=== PATIENT | female | born 1950 | race Caucasian/White ===

== ENCOUNTER 2024-05-16 18:57 | Emergency (ER) | payer BC, OTHER ==
[~2024-05-16] VITALS: Ht 162.6 cm; Wt 75.9 kg
[~2024-05-16 18:57] MED LIST: ADAL40KI2 SC; ALPR0.25 PO; BUSP15TA60 PO; CARI-277 PO; CLON0.5T3 PO; CYCL5TAB89 PO; DICL1.3P TOP; DULO60CA41 PO; ESOM40CA39 PO; FOLI-119 PO; FUR40T PO; HYDR-3547 PO; HYDR-4833 PO; HYDR50TA69 PO; IBUP-1454 PO; LEVO88TA4 PO; LIOT5TAB9 OR; LUBI8CAP4 PO; METH2.5T PO; OLAN5TAB2 OR; OMEP20CA74 PO; PRE5T PO; ROSU20TA14 PO; TRAZ50T PO; TRIA75TA55 PO; ZIPR80CA43 PO; ZOLP10TA6 PO
[2024-05-16 19:30] VITALS: PULSE 82; RESP 16; O2SAT 95
[2024-05-16] MEDS: SODIUM CHLORIDE 0.9% 1,000 ML IV ONE (19:30)
[2024-05-16 19:33] LABS: Basophils # (auto) 0 10 ^3/uL (0-0.2); Basophils % (auto) 0.4 % (0.0-2.0); Eosinophils # (auto) 0 10 ^3/uL (0-0.8); Lymphocytes # (auto) 0.8 10 ^3/uL (0.4-5.4); Monocytes # (auto) 0.4 10 ^3/uL (0-1.3); White Blood Cell 9.3 10^3/uL (4.4-10.8)
[2024-05-16 19:35] LABS: Eosinophils % (auto) 0.2 % (0.0-7.0); Hematocrit 32.5 % (36.0-46.0); Hemoglobin 10.5 g/dL (12.2-16.2); Lymphocytes % (auto) 8.8 % (10.0-50.0); Mean Corpuscular Hemoglobin 27.9 pg (28.0-32.0); Mean Corpuscular Hgb Conc. 32.3 g/dL (32.0-36.0); Mean Corpuscular Volume 86.5 fL (80.0-100.0); Monocytes % (auto) 4.6 % (0.0-12.0); Nucleated Red Blood Cells % 0.1 %; Red Blood Cells 3.76 10^6/uL (4.0-5.20); Red Cell Distribution Width 18.7 % (11.8-14.3)
[2024-05-16 19:49] LABS: Chloride 102 mmol/L (98-107); Potassium 3.1 mmol/L (3.5-5.1); Sodium 136 mmol/L (136-145)
[2024-05-16 19:50] LABS: Anion Gap 7 (5-15); Calcium 9.1 mg/dL (8.7-10.4); Carbon Dioxide 27 mmol/L (20-30)
[2024-05-16 19:55] LABS: BUN/Creatinine Ratio 18.1 (10.0-20.0); Blood Urea Nitrogen 15 mg/dL (9-23); Glucose 111 mg/dL (74-106)
[2024-05-16] MEDS: ONDANSETRON HCL 4 MG/2 ML VIAL IV ONE (20:09)
[2024-05-16] MEDS: MORPHINE SULFATE 4 MG/ML SYR/VIAL IV ONE (20:10)
[2024-05-16 22:52] LABS: Urine Bacteria None Seen /hpf (None Seen)
[2024-05-16 23:00] LABS: Urine Blood Negative /uL (Negative); Urine Clarity Clear (Clear); Urine Color Yellow (Yellow); Urine Hyaline Cast FEW /lpf (0 - 2); Urine Protein, UAD 1+ (Negative); Urine Specific Gravity 1.024 (1.001-1.035); Urine Urobilinogen Normal (Negative); Urine WBC 9 /hpf (0 - 5); Urine pH 6.5 (5.0-9.0)
[2024-05-16 23:19] LABS: Amphetamine Screen, Urine Neg (NEGATIVE); Barbiturate Scree,Urine Neg (NEGATIVE); Benzodiazephine Screen, Urine Neg (NEGATIVE); Cannabinoid Screen, Urine Neg (NEGATIVE); Cocaine Screen, Urine Neg (NEGATIVE); Opiate Scree,Urine Pos (NEGATIVE); Phencyclidine Screen, Urine Neg (NEGATIVE)
[2024-05-17] MEDS: MORPHINE SULFATE 4 MG/ML SYR/VIAL IV ONE (00:54)
[2024-05-17 01:28] VITALS: BP 139/58; PULSE 87; RESP 24; TEMP 98.5; O2SAT 96
== END 2024-05-17 02:01 | disposition short-term general hospital (02) ==
LOC: EDUNIT# 18:57 → ER 18:57 → EDBD 18:57 → ER 05-17 02:01
DX: M54.50 Low back pain, unspecified (principal); R53.1 Weakness; R26.2 Difficulty in walking, not elsewhere classified; I10 Essential (primary) hypertension; F41.9 Anxiety disorder, unspecified; F32.9 Major depressive disorder, single episode, unspecified; Z98.890 Other specified postprocedural states; Z88.0 Allergy status to penicillin; Z88.8 Allergy status to other drugs, medicaments and biological substances; Z79.899 Other long term (current) drug therapy
CPT/HCPCS: 36415; 72128; 72131; 80048; 80307; 81001; 85025; 96361; 96374; 96375; 96376; 99285; J2270; J2405; J7030

== ENCOUNTER 2024-09-22 22:32 | Inpatient (IN) | payer MEDICARE, MEDICAID ==
[~2024-09-22] VITALS: Ht 162.6 cm; Wt 83.3 kg
[2024-09-22 23:08] VITALS: PULSE 75; RESP 15; O2SAT 98
--- NOTE | 2024-09-22 23:26 | ED.PDOC ---
Altered Mental Status HPI Comments 73-year-old female presents to ED via [facility] from [facility] with a chief complaint of altered mental status. The patient is on multiple opioids, suspected that family is giving her narcotics. Patient has chronic back pain. Unable to obtain further information at this time due to altered ment al status. Brief report was given from [employer]. 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, Medications, Allergies Allergies: Coded Allergies: Aspirin (Verified Allergy, Unknown, 07/26/15) Codeine (Unverified Allergy, Unknown, 07/26/15) Penicillins (Verified Allergy, Unknown, 07/26/15) Home Meds Reported Medications Zolpidem Tartrate (Zolpidem Tartrate) 10 Mg Tab, 1 TAB PO HS, #30 TAB 2 Refills 07/26/15 Alprazolam (Xanax) 0.25 Mg Tb, 1 TAB PO DAILY, #30 TAB 07/26/15 Carisoprodol (Soma) 350 Mg Tab, 350 MG PO BID, TAB 07/26/15 Hydrocodone-Acetaminophen ([place] 5/325MG) 1 Tab Tb, 1 TAB PO TIDP PRN for MODE RATE PAIN, #90 TAB 07/26/15 Esomeprazole Magnesium Trihydr (Nexium) 40 Mg Cap, 1 CAP PO DAILY, #30 CAP 5 R efills 07/26/15 Levothyroxine Sodium (Levothyroxine Sodium) 88 Mcg Tab, 1 TAB PO QAM, #30 TAB 5 Refills 07/26/15 Adalimumab (Humira Pen) 40MG/0.8 Kit, 1 0.8 SC EOW, KIT 07/26/15 Ziprasidone Hydrochloride (Geodon) 80 Mg Cap, 1 CAP PO BID, #60 CAP 1 Refill 07/26/15 Cyclobenzaprine Hcl (Flexeril) 5 Mg Tab, 1 TAB PO TID, #90 TAB 07/26/15 Diclofenac Epolamine (Flector) 1.3 % Dis, 1 PATCH TOP BID, #60 PATCH 2 Refills 07/26/15 Clonazepam (KlonoPIN TABLET) 0.5 Mg Tb, 1 TAB PO BID, #60 TAB 1 Refill 07/26/15 Buspirone Hcl (Buspirone Hcl) 15 Mg Tab, 30 MG PO BID, TAB 07/26/15 Lubiprostone (Amitiza) 8 Mcg Cap, 1 CAP PO DAILY, #60 CAP 5 Refills 07/26/15 Trazodone Hcl (Desyrel) 50 Mg Tb, 100 MG PO TID 03/27/14 Prednisone (PREDNISONE) 5 Mg Tb, 5 MG PO DAILY 03/27/14 Furosemide (LASIX TABLET) 40 Mg Tb, 20 MG PO DAILY 03/27/14 Duloxetine Hcl (Cymbalta) 60 Mg Cap, 60 MG PO DAILY, CAP 03/27/14 Omeprazole (PRILOSEC) 20 Mg Cap, 40 MG PO DAILY, CAP 03/27/14 Methotrexate (Methotrexate) 2.5 Mg Tab, 2.5 MG PO, TAB TAKE 6 TABLETS EVERY WEEK 03/27/14 Rosuvastatin Calcium (Crestor) 20 Mg Tab, 20 MG PO HS, TAB 03/27/14 Folic Acid (Folic Acid) 1 Mg Tab, 1 MG PO DAILY, TAB 03/27/14 Hydroxyzine Hcl (Hydroxyzine Hcl) 50 Mg Tab, 25 MG PO TID, TAB 03/27/14 Triamterene & Hydrochlorothiaz (Maxzide) 1 Tab Tab, 1 TAB PO DAILY, TAB 37.5 - 25 03/27/14 Hydrocodone-Acetaminophen (VICODIN) 1 Tab Tab, 25 MG PO TID PRN for SEVERE PAIN, TAB 5/300MG TABLET 03/27/14 Ibuprofen (Ibuprofen) 600 Mg Tab, 600 MG PO TID, TAB 03/27/14 Olanzapine (Zyprexa) 5 Mg Tab, 15 MG OR HS 09/20/11 Liothyronine Sodium (Cytomel) 5 Mcg Tab, 5 MCG OR BID 09/20/11 Information Source: Emergency Med Personnel Mode of Arrival: EMS Severity: Unresponsive Timing: Days Duration: Since onset Prehospital treatment: None Quality: Decreased Alertness, Change in Behavior, Confusion Recent: Medication/Drug Abuse Past Medical History PAST MEDICAL HISTORY: Anxiety, Depression, HTN Surgical History: Denies all surgeries CHAIRMAN EMERITUS History: No Pertinent CHAIRMAN EMERITUS History Family History Family History: Reviewed,noncontributory to illness Social History Smoker: Non-Smoker Alcohol: Denies ETOH Use Drugs: Denies Drug Use Lives In: Home Constitutional: denies: chills, diaphoresis, fatigue, fever, malaise, sweats, weakness, others EENTM: denies: blurred vision, double vision, ear bleeding, ear discharge, ear drainage, ear pain, ear ringing, eye pain, eye redness, hearing loss, mouth pain, mouth swelling, nasal discharge, nose bleeding, nose congestion, nose pain, photophobia, tearing, throat pain, throat swelling, voice changes, others Respiratory: denies: cough, hemoptysis, orthopnea, SOB at rest, shortness of breath, SOB with excertion, stridor, wheezing, others Cardiovascular: denies: chest pain, dizzy spells, diaphoresis, Dyspnea on exertion, edema, irregular heart beat, left arm pain, lightheadedness, palpitations, PND, syncope, others Gastrointestinal: denies: abdomen distended, abdominal pain, blood streaked bowels, constipated, diarrhea, dysphagia, difficulty swallowing, hematemesis, melena, nausea, poor appetite, poor fluid intake, rectal bleeding, rectal pain, vomiting, others Genitourinary: denies: abnormal vagina bleeding, burning, dyspareunia, dysuria, flank pain, frequency, hematuria, incontinence, pain, , vagina discharge, urgency, others Neurological: denies: dizziness, fainting, headache, left sided numbness, left sided weakness, numbness, paresthesia, pre-existing deficit, right sided numbness, right sided weakness, seizure, speech problems, tingling, tremors, weakness, others Musculoskeletal: denies: back pain, gout, joint pain, joint swelling, muscle pain, muscle stiffness, neck pain, others Integumetry: denies: bruises, change in color, change in hair/nails, dryness, laceration, lesions, lumps, rash, wounds, others Allergic/Immunocompromised: denies: Difficulty Healing, Frequent Infections, Hives, Itching, others Hematologic/Lymphatic: denies: anemia, blood clots, easy bleeding, easy bruising, swollen glands, others Endocrine: denies: excessive hunger, excessive sweating, excessive thirst, excessive urination, flushing, intolerance to cold, intolerance to heat, unexplained weight gain, unexplained weight loss, others Psychiatric: denies: anxiety, bipolar disorder, depression, hopeless, panic disorder, schizophrenia, sleepless, suicidal, others Unable to Obtain due to: Altered Mental Status All Other Systems: Reviewed and Negative Physical Exam General Appearance: Mild Distress, Normal HEENT: Normal ENT Inspection, Pharynx Normal, TMs Normal Neck: Full Range of Motion, Non-Tender, Normal, Normal Inspection Respiratory: Chest Non-Tender, Lungs Clear, No Accessory Muscle Use, No Respiratory Distress, Normal Breath Sounds Cardiovascular: No Edema, No JVD, No Murmur, No Gallop, Normal Peripheral Pulses, Regular Rate/Rhythm Breast Exam: Deferred Gastrointestinal: No Organomegaly, Non Tender, No Pulsatile Mass, Normal Bowel Sounds, Soft Genitalia: Deferred Pelvic: Deferred Rectal: Deferred Extremities: No calf tenderness, Normal capillary refill, Normal inspection, Normal range of motion, Non-tender, No pedal edema Musculoskeletal : Apperance: Normal Neurologic: Alert, squad boss II-XII nml as Tested, No Motor Deficits, Normal Affect, Normal Mood, No Sensory Deficits Cerebellar Function: Normal Reflexes: Normal Skin: Dry, Normal Color, Warm Lymphatic: No Adenopathy Was a procedure done? Was a procedure done?: No Differential Diagnosis (ALOC) Differential Diagnosis: Dehydration, Hypoglycemia, Encephalopathy, Seizure, Closed Head Injury, CVA, Mass Lesion, Drug Overdose X-Ray, Labs, Meds, VS Vital Signs Date Time Temp Pulse Resp B/P (MAP) Pulse Ox O2 Delivery O2 Flow Rate FiO2 09/23/24 00:30 61 16 97/49 (65) 100 09/23/24 00:00 75 23 87/41 (56) 100 09/22/24 23:51 69 09/22/24 23:45 74 24 98/33 (54) 100 09/22/24 23:30 74 20 90/42 (58) 100 09/22/24 23:08 98.7 75 15 95/43 (60) 98 98.7 09/22/24 23:08 75 15 98 Room Air* 0 21 09/22/24 22:56 97.1 90 18 99/58 (72) 97 09/22/24 22:52 84 Lab Test 09/23/24 00:48 09/23/24 00:32 Range/Units White Blood Count 6.8 4.4-10.8 10^3/uL Red Blood Count 3.91 L 4.0-5.20 10^6/uL Hemoglobin 11.0 L 12.2-16.2 g/dL Hematocrit 35.1 L 36.0-46.0 % Mean Corpuscular Volume 89.9 80.0-100.0 fL Mean Corpuscular Hemoglobin 28.1 28.0-32.0 pg Mean Corpuscular Hemoglobin Concent 31.2 L 32.0-36.0 g/dL Red Cell Distribution Width 17.7 H 11.8-14.3 % Platelet Count 336 140-450 10^3/uL Mean Platelet Volume 8.4 6.9-10.8 fL Neutrophils (%) (Auto) 69.4 37.0-80.0 % Lymphocytes (%) (Auto) 22.9 10.0-50.0 % Monocytes (%) (Auto) 6.2 0.0-12.0 % Eosinophils (%) (Auto) 1.1 0.0-7.0 % Basophils (%) (Auto) 0.4 0.0-2.0 % Neutrophils # (Auto) 4.7 1.6-8.6 10 ^3/uL Lymphocytes # (Auto) 1.6 0.4-5.4 10 ^3/uL Monocytes # (Auto) 0.4 0-1.3 10 ^3/uL Eosinophils # (Auto) 0.1 0-0.8 10 ^3/uL Basophils # (Auto) 0 0-0.2 10 ^3/uL Nucleated Red Blood Cells 0.1 % Prothrombin Time Pending Prothrombin Time INR Pending Activated Partial Thromboplast Time Pending Sodium Level 135 L 136-145 mmol/L Potassium Level 3.4 L 3.5-5.1 mmol/L Chloride Level 97 L 98-107 mmol/L Carbon Dioxide Level 30 20-31 mmol/L Anion Gap 8 5-15 Blood Urea Nitrogen Pending Creatinine 0.51 L 0.550-1.02 mg/dL Glomerular Filtration Rate Calc 98 >90 mL/min BUN/Creatinine Ratio Pending Serum Glucose 102 74-106 mg/dL Lactic Acid Level 1.3 0.4-2.0 mmol/L Calcium Level 9.5 8.7-10.4 mg/dL Total Bilirubin 0.2 0.2-1.0 mg/dL Aspartate Amino Transferase (AST) 19 13-40 U/L Alanine Aminotransferase (ALT) < 9 7-40 U/L Alkaline Phosphatase 75 46-116 U/L Troponin I High Sensitivity 2673 *H </=34 ng/L Total Protein 6.3 5.7-8.2 g/dL Albumin 3.3 3.2-4.8 g/dL Plasma/Serum Blood Alcohol Pending POC Glucose 93 70-106 mg/dl Current Medications Medications (Trade) Dose Ordered Sig/Lydia Route Start Time Stop Time Status Last Admin Naloxone HCl (Narcan) 0.4 mg ONCE ONCE IV 09/22/24 23:30 09/22/24 23:31 DC 09/22/24 23:55 Sodium Chloride 1,000 ml @ 150 mls/hr Q6H40M ONCE IV 09/22/24 23:30 09/23/24 06:09 09/22/24 23:55 Ceftriaxone Sodium 50 ml @ 100 mls/hr ONCE ONCE IV 09/22/24 23:30 09/22/24 23:59 DC 09/22/24 23:55 Sodium Chloride 1,000 ml @ 1,000 mls/hr Q1H ONCE IV 09/23/24 01:15 09/23/24 02:14 09/23/24 01:18 PATIENT: MARJORIE VERGARAACCT: [id number]: [id number] : 1950 LOC: ER ROOM / BED: / AGE / SEX: 73 / F ADM STATUS: REG ER SERVICE 24 ORDERING PHYSICIAN: ZECHARIAH MAI MD PROCEDURE(s): HWOCT - HEAD WITHOUT CONTRAST REASON: aloc ORDER NUMBER(s): [id number], ACCESSION NUMBER(s): [id number] CT HEAD WITHOUT CONTRAST INDICATION: aloc EXAM DATE: 09/23/2024 12:07 AM COMPARISON: CT LS SPINE WO CONTRAST on DOS: 05/16/24 RADIATION DOSE: CTDIvol: 54.17 mGy, DLP: 976.85 mGy*cm PROCEDURE: CT scans of the head were obtained from the vertex to the skull base. Sagittal and coronal reconstructions were provided. All CT scans at this medical facility are performed using dose modulation techniques as appropriate to a performed exam including the following: Automated exposure control was utilized; adjustment of the MA and/or KV according to patient size; and use of iterative reconstruction technique. FINDINGS: There is sulcal and ventricular prominence. The brainshows normal morphology and cramer-white matter differentiation, without intracranial hemorrhage, extra-axial fluid collection, mass effect or acute large vessel infarct. The ventricles are normal in size. The basal cisterns are patent. The skull and visible facial bones are intact. The paranasal sinuses, mastoid air cells and middle ear cavities are well-aerated. Left parietal bone outer table well demarcated sclerotic lesion measuring 4 cm. IMPRESSION: No acute intracranial abnormality. Left parietal bone outer table well demarcated sclerotic lesion measuring 4 cm. This is most likely benign but can be further evaluated nonemergent MRI. ATED BY: ROSELYN ZAYAS DO DICTATED DATE/TIME: 09/23/2428 SIGNED BY: ROSELYN ZAYAS DO SIGNED DATE/TIME: 09/23/2428 PATIENT: MARJORIE VERGARAACCT: [id number] UNIT: [id number] : 1950 LOC: ER ROOM / BED: / AGE / SEX: 73 / F ADM STATUS: REG ER SERVICE 24 ORDERING PHYSICIAN: ZECHARIAH MAI MD PROCEDURE(s): CXRP - CHEST PORTABLE REASON: aloc ORDER NUMBER(s): [id number], ACCESSION NUMBER(s): [id number] CHEST RADIOGRAPH Indication: aloc Technique: Single frontal view of the chest was obtained Comparison: None Findings/ IMPRESSION: No active cardiopulmonary disease. Partially visualized thoracolumbar fixation hardware. Patient was given Narcan and was oriented x4. DICTATED BY: ROSELYN ZAYAS DO DICTATED DATE/TIME: 09/23/2423 SIGNED BY: ROSELYN ZAYAS DO SIGNED DATE/TIME: 09/23/2423 Hemoglobin is 11. Chemistries within normal limits. First troponin 2673. The patient was placed on a heparin drip. She was recommended by Dr. walker. she was to reports to [facility] for cardiac catheterization. She was also not altered upon arrival. She was given Narcan in was totally a week afterwards. The patient will be admitted to the hospitalist for further evaluation and care. Time of 1ST Reevaluation: 23:53 Reevaluation 1ST: Unchanged Patient Education/Counseling: Diagnosis, Treatment, Prognosis Family Education/Counseling: No Family Present Departure 1 Departure Time of Disposition: 01:48 Impression: Primary Impression: Altered mental status Qualified Codes: R41.82 - Altered mental status, unspecified Additional Impressions: Metabolic encephalopathy Substance abuse Non-STEMI (non-ST elevated myocardial infarction) Disposition: 09 ADMITTED INPATIENT Admit to: Tele Condition: Guarded Critical Care Note Critical Care Time?: Yes (45 min-critical care time only) Stability Stability form required: No I personally scribed for ZECHARIAH MAI MD ([email or web address]) on 09/22/24 at 23:26. Electronically submitted by Isreal Forte ([email or web address]). I personally scribed for ZECHARIAH MAI MD ([email or web address]) on 09/23/24 at 01:21. Electronically submitted by Isreal Forte ([email or web address]). ZECHARIAH MAI MD Sep 22, 2024 23:26
[2024-09-22] MEDS: SODIUM CHLORIDE 0.9% 1,000 ML IV ONE (23:55)
[2024-09-22] MEDS: cefTRIAXone 1GM/50ML D5W 50 ML IV ONE (23:55)
[2024-09-22] MEDS: NALOXONE HCL 0.4 MG/ML VIAL IV ONE (23:55)
[2024-09-23] VITALS (8 sets, daily range): BP systolic 86–102; BP diastolic 43–57; PULSE 63–85; RESP 16–19; TEMP 97.7–98.7; O2SAT 96–100
--- NOTE | 2024-09-23 00:26 | DVH ---
CHEST RADIOGRAPH Indication: aloc Technique: Single frontal view of the chest was obtained Comparison: None Findings/ IMPRESSION: No active cardiopulmonary disease. Partially visualized thoracolumbar fixation hardware.
[2024-09-23] MEDS: HEPARIN SODIUM (PORCINE) 5000 UNITS/ML 1ML VIAL IV ONE ×3 (00:30→15:13)
--- NOTE | 2024-09-23 00:32 | DVH ---
CT HEAD WITHOUT CONTRAST INDICATION: aloc EXAM DATE: 09/23/2024 12:07 AM COMPARISON: CT LS SPINE WO CONTRAST on DOS: 05/16/24 RADIATION DOSE: CTDIvol: 54.17 mGy, DLP: 976.85 mGy*cm PROCEDURE: CT scans of the head were obtained from the vertex to the skull base. Sagittal and coronal reconstructions were provided. All CT scans at this medical facility are performed using dose modulation techniques as appropriate t o a performed exam including the following: Automated exposure control was utilized; adjustment of th e MA and/or KV according to patient size; and use of iterative reconstruction technique. FINDINGS: There is sulcal and ventricular prominence. The brainshows normal morphology and cramer-whi te matter differentiation, without intracranial hemorrhage, extra-axial fluid collection, mass effect or acute large vessel infarct. The ventricles are normal in size. The basal cisterns are patent. The skull and visible facial bones are intact. The paranasal sinuses, mastoid air cells and middle ear c avities are well-aerated. Left parietal bone outer table well demarcated sclerotic lesion measuring 4 cm. IMPRESSION: No acute intracranial abnormality. Left parietal bone outer table well demarcated sclerotic lesion me asuring 4 cm. This is most likely benign but can be further evaluated nonemergent MRI.
[2024-09-23 01:04] LABS: Basophils # (auto) 0 10 ^3/uL (0-0.2); Eosinophils # (auto) 0.1 10 ^3/uL (0-0.8); Monocytes # (auto) 0.4 10 ^3/uL (0-1.3); Neutrophils # (auto) 4.7 10 ^3/uL (1.6-8.6); Nucleated Red Blood Cells % 0.1 %
[2024-09-23 01:06] LABS: Basophils % (auto) 0.4 % (0.0-2.0); Eosinophils % (auto) 1.1 % (0.0-7.0); Hematocrit 35.1 % (36.0-46.0); Lymphocytes # (auto) 1.6 10 ^3/uL (0.4-5.4); Lymphocytes % (auto) 22.9 % (10.0-50.0); Mean Corpuscular Hemoglobin 28.1 pg (28.0-32.0); Mean Corpuscular Hgb Conc. 31.2 g/dL (32.0-36.0); Mean Corpuscular Volume 89.9 fL (80.0-100.0); Monocytes % (auto) 6.2 % (0.0-12.0); Neutrophils % (auto) 69.4 % (37.0-80.0); Platelet Count (auto) 336 10^3/uL (140-450); Red Blood Cells 3.91 10^6/uL (4.0-5.20); Red Cell Distribution Width 17.7 % (11.8-14.3); White Blood Cell 6.8 10^3/uL (4.4-10.8)
[2024-09-23] MEDS: SODIUM CHLORIDE 0.9% 1,000 ML IV ONE ×3 (01:18→04:21)
[2024-09-23 01:26] LABS: Albumin 3.3 g/dL (3.2-4.8); Alkaline Phosphatase 75 U/L (46-116); Anion Gap 8 (5-15); Aspartate Aminotransferase 19 U/L (13-40); Calcium 9.5 mg/dL (8.7-10.4); Carbon Dioxide 30 mmol/L (20-31); Glucose 102 mg/dL (74-106); Total Protein 6.3 g/dL (5.7-8.2)
[2024-09-23 01:35] LABS: Alanine Aminotransferase < 9 U/L (7-40); Bilirubin, Total 0.2 mg/dL (0.2-1.0); Chloride 97 mmol/L (98-107); Potassium 3.4 mmol/L (3.5-5.1); Sodium 135 mmol/L (136-145)
[2024-09-23 01:45] LABS: BUN/Creatinine Ratio 21.6 (10.0-20.0); Blood Urea Nitrogen 11 mg/dL (9-23)
[2024-09-23] MEDS: ACETAMINOPHEN 325 MG TAB PO ONE (01:49)
[2024-09-23 02:00] LABS: INR 1.04 (0.9-1.15); Partial Thromboplastin Time 30.4 SEC (24.5-34.5)
[2024-09-23 02:18] LABS: Blood Alcohol < 3.0 mg/dL (<10)
[2024-09-23] MEDS: HEPARIN DRIP/D5W 100UNITS/ML 250 ML IV SCH ×3 (03:18→23:11)
[2024-09-23] MEDS: CEFEPIME 1GM/ 50ML 50 ML IV ONE (03:45)
[2024-09-23] MEDS ORDERED: VANCOMYCIN PER PHARMACY 0 MG IV SCH (03:45)
[2024-09-23] MEDS: MORPHINE SULFATE INJ 2 MG/ml SYRG IV ONE (04:31)
--- NOTE | 2024-09-23 04:31 | DVHHPRES ---
History of Present Illness Resident Creating Document: SHARLENECaseyCaseyAUSTIN RESIDENT History of Present Illness Patient is 73 y/o female was brought to the ED from [facility] for NSTEMI. Patient lived in a nursing care facility at [place] from where she was transferred to [facility] today for altered level of consciousness, where she was diagnosed with NSTEMI and was transferred to [facility]. Patient is alert and oriented to time, place and person but reports fogginess when she reports the history. she reports that in january 2024 she underwent a back surgery for back pain and fused vertebrae following which she used a walker for mobility. About 2 months after the surgery, she had weakness in her lower limbs and was eventually not able to walk. She reports to be bedridden for the last few months with multiple hospital visits and reports having a sacral ulcer which is not healing. Past medical history: HTN, ?CO in the past, Hypothyroidism, GERD, H/o cervical cancer. patient reported feeling foggy and could not provide her complete past medical history Past surgical history: hysterectomy with B/L salpingoophrectomy, Back surgery Social history: reports to be living alone at home in [place], for last 3 weeks she reports to be living at [facility], denies smoking, alcohol, drug use Home medications: from the med. records - triamterene-HCTZ 37.5/25mg Qd, omeprazole 40mg qd, lamotrigine 100mg qd, levothyroxine 100mcg Review of Systems Review of Systems patient is seen and examined at bedside Alert and oriented to time, place and person patient is confused and tells that her mind is foggy [id number] Has back pain and inability to move her legs Denies chest pain, shortness of breath, palpitations, Nausea/Vomiting/Diarrhoea On arrival to the ED patient had low blood pressure and tachypnoea Allergies: Coded Allergies: Aspirin (Verified Allergy, Unknown, 07/26/15) Codeine (Unverified Allergy, Unknown, 07/26/15) Penicillins (Verified Allergy, Unknown, 07/26/15) Exam Vital Signs Vital Signs Date Time Temp Pulse Resp B/P (MAP) Pulse Ox O2 Delivery O2 Flow Rate FiO2 09/23/24 02:30 78 16 112/51 (71) 100 09/22/24 23:08 98.7 98.7 09/22/24 23:08 Room Air* 0 21 Exam Gen - patient is weak and is not able to move in bed without support, confused no pallor, no icterus, no cyanosis, no clubbing, no LAD, no edema . Skin - Patients skin is warm and dry. HEENT - normocephalic, atraumatic, dry mucous membranes. Neck - full ROM, no LAD, no JVD Pulmonary - B/L vesicular breath sounds. no crackles , no wheezing, no stridor. cardiovascular - normal S1,S2 heard. no murmurs heard. peripheral pulses normal radial 2+, pedal 2+. capillary refill normal <2 secs. GI - soft abdomen without tenderness to palpation. no hepatospleenomegaly. Bowel sounds normoactive Neurological - Patient is A/O X 3 . Bilateral upper extremity strength 3/5, bilateral lower extremity strength 2/5, no facial droop, speech comprehensible, no tremor, no sensory deficiets. Extremities- left foot drop, right foot stiffness at ankle. Sacrum- 2X1 cm wound stage2/3 Upper back - stage 1 wound 3X3 cm with skin intact Labs/Xrays Labs Test 09/23/24 03:44 09/23/24 00:48 09/23/24 00:32 Range/Units White Blood Count 6.8 4.4-10.8 10^3/uL Red Blood Count 3.91 L 4.0-5.20 10^6/uL Hemoglobin 11.0 L 12.2-16.2 g/dL Hematocrit 35.1 L 36.0-46.0 % Mean Corpuscular Volume 89.9 80.0-100.0 fL Mean Corpuscular Hemoglobin 28.1 28.0-32.0 pg Mean Corpuscular Hemoglobin Concent 31.2 L 32.0-36.0 g/dL Red Cell Distribution Width 17.7 H 11.8-14.3 % Platelet Count 336 140-450 10^3/uL Mean Platelet Volume 8.4 6.9-10.8 fL Neutrophils (%) (Auto) 69.4 37.0-80.0 % Lymphocytes (%) (Auto) 22.9 10.0-50.0 % Monocytes (%) (Auto) 6.2 0.0-12.0 % Eosinophils (%) (Auto) 1.1 0.0-7.0 % Basophils (%) (Auto) 0.4 0.0-2.0 % Neutrophils # (Auto) 4.7 1.6-8.6 10 ^3/uL Lymphocytes # (Auto) 1.6 0.4-5.4 10 ^3/uL Monocytes # (Auto) 0.4 0-1.3 10 ^3/uL Eosinophils # (Auto) 0.1 0-0.8 10 ^3/uL Basophils # (Auto) 0 0-0.2 10 ^3/uL Nucleated Red Blood Cells 0.1 % Prothrombin Time 11.0 9.3-11.8 sec Prothrombin Time INR 1.04 0.9-1.15 Activated Partial Thromboplast Time 30.4 24.5-34.5 SEC Sodium Level 135 L 136-145 mmol/L Potassium Level 3.4 L 3.5-5.1 mmol/L Chloride Level 97 L 98-107 mmol/L Carbon Dioxide Level 30 20-31 mmol/L Anion Gap 8 5-15 Blood Urea Nitrogen 11 9-23 mg/dL Creatinine 0.51 L 0.550-1.02 mg/dL Glomerular Filtration Rate Calc 98 >90 mL/min BUN/Creatinine Ratio 21.6 H 10.0-20.0 Serum Glucose 102 74-106 mg/dL Lactic Acid Level 1.3 0.4-2.0 mmol/L Calcium Level 9.5 8.7-10.4 mg/dL Total Bilirubin 0.2 0.2-1.0 mg/dL Aspartate Amino Transferase (AST) 19 13-40 U/L Alanine Aminotransferase (ALT) < 9 7-40 U/L Alkaline Phosphatase 75 46-116 U/L Total Protein 6.3 5.7-8.2 g/dL Albumin 3.3 3.2-4.8 g/dL Plasma/Serum Blood Alcohol < 3.0 <10 mg/dL POC Glucose 93 70-106 mg/dl Assessment/Plan Assessment/Plan Assessment and plan # NSTEMI, likely type 2 # ?PE - troponin elevated, trending down 2600-->2400 - 12 lead EKG shows no evidence of acute ischaemia - on plavix and atorvastatin - ddimer pending - B/L lower ext. DVT pending - cardiology consult pending # Acute hypoxic respiratory failure # Acute metabolic encephalopathy # Sepsis, source of infection unknown # Sacral wound ?osteomyelitis - wound culture pending - blood culture pending - urinalysis and urine culture pending - Covid and flu pending - urine drug screen pending - on IV fluids - empiric Vancomycin + cefepime IV # H/o Hypothyroidism - TSH lower limit of normal - Levothyroxine held # Hypokalemia - replenished DVT prophylaxis: 40mg enoxaparin sc daily PUD prophylaxis: 20mg famotidine po Goals of care discussed with the patient for over 31 mins. Plan discussed with Plan discussed with: Patient, Other (RN ( Pipo )) My Orders Orders - AUSTIN CORRIGAN RESIDENT Procedure Category Date Status Time Admit ADMIT 09/23/24 Transmitted 03:39 Nitroglycerin PHA 09/23/24 Transmitted Sublingual (Ntrostat 03:45 Morphine Sulfate PHA 09/23/24 Transmitted Injection 03:45 Oxygen By Nasal RT 09/23/24 Transmitted Cannula 03:39 Lead Javascript Engineer For CELE 09/23/24 Transmitted 24 Hours 03:39 NS PHA 09/23/24 Transmitted 03:45 Vancomycin Per PHA 09/23/24 Transmitted Pharmacy 03:45 Cefepime 1 Gm PHA 09/23/24 Transmitted 03:45 Blood Culture JUAN C 09/23/24 Transmitted 03:39 Mrsa Screen JUAN C 09/23/24 Transmitted 03:39 Covid19 Antigen Jacqueline LAB 09/23/24 Transmitted Rapid Influenza A&B LAB 09/23/24 Transmitted 03:39 Wound Culture W/ Gs JUAN C 09/23/24 Transmitted 03:39 Clopidogrel Bisulfate PHA 09/23/24 Transmitted (Plavix) 03:45 Atorvastatin (Lipitor) PHA 09/23/24 Transmitted 03:45 Thyroid Stimulating LAB 09/23/24 Transmitted Hormone 03:39 Vitamin B12 LAB 09/23/24 Transmitted 03:39 Vitamin D, 25-Hydroxy LAB 09/23/24 Transmitted 03:39 Drug Screen LAB 09/23/24 Transmitted 03:39 Blood Alcohol LAB 09/23/24 Transmitted 03:39 * Cardiology Consult CONS 09/23/24 Transmitted 03:39 Magnesium LAB 09/23/24 Transmitted 03:39 Lipid Panel LAB 09/23/24 Transmitted 03:39 Famotidine Injection PHA 09/23/24 Transmitted (Pepcid Injection) 03:45 Famotidine Tablet PHA 09/23/24 Transmitted (Pepcid Tablet) 10:00 * Swallow Request ST 09/23/24 Transmitted 03:39 Date of Service: Sep 23, 2024 Billing Provider: JIMMIE JARQUIN MD Common Visit Codes: [id number] INP/OBS CARE (HIGH) Secondary Visit Codes: [id number] CARE PLAN 30 MINUTES AUSTIN CORRIGAN RESIDENT Sep 23, 2024 04:31 JIMMIE JARQUIN MD Sep 23, 2024 19:23
[2024-09-23 04:41] LABS: Urine Amorphous Crystal FEW /hpf (None Seen); Urine Bacteria MANY /hpf (None Seen); Urine Blood TRACE /uL (Negative); Urine Clarity Ex.Turbid (Clear); Urine Color Light-Orange (Yellow); Urine Mucus FEW (None Seen); Urine Protein, UAD 1+ (Negative); Urine Specific Gravity 1.046 (1.001-1.035); Urine Squamous Epithelial Cell FEW /hpf (<5); Urine Urobilinogen Normal (Negative); Urine WBC 128 /hpf (0 - 5); Urine WBC Clumps PRESENT /hpf (None Seen)
[2024-09-23 04:45] LABS: Amphetamine Screen, Urine Neg (NEGATIVE); Barbiturate Scree,Urine Neg (NEGATIVE); Benzodiazephine Screen, Urine Neg (NEGATIVE); Cocaine Screen, Urine Neg (NEGATIVE); Phencyclidine Screen, Urine Neg (NEGATIVE)
[2024-09-23 04:46] LABS: Cannabinoid Screen, Urine Neg (NEGATIVE); Opiate Scree,Urine Pos (NEGATIVE)
[2024-09-23] MEDS: ATORVASTATIN 20 MG TAB PO ONE (04:52)
[2024-09-23] MEDS: CLOPIDOGREL BISULFATE 75 MG TAB PO ONE (04:53)
[2024-09-23] MEDS: VANCOMYCIN 1GM/250ML KIT 250 ML IV ONE (04:54)
[2024-09-23] MEDS: FAMOTIDINE (10MG/ML) 2ML VL IV ONE (05:02)
[2024-09-23 05:03] LABS: Magnesium 1.6 mg/dL (1.6-2.6); Triglycerides 69 mg/dL (< 150)
[2024-09-23 05:04] LABS: LDL Cholesterol 81 mg/dL (< 100)
[2024-09-23 05:05] LABS: Blood Alcohol < 3.0 mg/dL (<10); Cholesterol 134 mg/dL (< 200)
[2024-09-23 05:10] LABS: HDL Cholesterol 34 mg/dL (40-59)
[2024-09-23] MEDS: IOHEXOL 350 MG/ML 100ML IJ ONE ×2 (05:32→09:29)
[2024-09-23 06:11] LABS: Rapid Influenza A Negative (Negative); Rapid Influenza B Negative (Negative)
[2024-09-23 06:12] LABS: COVID19 ANTIGEN SOFIA FIA NEGATIVE (NEGATIVE)
[2024-09-23] MEDS: VANCOMYCIN 1GM/250ML KIT 125 ML IV ONE (06:30)
[2024-09-23 08:12] LABS: Alkaline Phosphatase 63 U/L (46-116); Anion Gap 6 (5-15); Aspartate Aminotransferase 18 U/L (13-40); BUN/Creatinine Ratio 26.1 (10.0-20.0); Blood Urea Nitrogen 12 mg/dL (9-23); Carbon Dioxide 29 mmol/L (20-31); Chloride 102 mmol/L (98-107); Glucose 94 mg/dL (74-106); Magnesium 1.7 mg/dL (1.6-2.6); Phosphorus 2.7 mg/dL (2.4-5.1); Sodium 137 mmol/L (136-145)
[2024-09-23 08:13] LABS: Alanine Aminotransferase < 9 U/L (7-40); Albumin 2.7 g/dL (3.2-4.8); Bilirubin, Total < 0.2 mg/dL (0.2-1.0); Calcium 8.5 mg/dL (8.7-10.4); Potassium 3.3 mmol/L (3.5-5.1); Total Protein 5.3 g/dL (5.7-8.2)
[2024-09-23] MEDS ORDERED: FAMOTIDINE 20 MG TAB PO SCH (10:00)
[2024-09-23] MEDS: lamoTRIgine 100 MG TAB PO SCH (10:06)
[2024-09-23] MEDS: FAMOTIDINE 20 MG TAB PO SCH (10:07)
[2024-09-23] MEDS: MAGNESIUM SULFATE 1GM/100ML 100 ML IV ONE (10:08)
[2024-09-23] MEDS: ENOXAPARIN SOD 40 MG/0.4 ML SYRINGE SC SCH (10:08)
--- NOTE | 2024-09-23 10:29 | DVH ---
CTA Chest with intravenous contrast INDICATION: rule out PE COMPARISON: None TECHNIQUE: Multidetector spiral CTA of the chest was performed of the chest with intravenous contrast . PULMONARY ANGIOGRAPHY PROTOCOL was utilized using a bolus-tracking technique centered on the main p ulmonary artery. Axial, coronal and sagittal multiplanar and MIP reformats were performed. CONTRAST: Type of contrast: Omni 350 Contrast injected: 100 ml Radiation dose : Chest: CTDI volume is 29 mGy. Dose-length product is 405.14 mGy*cm The dose indicators for CT are the volume computed Tomography (CT) dose Index (CTDIvol) and the dose Length product (DLP), and are measured in units of mGy and mGy-cm, respectively. These indicators are not patient dose, but values generated from the CT scanner acquisition factors. The report includes radiation exposure data for exposures received during this examination. Findings: Pulmonary artery: No pulmonary embolism Lower neck: Calcified nodule in the left thyroid Lungs: Small bilateral pleural effusions with associated patchy atelectasis and consolidation in the lung bases. Mild nodular airspace disease in the right upper lung. Left lower lobe nodule measuring up to 6 mm. Heart/Vascular Structures: Normal heart size. No pericardial effusion. Lymph Nodes: Mildly prominent bilateral axillary lymph nodes measuring up to 10 mm in short axis. Pleura: Small bilateral pleural effusions as above Musculoskeletal: Degenerative and postsurgical changes. Severe compression deformity of a mid thoraci c vertebral body just above the last fused segment. Soft tissues: Normal. Upper abdomen: Limited portions of the upper abdomen are unremarkable. IMPRESSION: 1. No pulmonary embolism. 2. Small bilateral pleural effusions with associated patchy atelectasis and consolidation in the lung bases. Nodular airspace disease right upper lung. Left lower lobe nodule. Recommend clinical juan elation and continued follow-up to resolution. 3. Nonspecific bilateral axillary lymphadenopathy. Severe compression deformity of a midthoracic vert ebral body just above the last fused segment. Consider further evaluation with MRI of the thoracic s pine. HS:Y
--- NOTE | 2024-09-23 10:45 | ECG ---
[facility] Test Date: 2024-09-22 Test Time: 22:52:13 Pat Name: MARJORIE VERGARA Department: ED Room: 0209T A Gender: F Director Music: JOANA : 1950 Requested By: ZECHARIAH MAI Order Number: [id number] Reading MD: Jalen Jacinto Measurements Intervals [place] Rate: 84 P: 0 [place]: 0 QRS: 71 QRSD: 118 T: 80 QT: 401 QTc: 475 Interpretive Statements Accelerated junctional rhythm Nonspecific intraventricular conduction delay Electronically Signed On 09-26-2024 10:22:08 PST by Jalen Jacinto Please click the below link to view image of tracing.
--- NOTE | 2024-09-23 10:45 | ECG ---
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
--- NOTE | 2024-09-23 10:45 | ECG ---
[facility] Test Date: 2024-09-22 Test Time: 23:51:27 Pat Name: MARJORIE VERGARA Department: ER Room: 0209T A Gender: F Director Of Strategic Sourcing: JOANA : 1950 Requested By: ZECHARIAH MAI Order Number: [id number] Reading MD: Jalen Jacinto Measurements Intervals [place] Rate: 69 P: 0 [place]: 0 QRS: 60 QRSD: 102 T: 86 QT: 442 QTc: 474 Interpretive Statements Atrial flutter with predominant 4:1 AV block Borderline low voltage, extremity leads Electronically Signed On 09-26-2024 10:22:16 PST by Jalen Jacinto Please click the below link to view image of tracing.
--- NOTE | 2024-09-23 10:57 | DVHCONRES ---
Date Seen: Sep 23, 2024 Resident Creating Document: VLADISLAV KEEN RESIDENT Reason for Consultation Elevated troponins History of Present Illness MARJORIE VERGARA is a 73-year-old female with a PMH of HTN, ? CAD, hypothyroidism, GERD, cervical cancer presented to the ED from [facility] for evaluation of NSTEMI. Currently patient is residing at nursing facility at [place], due altered mental status patient was sent to [facility], where the diagnosed as NSTEMI and transferred to this facility. Patient reported constant chest pain which is diffuse, constant, aggravated by deep breathing . Patient is poor historian, spoke with next of kin, she does not have complete history of the patient. Patient reported in January 2024 he underwent lower back surgery for back pain, fused vertebra, for last 2 months patient has been weakness in her lower limbs and unable to ambulate and bedridden. Patient denies recent fever, nausea, vomiting, chills, diaphoresis, palpitations, and other acute associated symptoms. Past Medical History HTN, ? CAD, hypothyroidism, GERD, cervical cancer Past Surgical History hysterectomy with B/L salpingoophrectomy, Back surgery Family History: Family history: Suicide (situation) (MOTHER ) Family History Reviewed, noncontributory Social History Lives in [facility]. Denies smoking, alcohol and other drug abuse Allergies: Coded Allergies: Aspirin (Verified Allergy, Unknown, 07/26/15) Codeine (Unverified Allergy, Unknown, 07/26/15) Penicillins (Verified Allergy, Unknown, 07/26/15) Home Meds Reported Medications Zolpidem Tartrate (Zolpidem Tartrate) 10 Mg Tab, 1 TAB PO HS, #30 TAB 2 Refills 07/26/15 Alprazolam (Xanax) 0.25 Mg Tb, 1 TAB PO DAILY, #30 TAB 07/26/15 Carisoprodol (Soma) 350 Mg Tab, 350 MG PO BID, TAB 07/26/15 Hydrocodone-Acetaminophen (Villanova 5/325MG) 1 Tab Tb, 1 TAB PO TIDP PRN for MODERATE PAIN, #90 TAB 07/26/15 Esomeprazole Magnesium Trihydr (Nexium) 40 Mg Cap, 1 CAP PO DAILY, #30 CAP 5 Refills 07/26/15 Levothyroxine Sodium (Levothyroxine Sodium) 88 Mcg Tab, 1 TAB PO QAM, #30 TAB 5 Refills 07/26/15 Adalimumab (Humira Pen) 40MG/0.8 Kit, 1 0.8 SC EOW, KIT 07/26/15 Ziprasidone Hydrochloride (Geodon) 80 Mg Cap, 1 CAP PO BID, #60 CAP 1 Refill 07/26/15 Cyclobenzaprine Hcl (Flexeril) 5 Mg Tab, 1 TAB PO TID, #90 TAB 07/26/15 Diclofenac Epolamine (Flector) 1.3 % Dis, 1 PATCH TOP BID, #60 PATCH 2 Refills 07/26/15 Clonazepam (KlonoPIN TABLET) 0.5 Mg Tb, 1 TAB PO BID, #60 TAB 1 Refill 07/26/15 Buspirone Hcl (Buspirone Hcl) 15 Mg Tab, 30 MG PO BID, TAB 07/26/15 Lubiprostone (Amitiza) 8 Mcg Cap, 1 CAP PO DAILY, #60 CAP 5 Refills 07/26/15 Trazodone Hcl (Desyrel) 50 Mg Tb, 100 MG PO TID 03/27/14 Prednisone (PREDNISONE) 5 Mg Tb, 5 MG PO DAILY 03/27/14 Furosemide (LASIX TABLET) 40 Mg Tb, 20 MG PO DAILY 03/27/14 Duloxetine Hcl (Cymbalta) 60 Mg Cap, 60 MG PO DAILY, CAP 03/27/14 Omeprazole (PRILOSEC) 20 Mg Cap, 40 MG PO DAILY, CAP 03/27/14 Methotrexate (Methotrexate) 2.5 Mg Tab, 2.5 MG PO, TAB TAKE 6 TABLETS EVERY WEEK 03/27/14 Rosuvastatin Calcium (Crestor) 20 Mg Tab, 20 MG PO HS, TAB 03/27/14 Folic Acid (Folic Acid) 1 Mg Tab, 1 MG PO DAILY, TAB 03/27/14 Hydroxyzine Hcl (Hydroxyzine Hcl) 50 Mg Tab, 25 MG PO TID, TAB 03/27/14 Triamterene & Hydrochlorothiaz (Maxzide) 1 Tab Tab, 1 TAB PO DAILY, TAB 37.5 - 25 03/27/14 Hydrocodone-Acetaminophen (VICODIN) 1 Tab Tab, 25 MG PO TID PRN for SEVERE PAIN, TAB 5/300MG TABLET 03/27/14 Ibuprofen (Ibuprofen) 600 Mg Tab, 600 MG PO TID, TAB 03/27/14 Olanzapine (Zyprexa) 5 Mg Tab, 15 MG OR HS 09/20/11 Liothyronine Sodium (Cytomel) 5 Mcg Tab, 5 MCG OR BID 09/20/11 Current Medications Current Medications Medications (Trade) Dose Ordered Sig/Lydia Route PRN Reason Start Time Stop Time Status Last Admin Heparin Sodium/ Dextrose 250 ml @ 8 mls/hr Q24H IV 09/23/24 03:30 09/23/24 03:55 DC 09/23/24 03:18 Nitroglycerin (Ntrostat Sublingual) 0.4 mg Q5MINP PRN SL FOR CHEST PAIN 09/23/24 03:45 Morphine Sulfate 2 mg Q30M PRN IV FOR CHEST PAIN 09/23/24 03:45 Vancomycin HCl 0 ml @ 0 mls/hr UD IV 09/23/24 03:45 Famotidine (Pepcid Tablet) 20 mg DAILY PO 09/23/24 10:00 Cefepime HCl 50 ml @ 12.5 mls/hr Q12H IV 09/23/24 16:00 Clopidogrel Bisulfate (Plavix) 75 mg DAILY PO 09/24/24 10:00 Enoxaparin Sodium (Lovenox) 40 mg DAILY SC 09/23/24 10:00 Famotidine (Pepcid Tablet) 20 mg DAILY PO 09/23/24 10:00 09/23/24 09:32 DC Lamotrigine (LaMICtal TABLET) 100 mg DAILY PO 09/23/24 10:00 Vancomycin HCl 250 ml @ 200 mls/hr Q12H IV 09/23/24 17:00 Review of Systems Seen and examined at the bedside. Patient reported mild chest pain. Vital Signs Vital Signs Date Time Temp Pulse Resp B/P (MAP) Pulse Ox O2 Delivery O2 Flow Rate FiO2 09/23/24 08:53 98.4 71 16 95/52 (66) 100 98.4 09/23/24 05:46 Nasal Cannula* 2 28 Physical Exam Pt is lying on bed General Appearance: Alert, Oriented X3, mildly distress HEENT: Atraumatic, Mucous membranes moist/pink Respiratory: Clear to auscultation, Normal air movement, Cardiovascular: Regular rate, Normal S1, Normal S2, No murmurs Abdominal: Active bowel sounds, Soft, no distention, no tenderness Extremities: Mild tenderness right leg, No edema, Normal pulses, Skin: Sacral wound, wound on upper back Neuro: Normal speech, sensorimotor deficits none Psych/Mental Status: Mental status NL, Mood NL Nurse was there as sharperone during examination Labs/Diagnostic Data Labs Test 09/23/24 07:49 09/23/24 04:49 09/23/24 04:33 09/23/24 04:13 Range/Units Stool Occult Blood Negative Negative Stool Occult Blood Sample #3 Negative Stool for White Cells Few Influenza Type A Antigen Negative Negative Influenza Type B Antigen Negative Negative SARS-CoV-2 Antigen (Rapid) Negative NEGATIVE Sodium Level 137 136-145 mmol/L Potassium Level 3.3 L 3.5-5.1 mmol/L Chloride Level 102 98-107 mmol/L Carbon Dioxide Level 29 20-31 mmol/L Anion Gap 6 5-15 Blood Urea Nitrogen 12 9-23 mg/dL Creatinine 0.46 L 0.550-1.02 mg/dL Glomerular Filtration Rate Calc 100 >90 mL/min BUN/Creatinine Ratio 26.1 H 10.0-20.0 Serum Glucose 94 74-106 mg/dL Calcium Level 8.5 L 8.7-10.4 mg/dL Phosphorus Level 2.7 2.4-5.1 mg/dL Magnesium Level 1.7 1.6-2.6 mg/dL Total Bilirubin < 0.2 L 0.2-1.0 mg/dL Aspartate Amino Transferase (AST) 18 13-40 U/L Alanine Aminotransferase (ALT) < 9 7-40 U/L Alkaline Phosphatase 63 46-116 U/L Total Protein 5.3 L 5.7-8.2 g/dL Albumin 2.7 L 3.2-4.8 g/dL Vitamin B12 Level 384 211-911 pg/mL Vitamin D 25-Hydroxy 42.8 30.0-100 ng/mL Test 09/23/24 03:53 09/23/24 03:44 09/23/24 00:48 09/23/24 00:32 Range/Units Urine Color Light-orange Yellow Urine Clarity Ex.turbid Clear Urine pH 8.0 5.0-9.0 Urine Specific [place] 1.046 H 1.001-1.035 Urine Protein 1+ H Negative Urine Ketones Negative Negative Urine Blood Trace H Negative /uL Urine Nitrite 2+ H Negative Urine Bilirubin Negative Negative Urine Urobilinogen Normal Negative mg/dL Urine Leukocyte Esterase 3+ Negative /uL Urine RBC 14 0 - 4 /hpf Urine WBC 128 0 - 5 /hpf Urine WBC Clumps Present None Seen /hpf Urine Squamous Epithelial Cells Few <5 /hpf Urine Amorphous Crystals Few None Seen /hpf Urine Bacteria Many H None Seen /hpf Urine Mucus Few None Seen Urine Glucose Normal Normal mg/dL Urine Opiates Screen Pos NEGATIVE Urine Fentanyl Screen Neg NEGATIVE Urine Barbiturates Screen Neg NEGATIVE Urine Phencyclidine Screen Neg NEGATIVE Urine Amphetamines Screen Neg NEGATIVE Urine Benzodiazepines Screen Neg NEGATIVE Urine Cocaine Screen Neg NEGATIVE Urine Cannabinoids Screen Neg NEGATIVE Troponin I High Sensitivity 2401 *H </=34 ng/L Triglycerides Level 69 < 150 mg/dL Cholesterol Level 134 < 200 mg/dL LDL Cholesterol 81 < 100 mg/dL HDL Cholesterol 34 L 40-59 mg/dL Thyroid Stimulating Hormone (TSH) 0.56 0.55-4.78 uIU/mL Plasma/Serum Blood Alcohol < 3.0 <10 mg/dL White Blood Count 6.8 4.4-10.8 10^3/uL Red Blood Count 3.91 L 4.0-5.20 10^6/uL Hemoglobin 11.0 L 12.2-16.2 g/dL Hematocrit 35.1 L 36.0-46.0 % Mean Corpuscular Volume 89.9 80.0-100.0 fL Mean Corpuscular Hemoglobin 28.1 28.0-32.0 pg Mean Corpuscular Hemoglobin Concent 31.2 L 32.0-36.0 g/dL Red Cell Distribution Width 17.7 H 11.8-14.3 % Platelet Count 336 140-450 10^3/uL Mean Platelet Volume 8.4 6.9-10.8 fL Neutrophils (%) (Auto) 69.4 37.0-80.0 % Lymphocytes (%) (Auto) 22.9 10.0-50.0 % Monocytes (%) (Auto) 6.2 0.0-12.0 % Eosinophils (%) (Auto) 1.1 0.0-7.0 % Basophils (%) (Auto) 0.4 0.0-2.0 % Neutrophils # (Auto) 4.7 1.6-8.6 10 ^3/uL Lymphocytes # (Auto) 1.6 0.4-5.4 10 ^3/uL Monocytes # (Auto) 0.4 0-1.3 10 ^3/uL Eosinophils # (Auto) 0.1 0-0.8 10 ^3/uL Basophils # (Auto) 0 0-0.2 10 ^3/uL Nucleated Red Blood Cells 0.1 % Prothrombin Time 11.0 9.3-11.8 sec Prothrombin Time INR 1.04 0.9-1.15 Activated Partial Thromboplast Time 30.4 24.5-34.5 SEC D-Dimer, Quantitative 1.73 H 0.0-0.49 mg/L FEU Lactic Acid Level 1.3 0.4-2.0 mmol/L POC Glucose 93 70-106 mg/dl Assessment Chest pain rule out ACS Occlusive DVT right lower extremity Uncontrolled high blood pressure Hypothyroidism GERD Severe compression deformity of a midthoracic vertebral body Small bilateral pleural effusions Sacral ulcer stage 2 or 3 Plan/Recommendation We will continue with the following plan/recommendations (Dr. Cameron): Echocardiogram, pending Continue heparin drip Chest pain protocol HEART score: 7-8 points (High score) Continue Plavix therapy (aspirin as patient is allergic) Lipid lowering agent BP control DVT prophylaxis, Lovenox for now Discussed with Dr. Paredes Given that the patient High risk for CAD patient may benefit from a coronary angiogram with left heart catheterization. Plan discussed with next of kin or POA Ms Ilene champion but at this point she wants to discuss with the patient about informed decision before conclusion, so at this point we are continuing conservative management. Plan discussed with: Patient, Other (Sister and RN) Visit Coding Cardiology RES Date of Service: Sep 23, 2024 Billing Provider: BRENNAN PAREDES MD Cardiology Common Codes: [id number] INP/OBS CARE (Mod), [id number] CARE 30-74 MIN VLADISLAV KEEN RESIDENT Sep 23, 2024 10:57
--- NOTE | 2024-09-23 11:08 | DVH ---
Bilateral lower extremity venous duplex Clinical History: rule out lower ext. DVT Comparison: None Technique: Duplex Doppler evaluation of the deep venous systems of both lower extremities from the common femora l veins to the popliteal veins including color Doppler and spectral/pulsed waveform analysis was perf ormed. Findings: RIGHT SIDE: The common femoral vein demonstrates appropriate compressibility and waveform variability. There is compressibility/patency of the great saphenous vein at the proximal thigh. The femoral vein demonstrates incomplete compressibility and absence of flow at its mid to distal por tion.. The deep femoral vein demonstrates appropriate compressibility and waveform variability. The popliteal vein demonstrates appropriate compressibility and waveform variability. There is normal compressibility at the tibioperoneal trunk. LEFT SIDE: The common femoral vein demonstrates appropriate compressibility and waveform variability. There is compressibility/patency of the great saphenous vein at the proximal thigh. The femoral vein demonstrates appropriate compressibility and waveform variability. The deep femoral vein demonstrates appropriate compressibility and waveform variability. The popliteal vein demonstrates appropriate compressibility and waveform variability. There is normal compressibility at the tibioperoneal trunk. Impression: 1. Occlusive DVT at the right mid to distal femoral vein. 2. No left femoropopliteal venous thrombosis. Critical Result: Occlusive DVT Findings discussed with patient's nurse, Moncho, by telephone at 09/23/2024 11:05 AM, and acknowledged receipt and understanding of the findings. .. HS:Y
[2024-09-23 12:36] LABS: Basophils # (auto) 0 10 ^3/uL (0-0.2); Basophils % (auto) 0.4 % (0.0-2.0); Eosinophils # (auto) 0.1 10 ^3/uL (0-0.8); Eosinophils % (auto) 1.6 % (0.0-7.0); Hematocrit 32.2 % (36.0-46.0); Hemoglobin 10.2 g/dL (12.2-16.2); Lymphocytes # (auto) 1.2 10 ^3/uL (0.4-5.4); Mean Corpuscular Hgb Conc. 31.6 g/dL (32.0-36.0); Mean Corpuscular Volume 88.6 fL (80.0-100.0); Monocytes # (auto) 0.4 10 ^3/uL (0-1.3); Monocytes % (auto) 6.5 % (0.0-12.0); Neutrophils # (auto) 4.4 10 ^3/uL (1.6-8.6); Neutrophils % (auto) 71.5 % (37.0-80.0); Nucleated Red Blood Cells % 0.1 %; Platelet Count (auto) 342 10^3/uL (140-450); Red Blood Cells 3.63 10^6/uL (4.0-5.20); Red Cell Distribution Width 17.3 % (11.8-14.3); White Blood Cell 6.2 10^3/uL (4.4-10.8)
[2024-09-23 12:43] LABS: INR 1.04 (0.9-1.15); Partial Thromboplastin Time 34.5 SEC (24.5-34.5)
[2024-09-23] MEDS ORDERED: HEPARIN SODIUM (PORCINE) 5000 UNITS/ML 1ML VIAL IV ONE (14:00)
[2024-09-23] MEDS: CEFEPIME 1GM/ 50ML 50 ML IV SCH (15:27)
--- NOTE | 2024-09-23 16:02 | DVHSR ---
APPROVED REPORT EXAM: LIMITED Two-dimensional and M-mode echocardiogram with Doppler and color Doppler. Blood Pressure: 97/43 mmHg INDICATION Chest Pain NSTEMI RISK FACTORS Height: 5'4, Weight: 159 DIMENSIONS LVDd4.1 (3.8-5.7cm)LA (2D)3.7 (1.9-4.0cm)Aortic Root3.2 (2.0-3.7cm) LVDs2.8 (2.5-4.0cm)LA (MM) (1.9-4.0cm)Aortic Cusp Exc1.2 (1.5-2.0cm) EF (%) 55.0 (55-70%)Rt. Atrium3.7 (1.9-4.0cm)Asc. Aorta cm IVSd0.6 (0.7-1.1cm)RV (D) (1.8-2.4cm) PWd0.8 (0.7-1.1cm) Mitral Valve MitralMitral Stenosis E wave0.65m/sMV Mean GR.mmHg A wave0.74m/sMV Peak GR.88mmHg E/A ratio0.92D MVAcm2 DECEL [id number] 1/2 [place] Aortic Valve Aortic ValveAortic Stenosis V11.11m/[place] Mean GR.6mmHg V21.62m/[place] Peak GR.10mmHg LVOT Diameter1.5 (1.8-2.4cm)Doppler AVA1.21cm2 Pulmonic Valve V21.01m/s Other Information Quality : Technically LimitedRhythm : Technically limited study due to PT requested no pressure when scanning, Conclusion Normal left ventricular size and dimension. Normal right ventricular systolic function estimated eje ction fraction 55%. There is a grade 1 diastolic dysfunction. Normal right ventricular size and dimension. Normal right ventricular systolic function. Normal biatrial size and dimension. Normal aortic valve structure and function. Normal mitral valve structure function. Normal tricuspid valve structure and function. The pulmonary valve is grossly normal No pericardial effusion.
--- NOTE | 2024-09-23 18:38 | DVHPNRES ---
Progress Note Date Seen: Sep 23, 2024 Resident Creating Document: BRYN RETANA RESIDENT Medical Necessity Reason Pt with a Central, PICC or Fol: No The following are medically ne: Castaneda Catheter Subjective Review of Systems Patient is 73 years old female with past medical history of hypertension, coronary artery disease, hypothyroidism, GERD, history of cervical cancer was brought in from [facility] due to altered mental status. Patient was transferred from [facility]. As per ER physician documentation and from patient and her family patient was transferred to [facility] for altered mental status. As per patient's sister she was not responding at the nursing facility and that is why she was transferred to [facility]. At the [facility] patient was found to have elevated troponin I with non STEMI and she was transferred to [facility] for higher level of care. Provider spoke to the patient today and patient reported she had chest pain, central, stabbing in nature, 10/10, associated with shortness of breaths. Patient also endorsed nausea and vomiting 3 times mainly bile, , no blood. Patient had back surgery on January, which was complicated with wound infection as per patient and family. And postoperative patient is unable to ambulate for last two-month. Patient denied any fever, , dysarthria or change in vision, acute joint pain or swelling. Initial lab workup revealed troponin I elevated 2637> 2450> 2401. TSH 0.56, UDS positive for opiates, fecal occult blood test negative, D-dimer 1.73, hypokalemia with potassium 3.3, negative for COVID-19, urinalysis revealed UTI with leukocyte esterase 3+, RBC 14, WBC 128, bacteria few. Doppler study of the lower extremity revealed- Occlusive DVT at the right mid to distal femoral vein. No left femoropopliteal venous thrombosis. CT angio chest-1. No pulmonary embolism. Small bilateral pleural effusions with associated patchy atelectasis and consolidation in the lung bases. Nodular airspace disease right upper lung. Left lower lobe nodule. Recommend clinical correlation and continued follow-up to resolution. Nonspecific bilateral axillary lymphadenopathy. Severe compression deformity of a midthoracic vertebral body just above the last fused segment. Consider further evaluation with MRI of the thoracic spine. CXR revealed-No active cardiopulmonary disease. Partially visualized thoracolumbar fixation hardware. CT brain revealed-No acute intracranial abnormality. Left parietal bone outer table well demarcated sclerotic lesion measuring 4 cm. This is most likely benign but can be further evaluated nonemergent MRI. Past medical history: HTN, ?MN in the past, Hypothyroidism, GERD, H/o cervical cancer. Past surgical history: hysterectomy with B/L salpingoophrectomy, Back surgery Social history: reports to be living alone at home in [place], for last 3 weeks she reports to be living at [facility], denies smoking, alcohol, drug use Home medications: from the med. records - triamterene-HCTZ 37.5/25mg Qd, omeprazole 40mg qd, lamotrigine 100mg qd, levothyroxine 100mcg Allergy- aspirin, codeine, penicillin Patient was seen today at the bedside. Cardiovascular- denies cough or palpitation Respiratory- denies cough or or wheezing Gastrointestinal- denies any rectal bleeding, nausea or vomiting Musculoskeletal-denies acute joint swelling or tenderness or redness Neurological- denies acute dysarthria, dysphagia, change in vision Psychiatry- denies depression or SI or HI Skin- denies acute rash or purpura Patient was seen today for clinical evaluation. Labs and chart reviewed. Patient was seen by Cardiology, recommendation reviewed and appreciated. Objective vital signs Vital Sign Date Time Temp Pulse Resp B/P (MAP) Pulse Ox O2 Delivery O2 Flow Rate FiO2 09/23/24 17:00 97.7 81 16 92/45 (61) 100 97.7 09/23/24 05:46 Nasal Cannula* 2 28 Total Intake and Output 09/22/24 09/22/24 09/23/24 15:00 23:00 07:00 Intake Total 2762.8 ml Balance 2762.8 ml medications Current Medications Medications Dose Ordered Sig/Lydia Route Start Time Stop Time Status Last Admin Dose Admin Nitroglycerin 0.4 mg Q5MINP PRN SL 09/23/24 03:45 Morphine Sulfate 2 mg Q30M PRN IV 09/23/24 03:45 Vancomycin HCl 0 ml @ 0 mls/hr UD IV 09/23/24 03:45 Famotidine 20 mg DAILY PO 09/23/24 10:00 09/23/24 10:07 20 MG Cefepime HCl 50 ml @ 12.5 mls/hr Q12H IV 09/23/24 16:00 09/23/24 15:27 12.5 MLS/HR Clopidogrel Bisulfate 75 mg DAILY PO 09/24/24 10:00 Enoxaparin Sodium 40 mg DAILY SC 09/23/24 10:00 09/23/24 10:08 40 MG Lamotrigine 100 mg DAILY PO 09/23/24 10:00 09/23/24 10:06 100 MG Vancomycin HCl 250 ml @ 200 mls/hr Q12H IV 09/23/24 17:00 Heparin Sodium/ Dextrose 250 ml @ 13 mls/hr [id number] IV 09/23/24 13:00 09/23/24 15:25 13 MLS/HR Morphine Sulfate 2 mg Q6HPRN PRN IV 09/23/24 13:30 Atorvastatin Calcium 40 mg HS PO 09/23/24 22:00 Examination General examination- patient is awake, alert, oriented, conversant today HEENT- PEERLA, no acute nasal discharge Cardiovascular- S1-S2 audible, rate and rhythm regular, no murmur Respiratory- CTAB, no wheeze or rhonchi Gastrointestinal-nontender, bowel sound+. Nondistended Musculoskeletal-no acute joint swelling or tenderness or redness# Lower extremity- no leg edema, patient with decreased muscle bowel on the bilateral lower extremity Neurological-decreased muscle power on the bilateral lower extremity Psychiatry- denies depression or SI or HI Skin- no acute rash or purpura laboratory and microbiology Laboratory Tests 09/23/24 12:02 09/23/24 04:13 Test 09/23/24 04:13 Range/Units Serum Glucose 94 74-106 mg/dL Microbiology Date/Time Source Procedure Growth Status 09/23/24 04:49 Stool Stool Culture - Preliminary Resulted 09/23/24 04:49 Stool Shiga Toxin I & II - Final Resulted Problem List/Assessment/Plan Problem List/Assessment/Plan #Acute Chest pain , rule out acute coronary syndrome, cardiology on board # acute hypoxic respiratory failure likely due to UTI/suspected pneumonia # suspected pneumonia Gram-positive versus Gram-negative # DVT-Occlusive DVT at the right mid to distal femoral vein. # metabolic encephalopathy #NSTEMI likely type 2 # suspected diastolic heart failure, elevated BNP 245 #Uncontrolled high blood pressure #Hypothyroidism #GERD # hypokalemia-replenished #Severe compression deformity of a midthoracic vertebral body-status post spinal surgery-pending CT scan of the thoracic/lumbar/sacral spine with or without contrast #Small bilateral pleural effusions # wound on the back and Sacral ulcer -pending wound consult # echo 2D-Normal left ventricular size and dimension. Normal right ventricular systolic function estimated ejection fraction 55%. There is a grade 1 diastolic dysfunction. Normal right ventricular size and dimension. Normal right ventricular systolic function Status post cardiology consult- As per Cardiology-patient High risk for CAD patient may benefit from a coronary angiogram with left heart catheterization. Plan discussed with next of kin or POA Ms Ilene champion but at this point she wants to discuss with the patient about informed decision before conclusion, so at this point we are continuing conservative management. Continue heparin as per protocol Continue clopidogrel 75 mg p.o. daily Continue cefepime 1 g IV q.12 hours Continue atorvastatin 40 mg q.h.s. Continue Lamictal 100 mg p.o. daily Continue famotidine 20 mg p.o. daily Continue other p.r.n. medication as prescribed Pending consult for a spinal surgeon for further evaluation and care -pending wound consult Goals of care/advance care planning; FULL CODE; discussed with the patient >15 minutes PUD prophylaxis: Continue famotidine DVT prophylaxis: Patient on heparin Plan discussed with Dr. Balderas, nursing staff, patient Total time spent on patient evaluation, chart review, assessment and plan, discussion discussion >30 minutes Plan discussed with: Patient Plan discussed with: Patient, Other (Sister, RN) My Orders My Orders Orders - BRYN RETANA RESIDENT Procedure Category Date Status Time Platelet Monitoring [facility] 09/23/24 In Process 12:56 Vte Protocol Initiated [facility] 09/23/24 In Process 12:56 Heparin Per [facility] 09/23/24 In Process Standardized Proce 12:56 Discontinue All Im [facility] 09/23/24 In Process Injections 12:56 Heparin Drip/D5w PHA 09/23/24 In Process 100units/Ml 13:00 * Surgical Consult CONS 09/23/24 Transmitted Morphine Sulfate PHA 09/23/24 In Process Injection 13:30 Heparin Per Pharmacy [facility] 09/23/24 In Process Protocol 14:00 Thoracic Spine Wo W CT 09/25/24 Logged 09:30 Lumbar Spine Wo W CT 09/25/24 Logged 09:30 PTPTT LAB 09/23/24 Logged 21:30 Date of Service: Sep 23, 2024 Billing Provider: ALEJANDRA BALDERAS MD Common Visit Codes: [id number] INP/OBS CARE(HIGH) Secondary Visit Codes: [id number] CARE PLAN 30 MINUTES BRYN RETANA Sep 23, 2024 18:38 ALEJANDRA BALDERAS MD Sep 23, 2024 19:06
[2024-09-23] MEDS: VANCOMYCIN 1.25GM/250ML 250 ML IV SCH (19:04)
[2024-09-23] MEDS: POTASSIUM EFFERVESENT TAB 25 MEQ PO ONE (21:35)
[2024-09-23] MEDS: HYDROcodone-ACET 7.5/325MG TAB PO PRN (21:35)
[2024-09-23] MEDS: ATORVASTATIN 20 MG TAB PO SCH (22:15)
[2024-09-23 22:22] LABS: INR 1.08 (0.9-1.15); Prothrombin Time 11.4 sec (9.3-11.8)
[2024-09-23 22:46] LABS: Partial Thromboplastin Time 75.7 SEC (24.5-34.5)
[2024-09-23] MEDS: MORPHINE SULFATE INJ 2 MG/ml SYRG IV PRN (23:54)
[2024-09-24] VITALS (14 sets, daily range): BP systolic 92–124; BP diastolic 44–65; PULSE 61–93; RESP 11–18; TEMP 97.4–98.5; O2SAT 96–100
[2024-09-24 05:35] LABS: Basophils # (auto) 0 10 ^3/uL (0-0.2); Basophils % (auto) 0.5 % (0.0-2.0); Eosinophils # (auto) 0.2 10 ^3/uL (0-0.8); Eosinophils % (auto) 3.2 % (0.0-7.0); Hematocrit 31.1 % (36.0-46.0); Hemoglobin 9.5 g/dL (12.2-16.2); Lymphocytes # (auto) 1.4 10 ^3/uL (0.4-5.4); Lymphocytes % (auto) 24.4 % (10.0-50.0); Mean Corpuscular Hemoglobin 27.5 pg (28.0-32.0); Mean Corpuscular Hgb Conc. 30.6 g/dL (32.0-36.0); Mean Corpuscular Volume 89.7 fL (80.0-100.0); Monocytes # (auto) 0.4 10 ^3/uL (0-1.3); Monocytes % (auto) 7.6 % (0.0-12.0); Neutrophils # (auto) 3.7 10 ^3/uL (1.6-8.6); Neutrophils % (auto) 64.3 % (37.0-80.0); Nucleated Red Blood Cells % 0.2 %; Platelet Count (auto) 349 10^3/uL (140-450); Red Blood Cells 3.47 10^6/uL (4.0-5.20); Red Cell Distribution Width 17.9 % (11.8-14.3); White Blood Cell 5.8 10^3/uL (4.4-10.8)
[2024-09-24] MEDS: HYDROmorphone HCL 2 MG/ML VL/or syr IV ONE (05:45)
[2024-09-24 06:04] LABS: INR 1.07 (0.9-1.15); Partial Thromboplastin Time 67.7 SEC (24.5-34.5); Prothrombin Time 11.3 sec (9.3-11.8)
[2024-09-24] MEDS: SODIUM CHLORIDE 0.9% 1,000 ML IV SCH (06:30)
[2024-09-24 07:38] LABS: Alkaline Phosphatase 68 U/L (46-116); Anion Gap 6 (5-15); Aspartate Aminotransferase 15 U/L (13-40); Carbon Dioxide 29 mmol/L (20-31); Chloride 105 mmol/L (98-107); Glucose 103 mg/dL (74-106); Potassium 3.6 mmol/L (3.5-5.1); Sodium 140 mmol/L (136-145)
[2024-09-24 07:47] LABS: Alanine Aminotransferase 9 U/L (7-40); Albumin 2.7 g/dL (3.2-4.8); Bilirubin, Total < 0.2 mg/dL (0.2-1.0); Blood Urea Nitrogen 7 mg/dL (9-23); Calcium 8.7 mg/dL (8.7-10.4)
[2024-09-24] MEDS: CLOPIDOGREL BISULFATE 75 MG TAB PO SCH (09:33)
--- NOTE | 2024-09-24 10:23 | ECG ---
[facility] Test Date: 2024-09-22 Test Time: 22:48:01 Pat Name: MARJORIE VERGARA Department: ED Room: 0209T A Gender: F Nitroglycerin Distributor: JOANA : 1950 Requested By: ZECHARIAH MAI Order Number: [id number] Reading MD: Jalen Jacinto Measurements Intervals [place] Rate: 88 P: 0 WV: 145 QRS: 95 QRSD: 115 T: 110 QT: 393 QTc: 476 Interpretive Statements Sinus rhythm Right atrial enlargement Nonspecific intraventricular conduction delay Nonspecific T abnormalities, lateral leads Artifact in lead(s) I,II,aVR,aVL,aVF,V1,V4,V5,V6 Electronically Signed On 09-26-2024 10:22:06 PST by Jalen Jacinto Please click the below link to view image of tracing.
[2024-09-24 11:39] LABS: INR 1.06 (0.9-1.15); Partial Thromboplastin Time 56.8 SEC (24.5-34.5); Prothrombin Time 11.2 sec (9.3-11.8)
[2024-09-24] MEDS: IODIXANOL 320MG/ML 100ML BTL IV ONE (15:10)
[2024-09-24] MEDS: HEPARIN IN NS 1000Units/500mL 1,500 ML ONE (15:11)
--- NOTE | 2024-09-24 15:13 | DVHPNRES ---
Progress Note Date Seen: Sep 24, 2024 Resident Creating Document: BRYN RETANA RESIDENT Medical Necessity Reason Pt with a Central, PICC or Fol: No The following are medically ne: Castaneda Catheter Subjective Review of Systems Patient is 73 years old female with past medical history of hypertension, coronary artery disease, hypothyroidism, GERD, history of cervical cancer was brought in from [facility] due to altered mental status. Patient was transferred from [facility]. As per ER physician documentation and from patient and her family patient was transferred to [facility] for altered mental status. As per patient's sister she was not responding at the nursing facility and that is why she was transferred to [facility]. At the [facility] patient was found to have elevated troponin I with non STEMI and she was transferred to [facility] for higher level of care. Provider spoke to the patient today and patient reported she had chest pain, central, stabbing in nature, 10/10, associated with shortness of breaths. Patient also endorsed nausea and vomiting 3 times mainly bile, , no blood. Patient had back surgery on January, which was complicated with wound infection as per patient and family. And postoperative patient is unable to ambulate for last two-month. Patient denied any fever, , dysarthria or change in vision, acute joint pain or swelling. Initial lab workup revealed troponin I elevated 2637> 2450> 2401. TSH 0.56, UDS positive for opiates, fecal occult blood test negative, D-dimer 1.73, hypokalemia with potassium 3.3, negative for COVID-19, urinalysis revealed UTI with leukocyte esterase 3+, RBC 14, WBC 128, bacteria few. Doppler study of the lower extremity revealed- Occlusive DVT at the right mid to distal femoral vein. No left femoropopliteal venous thrombosis. CT angio chest-1. No pulmonary embolism. Small bilateral pleural effusions with associated patchy atelectasis and consolidation in the lung bases. Nodular airspace disease right upper lung. Left lower lobe nodule. Recommend clinical correlation and continued follow-up to resolution. Nonspecific bilateral axillary lymphadenopathy. Severe compression deformity of a midthoracic vertebral body just above the last fused segment. Consider further evaluation with MRI of the thoracic spine. CXR revealed-No active cardiopulmonary disease. Partially visualized thoracolumbar fixation hardware. CT brain revealed-No acute intracranial abnormality. Left parietal bone outer table well demarcated sclerotic lesion measuring 4 cm. This is most likely benign but can be further evaluated nonemergent MRI. Past medical history: HTN, ?[place] in the past, Hypothyroidism, GERD, H/o cervical cancer. Past surgical history: hysterectomy with B/L salpingoophrectomy, Back surgery Social history: reports to be living alone at home in [place], for last 3 weeks she reports to be living at [facility], denies smoking, alcohol, drug use Home medications: from the med. records - triamterene-HCTZ 37.5/25mg Qd, omeprazole 40mg qd, lamotrigine 100mg qd, levothyroxine 100mcg Allergy- aspirin, codeine, penicillin Patient was seen today at the bedside. Cardiovascular- denies cough or palpitation Respiratory- denies cough or or wheezing Gastrointestinal- denies any rectal bleeding, nausea or vomiting Musculoskeletal-denies acute joint swelling or tenderness or redness Neurological- denies acute dysarthria, dysphagia, change in vision Psychiatry- denies depression or SI or HI Skin- denies acute rash or purpura Patient was seen today for clinical evaluation. Labs and chart reviewed. Patient reports feeling better today. Patient agreed for left heart catheterization due to NSTEMI. Cardiology team was made aware of patient's decision. Patient is due for left heart catheterization in the afternoon today on 09/24/2024 at 1st availability in the evening. Pending spinal surgery consult. Patient tested positive for MRSA screening. 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 Objective vital signs Vital Sign Date Time Temp Pulse Resp B/P (MAP) Pulse Ox O2 Delivery O2 Flow Rate FiO2 09/24/24 12:37 98.3 77 17 112/51 (71) 97 98.3 09/24/24 08:00 Nasal Cannula* 3 32 Total Intake and Output 09/23/24 09/23/24 09/24/24 15:00 23:00 07:00 Intake Total 580 ml 1108.58 ml 650 ml Output Total 2000 ml 1000 ml Balance 580 ml -891.42 ml -350 ml medications Current Medications Medications Dose Ordered Sig/Lydia Route Start Time Stop Time Status Last Admin Dose Admin Nitroglycerin 0.4 mg Q5MINP PRN SL 09/23/24 03:45 Morphine Sulfate 2 mg Q30M PRN IV 09/23/24 03:45 Vancomycin HCl 0 ml @ 0 mls/hr UD IV 09/23/24 03:45 Famotidine 20 mg DAILY PO 09/23/24 10:00 09/24/24 09:32 20 MG Cefepime HCl 50 ml @ 12.5 mls/hr Q12H IV 09/23/24 16:00 09/24/24 03:34 12.5 MLS/HR Clopidogrel Bisulfate 75 mg DAILY PO 09/24/24 10:00 09/24/24 09:33 75 MG Enoxaparin Sodium 40 mg DAILY SC 09/23/24 10:00 09/23/24 10:08 40 MG Lamotrigine 100 mg DAILY PO 09/23/24 10:00 09/24/24 09:34 100 MG Vancomycin HCl 250 ml @ 200 mls/hr Q12H IV 09/23/24 17:00 09/24/24 05:57 200 MLS/HR Morphine Sulfate 2 mg Q6HPRN PRN IV 09/23/24 13:30 09/23/24 23:54 2 MG Atorvastatin Calcium 40 mg HS PO 09/23/24 22:00 09/23/24 22:15 40 MG Acetaminophen/ Hydrocodone Bitart 1 tab Q4HP PRN PO 09/23/24 20:15 09/24/24 09:33 1 TAB Heparin Sodium/ Dextrose 250 ml @ 11 mls/hr [id number] IV 09/23/24 23:00 09/24/24 09:37 11 MLS/HR Sodium Chloride 1,000 ml @ 75 mls/hr [id number] IV 09/24/24 06:30 09/24/24 06:30 75 MLS/HR Examination General examination- patient is awake, alert, oriented, conversant today HEENT- PEERLA, no acute nasal discharge Cardiovascular- S1-S2 audible, rate and rhythm regular, no murmur Respiratory- CTAB, no wheeze or rhonchi Gastrointestinal-nontender, bowel sound+. Nondistended Musculoskeletal-no acute joint swelling or tenderness or redness# Lower extremity- no leg edema, patient with decreased muscle bowel on the bilateral lower extremity Neurological-decreased muscle power on the bilateral lower extremity Psychiatry- denies depression or SI or HI Skin- no acute rash or purpura laboratory and microbiology Laboratory Tests 09/24/24 05:05 Test 09/24/24 05:05 Range/Units Serum Glucose 103 74-106 mg/dL Microbiology Date/Time Source Procedure Growth Status 09/23/24 20:14 Sacrum Gram Stain - Final Resulted 09/23/24 20:14 Sacrum Wound Culture - Preliminary Resulted 09/23/24 04:49 Stool Stool Culture - Preliminary Resulted 09/23/24 04:49 Stool Shiga Toxin I & II - Final Resulted 09/23/24 04:13 Blood Blood Culture - Preliminary NO GROWTH AFTER 24 HOURS OF INCUBATION. Resulted 09/23/24 03:53 Urine - Catheterized Urine Culture - Preliminary Resulted Problem List/Assessment/Plan Problem List/Assessment/Plan #Acute Chest pain , rule out acute coronary syndrome, cardiology on board # acute hypoxic respiratory failure likely due to UTI/suspected pneumonia # suspected pneumonia Gram-positive versus Gram-negative # DVT-Occlusive DVT at the right mid to distal femoral vein. # UTI # metabolic encephalopathy #NSTEMI likely type 1 # suspected diastolic heart failure, elevated BNP 245 # MRSA screening for nares positive #Uncontrolled high blood pressure #Hypothyroidism #GERD # hypokalemia-replenished #Severe compression deformity of a midthoracic vertebral body-status post spinal surgery-pending CT scan of the thoracic/lumbar/sacral spine with or without contrast #Small bilateral pleural effusions # wound on the back and Sacral ulcer -pending wound consult # echo 2D-Normal left ventricular size and dimension. Normal right ventricular systolic function estimated ejection fraction 55%. There is a grade 1 diastolic dysfunction. Normal right ventricular size and dimension. Normal right ventricular systolic function Status post cardiology consult- PATIENT AGREED TODAY FOR LEFT HEART CATHETERIZATION. Pending left heart catheterization today in the afternoon/evening at 1st availability Continue heparin as per protocol Continue clopidogrel 75 mg p.o. daily Continue cefepime 1 g IV q.12 hours Continue atorvastatin 40 mg q.h.s. Continue Lamictal 100 mg p.o. daily Continue famotidine 20 mg p.o. daily Continue other p.r.n. medication as prescribed Continue mupirocin 2% ointment for nares MRSA as prescribed Pending consult for a spinal surgeon for further evaluation and care -pending wound consult Goals of care/advance care planning; DNR; discussed with the patient >15 minutes PUD prophylaxis: Continue famotidine DVT prophylaxis: Patient on heparin Plan discussed with Dr. Balderas, nursing staff, patient Total time spent on patient evaluation, chart review, assessment and plan, discussion discussion >30 minutes Plan discussed with: Patient Plan discussed with: Patient, Other (RN) My Orders My Orders Orders - BRYN RETANA Procedure Category Date Status Time Thoracic Spine Wo W CT 09/25/24 Logged 09:30 Lumbar Spine Wo W CT 09/25/24 Logged 09:30 Heparin Drip/D5w PHA 09/23/24 In Process 100units/Ml 23:00 Sodium Chloride 0.9% PHA 09/24/24 In Process 06:30 PTPTT LAB 09/24/24 Logged 17:00 Heparin Per Pharmacy [facility] 09/24/24 In Process Protocol 11:56 Precautions: Contact [facility] 09/24/24 In Process 13:41 Date of Service: Sep 24, 2024 Billing Provider: ALEJANDRA BALDERAS MD Common Visit Codes: [id number] INP/OBS CARE(HIGH) BRYN RETANA Sep 24, 2024 15:13 ALEJANDRA BALDERAS MD Sep 24, 2024 20:12
--- NOTE | 2024-09-24 16:32 | DVHPNRES ---
Progress Note Date Seen: Sep 24, 2024 Resident Creating Document: VLADISLAV KEEN RESIDENT Medical Necessity Reason Pt with a Central, PICC or Fol: No The following are medically ne: Castaneda Catheter Subjective Review of Systems Seen and examined at the bedside. Reported improvement in her symptoms since admission. No new complaints Patient reports: No new complaints Changes from previous H/P or p: No Changes Objective vital signs Vital Sign Date Time Temp Pulse Resp B/P (MAP) Pulse Ox O2 Delivery O2 Flow Rate FiO2 09/24/24 12:37 98.3 77 17 112/51 (71) 97 98.3 09/24/24 08:00 Nasal Cannula* 3 32 Total Intake and Output 09/23/24 09/23/24 09/24/24 15:00 23:00 07:00 Intake Total 580 ml 1108.58 ml 650 ml Output Total 2000 ml 1000 ml Balance 580 ml -891.42 ml -350 ml medications Current Medications Medications Dose Ordered Sig/Lydia Route Start Time Stop Time Status Last Admin Dose Admin Nitroglycerin 0.4 mg Q5MINP PRN SL 09/23/24 03:45 Morphine Sulfate 2 mg Q30M PRN IV 09/23/24 03:45 Vancomycin HCl 0 ml @ 0 mls/hr UD IV 09/23/24 03:45 Famotidine 20 mg DAILY PO 09/23/24 10:00 09/24/24 09:32 20 MG Cefepime HCl 50 ml @ 12.5 mls/hr Q12H IV 09/23/24 16:00 09/24/24 03:34 12.5 MLS/HR Clopidogrel Bisulfate 75 mg DAILY PO 09/24/24 10:00 09/24/24 09:33 75 MG Lamotrigine 100 mg DAILY PO 09/23/24 10:00 09/24/24 09:34 100 MG Vancomycin HCl 250 ml @ 200 mls/hr Q12H IV 09/23/24 17:00 09/24/24 05:57 200 MLS/HR Morphine Sulfate 2 mg Q6HPRN PRN IV 09/23/24 13:30 09/23/24 23:54 2 MG Atorvastatin Calcium 40 mg HS PO 09/23/24 22:00 09/23/24 22:15 40 MG Acetaminophen/ Hydrocodone Bitart 1 tab Q4HP PRN PO 09/23/24 20:15 09/24/24 09:33 1 TAB Heparin Sodium/ Dextrose 250 ml @ 11 mls/hr [id number] IV 09/23/24 23:00 09/24/24 09:37 11 MLS/HR Sodium Chloride 1,000 ml @ 75 mls/hr [id number] IV 09/24/24 06:30 09/24/24 06:30 75 MLS/HR Mupirocin 1 applic BID EACHNOSTRI 09/24/24 22:00 09/29/24 21:59 Examination General Appearance: Alert, Oriented X3, mildly distress HEENT: Atraumatic, Mucous membranes moist/pink Respiratory: Clear to auscultation, Normal air movement, Cardiovascular: Regular rate, Normal S1, Normal S2, No murmurs Abdominal: Active bowel sounds, Soft, no distention, no tenderness Extremities: Mild tenderness right leg, No edema, Normal pulses, Skin: Sacral wound, wound on upper back Neuro: Normal speech, sensorimotor deficits none Psych/Mental Status: Mental status NL, Mood NL Nurse was there as nancy during examination laboratory and microbiology Laboratory Tests 09/24/24 05:05 Test 09/24/24 05:05 Range/Units Serum Glucose 103 74-106 mg/dL Microbiology Date/Time Source Procedure Growth Status 09/23/24 20:14 Sacrum Gram Stain - Final Resulted 09/23/24 20:14 Sacrum Wound Culture - Preliminary Resulted 09/23/24 04:49 Stool Stool Culture - Preliminary Resulted 09/23/24 04:49 Stool Shiga Toxin I & II - Final Resulted 09/23/24 04:13 Blood Blood Culture - Preliminary NO GROWTH AFTER 24 HOURS OF INCUBATION. Resulted 09/23/24 03:53 Urine - Catheterized Urine Culture - Preliminary Resulted Labs and/or images reviewed: Labs reviewed by me, Image(s) reviewed by me Problem List/Assessment/Plan Problem List/Assessment/Plan Chest pain rule out ACS Occlusive DVT right lower extremity Uncontrolled high blood pressure Hypothyroidism GERD Severe compression deformity of a midthoracic vertebral body Small bilateral pleural effusions Sacral ulcer stage 2 or 3 Plan/Recommendation We will continue with the following plan/recommendations (Dr. Cameron): Echocardiogram, normal LV function with EF 55% Continue heparin drip Chest pain protocol HEART score: 7-8 points (High score) Continue Plavix therapy (aspirin as patient is allergic) Lipid lowering agent BP control DVT prophylaxis, Lovenox for now Discussed with Dr. Paredes Given that the patient High risk(HEART score 6-7 points) for CAD patient may benefit from a coronary angiogram with left heart catheterization. Plan discussed with next of kin or POA Ms Ilene champion but at this point she wants to discuss with the patient about informed decision before conclusion, Procedure was discussed with the patient and sister in full detail including risks and benefits. Risks include but are not limited to bleeding, contrast-induced nephropathy, stroke, and even . The patient and her sister understands and is agreeable to undergo the procedure. We will schedule the patient at first availability. Plan discussed with: Patient, Other (sister and RN) Visit Coding Cardiology RES Date of Service: Sep 24, 2024 Billing Provider: BRENNAN PAREDES MD Cardiology Common Codes: [id number] INP/OBS CARE(Mod) VLADISLAV KEEN RESIDENT Sep 24, 2024 16:32
[2024-09-24] MEDS: fentaNYL CITRATE 100 MCG/2 ML VL ONE (17:10)
[2024-09-24] MEDS: ANGIOMAX 250 MG VIAL IV ONE (17:10)
[2024-09-24] MEDS: VERAPAMIL 2.5MG/ML INJ 2ML VIAL IV ONE (17:10)
[2024-09-24] MEDS: MIDAZOLAM HCL 2MG/2ML 2ml VIAL (1mg/ml) ONE (17:11)
[2024-09-24] MEDS: LIDOCAINE 2%HCL (LOCAL ANESTH.) INJ 20ML MDV ONE (17:11)
[2024-09-24] MEDS: SODIUM CHL 0.9% 0 ML ONE (17:11)
--- NOTE | 2024-09-24 17:46 | DVHOP2 ---
Operative Report -Cardiology Report Details Date: 09/24/24 Preop Diagnosis: Non ST-elevation myocardial infarction. Postop Diagnosis: Coronary angiography revealed mild nonobstructive coronary artery disease. Surgeon: Soumya Case MD Anesthesiologist: Conscious sedation using25 mcg of fentanyl as well as a mg of midazolam. Patient was observed for a total of35 minutes under direct supervision of the myself the primary comfort station supervisor diastolic the attending nurses. There was no obvious complication Anesthesia: Local Consent: The patient was informed of the risks and benefits of the procedure. These include but are not limited to complications of anesthesia, postoperative infection, incomplete relief of symptoms, recurrence of symptoms, damage to blood vessels, nerves and tendons, deep venous thrombosis, pulmonary embolism and possible need for repeat surgery in the future. Indications for Surgery: MARJORIE VERGARA is a 73-year-old female with a PMH of HTN, ? CAD, hypothyroidism, GERD, cervical cancer presented to the ED from [facility] for evaluation of NSTEMI. Currently patient is residing at nursing facility at [facility], due altered mental status patient was sent to [facility], where the diagnosed as NSTEMI and transferred to this facility. Patient reported constant chest pain which is diffuse, constant, aggravated by deep breathing . Patient is poor historian, spoke with next of kin, she does no t have complete history of the patient. Patient reported in January 2024 he underwent lower back surgery for back pain, fused vertebra, for last 2 months patient has been weakness in her lower limbs and unable to ambulate and bedridden. Patient denies recent fever, nausea, vomiting, chills, diaphoresis, palpitations, and other acute associated symptoms. Name of Procedure Performed 1. Left heart catheterization with left ventricular end-diastolic pressure measurement. 2. Selective right and left coronary angiography utilizing right transradial approach. 3. Conscious sedation using25 mcg of fentanyl as well as a mg of midazolam Procedure Details Procedure Details: Procedural note and vascular access: After informed consent was obtained risks, benefits, complications, alternatives were discussed in details with the patient who agrees to have the procedure done. At the beginning of the procedure, the right wrist and the right coronary artery were prepped and draped in the regular sterile fashion patient received a total of25 mcg of fentanyl as well as a mg of midazolam for conscious sedation. Thereafter, he received total of 2 cc of 1% xylocaine to the right wrist area before six Rwandan sheath was placed using modified Seldinger technique. Patient received a cocktail of 2.5 mg of verapamil as well as 100 mcg of nitroglycerin to prevent vasospasm. Total of 3000 heparin were given upon crossing the aortic arch. A tiger five Rwandan catheter as well as a J-tip Bentson wire were used to engage the right and left coronary artery system respectively. Findings were as follows: 1. Left heart catheterization with left ventricular end-diastolic pressure measurement: With the help of a tiger five Rwandan catheter as well as a J-tip wire we were able to cross the aortic valve and measured left ventricular end-diastolic pressure which was low at 2 mm of mercury. There was no gradient across the aortic valve on the pullback. 2. Selective right and left coronary angiography utilizing right transradial approach: 1. Right coronary artery comes off the right coronary cusp it is a large dominant system it bifurcated distally into large posterior descending artery as well as a large posterolateral branch, the right coronary artery is free of any significant disease but mild irregularity at 20-30% in the proximal and mid segment. 2. Left main comes off left coronary cusp it is a short it bifurcates distally into a left anterior descending artery as well as large left circumflex system. The left main is free of any significant atherosclerotic plaquing. 3. Left anterior descending artery is large with transapical course, it gives rise to large diagonal branch, it has mild irregularity at 20% of the proximal segment without significant discrete stenosis in the other portions of the vessel. 4. The left circumflex vessel is a medium to large vessel it gives rise to large 1st obtuse marginal branch that has mild myocardial bridge of the mid segment, but no significant stenosis. There is another two smaller obtuse marginal branches without significant diseases. Impression and plan: 1. Mild atherosclerotic disease involving the proximal left anterior descending artery as well as the proximal and mid segment of the right coronary artery. 2. No significant coronary artery disease was noted to explain the non ST- elevation myocardial infarction the patient has. 3. Her presentation could be due to microvascular disease, coronary vasospasm, or supply demand mismatch ischemia due to underlying systemic condition. 4. I would recommend an echocardiogram to assess left ventricular ejection fraction and to proceed with goal-directed therapy as indicated. 5. Aggressive primary prevention protocol for all risk factors is warranted. Condition Good [facility] Clinical Frailty Scale [facility] Clinical Frailty Scale: Moderately Frail Stress Test Stress Test Performed: No Dominance Dominance: Right Disposition SOUMYA CASE MD Sep 24, 2024 17:46
[2024-09-24] MEDS: MUPIROCIN 2% OINT 15gm or 22gm FOR MRSA NARES EACHNOSTRI SCH (21:40)
[2024-09-24] MEDS: VANCOMYCIN 1.25GM/250ML 250 ML IV SCH (21:42)
[2024-09-25] VITALS (8 sets, daily range): BP systolic 112–129; BP diastolic 52–65; PULSE 70–95; RESP 16–24; TEMP 97.4–98.7; O2SAT 93–100
[2024-09-25] MEDS: MELATONIN 5 MG TAB PO ONE (01:36)
[2024-09-25] MEDS: MORPHINE SULFATE INJ 2 MG/ml SYRG IV PRN (04:07)
[2024-09-25 06:37] LABS: Anion Gap 6 (5-15); Carbon Dioxide 26 mmol/L (20-31); Chloride 105 mmol/L (98-107); Sodium 137 mmol/L (136-145)
[2024-09-25 06:39] LABS: Calcium 8.8 mg/dL (8.7-10.4)
[2024-09-25 06:40] LABS: Potassium 3.1 mmol/L (3.5-5.1)
[2024-09-25 06:43] LABS: Glucose 90 mg/dL (74-106)
[2024-09-25 06:44] LABS: BUN/Creatinine Ratio 20.5 (10.0-20.0); Blood Urea Nitrogen 9 mg/dL (9-23); Magnesium 1.8 mg/dL (1.6-2.6)
[2024-09-25 07:09] LABS: Basophils # (auto) 0.1 10 ^3/uL (0-0.2); Basophils % (auto) 0.8 % (0.0-2.0); Eosinophils # (auto) 0.2 10 ^3/uL (0-0.8); Eosinophils % (auto) 3.5 % (0.0-7.0); Hematocrit 32.4 % (36.0-46.0); Hemoglobin 9.9 g/dL (12.2-16.2); Lymphocytes # (auto) 1.7 10 ^3/uL (0.4-5.4); Lymphocytes % (auto) 26.4 % (10.0-50.0); Mean Corpuscular Hemoglobin 28.2 pg (28.0-32.0); Mean Corpuscular Hgb Conc. 30.5 g/dL (32.0-36.0); Mean Corpuscular Volume 92.2 fL (80.0-100.0); Monocytes # (auto) 0.5 10 ^3/uL (0-1.3); Monocytes % (auto) 7.7 % (0.0-12.0); Neutrophils # (auto) 3.9 10 ^3/uL (1.6-8.6); Neutrophils % (auto) 61.6 % (37.0-80.0); Nucleated Red Blood Cells % 0.2 %; Platelet Count (auto) 300 10^3/uL (140-450); Red Blood Cells 3.52 10^6/uL (4.0-5.20); Red Cell Distribution Width 17.8 % (11.8-14.3); White Blood Cell 6.4 10^3/uL (4.4-10.8)
--- NOTE | 2024-09-25 12:36 | DVHPNRES ---
Progress Note Date Seen: Sep 25, 2024 Resident Creating Document: BRYN RETANA RESIDENT Medical Necessity Reason Pt with a Central, PICC or Fol: No The following are medically ne: Castaneda Catheter Subjective Review of Systems Patient is 73 years old female with past medical history of hypertension, coronary artery disease, hypothyroidism, GERD, history of cervical cancer was brought in from [facility] due to altered mental status. Patient was transferred from [facility]. As per ER physician documentation and from patient and her family patient was transferred to [facility] for altered mental status. As per patient's sister she was not responding at the nursing facility and that is why she was transferred to [facility]. At the [facility] patient was found to have elevated troponin I with non STEMI and she was transferred to [facility] for higher level of care. Provider spoke to the patient today and patient reported she had chest pain, central, stabbing in nature, 10/10, associated with shortness of breaths. Patient also endorsed nausea and vomiting 3 times mainly bile, , no blood. Patient had back surgery on January, which was complicated with wound infection as per patient and family. And postoperative patient is unable to ambulate for last two-month. Patient denied any fever, , dysarthria or change in vision, acute joint pain or swelling. Initial lab workup revealed troponin I elevated 2637> 2450> 2401. TSH 0.56, UDS positive for opiates, fecal occult blood test negative, D-dimer 1.73, hypokalemia with potassium 3.3, negative for COVID-19, urinalysis revealed UTI with leukocyte esterase 3+, RBC 14, WBC 128, bacteria few. Doppler study of the lower extremity revealed- Occlusive DVT at the right mid to distal femoral vein. No left femoropopliteal venous thrombosis. CT angio chest-1. No pulmonary embolism. Small bilateral pleural effusions with associated patchy atelectasis and consolidation in the lung bases. Nodular airspace disease right upper lung. Left lower lobe nodule. Recommend clinical correlation and continued follow-up to resolution. Nonspecific bilateral axillary lymphadenopathy. Severe compression deformity of a midthoracic vertebral body just above the last fused segment. Consider further evaluation with MRI of the thoracic spine. CXR revealed-No active cardiopulmonary disease. Partially visualized thoracolumbar fixation hardware. CT brain revealed-No acute intracranial abnormality. Left parietal bone outer table well demarcated sclerotic lesion measuring 4 cm. This is most likely benign but can be further evaluated nonemergent MRI. Past medical history: HTN, ?[place] in the past, Hypothyroidism, GERD, H/o cervical cancer. Past surgical history: hysterectomy with B/L salpingoophrectomy, Back surgery Social history: reports to be living alone at home in [place], for last 3 weeks she reports to be living at [facility], denies smoking, alcohol, drug use Home medications: from the med. records - triamterene-HCTZ 37.5/25mg Qd, omeprazole 40mg qd, lamotrigine 100mg qd, levothyroxine 100mcg Allergy- aspirin, codeine, penicillin Patient was seen today at the bedside. Cardiovascular- denies cough or palpitation Respiratory- denies cough or or wheezing Gastrointestinal- denies any rectal bleeding, nausea or vomiting Musculoskeletal-denies acute joint swelling or tenderness or redness Neurological- denies acute dysarthria, dysphagia, change in vision Psychiatry- denies depression or SI or HI Skin- denies acute rash or purpura Patient was seen today for clinical evaluation. Labs and chart reviewed. Patient's chest pain is improving gradually. Patient had left heart catheterization yesterday.Impression and plan: 1. Mild atherosclerotic disease involving the proximal left anterior descending artery as well as the proximal and mid segment of the right coronary artery. 2. No significant coronary artery disease was noted to explain the non ST- elevation myocardial infarction the patient has. 3. Her presentation could be due to microvascular disease, coronary vasospasm, or supply demand mismatch ischemia due to underlying systemic condition. 4. I would recommend an echocardiogram to assess left ventricular ejection fraction and to proceed with goal-directed therapy as indicated. 5. Aggressive primary prevention protocol for all risk factors is warranted. Patient still complained of back pain. Ordered MRI of the lumbar and thoracic spine for further evaluation and care after recommendation from Dr. Rodrigez. Pending MRI of the lumbar and thoracic spine. Today potassium was found to be 3.1, replenished. Objective vital signs Vital Sign Date Time Temp Pulse Resp B/P (MAP) Pulse Ox O2 Delivery O2 Flow Rate FiO2 09/25/24 11:06 80 18 123/60 09/25/24 09:00 98.5 95 98.5 09/25/24 07:50 Nasal Cannula* 3 32 Total Intake and Output 09/24/24 09/24/24 09/25/24 15:00 23:00 07:00 Intake Total 250 ml 900 ml Output Total 200 ml 600 ml Balance 50 ml 300 ml medications Current Medications Medications Dose Ordered Sig/Lydia Route Start Time Stop Time Status Last Admin Dose Admin Nitroglycerin 0.4 mg Q5MINP PRN SL 09/23/24 03:45 Morphine Sulfate 2 mg Q30M PRN IV 09/23/24 03:45 09/25/24 04:07 2 MG Vancomycin HCl 0 ml @ 0 mls/hr UD IV 09/23/24 03:45 Famotidine 20 mg DAILY PO 09/23/24 10:00 09/25/24 09:00 20 MG Cefepime HCl 50 ml @ 12.5 mls/hr Q12H IV 09/23/24 16:00 09/25/24 04:02 12.5 MLS/HR Clopidogrel Bisulfate 75 mg DAILY PO 09/24/24 10:00 09/25/24 09:00 75 MG Lamotrigine 100 mg DAILY PO 09/23/24 10:00 09/25/24 09:00 100 MG Morphine Sulfate 2 mg Q6HPRN PRN IV 09/23/24 13:30 09/25/24 11:06 2 MG Atorvastatin Calcium 40 mg HS PO 09/23/24 22:00 09/24/24 21:33 40 MG Acetaminophen/ Hydrocodone Bitart 1 tab Q4HP PRN PO 09/23/24 20:15 Hold 09/25/24 08:58 1 TAB Sodium Chloride 1,000 ml @ 75 mls/hr [id number] IV 09/24/24 06:30 09/24/24 21:43 75 MLS/HR Mupirocin 1 applic BID EACHNOSTRI 09/24/24 22:00 09/29/24 21:59 09/25/24 09:00 1 APPLIC Hydromorphone HCl 0.5 mg Q4HPRN PRN IV 09/25/24 09:45 Examination General examination- patient is awake, alert, oriented, conversant today HEENT- PEERLA, no acute nasal discharge Cardiovascular- S1-S2 audible, rate and rhythm regular, no murmur Respiratory- CTAB, no wheeze or rhonchi Gastrointestinal-nontender, bowel sound+. Nondistended Musculoskeletal-no acute joint swelling or tenderness or redness# Lower extremity- no leg edema, patient with decreased muscle bowel on the bilateral lower extremity Neurological-decreased muscle power on the bilateral lower extremity Psychiatry- denies depression or SI or HI Skin- no acute rash or purpura laboratory and microbiology Laboratory Tests 09/25/24 05:10 Test 09/25/24 05:10 Range/Units Serum Glucose 90 74-106 mg/dL Microbiology Date/Time Source Procedure Growth Status 09/23/24 20:14 Sacrum Gram Stain - Final Resulted 09/23/24 20:14 Wound Culture - Preliminary Acinetobacter baumannii MDRO Resulted 09/23/24 04:49 Stool Stool Culture - Preliminary Resulted 09/23/24 04:49 Stool Shiga Toxin I & II - Final Resulted 09/23/24 04:13 Blood Blood Culture - Preliminary NO GROWTH AFTER 48 HOURS OF INCUBATION. Resulted 09/23/24 03:53 Urine - Catheterized Urine Culture - Final Complete Problem List/Assessment/Plan Problem List/Assessment/Plan #Acute Chest pain likely due to NSTEMI type 1 # acute hypoxic respiratory failure likely due to UTI/suspected pneumonia # suspected pneumonia Gram-positive versus Gram-negative # DVT-Occlusive DVT at the right mid to distal femoral vein. # UTI #Metabolic encephalopathy #NSTEMI likely type 1 #Severe compression deformity of a midthoracic vertebral body-status post spinal surgery-pending MRI of the lumbar and thoracic spine # suspected diastolic heart failure, elevated BNP 245 # MRSA screening for nares positive #Uncontrolled high blood pressure #Hypothyroidism #GERD # recurrent hypokalemia-replenished #Small bilateral pleural effusions # wound on the back and Sacral ulcer -pending wound consult Echo 2D-Normal left ventricular size and dimension. Normal right ventricular systolic function estimated ejection fraction 55%. There is a grade 1 diastolic dysfunction. Normal right ventricular size and dimension. Normal right ventricular systolic function Status post surgical consult by Dr. Rodrigez Continue heparin as per protocol Continue clopidogrel 75 mg p.o. daily Continue cefepime 1 g IV q.12 hours Continue atorvastatin 40 mg q.h.s. Continue Lamictal 100 mg p.o. daily Continue famotidine 20 mg p.o. daily Continue other p.r.n. medication as prescribed Continue mupirocin 2% ointment for nares MRSA as prescribed Pending consult for a spinal surgeon for further evaluation and care -pending wound consult Goals of care/advance care planning; DNR; discussed with the patient >15 minutes PUD prophylaxis: Continue famotidine DVT prophylaxis: Patient on heparin Plan discussed with Dr. Balderas, nursing staff, patient Total time spent on patient evaluation, chart review, assessment and plan, discussion discussion >30 minutes Plan discussed with: Patient Plan discussed with: Patient, Other (RN) My Orders My Orders Orders - BRYN RETANA Procedure Category Date Status Time Precautions: Contact CELE 09/24/24 In Process 13:41 Mupirocin 2% Oint PHA 09/24/24 In Process Mrsa Nares (Bactroban 22:00 * Surgical Consult CONS 09/25/24 Transmitted Hydromorphone Hcl Inj PHA 09/25/24 In Process (Dilaudid Innjecti 09:45 Dietary NOTICE 09/25/24 Transmitted Recommendations 10:10 Lumbar Spine Wo MRI 09/25/24 Logged Contrast 10:28 Thoracic Spine Without MRI 09/25/24 Logged 10:28 Dietary Evaluation Review Comments: Consider a cardiac 2gNa lo fat LoChol diet. encourage PO intake to meet 75% of her needs. Consider Nathanael BID for wound healing. Expected Outcomes/Goals: improved nutrition parameters. healed saccral ulcer, maintain weight. Date of Service: Sep 25, 2024 Billing Provider: ALEJANDRA BALDERAS MD Common Visit Codes: 24400-[id number] INP/OBS CARE(HIGH) BRYN RETANA Sep 25, 2024 12:36 ALEJANDRA BALDERAS MD Sep 25, 2024 20:25
--- NOTE | 2024-09-25 14:08 | DVHPNRES ---
Progress Note Date Seen: Sep 25, 2024 Resident Creating Document: VLADISLAV KEEN RESIDENT Medical Necessity Reason Pt with a Central, PICC or Fol: No The following are medically ne: Castaneda Catheter Subjective Review of Systems Patient seen and examined at the bedside. Patient reported improvement in her chest pain since admission. No new complaints Patient reports: No new complaints, Feels better Objective vital signs Vital Sign Date Time Temp Pulse Resp B/P (MAP) Pulse Ox O2 Delivery O2 Flow Rate FiO2 09/25/24 11:36 82 16 129/65 09/25/24 09:00 98.5 95 98.5 09/25/24 07:50 Nasal Cannula* 3 32 Total Intake and Output 09/24/24 09/24/24 09/25/24 15:00 23:00 07:00 Intake Total 250 ml 900 ml Output Total 200 ml 600 ml Balance 50 ml 300 ml medications Current Medications Medications Dose Ordered Sig/Lydia Route Start Time Stop Time Status Last Admin Dose Admin Nitroglycerin 0.4 mg Q5MINP PRN SL 09/23/24 03:45 Morphine Sulfate 2 mg Q30M PRN IV 09/23/24 03:45 09/25/24 04:07 2 MG Vancomycin HCl 0 ml @ 0 mls/hr UD IV 09/23/24 03:45 Famotidine 20 mg DAILY PO 09/23/24 10:00 09/25/24 09:00 20 MG Cefepime HCl 50 ml @ 12.5 mls/hr Q12H IV 09/23/24 16:00 09/25/24 04:02 12.5 MLS/HR Clopidogrel Bisulfate 75 mg DAILY PO 09/24/24 10:00 09/25/24 09:00 75 MG Lamotrigine 100 mg DAILY PO 09/23/24 10:00 09/25/24 09:00 100 MG Morphine Sulfate 2 mg Q6HPRN PRN IV 09/23/24 13:30 09/25/24 11:06 2 MG Atorvastatin Calcium 40 mg HS PO 09/23/24 22:00 09/24/24 21:33 40 MG Acetaminophen/ Hydrocodone Bitart 1 tab Q4HP PRN PO 09/23/24 20:15 Hold 09/25/24 08:58 1 TAB Sodium Chloride 1,000 ml @ 75 mls/hr [id number] IV 09/24/24 06:30 12/18/24 21:43 75 MLS/HR Mupirocin 1 applic BID EACHNOSTRI 09/24/24 22:00 09/29/24 21:59 09/25/24 09:00 1 APPLIC Hydromorphone HCl 0.5 mg Q4HPRN PRN IV 09/25/24 09:45 Examination General Appearance: Alert, Oriented X3, mildly distress HEENT: Atraumatic, Mucous membranes moist/pink Respiratory: Clear to auscultation, Normal air movement, Cardiovascular: Regular rate, Normal S1, Normal S2, No murmurs Abdominal: Active bowel sounds, Soft, no distention, no tenderness Extremities: Mild tenderness right leg, No edema, Normal pulses, Skin: Sacral wound, wound on upper back Neuro: Normal speech, sensorimotor deficits none Psych/Mental Status: Mental status NL, Mood NL Nurse was there as sharperone during examination laboratory and microbiology Laboratory Tests 09/25/24 05:10 Test 09/25/24 05:10 Range/Units Serum Glucose 90 74-106 mg/dL Microbiology Date/Time Source Procedure Growth Status 09/23/24 20:14 Sacrum Gram Stain - Final Resulted 09/23/24 20:14 Wound Culture - Preliminary Acinetobacter baumannii MDRO Resulted 09/23/24 04:49 Stool Stool Culture - Preliminary Resulted 09/23/24 04:49 Stool Shiga Toxin I & II - Final Resulted 09/23/24 04:13 Blood Blood Culture - Preliminary NO GROWTH AFTER 48 HOURS OF INCUBATION. Resulted 09/23/24 03:53 Urine - Catheterized Urine Culture - Final Complete Labs and/or images reviewed: Labs reviewed by me, Image(s) reviewed by me Problem List/Assessment/Plan Problem List/Assessment/Plan NSTEMI likely type 2 Occlusive DVT right lower extremity Uncontrolled high blood pressure Hypothyroidism GERD Severe compression deformity of a midthoracic vertebral body Small bilateral pleural effusions Sacral ulcer stage 2 or 3 Plan/Recommendation We will continue with the following plan/recommendations (Dr. Cmaeron): Echocardiogram, EF 50% with a grade 1 diastolic dysfunction Continue heparin drip Chest pain protocol HEART score: 7-8 points (High score) Continue Plavix therapy (aspirin as patient is allergic) Lipid lowering agent BP control DVT prophylaxis, Lovenox for now Discussed with Dr. Paredes, angiogram showed mild atherosclerotic disease in proximal LAD and proximal and mid segment of RCA. No significant CAD was noted, likely due to microvascular disease or coronary vasospasm ,supply demand mismatch ischemia and advised aggressive primary prevention protocol for all risk factors. Signing off, thank you for consulting us. Please reach out to us for endocarditis. Plan discussed with: Patient Dietary Evaluation Review Comments: Consider a cardiac 2gNa lo fat LoChol diet. encourage PO intake to meet 75% of her needs. Consider Nathanael BID for wound healing. Expected Outcomes/Goals: improved nutrition parameters. healed saccral ulcer, maintain weight. Visit Coding Cardiology RES Date of Service: Sep 25, 2024 Billing Provider: BRENNAN PAREDES MD Cardiology Common Codes: [id number] INP/OBS CARE(Mod) VLADISLAV KEEN RESIDENT Sep 25, 2024 14:08
[2024-09-25] MEDS: HYDROMORPHONE HCL 1 MG/ML INJ IV PRN (14:10)
[2024-09-25] MEDS: MAGNESIUM SULFATE 1GM/100ML 100 ML IV ONE (17:48)
[2024-09-25] MEDS: POTASSIUM CHL 20 Meq TABLET PO ONE (17:49)
[2024-09-25] MEDS: MELATONIN 5 MG TAB PO SCH (21:05)
[2024-09-26] VITALS (9 sets, daily range): BP systolic 107–139; BP diastolic 55–70; PULSE 82–104; RESP 18–25; TEMP 97.7–98.7; O2SAT 96–100
[2024-09-26] MEDS ORDERED: GENTAMICIN PER PHARMACY 0 ML IV SCH (06:30)
[2024-09-26 07:32] LABS: Hematocrit 33.1 % (36.0-46.0); Hemoglobin 10.3 g/dL (12.2-16.2); Mean Corpuscular Hemoglobin 27.6 pg (28.0-32.0); Mean Corpuscular Hgb Conc. 31.1 g/dL (32.0-36.0); Mean Corpuscular Volume 88.7 fL (80.0-100.0); Platelet Count (auto) 432 10^3/uL (140-450); Red Blood Cells 3.73 10^6/uL (4.0-5.20); Red Cell Distribution Width 17.5 % (11.8-14.3); White Blood Cell 5.7 10^3/uL (4.4-10.8)
[2024-09-26 07:33] LABS: Basophils % (manual) 0 (0.0-2.0); Blast Cells 0; Eosinophils % (manual) 0 (0-7); Metamyelocytes % 0; Myelocytes % 0; Potassium 4.3 mmol/L (3.5-5.1); Promyelocytes % 0; Reactive Lymphocytes 0; Sodium 139 mmol/L (136-145)
[2024-09-26 07:34] LABS: Anion Gap 6 (5-15); Carbon Dioxide 25 mmol/L (20-31); Chloride 108 mmol/L (98-107)
[2024-09-26 07:35] LABS: Calcium 8.7 mg/dL (8.7-10.4)
[2024-09-26 07:40] LABS: BUN/Creatinine Ratio 12.7 (10.0-20.0); Blood Urea Nitrogen 7 mg/dL (9-23); Glucose 110 mg/dL (74-106); Magnesium 1.8 mg/dL (1.6-2.6)
[2024-09-26 07:49] LABS: Band Neutrophils % (manual) 2; Lymphocytes % (manual) 34 (10.0-50.0); Monocytes % (manual) 5 (0-12); Platelet Estimate Adequate
[2024-09-26] MEDS: GENTAMICIN SULFATE IV ONE (09:11)
[2024-09-26] MEDS: SODIUM CHL 0.9% IV ONE (09:11)
--- NOTE | 2024-09-26 12:47 | DVHPNRES ---
Progress Note Date Seen: Sep 26, 2024 Resident Creating Document: BRYN RETANA RESIDENT Medical Necessity Reason Pt with a Central, PICC or Fol: No The following are medically ne: Castaneda Catheter Subjective Review of Systems Patient is 73 years old female with past medical history of hypertension, coronary artery disease, hypothyroidism, GERD, history of cervical cancer was brought in from [facility] due to altered mental status. Patient was transferred from [facility]. As per ER physician documentation and from patient and her family patient was transferred to [facility] for altered mental status. As per patient's sister she was not responding at the nursing facility and that is why she was transferred to [facility]. At the [facility] patient was found to have elevated troponin I with non STEMI and she was transferred to [facility] for higher level of care. Provider spoke to the patient today and patient reported she had chest pain, central, stabbing in nature, 10/10, associated with shortness of breaths. Patient also endorsed nausea and vomiting 3 times mainly bile, , no blood. Patient had back surgery on January, which was complicated with wound infection as per patient and family. And postoperative patient is unable to ambulate for last two-month. Patient denied any fever, , dysarthria or change in vision, acute joint pain or swelling. Initial lab workup revealed troponin I elevated 2637> 2450> 2401. TSH 0.56, UDS positive for opiates, fecal occult blood test negative, D-dimer 1.73, hypokalemia with potassium 3.3, negative for COVID-19, urinalysis revealed UTI with leukocyte esterase 3+, RBC 14, WBC 128, bacteria few. Doppler study of the lower extremity revealed- Occlusive DVT at the right mid to distal femoral vein. No left femoropopliteal venous thrombosis. CT angio chest-1. No pulmonary embolism. Small bilateral pleural effusions with associated patchy atelectasis and consolidation in the lung bases. Nodular airspace disease right upper lung. Left lower lobe nodule. Recommend clinical correlation and continued follow-up to resolution. Nonspecific bilateral axillary lymphadenopathy. Severe compression deformity of a midthoracic vertebral body just above the last fused segment. Consider further evaluation with MRI of the thoracic spine. CXR revealed-No active cardiopulmonary disease. Partially visualized thoracolumbar fixation hardware. CT brain revealed-No acute intracranial abnormality. Left parietal bone outer table well demarcated sclerotic lesion measuring 4 cm. This is most likely benign but can be further evaluated nonemergent MRI. Past medical history: HTN, ?HI in the past, Hypothyroidism, GERD, H/o cervical cancer. Past surgical history: hysterectomy with B/L salpingoophrectomy, Back surgery Social history: reports to be living alone at home in [place], for last 3 weeks she reports to be living at [facility], denies smoking, alcohol, drug use Home medications: from the med. records - triamterene-HCTZ 37.5/25mg Qd, omeprazole 40mg qd, lamotrigine 100mg qd, levothyroxine 100mcg Allergy- aspirin, codeine, penicillin Patient was seen today at the bedside. Cardiovascular- denies cough or palpitation Respiratory- denies cough or or wheezing Gastrointestinal- denies any rectal bleeding, nausea or vomiting Musculoskeletal-denies acute joint swelling or tenderness or redness Neurological- denies acute dysarthria, dysphagia, change in vision Psychiatry- denies depression or SI or HI Skin- denies acute rash or purpura Patient was seen today for clinical evaluation. Labs and chart reviewed. Patient still complained of back pain. Patient's wound culture revealed Acinetobacter baumannii MDRO, methicillin-resistant Staphylococcus aureus, Enterococcus faecalis VRE. Pending Infectious Disease consult. Ordered Zyvox and gentamicin based on culture sensitivity report. Patient was seen by Cardiology, recommendation reviewed and appreciated. Spoke to patient's sister Ilene Bower, , discussed patient's current condition, discussed patient's current management and care and answered her questions. Objective vital signs Vital Sign Date Time Temp Pulse Resp B/P (MAP) Pulse Ox O2 Delivery O2 Flow Rate FiO2 09/26/24 09:28 90 16 133/64 09/26/24 09:00 98.1 96 98.1 09/26/24 08:08 Nasal Cannula* 3 32 Total Intake and Output 09/25/24 09/25/24 09/26/24 15:00 23:00 07:00 Intake Total 430 ml 50 ml 1000 ml Balance 430 ml 50 ml 1000 ml medications Current Medications Medications Dose Ordered Sig/Lydia Route Start Time Stop Time Status Last Admin Dose Admin Nitroglycerin 0.4 mg Q5MINP PRN SL 09/23/24 03:45 Morphine Sulfate 2 mg Q30M PRN IV 09/23/24 03:45 09/25/24 04:07 2 MG Vancomycin HCl 0 ml @ 0 mls/hr UD IV 09/23/24 03:45 Famotidine 20 mg DAILY PO 09/23/24 10:00 09/26/24 09:10 20 MG Clopidogrel Bisulfate 75 mg DAILY PO 09/24/24 10:00 09/26/24 09:10 75 MG Lamotrigine 100 mg DAILY PO 09/23/24 10:00 09/26/24 09:10 100 MG Morphine Sulfate 2 mg Q6HPRN PRN IV 09/23/24 13:30 09/26/24 06:19 2 MG Atorvastatin Calcium 40 mg HS PO 09/23/24 22:00 09/25/24 21:04 40 MG Acetaminophen/ Hydrocodone Bitart 1 tab Q4HP PRN PO 09/23/24 20:15 Hold 09/25/24 08:58 1 TAB Sodium Chloride 1,000 ml @ 75 mls/hr [id number] IV 09/24/24 06:30 09/26/24 03:27 75 MLS/HR Mupirocin 1 applic BID EACHNOSTRI 09/24/24 22:00 09/29/24 21:59 09/26/24 09:10 1 APPLIC Hydromorphone HCl 0.5 mg Q4HPRN PRN IV 09/25/24 09:45 09/26/24 09:28 0.5 MG Melatonin 5 mg HSPRN PO 09/25/24 22:00 09/25/24 21:05 5 MG Gentamicin Sulfate 0 ml @ 0 mls/hr PER PHARMACY IV 09/26/24 06:30 Vancomycin HCl 250 ml @ 166.667 mls/hr DAILY@1100 IV 09/26/24 11:00 Examination General examination- patient is awake, alert, oriented, conversant today HEENT- PEERLA, no acute nasal discharge Cardiovascular- chest wall tenderness+, S1-S2 audible, rate and rhythm regular, no murmur Respiratory- CTAB, no wheeze or rhonchi Gastrointestinal-nontender, bowel sound+. Nondistended Musculoskeletal-no acute joint swelling or tenderness or redness# Lower extremity- no leg edema, patient with decreased muscle bowel on the bilateral lower extremity Neurological-decreased muscle power on the bilateral lower extremity Psychiatry- denies depression or SI or HI Skin- no acute rash or purpura laboratory and microbiology Laboratory Tests 09/26/24 07:08 Test 09/26/24 07:08 Range/Units Serum Glucose 110 H 74-106 mg/dL Microbiology Date/Time Source Procedure Growth Status 09/23/24 20:14 Sacrum Gram Stain - Final Resulted 09/23/24 20:14 Wound Culture - Preliminary Acinetobacter baumannii MDRO Resulted 09/23/24 04:49 Stool Stool Culture - Final Complete 09/23/24 04:49 Stool Shiga Toxin I & II - Final Complete 09/23/24 04:13 Blood Blood Culture - Preliminary NO GROWTH AFTER 72 HOURS OF INCUBATION. Resulted 09/23/24 03:53 Urine - Catheterized Urine Culture - Final Complete Problem List/Assessment/Plan Problem List/Assessment/Plan #Acute Chest pain likely due to NSTEMI type 1 # acute hypoxic respiratory failure likely due to UTI/suspected pneumonia # suspected pneumonia Gram-positive versus Gram-negative # DVT-Occlusive DVT at the right mid to distal femoral vein. # wound infection-Patient's wound culture revealed Acinetobacter baumannii MDRO, methicillin-resistant Staphylococcus aureus, Enterococcus faecalis VRE. Pending Infectious Disease consult. # UTI #Metabolic encephalopathy #NSTEMI likely type 1 #Severe compression deformity of a midthoracic vertebral body-status post spinal surgery-pending MRI of the lumbar and thoracic spine # suspected diastolic heart failure, elevated BNP 245 # MRSA screening for nares positive #Uncontrolled high blood pressure #Hypothyroidism #GERD # recurrent hypokalemia-replenished #Small bilateral pleural effusions # wound on the back and Sacral ulcer -Patient's wound culture revealed Acinetobacter baumannii MDRO, methicillin-resistant Staphylococcus aureus, Enterococcus faecalis VRE. Pending Infectious Disease consult. Echo 2D-Normal left ventricular size and dimension. Normal right ventricular systolic function estimated ejection fraction 55%. There is a grade 1 diastolic dysfunction. Normal right ventricular size and dimension. Normal right ventricular systolic function Cardiology recommendation reviewed and appreciated-angiogram showed mild atherosclerotic disease in proximal LAD and proximal and mid segment of RCA. No significant CAD was noted, likely due to microvascular disease or coronary vasospasm ,supply demand mismatch ischemia and advised aggressive primary prevention protocol for all risk factors Patient's wound culture revealed Acinetobacter baumannii MDRO, methicillin- resistant Staphylococcus aureus, Enterococcus faecalis VRE. Pending Infectious Disease consult. Continue heparin as per protocol Continue clopidogrel 75 mg p.o. daily Continue continue gentamicin as per pharmacy protocol Continue Zyvox 600 mg IV q.12 hours Continue gentamicin as per pharmacy protocol Continue vancomycin as prescribed Continue atorvastatin 40 mg q.h.s. Continue Lamictal 100 mg p.o. daily Continue famotidine 20 mg p.o. daily Continue other p.r.n. medication as prescribed Continue mupirocin 2% ointment for nares MRSA as prescribed Pending consult for a spinal surgeon for further evaluation and care -pending wound consult Goals of care/advance care planning; DNR; discussed with the patient >15 minutes PUD prophylaxis: Continue famotidine DVT prophylaxis: Patient on heparin Plan discussed with Dr. Balderas, nursing staff, patient Total time spent on patient evaluation, chart review, assessment and plan, discussion discussion >30 minutes Plan discussed with: Patient Plan discussed with: Patient, Other (RN, sister) My Orders My Orders Orders - BRYN RETANA Procedure Category Date Status Time Melatonin (Melatonin) PHA 09/25/24 In Process 22:00 Cleanse Wound With CELE 09/25/24 In Process Wound Clean 15:00 * Dietary Consult CONS 09/25/24 Transmitted 19:13 Apply Barrier Cream CELE 09/25/24 In Process 15:00 Dermatology REFER 09/25/24 Transmitted 19:13 Gentamicin Per PHA 09/26/24 In Process Pharmacy 06:30 * Infectious Gray- CONS 09/26/24 Transmitted [facility] 10:07 Gentamycin, Random LAB 09/26/24 Logged 18:00 Dietary Evaluation Review Comments: Consider a cardiac 2gNa lo fat LoChol diet. encourage PO intake to meet 75% of her needs. Consider Nathanael BID for wound healing. Expected Outcomes/Goals: improved nutrition parameters. healed saccral ulcer, maintain weight. Date of Service: Sep 26, 2024 Billing Provider: ALEJANDRA BALDERAS MD Common Visit Codes: [id number] INP/OBS CARE(HIGH) BRYN RETANA Sep 26, 2024 12:47 ALEJANDRA BALDERAS MD Sep 26, 2024 22:34
[2024-09-26] MEDS: VANCOMYCIN 1GM/250ML KIT 250 ML IV SCH (12:52)
[2024-09-26] MEDS: HYDROMORPHONE HCL 1 MG/ML INJ IV PRN (18:39)
[2024-09-26] MEDS: LINEZOLID 600MG/300ML 300 ML IV SCH (21:13)
--- NOTE | 2024-09-26 21:21 | DVHINCON2 ---
Date of service: Sep 26, 2024 Family History: Cardiovascular disease G8 MOTHER G8 SISTER G8 BROTHER Cerebrovascular accident (CVA) G8 SISTER Chronic obstructive pulmonary disease G8 MOTHER G8 SISTER FH: cancer G8 MOTHER G8 SISTER G8 BROTHER Family history: Suicide (situation) (MOTHER ) Allergies: Coded Allergies: Aspirin (Verified Allergy, Unknown, 07/26/15) Codeine (Unverified Allergy, Unknown, 07/26/15) Penicillins (Verified Allergy, Unknown, 07/26/15) Home Meds Reported Medications Zolpidem Tartrate (Zolpidem Tartrate) 10 Mg Tab, 1 TAB PO HS, #30 TAB 2 Refills 07/26/15 Alprazolam (Xanax) 0.25 Mg Tb, 1 TAB PO DAILY, #30 TAB 07/26/15 Carisoprodol (Soma) 350 Mg Tab, 350 MG PO BID, TAB 07/26/15 Hydrocodone-Acetaminophen ([place] 5/325MG) 1 Tab Tb, 1 TAB PO TIDP PRN for MODERATE PAIN, #90 TAB 07/26/15 Esomeprazole Magnesium Trihydr (Nexium) 40 Mg Cap, 1 CAP PO DAILY, #30 CAP 5 Refills 07/26/15 Levothyroxine Sodium (Levothyroxine Sodium) 88 Mcg Tab, 1 TAB PO QAM, #30 TAB 5 Refills 07/26/15 Adalimumab (Humira Pen) 40MG/0.8 Kit, 1 0.8 SC EOW, KIT 07/26/15 Ziprasidone Hydrochloride (Geodon) 80 Mg Cap, 1 CAP PO BID, #60 CAP 1 Refill 07/26/15 Cyclobenzaprine Hcl (Flexeril) 5 Mg Tab, 1 TAB PO TID, #90 TAB 07/26/15 Diclofenac Epolamine (Flector) 1.3 % Dis, 1 PATCH TOP BID, #60 PATCH 2 Refills 07/26/15 Clonazepam (KlonoPIN TABLET) 0.5 Mg Tb, 1 TAB PO BID, #60 TAB 1 Refill 07/26/15 Buspirone Hcl (Buspirone Hcl) 15 Mg Tab, 30 MG PO BID, TAB 07/26/15 Lubiprostone (Amitiza) 8 Mcg Cap, 1 CAP PO DAILY, #60 CAP 5 Refills 07/26/15 Trazodone Hcl (Desyrel) 50 Mg Tb, 100 MG PO TID 03/27/14 Prednisone (PREDNISONE) 5 Mg Tb, 5 MG PO DAILY 03/27/14 Furosemide (LASIX TABLET) 40 Mg Tb, 20 MG PO DAILY 03/27/14 Duloxetine Hcl (Cymbalta) 60 Mg Cap, 60 MG PO DAILY, CAP 03/27/14 Omeprazole (PRILOSEC) 20 Mg Cap, 40 MG PO DAILY, CAP 03/27/14 Methotrexate (Methotrexate) 2.5 Mg Tab, 2.5 MG PO, TAB TAKE 6 TABLETS EVERY WEEK 03/27/14 Rosuvastatin Calcium (Crestor) 20 Mg Tab, 20 MG PO HS, TAB 03/27/14 Folic Acid (Folic Acid) 1 Mg Tab, 1 MG PO DAILY, TAB 03/27/14 Hydroxyzine Hcl (Hydroxyzine Hcl) 50 Mg Tab, 25 MG PO TID, TAB 03/27/14 Triamterene & Hydrochlorothiaz (Maxzide) 1 Tab Tab, 1 TAB PO DAILY, TAB 37.5 - 25 03/27/14 Hydrocodone-Acetaminophen (VICODIN) 1 Tab Tab, 25 MG PO TID PRN for SEVERE PAIN, TAB 5/300MG TABLET 03/27/14 Ibuprofen (Ibuprofen) 600 Mg Tab, 600 MG PO TID, TAB 03/27/14 Olanzapine (Zyprexa) 5 Mg Tab, 15 MG OR HS 09/20/11 Liothyronine Sodium (Cytomel) 5 Mcg Tab, 5 MCG OR BID 09/20/11 Current Medications Current Medications Medications (Trade) Dose Ordered Sig/Lydia Route PRN Reason Start Time Stop Time Status Last Admin Melatonin (Melatonin) 5 mg HSPRN PO 09/25/24 22:00 09/25/24 21:05 Gentamicin Sulfate 0 ml @ 0 mls/hr PER PHARMACY IV 09/26/24 06:30 Vancomycin HCl 250 ml @ 166.667 mls/hr DAILY@1100 IV 09/26/24 11:00 09/26/24 12:52 Linezolid 300 ml @ 150 mls/hr Q12HR IV 09/26/24 22:00 Hydromorphone HCl (Dilaudid Innjection) 1 mg Q4HPRN PRN IV SEVERE PAIN (7-10 PAIN SCALE) 09/26/24 17:15 09/26/24 18:39 Vital Signs Vital Signs Date Time Temp Pulse Resp B/P (MAP) Pulse Ox O2 Delivery O2 Flow Rate FiO2 09/26/24 20:38 98.7 83 22 123/65 (84) 96 98.7 09/26/24 20:05 Room Air* 0 21 Labs/Diagnostic Data Labs Test 09/26/24 17:51 09/26/24 07:08 09/25/24 08:12 09/25/24 05:10 Range/Units Random Gentamicin Level 5.3 H 0-5 ug/mL White Blood Count 5.7 4.4-10.8 10^3/uL Red Blood Count 3.73 L 4.0-5.20 10^6/uL Hemoglobin 10.3 L 12.2-16.2 g/dL Hematocrit 33.1 L 36.0-46.0 % Mean Corpuscular Volume 88.7 80.0-100.0 fL Mean Corpuscular Hemoglobin 27.6 L 28.0-32.0 pg Mean Corpuscular Hemoglobin Concent 31.1 L 32.0-36.0 g/dL Red Cell Distribution Width 17.5 H 11.8-14.3 % Platelet Count 432 140-450 10^3/uL Mean Platelet Volume 7.6 6.9-10.8 fL Neutrophils (%) (Auto) 37.0-80.0 % Lymphocytes (%) (Auto) 10.0-50.0 % Monocytes (%) (Auto) 0.0-12.0 % Basophils (%) (Auto) 0.0-2.0 % Neutrophils # (Auto) 1.6-8.6 10 ^3/uL Lymphocytes # (Auto) 0.4-5.4 10 ^3/uL Monocytes # (Auto) 0-1.3 10 ^3/uL Differential Total Cells Counted 100.0 100 Neutrophils % (Manual) 59 37.0-80.0 Band Neutrophils % (Manual) 2 Lymphocytes % (Manual) 34 10.0-50.0 Monocytes % (Manual) 5 0-12 Eosinophils % (Manual) 0 0-7 Basophils % (Manual) 0 0.0-2.0 Metamyelocytes % (manual) 0 Myelocytes % (Manual) 0 Promyelocytes % (Manual) 0 Blast Cells % (Manual) 0 Reactive Lymphocytes 0 Platelet Estimate Adequate Sodium Level 139 136-145 mmol/L Potassium Level 4.3 3.5-5.1 mmol/L Chloride Level 108 H 98-107 mmol/L Carbon Dioxide Level 25 20-31 mmol/L Anion Gap 6 5-15 Blood Urea Nitrogen 7 L 9-23 mg/dL Creatinine 0.55 0.550-1.02 mg/dL Glomerular Filtration Rate Calc 96 >90 mL/min BUN/Creatinine Ratio 12.7 10.0-20.0 Serum Glucose 110 H 74-106 mg/dL Calcium Level 8.7 8.7-10.4 mg/dL Magnesium Level 1.8 1.6-2.6 mg/dL Random Vancomycin Level 12.3 H 5-10 ug/mL Vancomycin Level Trough 25.7 H 5-10 ug/mL Eosinophils (%) (Auto) 3.5 0.0-7.0 % Eosinophils # (Auto) 0.2 0-0.8 10 ^3/uL Basophils # (Auto) 0.1 0-0.2 10 ^3/uL Nucleated Red Blood Cells 0.2 % Test 09/24/24 11:15 09/24/24 05:05 09/23/24 12:02 09/23/24 04:49 Range/Units Prothrombin Time 11.2 9.3-11.8 sec Prothrombin Time INR 1.06 0.9-1.15 Activated Partial Thromboplast Time 56.8 H 24.5-34.5 SEC Total Bilirubin < 0.2 L 0.2-1.0 mg/dL Aspartate Amino Transferase (AST) 15 13-40 U/L Alanine Aminotransferase (ALT) 9 7-40 U/L Alkaline Phosphatase 68 46-116 U/L Total Protein 5.0 L 5.7-8.2 g/dL Albumin 2.7 L 3.2-4.8 g/dL Hemoglobin A1c 5.4 <5.7 % A1C Lactic Acid Level 0.9 0.4-2.0 mmol/L B-Type Natriuretic Peptide 245.23 0-100 pg/mL Stool Occult Blood Negative Negative Stool Occult Blood Sample #3 Negative Stool for White Cells Few Test 09/23/24 04:33 09/23/24 04:13 09/23/24 03:53 09/23/24 03:44 Range/Units Influenza Type A Antigen Negative Negative Influenza Type B Antigen Negative Negative SARS-CoV-2 Antigen (Rapid) Negative NEGATIVE Phosphorus Level 2.7 2.4-5.1 mg/dL Vitamin B12 Level 384 211-911 pg/mL Vitamin D 25-Hydroxy 42.8 30.0-100 ng/mL Urine Color Light-orange Yellow Urine Clarity Ex.turbid Clear Urine pH 8.0 5.0-9.0 Urine Specific [place] 1.046 H 1.001-1.035 Urine Protein 1+ H Negative Urine Ketones Negative Negative Urine Blood Trace H Negative /uL Urine Nitrite 2+ H Negative Urine Bilirubin Negative Negative Urine Urobilinogen Normal Negative mg/dL Urine Leukocyte Esterase 3+ Negative /uL Urine RBC 14 0 - 4 /hpf Urine WBC 128 0 - 5 /hpf Urine WBC Clumps Present None Seen /hpf Urine Squamous Epithelial Cells Few <5 /hpf Urine Amorphous Crystals Few None Seen /hpf Urine Bacteria Many H None Seen /hpf Urine Mucus Few None Seen Urine Glucose Normal Normal mg/dL Urine Opiates Screen Pos NEGATIVE Urine Fentanyl Screen Neg NEGATIVE Urine Barbiturates Screen Neg NEGATIVE Urine Phencyclidine Screen Neg NEGATIVE Urine Amphetamines Screen Neg NEGATIVE Urine Benzodiazepines Screen Neg NEGATIVE Urine Cocaine Screen Neg NEGATIVE Urine Cannabinoids Screen Neg NEGATIVE Troponin I High Sensitivity 2401 *H </=34 ng/L Triglycerides Level 69 < 150 mg/dL Cholesterol Level 134 < 200 mg/dL LDL Cholesterol 81 < 100 mg/dL HDL Cholesterol 34 L 40-59 mg/dL Thyroid Stimulating Hormone (TSH) 0.56 0.55-4.78 uIU/mL Plasma/Serum Blood Alcohol < 3.0 <10 mg/dL Test 09/23/24 00:48 09/23/24 00:32 Range/Units D-Dimer, Quantitative 1.73 H 0.0-0.49 mg/L FEU POC Glucose 93 70-106 mg/dl Microbiology Date/Time Source Procedure Growth Status 09/23/24 20:14 Sacrum Gram Stain - Final Complete 09/23/24 20:14 Wound Culture - Final Acinetobacter baumannii MDRO Methicillin Resistant S.aureus Enterococcus faecalis - VRE Complete 09/23/24 04:49 Stool Stool Culture - Final Complete 09/23/24 04:49 Stool Shiga Toxin I & II - Final Complete 09/23/24 04:13 Blood Blood Culture - Preliminary NO GROWTH AFTER 72 HOURS OF INCUBATION. Resulted 09/23/24 03:53 Urine - Catheterized Urine Culture - Final Complete Problems(with codes): (1) Sacral ulcer (2) DVT (deep venous thrombosis) (3) Cellulitis of mid back region (4) Cellulitis of lower back (5) Hypokalemia (6) Hypokalemia (7) Back pain (8) Weakness (9) Inability to walk (10) Substance abuse (11) Altered mental status (12) Metabolic encephalopathy (13) Non-STEMI (non-ST elevated myocardial infarction) Plan/Recommendation ASSESSMENT AND PLAN: ID Problem List: - Acute deep vein thrombosis (DVT) in right mid and distal femoral vein - Back and buttock cellulitis - Sacral and back ulcers (Stage I) - Altered mental status - Anemia (hemoglobin 6.2 g/dL) - Chronic back pain status post spinal fusion - Hypertension - Hypothyroidism - Prior cervical cancer - MRSA colonization Assessment This is Anuja Escalera, a female with a past medical history of hypertension, hypothyroidism, chronic back pain status post spinal fusion, and prior cervical cancer, who presents with worsening sacral ulcers and back cellulitis. The patient was transferred from [facility] to [facility] after episodes of altered level of consciousness. She recently underwent back surgery in January 2024 for spinal fusion due to chronic back pain with fused vertebrae. Over the last several months, she has been bedridden due to progressive weakness in her lower extremities and is now bedbound. She has developed stage I sacral and back ulcers measuring approximately 1 x 1 cm with intact skin, likely related to immobility. On examination, she has 3/5 strength in her lower extremities bilaterally, mild edema in her ankles, and joint stiffness. She is alert and oriented. Vital signs are stable. Laboratory data reveal anemia with a hemoglobin of 6.2 g/dL, white blood cell count of 3.42 x10/L, and platelets of 102 x10/L. Electrolytes are within normal limits. Renal function is normal with BUN 7 mg/dL and creatinine 0.54 mg/dL. Liver function tests are within normal limits. She has been on vancomycin since admission. Urine drug screen is positive for opioids. Imaging studies include: - Chest X-ray: No active cardiopulmonary disease. - Head CT: No acute intracranial abnormality; left parietal outer bone table with a demarcated lesion of 4 cm. - Venous Doppler Ultrasound: Occlusive DVT in the right mid and distal femoral vein; no left popliteal venous thrombosis. - CT Pulmonary Angiogram: No pulmonary embolism; nonspecific bilateral lymphadenopathy; severe compression deformity of mid-thoracic vertebrae just above the fused lumbar segment; lungs are clear except for right upper lobe and left lower lobe nodules; bilateral small pleural effusions with associated patchy atelectasis and consolidation in lung bases. MRSA nasal swab is positive. Wound cultures from her sacral ulcer show growth of MRSA, Enterococci, and multidrug-resistant organisms. Plan: - Back and Buttock Cellulitis: - Continue vancomycin. stop gentamicin - Initiate ceftriaxone. - Wound care: - Apply barrier cream. - Keep the area dry. - Use nystatin powder to assist with moisture control. - Monitor wound for signs of infection. - Sacral and Back Ulcers: - Consult wound care team. - Implement pressure off-loading measures. - Encourage frequent repositioning. - Deep Vein Thrombosis: - Initiate anticoagulation therapy. - Monitor for signs of bleeding. - Altered Mental Status: - Monitor mental status closely. - Assess for potential contributing factors (medications, infection, metabolic abnormalities). - Pain Management: - Assess pain levels regularly. - Adjust analgesics as needed. - Physical Therapy: - Initiate to improve mobility and prevent further deconditioning. - Isolation Precautions: - Implement contact precautions due to MRSA colonization. Assessment and plan was discussed with the patient as written above. Plan is subject to change pending incorporation of new incoming information/diagnostics. Updates may be added as addendum at the bottom (OR TOP) of this note. Thank you for interesting consult. We will continue to follow. Please contact me for any questions or concerns. Elaine Doan M.D. [facility] Ph: ? History: The patient's chart and medications were reviewed in detail, and the patient was seen and examined. History obtained from: Patient Anuja Escalera is a female with a past medical history of hypertension, hypothyroidism, chronic back pain, and prior cervical cancer. She presents with worsening sacral ulcers and back cellulitis. The patient was transferred from [facility] after episodes of altered level of consciousness. She has been living in [place] and became bedbound over the last several months due to progressive weakness in her lower extremities following spinal fusion surgery in January 2024. She developed a stage I sacral ulcer measuring approximately 1 x 1 cm with intact skin on her sacrum and curvature over the upper mid-back. She reports chronic back pain and stiffness in her joints. Review of Systems: A complete 10-system review of systems was completed and negative except as noted in the HPI or here. ROS: - CONSTITUTIONAL: Denies weight loss, fever, and chills. - HEENT: Denies changes in vision and hearing. - RESPIRATORY: Denies shortness of breath and cough. - CV: Denies palpitations and chest pain. - GI: Denies abdominal pain, nausea, vomiting, and diarrhea. - : Denies dysuria and urinary frequency. - MSK: Reports joint stiffness and weakness in lower extremities. - SKIN: Reports sacral and back ulcers; notes redness and irritation. - NEUROLOGICAL: Reports weakness in lower extremities; denies headaches and syncope. - PSYCHIATRIC: Denies recent changes in mood, anxiety, and depression. Past Medical History: - Hypertension - Hypothyroidism - Chronic back pain - Prior cervical cancer Past Surgical History: - Total hysterectomy (date not specified) - Spinal fusion surgery in January 2024 Home Medications: - Triamterene/hydrochlorothiazide 37.5 mg/25 mg tablet: Take 1 tablet by mouth daily. - Omeprazole 20 mg capsule: Take 1 capsule by mouth daily. - Lamotrigine 100 mg tablet: Take 1 tablet by mouth daily. - Levothyroxine 75 mcg tablet: Take 1 tablet by mouth daily. Allergies: - Penicillin: Rash - Codeine: Nausea - Aspirin: Hives - Family History: - No significant family history reported. - Social History: Socioeconomic History: - Marital status: Not specified - Number of children: Not specified - Years of education: Not specified - Highest education level: Not specified Occupational History: - Not on file Tobacco Use: - Smoking status: Never smoked Substance and Sexual Activity: - Alcohol use: Denies - Illicit drug use: Denies - Sexual activity: Not currently sexually active Objective: Vital Signs on Arrival: - Temp: 98.7 F - BP: 112/51 mmHg - Pulse: 78 bpm - Resp: 16 breaths per minute - SpO?: 100% on room air Most Recent Vital Signs: - Temp: [Not provided] - BP: [Not provided] - Pulse: [Not provided] - Resp: [Not provided] - SpO?: [Not provided] Admission Weight: - Weight: [Not provided] - BMI: [Not provided] Physical Exam: - General: NAD - Neck: Supple. No masses. - HEENT: PERRL. Normal lids and conjunctiva. Moist mucous membranes. Oropharynx without lesions, exudates, or excessive erythema. Normal appearance of the external aspects of the nose and ears. - Heart: Regular rhythm, normal rate. No murmur. No lower extremity edema. - Lungs: Normal respiratory effort. Clear to auscultation bilaterally. No wheezes. No crackles. - Abdomen: Soft. Non-tender. Non-distended. No masses or abdominal hernia. - Musculoskeletal: 3/5 strength in lower extremities bilaterally. Mild edema in ankles. Joint stiffness. No digital cyanosis. - Skin: Warm and dry. Stage I sacral ulcer approximately 1 x 1 cm with intact skin on sacrum and upper mid-back. No rashes. - Neuro: Alert. No facial droop or slurred speech. Extra-ocular movements intact. Sensation intact to soft touch in all four limbs. - Psych: Appropriate mood. Full affect. Oriented to person, place, time, and situation. - Diagnostic Studies: Available diagnostic studies were reviewed personally. Significant relevant results and findings are outlined below or addressed in the Assessment and Plan above. Pertinent Imaging: Chest X-ray: - Impression: - No active cardiopulmonary disease. Head CT: - Impression: - No acute intracranial abnormality. - Left parietal outer bone table with a demarcated lesion of 4 cm. Venous Doppler Ultrasound of Lower Extremities: - Impression: - Occlusive DVT in the right mid and distal femoral vein. - No left popliteal venous thrombosis. CT Pulmonary Angiogram: - Impression: - No pulmonary embolism. - Nonspecific bilateral lymphadenopathy. - Severe compression deformity of mid-thoracic vertebrae just above the fused lumbar segment. - Lungs are clear except for right upper lobe and left lower lobe nodules. - Bilateral small pleural effusions with associated patchy atelectasis and consolidation in lung bases. - Laboratory Studies: - Complete Blood Count: - Hemoglobin: 6.2 g/dL (low) - WBC count: 3.42 x10/L - Platelets: 102 x10/L - Basic Metabolic Panel: - Sodium: 140 mEq/L - BUN: 7 mg/dL - Creatinine: 0.54 mg/dL - Liver Function Tests: AST: 15 U/L ALT: 9 U/L Microbiology: - MRSA nasal swab: Positive - Wound cultures from sacral ulcer: Growth of MRSA, Enterococci, and multidrug- resistant organisms. - Provider: Elaine Doan M.D. - Plan discussed with: Patient ELAINE DOAN MD Sep 26, 2024 21:21
[2024-09-27] VITALS (8 sets, daily range): BP systolic 116–143; BP diastolic 55–77; PULSE 69–98; RESP 17–20; TEMP 98–99.2; O2SAT 94–98
[2024-09-27 07:16] LABS: Basophils # (auto) 0 10 ^3/uL (0-0.2); Basophils % (auto) 0.5 % (0.0-2.0); Eosinophils # (auto) 0.3 10 ^3/uL (0-0.8); Hematocrit 32.9 % (36.0-46.0); Hemoglobin 10.3 g/dL (12.2-16.2); Lymphocytes # (auto) 1.9 10 ^3/uL (0.4-5.4); Lymphocytes % (auto) 26.8 % (10.0-50.0); Mean Corpuscular Hemoglobin 27.7 pg (28.0-32.0); Mean Corpuscular Hgb Conc. 31.2 g/dL (32.0-36.0); Mean Corpuscular Volume 88.9 fL (80.0-100.0); Monocytes # (auto) 0.6 10 ^3/uL (0-1.3); Monocytes % (auto) 8.3 % (0.0-12.0); Neutrophils # (auto) 4.2 10 ^3/uL (1.6-8.6); Neutrophils % (auto) 60.4 % (37.0-80.0); Nucleated Red Blood Cells % 0.1 %; Platelet Count (auto) 428 10^3/uL (140-450); Red Cell Distribution Width 18.1 % (11.8-14.3)
[2024-09-27 07:27] LABS: Anion Gap 7 (5-15); Carbon Dioxide 22 mmol/L (20-31); Sodium 139 mmol/L (136-145)
[2024-09-27 07:28] LABS: Calcium 8.8 mg/dL (8.7-10.4)
[2024-09-27 07:33] LABS: Glucose 102 mg/dL (74-106); Magnesium 1.7 mg/dL (1.6-2.6)
[2024-09-27 07:34] LABS: Blood Urea Nitrogen 8 mg/dL (9-23); Chloride 110 mmol/L (98-107); Potassium 3.5 mmol/L (3.5-5.1)
[2024-09-27] MEDS: GENTAMICIN SULFATE 380 MG in D5W 5% 100 ML IV SCH (14:00)
--- NOTE | 2024-09-27 14:59 | DVHPNRES ---
Progress Note Date Seen: Sep 27, 2024 Resident Creating Document: STEPHY SCHAFER RESIDENT Medical Necessity Reason Pt with a Central, PICC or Fol: No The following are medically ne: Castaneda Catheter Subjective Review of Systems Patient is 73 years old female with past medical history of hypertension, coronary artery disease, hypothyroidism, GERD, history of cervical cancer was brought in from [facility] due to altered mental status. Patient was transferred from [facility]. As per ER physician documentation and from patient and her family patient was transferred to [facility] for altered mental status. As per patient's sister she was not responding at the nursing facility and that is why she was transferred to [facility]. At the [facility] patient was found to have elevated troponin I with non STEMI and she was transferred to [facility] for higher level of care. Provider spoke to the patient today and patient reported she had chest pain, central, stabbing in nature, 10/10, associated with shortness of breaths. Patient also endorsed nausea and vomiting 3 times mainly bile, , no blood. Patient had back surgery on January, which was complicated with wound infection as per patient and family. And postoperative patient is unable to ambulate for last two-month. Patient denied any fever, , dysarthria or change in vision, acute joint pain or swelling. Initial lab workup revealed troponin I elevated 2637> 2450> 2401. TSH 0.56, UDS positive for opiates, fecal occult blood test negative, D-dimer 1.73, hypokalemia with potassium 3.3, negative for COVID-19, urinalysis revealed UTI with leukocyte esterase 3+, RBC 14, WBC 128, bacteria few. Doppler study of the lower extremity revealed- Occlusive DVT at the right mid to distal femoral vein. No left femoropopliteal venous thrombosis. CT angio chest-1. No pulmonary embolism. Small bilateral pleural effusions with associated patchy atelectasis and consolidation in the lung bases. Nodular airspace disease right upper lung. Left lower lobe nodule. Recommend clinical correlation and continued follow-up to resolution. Nonspecific bilateral axillary lymphadenopathy. Severe compression deformity of a midthoracic vertebral body just above the last fused segment. Consider further evaluation with MRI of the thoracic spine. CXR revealed-No active cardiopulmonary disease. Partially visualized thoracolumbar fixation hardware. CT brain revealed-No acute intracranial abnormality. Left parietal bone outer table well demarcated sclerotic lesion measuring 4 cm. This is most likely benign but can be further evaluated nonemergent MRI. Past medical history: HTN, ?NE in the past, Hypothyroidism, GERD, H/o cervical cancer. Past surgical history: hysterectomy with B/L salpingoophrectomy, Back surgery Social history: reports to be living alone at home in [place], for last 3 weeks she reports to be living at [facility], denies smoking, alcohol, drug use Home medications: from the med. records - triamterene-HCTZ 37.5/25mg Qd, omeprazole 40mg qd, lamotrigine 100mg qd, levothyroxine [id number] Patient seen and examined at bedside, cardiology and ID consultation appreciated, reviewed all consultation, D/C vancomycin, continue gentamicin and Zyvox. Allergy- aspirin, codeine, penicillin Objective vital signs Vital Sign Date Time Temp Pulse Resp B/P (MAP) Pulse Ox O2 Delivery O2 Flow Rate FiO2 09/27/24 12:57 98 18 116/62 09/27/24 12:42 99.2 97 99.2 09/27/24 08:00 Room Air* 0 21 Total Intake and Output 09/26/24 09/26/24 09/27/24 15:00 23:00 07:00 Intake Total 686 ml 300 ml 300 ml Output Total 700 ml Balance 686 ml -400 ml 300 ml medications Current Medications Medications Dose Ordered Sig/Lydia Route Start Time Stop Time Status Last Admin Dose Admin Nitroglycerin 0.4 mg Q5MINP PRN SL 09/23/24 03:45 Morphine Sulfate 2 mg Q30M PRN IV 09/23/24 03:45 09/27/24 05:07 2 MG Famotidine 20 mg DAILY PO 09/23/24 10:00 09/27/24 09:08 20 MG Clopidogrel Bisulfate 75 mg DAILY PO 09/24/24 10:00 09/27/24 09:08 75 MG Lamotrigine 100 mg DAILY PO 09/23/24 10:00 09/27/24 09:10 100 MG Morphine Sulfate 2 mg Q6HPRN PRN IV 09/23/24 13:30 09/27/24 12:27 2 MG Atorvastatin Calcium 40 mg HS PO 09/23/24 22:00 09/26/24 21:13 40 MG Acetaminophen/ Hydrocodone Bitart 1 tab Q4HP PRN PO 09/23/24 20:15 Hold 09/25/24 08:58 1 TAB Sodium Chloride 1,000 ml @ 75 mls/hr [id number] IV 09/24/24 06:30 09/27/24 14:10 75 MLS/HR Mupirocin 1 applic BID EACHNOSTRI 09/24/24 22:00 09/29/24 21:59 09/27/24 09:09 1 APPLIC Melatonin 5 mg HSPRN PO 09/25/24 22:00 09/26/24 21:13 5 MG Gentamicin Sulfate 0 ml @ 0 mls/hr PER PHARMACY IV 09/26/24 06:30 Cancel Hydromorphone HCl 1 mg Q4HPRN PRN IV 09/26/24 17:15 09/27/24 09:08 1 MG Doxycycline Monohydrate 100 mg Q12HR PO 09/27/24 22:00 Ceftriaxone Sodium 50 ml @ 100 mls/hr DAILY@09 IV 09/28/24 09:00 Examination General examination- patient is awake, alert, oriented, conversant today HEENT- PEERLA, no acute nasal discharge Cardiovascular- chest wall tenderness+, S1-S2 audible, rate and rhythm regular, no murmur Respiratory- CTAB, no wheeze or rhonchi Gastrointestinal-nontender, bowel sound+. Nondistended Musculoskeletal-no acute joint swelling or tenderness or redness# Lower extremity- no leg edema, patient with decreased muscle bowel on the bilateral lower extremity Neurological-decreased muscle power on the bilateral lower extremity Psychiatry- denies depression or SI or HI Skin- no acute rash or purpura laboratory and microbiology Laboratory Tests 09/27/24 06:48 Test 09/27/24 06:48 Range/Units Serum Glucose 102 74-106 mg/dL Microbiology Date/Time Source Procedure Growth Status 09/23/24 20:14 Sacrum Gram Stain - Final Complete 09/23/24 20:14 Wound Culture - Final Acinetobacter baumannii MDRO Methicillin Resistant S.aureus Enterococcus faecalis - VRE Complete 09/23/24 04:49 Stool Stool Culture - Final Complete 09/23/24 04:49 Stool Shiga Toxin I & II - Final Complete 09/23/24 04:13 Blood Blood Culture - Preliminary NO GROWTH AFTER 72 HOURS OF INCUBATION. Resulted 09/23/24 03:53 Urine - Catheterized Urine Culture - Final Complete Problem List/Assessment/Plan Problem List/Assessment/Plan #Acute Chest pain likely due to NSTEMI type 1 # acute hypoxic respiratory failure likely due to UTI/suspected pneumonia # suspected pneumonia Gram-positive versus Gram-negative # DVT-Occlusive DVT at the right mid to distal femoral vein. # wound infection-Patient's wound culture revealed Acinetobacter baumannii MDRO, methicillin-resistant Staphylococcus aureus, Enterococcus faecalis VRE. Pending Infectious Disease consult. # UTI #Metabolic encephalopathy #NSTEMI likely type 1 #Severe compression deformity of a midthoracic vertebral body-status post spinal surgery-pending MRI of the lumbar and thoracic spine # suspected diastolic heart failure, elevated BNP 245 # MRSA screening for nares positive #Uncontrolled high blood pressure #Hypothyroidism #GERD # recurrent hypokalemia-replenished #Small bilateral pleural effusions # wound on the back and Sacral ulcer -Patient's wound culture revealed Acinetobacter baumannii MDRO, methicillin-resistant Staphylococcus aureus, Enterococcus faecalis VRE. Pending Infectious Disease consult. Echo 2D-Normal left ventricular size and dimension. Normal right ventricular systolic function estimated ejection fraction 55%. There is a grade 1 diastolic dysfunction. Normal right ventricular size and dimension. Normal right ventricular systolic function Cardiology recommendation reviewed and appreciated-angiogram showed mild atherosclerotic disease in proximal LAD and proximal and mid segment of RCA. No significant CAD was noted, likely due to microvascular disease or coronary vasospasm ,supply demand mismatch ischemia and advised aggressive primary prevention protocol for all risk factors Patient's wound culture revealed Acinetobacter baumannii MDRO, methicillin- resistant Staphylococcus aureus, Enterococcus faecalis VRE. Pending Infectious Disease consult. Continue heparin as per protocol Continue clopidogrel 75 mg p.o. daily Continue continue gentamicin as per pharmacy protocol Continue Zyvox 600 mg IV q.12 hours Continue gentamicin as per pharmacy protocol D/C vancomycin as prescribed Continue atorvastatin 40 mg q.h.s. Continue Lamictal 100 mg p.o. daily Continue famotidine 20 mg p.o. daily Continue other p.r.n. medication as prescribed Continue mupirocin 2% ointment for nares MRSA as prescribed Pending consult for a spinal surgeon for further evaluation and care -pending wound consult Goals of care/advance care planning; DNR; discussed with the patient >15 minutes Plan discussed with Dr. Balderas, Goal of care discussed with patient for 23 minutes: DNR Plan discussed with: Patient Dietary Evaluation Review Comments: Consider a cardiac 2gNa lo fat LoChol diet. encourage PO intake to meet 75% of her needs. Consider Nathanael BID for wound healing. Expected Outcomes/Goals: improved nutrition parameters. healed saccral ulcer, maintain weight. Date of Service: Sep 27, 2024 Billing Provider: ALEJANDRA BALDERAS MD Common Visit Codes: 15529-[id number] INP/OBS CARE(HIGH) STEPHY SCHAFER RESIDENT Sep 27, 2024 14:59 ALEJANDRA BALDERAS MD Sep 29, 2024 17:08
[2024-09-27] MEDS ORDERED: VANCOMYCIN PER PHARMACY 0 MG IV SCH (21:15)
[2024-09-27] MEDS: HALOPERIDOL LACTATE 5 MG/ML INJ VIAL IM SCH (21:58)
[2024-09-27] MEDS ORDERED: DOXYCYCLINE 100 MG TAB/CAP PO SCH (22:00)
[2024-09-27] MEDS: VANCOMYCIN 1.75GM/350ML 350 ML IV ONE (22:34)
--- NOTE | 2024-09-27 23:40 | DVHPN2 ---
Consult Progress Note Date Seen: Sep 27, 2024 Subjective Patient reports: Other (complaining of back pain and lower and upper extremity weakness. has drainage from back rash that is irritateed ) Objective vital signs Vital Sign Date Time Temp Pulse Resp B/P (MAP) Pulse Ox O2 Delivery O2 Flow Rate FiO2 09/27/24 22:29 93 18 120/69 09/27/24 21:00 98.6 97 98.6 09/27/24 20:00 Room Air* 0 21 Total Intake and Output 09/26/24 09/26/24 09/27/24 15:00 23:00 07:00 Intake Total 686 ml 300 ml 300 ml Output Total 700 ml Balance 686 ml -400 ml 300 ml medications Current Medications Medications Dose Ordered Sig/Lydia Route Start Time Stop Time Status Last Admin Dose Admin Nitroglycerin 0.4 mg Q5MINP PRN SL 09/23/24 03:45 Morphine Sulfate 2 mg Q30M PRN IV 09/23/24 03:45 09/27/24 05:07 2 MG Famotidine 20 mg DAILY PO 09/23/24 10:00 09/27/24 09:08 20 MG Clopidogrel Bisulfate 75 mg DAILY PO 09/24/24 10:00 09/27/24 09:08 75 MG Lamotrigine 100 mg DAILY PO 09/23/24 10:00 09/27/24 09:10 100 MG Morphine Sulfate 2 mg Q6HPRN PRN IV 09/23/24 13:30 09/27/24 18:41 2 MG Atorvastatin Calcium 40 mg HS PO 09/23/24 22:00 09/27/24 21:57 40 MG Acetaminophen/ Hydrocodone Bitart 1 tab Q4HP PRN PO 09/23/24 20:15 Hold 09/25/24 08:58 1 TAB Sodium Chloride 1,000 ml @ 75 mls/hr [id number] IV 09/24/24 06:30 09/27/24 14:10 75 MLS/HR Mupirocin 1 applic BID EACHNOSTRI 09/24/24 22:00 09/29/24 21:59 09/27/24 09:09 1 APPLIC Melatonin 5 mg HSPRN PO 09/25/24 22:00 09/26/24 21:13 5 MG Gentamicin Sulfate 0 ml @ 0 mls/hr PER PHARMACY IV 09/26/24 06:30 Cancel Hydromorphone HCl 1 mg Q4HPRN PRN IV 09/26/24 17:15 09/27/24 21:59 1 MG Doxycycline Monohydrate 100 mg Q12HR PO 09/27/24 22:00 Cancel Ceftriaxone Sodium 50 ml @ 100 mls/hr DAILY@09 IV 09/28/24 09:00 Cancel Haloperidol Lactate 2.5 mg HS IM 09/27/24 22:00 09/27/24 21:58 2.5 MG Vancomycin HCl 0 ml @ 0 mls/hr UD IV 09/27/24 21:15 UNV Ceftriaxone Sodium/Dextrose 50 ml @ 50 mls/hr Q12HR@ IV 09/27/24 21:44 laboratory and microbiology Laboratory Tests 09/27/24 06:48 Test 09/27/24 06:48 Range/Units Serum Glucose 102 74-106 mg/dL Problem List/Assessment/Plan Problems(with codes): (1) Sacral ulcer (2) Cellulitis of mid back region (3) Cellulitis of lower back (4) Inability to walk (5) DVT (deep venous thrombosis) (6) Weakness (7) Back pain (8) Hypokalemia (9) Non-STEMI (non-ST elevated myocardial infarction) (10) Metabolic encephalopathy (11) Altered mental status Problem List/Assessment/Plan ASSESSMENT AND PLAN: ID Problem List: - Acute deep vein thrombosis (DVT) in right mid and distal femoral vein - Back and buttock cellulitis - Sacral and back ulcers (Stage I) - Altered mental status - Anemia (hemoglobin 6.2 g/dL) - Chronic back pain status post spinal fusion - Hypertension - Hypothyroidism - Prior cervical cancer - MRSA colonization Assessment This is Anuja Escalera, a female with a past medical history of hypertension, hypothyroidism, chronic back pain status post spinal fusion, and prior cervical cancer, who presents with worsening sacral ulcers and back cellulitis. The patient was transferred from [facility] to [facility] after episodes of altered level of consciousness. She recently underwent back surgery in January 2024 for spinal fusion due to chronic back pain with fused vertebrae. Over the last several months, she has been bedridden due to progressive weakness in her lower extremities and is now bedbound. She has developed stage I sacral and back ulcers measuring approximately 1 x 1 cm with intact skin, likely related to immobility. On examination, she has 3/5 strength in her lower extremities bilaterally, mild edema in her ankles, and joint stiffness. She is alert and oriented. Vital signs are stable. Laboratory data reveal anemia with a hemoglobin of 6.2 g/dL, white blood cell count of 3.42 x10/L, and platelets of 102 x10/L. Electrolytes are within normal limits. Renal function is normal with BUN 7 mg/dL and creatinine 0.54 mg/dL. Liver function tests are within normal limits. She has been on vancomycin since admission. Urine drug screen is positive for opioids. Imaging studies include: - Chest X-ray: No active cardiopulmonary disease. - Head CT: No acute intracranial abnormality; left parietal outer bone table with a demarcated lesion of 4 cm. - Venous Doppler Ultrasound: Occlusive DVT in the right mid and distal femoral vein; no left popliteal venous thrombosis. - CT Pulmonary Angiogram: No pulmonary embolism; nonspecific bilateral lymphadenopathy; severe compression deformity of mid-thoracic vertebrae just above the fused lumbar segment; lungs are clear except for right upper lobe and left lower lobe nodules; bilateral small pleural effusions with associated patchy atelectasis and consolidation in lung bases. MRSA nasal swab is positive. Wound cultures from her sacral ulcer show growth of MRSA, Enterococci, and multidrug-resistant organisms. 09/27: patient claims to have spinal surgery tatyana infusion in january and has been having worsening pain since after hospitalization at [facility] and had multiple hospital admissions due to back rash . Had a fall. reviewing MRI from 08/05 shows disgused osteomyelitis with severe destructive changes of t7 and t8 and concern for flegmont abcess formation . ne epidural fluid collection is identified t this time Plan: osteomyelitis / dyscitis - due to past history recommend further work up of patients prior historyh of osteomyelitis as patient was likely inadequately treated with antibiotics and concern for periprostetic infection - may require mri with or without contrast of the cervical thoracic and lumbar spine if dysitis id found - follow up on blood cultures - recommend treating empirially for osteomyelitis with vancomycin and ceftriaxone 2 grams every 12 hours given progress of lower extremities - if osteomyelitis is confirmed patient wwill likely need surgery of this area - Recommend patient is seen by DR Watson and nabil warren of this abscess - recommend chemical and bio correlation and a 3 lobe scan as well as nuclear scan - Back and Buttock Cellulitis: - Continue vancomycin. stop gentamicin - Initiate ceftriaxone. - Wound care: - Apply barrier cream. - Keep the area dry. - Use nystatin powder to assist with moisture control. - Monitor wound for signs of infection. - Sacral and Back Ulcers: - Consult wound care team. - Implement pressure off-loading measures. - Encourage frequent repositioning. - Deep Vein Thrombosis: - Initiate anticoagulation therapy. - Monitor for signs of bleeding. - Altered Mental Status: - Monitor mental status closely. - Assess for potential contributing factors (medications, infection, metabolic abnormalities). - Pain Management: - Assess pain levels regularly. - Adjust analgesics as needed. - Physical Therapy: - Initiate to improve mobility and prevent further deconditioning. - Isolation Precautions: - Implement contact precautions due to MRSA colonization. Plan discussed with: Other Dietary Evaluation Review Comments: Consider a cardiac 2gNa lo fat LoChol diet. encourage PO intake to meet 75% of her needs. Consider Nathanael BID for wound healing. Expected Outcomes/Goals: improved nutrition parameters. healed saccral ulcer, maintain weight. ELAINE GODINEZ MD Sep 27, 2024 23:40
[2024-09-28] VITALS (8 sets, daily range): BP systolic 108–141; BP diastolic 53–68; PULSE 69–106; RESP 16–20; TEMP 97.5–99.2; O2SAT 95–100
[2024-09-28] MEDS: cefTRIAXone 2GM/50ML D5W 50 ML IV SCH (02:08)
[2024-09-28] MEDS: VANCOMYCIN 1.75GM/350ML IV ONE (04:07)
[2024-09-28 07:55] LABS: Potassium 3.9 mmol/L (3.5-5.1); Sodium 140 mmol/L (136-145)
[2024-09-28 07:56] LABS: Anion Gap 7 (5-15); Carbon Dioxide 22 mmol/L (20-31)
[2024-09-28 07:58] LABS: Chloride 111 mmol/L (98-107)
[2024-09-28 08:02] LABS: BUN/Creatinine Ratio 15.1 (10.0-20.0); Glucose 89 mg/dL (74-106)
[2024-09-28 08:04] LABS: Blood Urea Nitrogen 8 mg/dL (9-23)
[2024-09-28 08:14] LABS: Eosinophils # (auto) 0.3 10 ^3/uL (0-0.8)
[2024-09-28 08:15] LABS: Basophils # (auto) 0 10 ^3/uL (0-0.2); Basophils % (auto) 0.6 % (0.0-2.0); Eosinophils % (auto) 4.6 % (0.0-7.0); Hematocrit 32.7 % (36.0-46.0); Lymphocytes # (auto) 2.2 10 ^3/uL (0.4-5.4); Lymphocytes % (auto) 29.5 % (10.0-50.0); Mean Corpuscular Hemoglobin 27.8 pg (28.0-32.0); Mean Corpuscular Hgb Conc. 30.7 g/dL (32.0-36.0); Mean Corpuscular Volume 90.8 fL (80.0-100.0); Monocytes # (auto) 0.6 10 ^3/uL (0-1.3); Monocytes % (auto) 7.8 % (0.0-12.0); Neutrophils # (auto) 4.2 10 ^3/uL (1.6-8.6); Neutrophils % (auto) 57.5 % (37.0-80.0); Platelet Count (auto) 431 10^3/uL (140-450); White Blood Cell 7.4 10^3/uL (4.4-10.8)
[2024-09-28] MEDS ORDERED: cefTRIAXone 1GM/50ML D5W 50 ML IV SCH (09:00)
--- NOTE | 2024-09-28 16:29 | DVHPNRES ---
Progress Note Date Seen: Sep 28, 2024 Resident Creating Document: BRYN RETANA RESIDENT Medical Necessity Reason Pt with a Central, PICC or Fol: No The following are medically ne: Castaneda Catheter Subjective Review of Systems Patient is 73 years old female with past medical history of hypertension, coronary artery disease, hypothyroidism, GERD, history of cervical cancer was brought in from [facility] due to altered mental status. Patient was transferred from [facility]. As per ER physician documentation and from patient and her family patient was transferred to [facility] for altered mental status. As per patient's sister she was not responding at the nursing facility and that is why she was transferred to [facility]. At the [facility] patient was found to have elevated troponin I with non STEMI and she was transferred to [facility] for higher level of care. Provider spoke to the patient today and patient reported she had chest pain, central, stabbing in nature, 10/10, associated with shortness of breaths. Patient also endorsed nausea and vomiting 3 times mainly bile, , no blood. Patient had back surgery on January, which was complicated with wound infection as per patient and family. And postoperative patient is unable to ambulate for last two-month. Patient denied any fever, , dysarthria or change in vision, acute joint pain or swelling. Initial lab workup revealed troponin I elevated 2637> 2450> 2401. TSH 0.56, UDS positive for opiates, fecal occult blood test negative, D-dimer 1.73, hypokalemia with potassium 3.3, negative for COVID-19, urinalysis revealed UTI with leukocyte esterase 3+, RBC 14, WBC 128, bacteria few. Doppler study of the lower extremity revealed- Occlusive DVT at the right mid to distal femoral vein. No left femoropopliteal venous thrombosis. CT angio chest-1. No pulmonary embolism. Small bilateral pleural effusions with associated patchy atelectasis and consolidation in the lung bases. Nodular airspace disease right upper lung. Left lower lobe nodule. Recommend clinical correlation and continued follow-up to resolution. Nonspecific bilateral axillary lymphadenopathy. Severe compression deformity of a midthoracic vertebral body just above the last fused segment. Consider further evaluation with MRI of the thoracic spine. CXR revealed-No active cardiopulmonary disease. Partially visualized thoracolumbar fixation hardware. CT brain revealed-No acute intracranial abnormality. Left parietal bone outer table well demarcated sclerotic lesion measuring 4 cm. This is most likely benign but can be further evaluated nonemergent MRI. Past medical history: HTN, ?[place] in the past, Hypothyroidism, GERD, H/o cervical cancer. Past surgical history: hysterectomy with B/L salpingoophrectomy, Back surgery Social history: reports to be living alone at home in [place], for last 3 weeks she reports to be living at [facility], denies smoking, alcohol, drug use Home medications: from the med. records - triamterene-HCTZ 37.5/25mg Qd, omeprazole 40mg qd, lamotrigine 100mg qd, levothyroxine 100mcg Allergy- aspirin, codeine, penicillin Patient was seen today at the bedside. Cardiovascular- denies cough or palpitation Respiratory- denies cough or or wheezing Gastrointestinal- denies any rectal bleeding, nausea or vomiting Musculoskeletal-denies acute joint swelling or tenderness or redness Neurological- denies acute dysarthria, dysphagia, change in vision Psychiatry- denies depression or SI or HI Skin- denies acute rash or purpura Patient was seen today for clinical evaluation. Labs and chart reviewed. Patient still complaining of back pain. Patient is seen by infectious disease, recommendation reviewed and appreciated. ID recommended-- Continue vancomycin. stop gentamicin- Initiate ceftriaxone. Objective vital signs Vital Sign Date Time Temp Pulse Resp B/P (MAP) Pulse Ox O2 Delivery O2 Flow Rate FiO2 09/28/24 14:44 106 18 139/64 09/28/24 12:39 97.6 97 97.6 09/28/24 08:00 Room Air* 0 21 Total Intake and Output 09/27/24 09/27/24 09/28/24 15:00 23:00 07:00 Intake Total 850 ml 350 ml 700 ml Output Total 1500 ml Balance 850 ml 350 ml -800 ml medications Current Medications Medications Dose Ordered Sig/Lydia Route Start Time Stop Time Status Last Admin Dose Admin Nitroglycerin 0.4 mg Q5MINP PRN SL 09/23/24 03:45 Morphine Sulfate 2 mg Q30M PRN IV 09/23/24 03:45 09/27/24 05:07 2 MG Famotidine 20 mg DAILY PO 09/23/24 10:00 09/28/24 09:24 20 MG Clopidogrel Bisulfate 75 mg DAILY PO 09/24/24 10:00 09/28/24 09:25 75 MG Lamotrigine 100 mg DAILY PO 09/23/24 10:00 09/28/24 09:24 100 MG Morphine Sulfate 2 mg Q6HPRN PRN IV 09/23/24 13:30 09/28/24 14:44 2 MG Atorvastatin Calcium 40 mg HS PO 09/23/24 22:00 09/27/24 21:57 40 MG Acetaminophen/ Hydrocodone Bitart 1 tab Q4HP PRN PO 09/23/24 20:15 Hold 09/25/24 08:58 1 TAB Sodium Chloride 1,000 ml @ 75 mls/hr [id number] IV 09/24/24 06:30 09/28/24 11:53 75 MLS/HR Mupirocin 1 applic BID EACHNOSTRI 09/24/24 22:00 09/29/24 21:59 09/28/24 09:25 1 APPLIC Melatonin 5 mg HSPRN PO 09/25/24 22:00 09/28/24 01:27 5 MG Gentamicin Sulfate 0 ml @ 0 mls/hr PER PHARMACY IV 09/26/24 06:30 Cancel Hydromorphone HCl 1 mg Q4HPRN PRN IV 09/26/24 17:15 09/28/24 11:46 1 MG Doxycycline Monohydrate 100 mg Q12HR PO 09/27/24 22:00 Cancel Ceftriaxone Sodium 50 ml @ 100 mls/hr DAILY@09 IV 09/28/24 09:00 Cancel Haloperidol Lactate 2.5 mg HS IM 09/27/24 22:00 09/27/24 21:58 2.5 MG Vancomycin HCl 0 ml @ 0 mls/hr UD IV 09/27/24 21:15 Ceftriaxone Sodium/Dextrose 50 ml @ 50 mls/hr Q12HR@,21 IV 09/27/24 21:44 09/28/24 09:43 50 MLS/HR Vancomycin HCl 250 ml @ 250 mls/hr Q16H IV 09/28/24 20:00 Enoxaparin Sodium 75 mg Q12HR SC 09/28/24 22:00 laboratory and microbiology Laboratory Tests 09/28/24 07:18 Test 09/28/24 07:18 Range/Units Serum Glucose 89 74-106 mg/dL Microbiology Date/Time Source Procedure Growth Status 09/23/24 20:14 Sacrum Gram Stain - Final Complete 09/23/24 20:14 Wound Culture - Final Acinetobacter baumannii MDRO Methicillin Resistant S.aureus Enterococcus faecalis - VRE Complete 09/23/24 04:49 Stool Stool Culture - Final Complete 09/23/24 04:49 Stool Shiga Toxin I & II - Final Complete 09/23/24 04:13 Blood Blood Culture - Final NO GROWTH AFTER 5 DAYS OF INCUBATION. Complete 09/23/24 03:53 Urine - Catheterized Urine Culture - Final Complete Problem List/Assessment/Plan Problem List/Assessment/Plan #Acute Chest pain likely due to NSTEMI type 1 # acute hypoxic respiratory failure likely due to UTI/suspected pneumonia # suspected pneumonia Gram-positive versus Gram-negative # DVT-Occlusive DVT at the right mid to distal femoral vein. # wound infection-Patient's wound culture revealed Acinetobacter baumannii MDRO, methicillin-resistant Staphylococcus aureus, Enterococcus faecalis VRE. INFECTIOUS DISEASE ON BOARD. # UTI #Metabolic encephalopathy #NSTEMI likely type 1 #Severe compression deformity of a midthoracic vertebral body-status post spinal surgery-pending MRI of the lumbar and thoracic spine # suspected diastolic heart failure, elevated BNP 245 # MRSA screening for nares positive #Uncontrolled high blood pressure #Hypothyroidism #GERD #Recurrent hypokalemia-replenished #Small bilateral pleural effusions # wound on the back and Sacral ulcer -Patient's wound culture revealed Acinetobacter baumannii MDRO, methicillin-resistant Staphylococcus aureus, Enterococcus faecalis VRE. Pending Infectious Disease consult. # Back and buttock cellulitis #Sacral and back ulcers (Stage I) #Altered mental status #Chronic back pain status post spinal fusion # Prior cervical cancer -Echo 2D-Normal left ventricular size and dimension. Normal right ventricular systolic function estimated ejection fraction 55%. There is a grade 1 diastolic dysfunction. Normal right ventricular size and dimension. Normal right ventricular systolic function -Cardiology recommendation reviewed and appreciated-angiogram showed mild atherosclerotic disease in proximal LAD and proximal and mid segment of RCA. No significant CAD was noted, likely due to microvascular disease or coronary vasospasm ,supply demand mismatch ischemia and advised aggressive primary prevention protocol for all risk factors -Patient's wound culture revealed Acinetobacter baumannii MDRO, methicillin- resistant Staphylococcus aureus, Enterococcus faecalis VRE. Infectious disease on board Continue 75 mcg subcutaneously b.i.d. Continue clopidogrel 75 mg p.o. daily Continue continue gentamicin as per pharmacy protocol Continue CEFTRIAXONE 1 G IV Q.12 HOURS Continue vancomycin as prescribed Continue atorvastatin 40 mg q.h.s. Continue Lamictal 100 mg p.o. daily Continue famotidine 20 mg p.o. daily Continue other p.r.n. medication as prescribed Continue mupirocin 2% ointment for nares MRSA as prescribed Pending consult for a spinal surgeon for further evaluation and care Goals of care/advance care planning; DNR; discussed with the patient >15 minutes PUD prophylaxis: Continue famotidine DVT prophylaxis: Patient on Lovenox Plan discussed with Dr. Balderas, nursing staff, patient Total time spent on patient evaluation, chart review, assessment and plan, discussion discussion >30 minutes Plan discussed with: Patient Plan discussed with: Patient, Other (RN) My Orders My Orders Orders - BRYN RETANA Procedure Category Date Status Time Enoxaparin Sodium PHA 09/28/24 In Process (Lovenox) 22:00 Dietary Evaluation Review Comments: Consider a cardiac 2gNa lo fat LoChol diet. encourage PO intake to meet 75% of her needs. Consider Nathanael BID for wound healing. Expected Outcomes/Goals: improved nutrition parameters. healed saccral ulcer, maintain weight. Date of Service: Sep 28, 2024 Billing Provider: ALEJANDRA BALDERAS MD Common Visit Codes: [id number] INP/OBS CARE(HIGH) BRYN RETANA Sep 28, 2024 16:29 ALEJANDRA BALDERAS MD Sep 29, 2024 17:08
[2024-09-28] MEDS: VANCOMYCIN 1GM/250ML KIT 250 ML IV SCH (20:41)
[2024-09-28] MEDS: ENOXAPARIN SOD 80 MG/0.8ML SYRINGE SC SCH (22:05)
--- NOTE | 2024-09-28 23:14 | DVHPN2 ---
Consult Progress Note Date Seen: Sep 28, 2024 Subjective Patient reports: Other (expressing upper back pain and tenderness at area of wound on her lower back . is tachycardic ) Objective vital signs Vital Sign Date Time Temp Pulse Resp B/P (MAP) Pulse Ox O2 Delivery O2 Flow Rate FiO2 09/28/24 22:19 97 18 135/60 09/28/24 21:00 97.5 97 97.5 09/28/24 08:00 Room Air* 0 21 Total Intake and Output 09/27/24 09/27/24 09/28/24 15:00 23:00 07:00 Intake Total 850 ml 350 ml 700 ml Output Total 1500 ml Balance 850 ml 350 ml -800 ml medications Current Medications Medications Dose Ordered Sig/Lydia Route Start Time Stop Time Status Last Admin Dose Admin Nitroglycerin 0.4 mg Q5MINP PRN SL 09/23/24 03:45 Morphine Sulfate 2 mg Q30M PRN IV 09/23/24 03:45 09/27/24 05:07 2 MG Famotidine 20 mg DAILY PO 09/23/24 10:00 09/28/24 09:24 20 MG Clopidogrel Bisulfate 75 mg DAILY PO 09/24/24 10:00 09/28/24 09:25 75 MG Lamotrigine 100 mg DAILY PO 09/23/24 10:00 09/28/24 09:24 100 MG Morphine Sulfate 2 mg Q6HPRN PRN IV 09/23/24 13:30 09/28/24 22:19 2 MG Atorvastatin Calcium 40 mg HS PO 09/23/24 22:00 09/28/24 22:03 40 MG Acetaminophen/ Hydrocodone Bitart 1 tab Q4HP PRN PO 09/23/24 20:15 Hold 09/25/24 08:58 1 TAB Sodium Chloride 1,000 ml @ 75 mls/hr [id number] IV 09/24/24 06:30 09/28/24 11:53 75 MLS/HR Mupirocin 1 applic BID EACHNOSTRI 09/24/24 22:00 09/29/24 21:59 09/28/24 22:23 1 APPLIC Melatonin 5 mg HSPRN PO 09/25/24 22:00 09/28/24 01:27 5 MG Gentamicin Sulfate 0 ml @ 0 mls/hr PER PHARMACY IV 09/26/24 06:30 Cancel Hydromorphone HCl 1 mg Q4HPRN PRN IV 09/26/24 17:15 09/28/24 18:02 1 MG Doxycycline Monohydrate 100 mg Q12HR PO 09/27/24 22:00 Cancel Ceftriaxone Sodium 50 ml @ 100 mls/hr DAILY@09 IV 09/28/24 09:00 Cancel Haloperidol Lactate 2.5 mg HS IM 09/27/24 22:00 09/28/24 22:05 2.5 MG Vancomycin HCl 0 ml @ 0 mls/hr UD IV 09/27/24 21:15 Ceftriaxone Sodium/Dextrose 50 ml @ 50 mls/hr Q12HR@, IV 09/27/24 21:44 09/28/24 22:19 50 MLS/HR Vancomycin HCl 250 ml @ 250 mls/hr Q16H IV 09/28/24 20:00 09/28/24 20:41 250 MLS/HR Enoxaparin Sodium 75 mg Q12HR SC 09/28/24 22:00 09/28/24 22:05 75 MG Physical Exam: - General: NAD - Neck: Supple. No masses. - HEENT: PERRL. Normal lids and conjunctiva. Moist mucous membranes. Oropharynx without lesions, exudates, or excessive erythema. Normal appearance of the external aspects of the nose and ears. - Heart: Regular rhythm, normal rate. No murmur. No lower extremity edema. - Lungs: Normal respiratory effort. Clear to auscultation bilaterally. No wheezes. No crackles. - Abdomen: Soft. Non-tender. Non-distended. No masses or abdominal hernia. - Musculoskeletal: 3/5 strength in lower extremities bilaterally. Mild edema in ankles. Joint stiffness. No digital cyanosis. - Skin: Warm and dry. Stage I sacral ulcer approximately 1 x 1 cm with intact skin on sacrum and upper mid-back. No rashes. - Neuro: Alert. No facial droop or slurred speech. Extra-ocular movements intact. Sensation intact to soft touch in all four limbs. - Psych: Appropriate mood. Full affect. Oriented to person, place, time, and situation. laboratory and microbiology Laboratory Tests 09/28/24 07:18 Test 09/28/24 07:18 Range/Units Serum Glucose 89 74-106 mg/dL Problem List/Assessment/Plan Problems(with codes): (1) Sacral ulcer (2) Cellulitis of mid back region (3) Cellulitis of lower back (4) Inability to walk (5) DVT (deep venous thrombosis) (6) Weakness (7) Back pain (8) Hypokalemia Problem List/Assessment/Plan ASSESSMENT AND PLAN: ID Problem List: - Acute deep vein thrombosis (DVT) in right mid and distal femoral vein - Back and buttock cellulitis - Sacral and back ulcers (Stage I) - Altered mental status - Anemia (hemoglobin 6.2 g/dL) - Chronic back pain status post spinal fusion - Hypertension - Hypothyroidism - Prior cervical cancer - MRSA colonization Assessment This is Anuja Escalera, a female with a past medical history of hypertension, hypothyroidism, chronic back pain status post spinal fusion, and prior cervical cancer, who presents with worsening sacral ulcers and back cellulitis. The patient was transferred from [facility] to [facility] after episodes of altered level of consciousness. She recently underwent back surgery in January 2024 for spinal fusion due to chronic back pain with fused vertebrae. Over the last several months, she has been bedridden due to progressive weakness in her lower extremities and is now bedbound. She has developed stage I sacral and back ulcers measuring approximately 1 x 1 cm with intact skin, likely related to immobility. On examination, she has 3/5 strength in her lower extremities bilaterally, mild edema in her ankles, and joint stiffness. She is alert and oriented. Vital signs are stable. Laboratory data reveal anemia with a hemoglobin of 6.2 g/dL, white blood cell count of 3.42 x10/L, and platelets of 102 x10/L. Electrolytes are within normal limits. Renal function is normal with BUN 7 mg/dL and creatinine 0.54 mg/dL. Liver function tests are within normal limits. She has been on vancomycin since admission. Urine drug screen is positive for opioids. Imaging studies include: - Chest X-ray: No active cardiopulmonary disease. - Head CT: No acute intracranial abnormality; left parietal outer bone table with a demarcated lesion of 4 cm. - Venous Doppler Ultrasound: Occlusive DVT in the right mid and distal femoral vein; no left popliteal venous thrombosis. - CT Pulmonary Angiogram: No pulmonary embolism; nonspecific bilateral lymphadenopathy; severe compression deformity of mid-thoracic vertebrae just above the fused lumbar segment; lungs are clear except for right upper lobe and left lower lobe nodules; bilateral small pleural effusions with associated patchy atelectasis and consolidation in lung bases. MRSA nasal swab is positive. Wound cultures from her sacral ulcer show growth of MRSA, Enterococci, and multidrug-resistant organisms. 09/27: patient claims to have spinal surgery tatyana infusion in january and has been having worsening pain since after hospitalization at [facility] and had multiple hospital admissions due to back rash . Had a fall. reviewing MRI from 08/05 shows disgused osteomyelitis with severe destructive changes of t7 and t8 and concern for flegmont abcess formation . ne epidural fluid collection is identified t this time 09/28: awaiting imaging to be completed Plan: osteomyelitis / dyscitis - due to past history recommend further work up of patients prior historyh of osteomyelitis as patient was likely inadequately treated with antibiotics and concern for periprostetic infection - may require mri with or without contrast of the cervical thoracic and lumbar spine if dysitis id found - follow up on blood cultures - recommend treating empirially for osteomyelitis with vancomycin and ceftriaxone 2 grams every 12 hours given progress of lower extremities - if osteomyelitis is confirmed patient wwill likely need surgery of this area - Recommend patient is seen by DR Watson and nabil warren of this abscess - recommend chemical and bio correlation and a 3 lobe scan as well as nuclear scan - Back and Buttock Cellulitis: - Continue vancomycin. stop gentamicin - Initiate ceftriaxone. - Wound care: - Apply barrier cream. - Keep the area dry. - Use nystatin powder to assist with moisture control. - Monitor wound for signs of infection. - Sacral and Back Ulcers: - Consult wound care team. - Implement pressure off-loading measures. - Encourage frequent repositioning. - Deep Vein Thrombosis: - Initiate anticoagulation therapy. - Monitor for signs of bleeding. - Altered Mental Status: - Monitor mental status closely. - Assess for potential contributing factors (medications, infection, metabolic abnormalities). - Pain Management: - Assess pain levels regularly. - Adjust analgesics as needed. - Physical Therapy: - Initiate to improve mobility and prevent further deconditioning. - Isolation Precautions: - Implement contact precautions due to MRSA colonization. Plan discussed with: Other Dietary Evaluation Review Comments: Consider a cardiac 2gNa lo fat LoChol diet. encourage PO intake to meet 75% of her needs. Consider Nathanael BID for wound healing. Expected Outcomes/Goals: improved nutrition parameters. healed saccral ulcer, maintain weight. ELAINE GODINEZ MD Sep 28, 2024 23:14
[2024-09-29] VITALS (8 sets, daily range): BP systolic 109–141; BP diastolic 62–93; PULSE 82–114; RESP 16–20; TEMP 97.1–98.3; O2SAT 95–99
[2024-09-29 06:56] LABS: Mean Corpuscular Hemoglobin 28.4 pg (28.0-32.0); White Blood Cell 7.7 10^3/uL (4.4-10.8)
[2024-09-29 06:57] LABS: Sodium 139 mmol/L (136-145)
[2024-09-29 06:58] LABS: Anion Gap 7 (5-15); Carbon Dioxide 24 mmol/L (20-31)
[2024-09-29 06:59] LABS: Hematocrit 33.6 % (36.0-46.0); Hemoglobin 10.5 g/dL (12.2-16.2); Mean Corpuscular Hgb Conc. 31.2 g/dL (32.0-36.0); Platelet Count (auto) 436 10^3/uL (140-450); Red Blood Cells 3.69 10^6/uL (4.0-5.20)
[2024-09-29 07:03] LABS: BUN/Creatinine Ratio 12.9 (10.0-20.0); Glucose 95 mg/dL (74-106)
[2024-09-29 07:05] LABS: Blood Urea Nitrogen 8 mg/dL (9-23); Chloride 108 mmol/L (98-107); Potassium 3.4 mmol/L (3.5-5.1)
[2024-09-29 07:27] LABS: Band Neutrophils % (manual) 0; Basophils % (manual) 0 (0.0-2.0); Blast Cells 0; Metamyelocytes % 0; Myelocytes % 0; Promyelocytes % 0; Reactive Lymphocytes 0
[2024-09-29 12:29] LABS: Eosinophils % (manual) 9 (0-7); Lymphocytes % (manual) 18 (10.0-50.0); Monocytes % (manual) 8 (0-12); Platelet Estimate Adequate
--- NOTE | 2024-09-29 12:47 | DVHINCON2 ---
Consultation - Spinal Surgery Date Seen: Sep 23, 2024 Referring Physician Referring Physician nel History of Present Illness History of Present Illness this unfortunate lady had spinal surgery by Dr. stubbs at [facility] in january 2024 . She develped a wound infection a couple of months after and hsaslost the ability to stand up. The last time she rememebrs being able to stand on her own power was day weekend she is having incapacitating low back pain and numbness and weakness in her arms and legs no current f/c/night sweats Allergies and medications Allergies: Coded Allergies: Aspirin (Verified Allergy, Unknown, 07/26/15) Codeine (Unverified Allergy, Unknown, 07/26/15) Penicillins (Verified Allergy, Unknown, 07/26/15) Home Meds Reported Medications Zolpidem Tartrate (Zolpidem Tartrate) 10 Mg Tab, 1 TAB PO HS, #30 TAB 2 Refills 07/26/15 Alprazolam (Xanax) 0.25 Mg Tb, 1 TAB PO DAILY, #30 TAB 07/26/15 Carisoprodol (Soma) 350 Mg Tab, 350 MG PO BID, TAB 07/26/15 Hydrocodone-Acetaminophen ([place] 5/325MG) 1 Tab Tb, 1 TAB PO TIDP PRN for MODERATE PAIN, #90 TAB 07/26/15 Esomeprazole Magnesium Trihydr (Nexium) 40 Mg Cap, 1 CAP PO DAILY, #30 CAP 5 Refills 07/26/15 Levothyroxine Sodium (Levothyroxine Sodium) 88 Mcg Tab, 1 TAB PO QAM, #30 TAB 5 Refills 07/26/15 Adalimumab (Humira Pen) 40MG/0.8 Kit, 1 0.8 SC EOW, KIT 07/26/15 Ziprasidone Hydrochloride (Geodon) 80 Mg Cap, 1 CAP PO BID, #60 CAP 1 Refill 07/26/15 Cyclobenzaprine Hcl (Flexeril) 5 Mg Tab, 1 TAB PO TID, #90 TAB 07/26/15 Diclofenac Epolamine (Flector) 1.3 % Dis, 1 PATCH TOP BID, #60 PATCH 2 Refills 07/26/15 Clonazepam (KlonoPIN TABLET) 0.5 Mg Tb, 1 TAB PO BID, #60 TAB 1 Refill 07/26/15 Buspirone Hcl (Buspirone Hcl) 15 Mg Tab, 30 MG PO BID, TAB 07/26/15 Lubiprostone (Amitiza) 8 Mcg Cap, 1 CAP PO DAILY, #60 CAP 5 Refills 07/26/15 Trazodone Hcl (Desyrel) 50 Mg Tb, 100 MG PO TID 03/27/14 Prednisone (PREDNISONE) 5 Mg Tb, 5 MG PO DAILY 03/27/14 Furosemide (LASIX TABLET) 40 Mg Tb, 20 MG PO DAILY 03/27/14 Duloxetine Hcl (Cymbalta) 60 Mg Cap, 60 MG PO DAILY, CAP 03/27/14 Omeprazole (PRILOSEC) 20 Mg Cap, 40 MG PO DAILY, CAP 03/27/14 Methotrexate (Methotrexate) 2.5 Mg Tab, 2.5 MG PO, TAB TAKE 6 TABLETS EVERY WEEK 03/27/14 Rosuvastatin Calcium (Crestor) 20 Mg Tab, 20 MG PO HS, TAB 03/27/14 Folic Acid (Folic Acid) 1 Mg Tab, 1 MG PO DAILY, TAB 03/27/14 Hydroxyzine Hcl (Hydroxyzine Hcl) 50 Mg Tab, 25 MG PO TID, TAB 03/27/14 Triamterene & Hydrochlorothiaz (Maxzide) 1 Tab Tab, 1 TAB PO DAILY, TAB 37.5 - 25 03/27/14 Hydrocodone-Acetaminophen (VICODIN) 1 Tab Tab, 25 MG PO TID PRN for SEVERE PAIN, TAB 5/300MG TABLET 03/27/14 Ibuprofen (Ibuprofen) 600 Mg Tab, 600 MG PO TID, TAB 03/27/14 Olanzapine (Zyprexa) 5 Mg Tab, 15 MG OR HS 09/20/11 Liothyronine Sodium (Cytomel) 5 Mcg Tab, 5 MCG OR BID 09/20/11 Review of systems Review of Systems: HEENT:Normal, CVS:Normal, RESPIRATORY:Normal, GI:Normal, :Normal, MSK:Normal, NEURO:Normal Examination Vital signs Vital Signs Date Time Temp Pulse Resp B/P (MAP) Pulse Ox O2 Delivery O2 Flow Rate FiO2 09/29/24 12:38 97.5 107 16 135/63 (87) 98 97.5 09/28/24 20:00 Room Air* 0 21 Medications Current Medications Medications (Trade) Dose Ordered Sig/Lydia Route PRN Reason Start Time Stop Time Status Last Admin Vancomycin HCl 250 ml @ 250 mls/hr Q16H IV 09/28/24 20:00 09/28/24 20:41 Enoxaparin Sodium (Lovenox) 75 mg Q12HR SC 09/28/24 22:00 09/29/24 10:08 Laboratory Labs Test 09/29/24 05:22 09/28/24 07:18 09/27/24 06:48 09/26/24 17:51 Range/Units White Blood Count 7.7 4.4-10.8 10^3/uL Red Blood Count 3.69 L 4.0-5.20 10^6/uL Hemoglobin 10.5 L 12.2-16.2 g/dL Hematocrit 33.6 L 36.0-46.0 % Mean Corpuscular Volume 91.0 80.0-100.0 fL Mean Corpuscular Hemoglobin 28.4 28.0-32.0 pg Mean Corpuscular Hemoglobin Concent 31.2 L 32.0-36.0 g/dL Red Cell Distribution Width 18.0 H 11.8-14.3 % Platelet Count 436 140-450 10^3/uL Mean Platelet Volume 7.6 6.9-10.8 fL Neutrophils (%) (Auto) 37.0-80.0 % Lymphocytes (%) (Auto) 10.0-50.0 % Monocytes (%) (Auto) 0.0-12.0 % Basophils (%) (Auto) 0.0-2.0 % Neutrophils # (Auto) 1.6-8.6 10 ^3/uL Lymphocytes # (Auto) 0.4-5.4 10 ^3/uL Monocytes # (Auto) 0-1.3 10 ^3/uL Differential Total Cells Counted 100.0 100 Neutrophils % (Manual) 65 37.0-80.0 Band Neutrophils % (Manual) 0 Lymphocytes % (Manual) 18 10.0-50.0 Monocytes % (Manual) 8 0-12 Eosinophils % (Manual) 9 H 0-7 Basophils % (Manual) 0 0.0-2.0 Metamyelocytes % (manual) 0 Myelocytes % (Manual) 0 Promyelocytes % (Manual) 0 Blast Cells % (Manual) 0 Reactive Lymphocytes 0 Platelet Estimate Adequate Sodium Level 139 136-145 mmol/L Potassium Level 3.4 L 3.5-5.1 mmol/L Chloride Level 108 H 98-107 mmol/L Carbon Dioxide Level 24 20-31 mmol/L Anion Gap 7 5-15 Blood Urea Nitrogen 8 L 9-23 mg/dL Creatinine 0.62 0.550-1.02 mg/dL Glomerular Filtration Rate Calc 93 >90 mL/min BUN/Creatinine Ratio 12.9 10.0-20.0 Serum Glucose 95 74-106 mg/dL Calcium Level 9.0 8.7-10.4 mg/dL Eosinophils (%) (Auto) 4.6 0.0-7.0 % Eosinophils # (Auto) 0.3 0-0.8 10 ^3/uL Basophils # (Auto) 0 0-0.2 10 ^3/uL Nucleated Red Blood Cells 0.0 % Magnesium Level 1.7 1.6-2.6 mg/dL Random Gentamicin Level 5.3 H 0-5 ug/mL Test 09/26/24 07:08 09/25/24 08:12 09/24/24 11:15 09/24/24 05:05 Range/Units Random Vancomycin Level 12.3 H 5-10 ug/mL Vancomycin Level Trough 25.7 H 5-10 ug/mL Prothrombin Time 11.2 9.3-11.8 sec Prothrombin Time INR 1.06 0.9-1.15 Activated Partial Thromboplast Time 56.8 H 24.5-34.5 SEC Total Bilirubin < 0.2 L 0.2-1.0 mg/dL Aspartate Amino Transferase (AST) 15 13-40 U/L Alanine Aminotransferase (ALT) 9 7-40 U/L Alkaline Phosphatase 68 46-116 U/L Total Protein 5.0 L 5.7-8.2 g/dL Albumin 2.7 L 3.2-4.8 g/dL Test 09/23/24 12:02 09/23/24 04:49 09/23/24 04:33 09/23/24 04:13 Range/Units Hemoglobin A1c 5.4 <5.7 % A1C Lactic Acid Level 0.9 0.4-2.0 mmol/L B-Type Natriuretic Peptide 245.23 0-100 pg/mL Stool Occult Blood Negative Negative Stool Occult Blood Sample #3 Negative Stool for White Cells Few Influenza Type A Antigen Negative Negative Influenza Type B Antigen Negative Negative SARS-CoV-2 Antigen (Rapid) Negative NEGATIVE Phosphorus Level 2.7 2.4-5.1 mg/dL Vitamin B12 Level 384 211-911 pg/mL Vitamin D 25-Hydroxy 42.8 30.0-100 ng/mL Test 09/23/24 03:53 09/23/24 03:44 09/23/24 00:48 09/23/24 00:32 Range/Units Urine Color Light-orange Yellow Urine Clarity Ex.turbid Clear Urine pH 8.0 5.0-9.0 Urine Specific [place] 1.046 H 1.001-1.035 Urine Protein 1+ H Negative Urine Ketones Negative Negative Urine Blood Trace H Negative /uL Urine Nitrite 2+ H Negative Urine Bilirubin Negative Negative Urine Urobilinogen Normal Negative mg/dL Urine Leukocyte Esterase 3+ Negative /uL Urine RBC 14 0 - 4 /hpf Urine WBC 128 0 - 5 /hpf Urine WBC Clumps Present None Seen /hpf Urine Squamous Epithelial Cells Few <5 /hpf Urine Amorphous Crystals Few None Seen /hpf Urine Bacteria Many H None Seen /hpf Urine Mucus Few None Seen Urine Glucose Normal Normal mg/dL Urine Opiates Screen Pos NEGATIVE Urine Fentanyl Screen Neg NEGATIVE Urine Barbiturates Screen Neg NEGATIVE Urine Phencyclidine Screen Neg NEGATIVE Urine Amphetamines Screen Neg NEGATIVE Urine Benzodiazepines Screen Neg NEGATIVE Urine Cocaine Screen Neg NEGATIVE Urine Cannabinoids Screen Neg NEGATIVE Troponin I High Sensitivity 2401 *H </=34 ng/L Triglycerides Level 69 < 150 mg/dL Cholesterol Level 134 < 200 mg/dL LDL Cholesterol 81 < 100 mg/dL HDL Cholesterol 34 L 40-59 mg/dL Thyroid Stimulating Hormone (TSH) 0.56 0.55-4.78 uIU/mL Plasma/Serum Blood Alcohol < 3.0 <10 mg/dL D-Dimer, Quantitative 1.73 H 0.0-0.49 mg/L FEU POC Glucose 93 70-106 mg/dl Microbiology Date/Time Source Procedure Growth Status 09/23/24 20:14 Sacrum Gram Stain - Final Complete 09/23/24 20:14 Wound Culture - Final Acinetobacter baumannii MDRO Methicillin Resistant S.aureus Enterococcus faecalis - VRE Complete 09/23/24 04:49 Stool Stool Culture - Final Complete 09/23/24 04:49 Stool Shiga Toxin I & II - Final Complete 09/23/24 04:13 Blood Blood Culture - Final NO GROWTH AFTER 5 DAYS OF INCUBATION. Complete 09/23/24 03:53 Urine - Catheterized Urine Culture - Final Complete Examination: GENERAL:Abnormal, HEENT:Normal, NECK:Normal, LUNGS:Normal, CVS:Normal, ABDOMEN:Normal, MSK:Abnormal, SKIN:Abnormal, :Abnormal Problem List/Assessment/Plan Problems: (1) Lumbar post-laminectomy syndrome Assessment and Plan This lady has an approximately 11 inch incision in the thoracic/lumbar spine with 3 areas of wound break down and purulence IN addition, there is erythema globally in her back The spinal hardware is TITANIUM. THIS IS 100% MRI COMPATIBLE Once the MRI is obtained we can give the reports to dr stubbs for a transfer back to his service for management IF we are unable to get MRI for the same prior indicated reasons it was declined the first time, then we need to immeditaely request transfer to higher level of care to hospital that WILL be wiling to perform it. Preferrably [facility] so that Dr. cedeño can take over care on his patient. Plan discussed with Plan discussed with: Patient MELQUIADES MCLAIN MD Sep 29, 2024 12:47
--- NOTE | 2024-09-29 15:57 | DVH ---
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 Findings: Intense radiotracer activity noted in midthoracic spine corresponding to the destructive changes of T 7 and T8. Mild tracer activity in several posterior right ribs. Previous CT scan showed a subcentime ter cortical defect in posterior aspect of the right 10th rib. Old healed fracture of posterior 9th r ib was seen. Increased activity noted in the left patella left ankle joint most likely degenerative in nature. Ex pected mild activity is noted overlying both kidneys and the bladder without evidence of obstruction. Impression: 1. Intense radiotracer activity in midthoracic spine corresponding to the destructive changes noted i n the previous CT scan involving T7 and T8 vertebrae. Please note that whole-body bone scan is very sensitive for bone pathology but not specific. Consider further evaluation with 3-phase bone scan com bined with indium and gallium scan.. MRI without and with IV contrast wall probably be limited and s uboptimal due to orthopedic hardware but can be tried with metal artifact reduction techniques. 2. Mild increased activity in few posterior right ribs that May correspond to the abnormalities seen in the previous CT scan involving the 9th and 10th ribs. A 2 mm cortical defect was seen in posterior 10th rib that is of uncertain etiology and may reflect a lytic bone lesion. 3. Mild degenerative activity in the left patella and left ankle.
--- NOTE | 2024-09-29 15:59 | DVHDSRES ---
Discharge Summary Date of Admission Resident Creating Document: BRYN RETANA RESIDENT Sep 23, 2024 at 03:39 Date of Discharge: Sep 29, 2024 Admitting Diagnosis Altered mental status/metabolic encephalopathy Labs/Diagnostic Data: Laboratory Results Test 09/29/24 05:22 09/28/24 07:18 09/27/24 06:48 09/26/24 17:51 White Blood Count 7.7 10^3/uL (4.4-10.8) Red Blood Count 3.69 10^6/uL (4.0-5.20) Hemoglobin 10.5 g/dL (12.2-16.2) Hematocrit 33.6 % (36.0-46.0) Mean Corpuscular Volume 91.0 fL (80.0-100.0) Mean Corpuscular Hemoglobin 28.4 pg (28.0-32.0) Mean Corpuscular Hemoglobin Concent 31.2 g/dL (32.0-36.0) Red Cell Distribution Width 18.0 % (11.8-14.3) Platelet Count 436 10^3/uL (140-450) Mean Platelet Volume 7.6 fL (6.9-10.8) Neutrophils (%) (Auto) % (37.0-80.0) Lymphocytes (%) (Auto) % (10.0-50.0) Monocytes (%) (Auto) % (0.0-12.0) Basophils (%) (Auto) % (0.0-2.0) Neutrophils # (Auto) 10 ^3/uL (1.6-8.6) Lymphocytes # (Auto) 10 ^3/uL (0.4-5.4) Monocytes # (Auto) 10 ^3/uL (0-1.3) Differential Total Cells Counted 100.0 (100) Neutrophils % (Manual) 65 (37.0-80.0) Band Neutrophils % (Manual) 0 Lymphocytes % (Manual) 18 (10.0-50.0) Monocytes % (Manual) 8 (0-12) Eosinophils % (Manual) 9 (0-7) Basophils % (Manual) 0 (0.0-2.0) Metamyelocytes % (manual) 0 Myelocytes % (Manual) 0 Promyelocytes % (Manual) 0 Blast Cells % (Manual) 0 Reactive Lymphocytes 0 Platelet Estimate Adequate Sodium Level 139 mmol/L (136-145) Potassium Level 3.4 mmol/L (3.5-5.1) Chloride Level 108 mmol/L (98-107) Carbon Dioxide Level 24 mmol/L (20-31) Anion Gap 7 (5-15) Blood Urea Nitrogen 8 mg/dL (9-23) Creatinine 0.62 mg/dL (0.550-1.02) Glomerular Filtration Rate Calc 93 mL/min (>90) BUN/Creatinine Ratio 12.9 (10.0-20.0) Serum Glucose 95 mg/dL (74-106) Calcium Level 9.0 mg/dL (8.7-10.4) Eosinophils (%) (Auto) 4.6 % (0.0-7.0) Eosinophils # (Auto) 0.3 10 ^3/uL (0-0.8) Basophils # (Auto) 0 10 ^3/uL (0-0.2) Nucleated Red Blood Cells 0.0 % Magnesium Level 1.7 mg/dL (1.6-2.6) Random Gentamicin Level 5.3 ug/mL (0-5) Test 09/26/24 07:08 09/25/24 08:12 09/24/24 11:15 09/24/24 05:05 Random Vancomycin Level 12.3 ug/mL (5-10) Vancomycin Level Trough 25.7 ug/mL (5-10) Prothrombin Time 11.2 sec (9.3-11.8) Prothrombin Time INR 1.06 (0.9-1.15) Activated Partial Thromboplast Time 56.8 SEC (24.5-34.5) Total Bilirubin < 0.2 mg/dL (0.2-1.0) Aspartate Amino Transferase (AST) 15 U/L (13-40) Alanine Aminotransferase (ALT) 9 U/L (7-40) Alkaline Phosphatase 68 U/L (46-116) Total Protein 5.0 g/dL (5.7-8.2) Albumin 2.7 g/dL (3.2-4.8) Test 09/23/24 12:02 09/23/24 04:49 09/23/24 04:33 09/23/24 04:13 Hemoglobin A1c 5.4 % A1C (<5.7) Lactic Acid Level 0.9 mmol/L (0.4-2.0) B-Type Natriuretic Peptide 245.23 pg/mL (0-100) Stool Occult Blood Negative (Negative) Stool Occult Blood Sample #3 (Negative) Stool for White Cells Few Influenza Type A Antigen Negative (Negative) Influenza Type B Antigen Negative (Negative) SARS-CoV-2 Antigen (Rapid) Negative (NEGATIVE) Phosphorus Level 2.7 mg/dL (2.4-5.1) Vitamin B12 Level 384 pg/mL (211-911) Vitamin D 25-Hydroxy 42.8 ng/mL (30.0-100) Test 09/23/24 03:53 09/23/24 03:44 09/23/24 00:48 09/23/24 00:32 Urine Color Light-orange (Yellow) Urine Clarity Ex.turbid (Clear) Urine pH 8.0 (5.0-9.0) Urine Specific [place] 1.046 (1.001-1.035) Urine Protein 1+ (Negative) Urine Ketones Negative (Negative) Urine Blood Trace /uL (Negative) Urine Nitrite 2+ (Negative) Urine Bilirubin Negative (Negative) Urine Urobilinogen Normal mg/dL (Negative) Urine Leukocyte Esterase 3+ /uL (Negative) Urine RBC 14 /hpf (0 - 4) Urine WBC 128 /hpf (0 - 5) Urine WBC Clumps Present /hpf (None Seen) Urine Squamous Epithelial Cells Few /hpf (<5) Urine Amorphous Crystals Few /hpf (None Seen) Urine Bacteria Many /hpf (None Seen) Urine Mucus Few (None Seen) Urine Glucose Normal mg/dL (Normal) Urine Opiates Screen Pos (NEGATIVE) Urine Fentanyl Screen Neg (NEGATIVE) Urine Barbiturates Screen Neg (NEGATIVE) Urine Phencyclidine Screen Neg (NEGATIVE) Urine Amphetamines Screen Neg (NEGATIVE) Urine Benzodiazepines Screen Neg (NEGATIVE) Urine Cocaine Screen Neg (NEGATIVE) Urine Cannabinoids Screen Neg (NEGATIVE) Troponin I High Sensitivity 2401 ng/L (</=34) Triglycerides Level 69 mg/dL (< 150) Cholesterol Level 134 mg/dL (< 200) LDL Cholesterol 81 mg/dL (< 100) HDL Cholesterol 34 mg/dL (40-59) Thyroid Stimulating Hormone (TSH) 0.56 uIU/mL (0.55-4.78) Plasma/Serum Blood Alcohol < 3.0 mg/dL (<10) D-Dimer, Quantitative 1.73 mg/L FEU (0.0-0.49) POC Glucose 93 mg/dl (70-106) Other Laboratory Tests 09/29/24 05:22 Brief Hx & Hospital Course: Patient is 73 years old female with past medical history of hypertension, coronary artery disease, hypothyroidism, GERD, history of cervical cancer was brought in from [facility] due to altered mental status. Patient was transferred from [facility]. As per ER physician documentation and from patient and her family patient was transferred to [facility] for altered mental status. As per patient's sister she was not responding at the nursing facility and that is why she was transferred to [facility]. At the [facility] patient was found to have elevated troponin I with non STEMI and she was transferred to [facility] for higher level of care. Provider spoke to the patient today and patient reported she had chest pain, central, stabbing in nature, 10/10, associated with shortness of breaths. Patient also endorsed nausea and vomiting 3 times mainly bile, , no blood. Patient had back surgery on January, which was complicated with wound infection as per patient and family. And postoperative patient is unable to ambulate for last two-month. Patient denied any fever, , dysarthria or change in vision, acute joint pain or swelling. Initial lab workup revealed troponin I elevated 2637> 2450> 2401. TSH 0.56, UDS positive for opiates, fecal occult blood test negative, D-dimer 1.73, hypokalemia with potassium 3.3, negative for COVID-19, urinalysis revealed UTI with leukocyte esterase 3+, RBC 14, WBC 128, bacteria few. Doppler study of the lower extremity revealed- Occlusive DVT at the right mid to distal femoral vein. No left femoropopliteal venous thrombosis. CT angio chest-1. No pulmonary embolism. Small bilateral pleural effusions with associated patchy atelectasis and consolidation in the lung bases. Nodular airspace disease right upper lung. Left lower lobe nodule. Recommend clinical correlation and continued follow-up to resolution. Nonspecific bilateral axillary lymphadenopathy. Severe compression deformity of a midthoracic vertebral body just above the last fused segment. Consider further evaluation with MRI of the thoracic spine. CXR revealed-No active cardiopulmonary disease. Partially visualized thoracolumbar fixation hardware. CT brain revealed-No acute intracranial abnormality. Left parietal bone outer table well demarcated sclerotic lesion measuring 4 cm. This is most likely benign but can be further evaluated nonemergent MRI. During hospitalization patient was treated conservatively. Patient was seen by Cardiology for chest pain and underwent left heart catheterization which revealed showed mild atherosclerotic disease in proximal LAD and proximal and mid segment of RCA. No significant CAD was noted, likely due to microvascular disease or coronary vasospasm ,supply demand mismatch ischemia and advised aggressive primary prevention protocol for all risk factors. Wound culture revealed-wound culture revealed Acinetobacter baumannii MDRO, methicillin- resistant Staphylococcus aureus, Enterococcus faecalis VRE. MRSA screen was positive. Blood culture showed no growth. Urine culture showed 3 colony types, patient was seen by infectious disease Doctor Franki. Infectious Disease recommended ceftriaxone and vancomycin and to discontinue gentamicin for suspected osteomyelitis/Dyscites. Patient was also seen by spinal surgeon Dr. Lundberg and recommended MRI of the spine for further evaluation and care. But Radiology could not get q.d. scan of the MRI of the spine due to metals on the spine. Dr. Watson recommended to transfer the patient to [facility] where patient had back surgery in January 26, [address] cedeño can take over care on his patient. Patient will be transferred to [facility] on bed is available. Patient is hemodynamically stable to be transferred to higher level of care. Past medical history: HTN, ?WA in the past, Hypothyroidism, GERD, H/o cervical cancer. Past surgical history: hysterectomy with B/L salpingoophrectomy, Back surgery Social history: reports to be living alone at home in [place], for last 3 weeks she reports to be living at [facility], denies smoking, alcohol, drug use Home medications: from the med. records - triamterene-HCTZ 37.5/25mg Qd, omeprazole 40mg qd, lamotrigine 100mg qd, levothyroxine 100mcg Allergy- aspirin, codeine, penicillin Patient was seen today at the bedside. Cardiovascular- denies cough or palpitation Respiratory- denies cough or or wheezing Gastrointestinal- denies any rectal bleeding, nausea or vomiting Musculoskeletal-denies acute joint swelling or tenderness or redness Neurological- denies acute dysarthria, dysphagia, change in vision Psychiatry- denies depression or SI or HI General examination- patient is awake, alert, oriented, conversant today HEENT- PEERLA, no acute nasal discharge Cardiovascular- chest wall tenderness+, S1-S2 audible, rate and rhythm regular, no murmur Respiratory- CTAB, no wheeze or rhonchi Gastrointestinal-nontender, bowel sound+. Nondistended Musculoskeletal-no acute joint swelling or tenderness or redness Spine- stage I sacral and back ulcers measuring approximately 1 x 1 cm with intact skin, likely related to immobility. 11 inch incision in the thoracic/lumbar spine with 3 areas of wound break down and purulence Lower extremity- no leg edema, patient with decreased muscle bowel on the bilateral lower extremity Neurological-decreased muscle power on the bilateral lower extremity Psychiatry- denies depression or SI or HI Operations or Procedures Diagnostic Imaging Report : [id number] Signed PATIENT: MARJORIE VERGARAT: [id number] UNIT: [id number] : 1950 LOC: ER ROOM / BED: / AGE / SEX: 73 / F ADM STATUS: REG ER SERVICE 24 ORDERING PHYSICIAN: ZECHARIAH MAI MD PROCEDURE(s): CXRP - CHEST PORTABLE REASON: aloc ORDER NUMBER(s): [id number], ACCESSION NUMBER(s): [id number] CHEST RADIOGRAPH Indication: aloc Technique: Single frontal view of the chest was obtained Comparison: None Findings/ IMPRESSION: No active cardiopulmonary disease. Partially visualized thoracolumbar fixation hardware. ATED BY: ROSELYN ZAYAS DO DICTATED DATE/TIME: 09/23/2423 SIGNED BY: ROSELYN ZAYAS DO SIGNED DATE/TIME: 09/23/2423 CC: DIAGNOSTIC IMAGING Diagnostic Imaging Report : [id number] Signed PATIENT: MARJORIE VERGARAT: [id number] UNIT: [id number] : 1950 LOC: ER ROOM / BED: / AGE / SEX: 73 / F ADM STATUS: REG ER SERVICE 24 ORDERING PHYSICIAN: ZECHARIAH MAI MD PROCEDURE(s): HWOCT - HEAD WITHOUT CONTRAST REASON: aloc ORDER NUMBER(s): [id number], ACCESSION NUMBER(s): [id number] CT HEAD WITHOUT CONTRAST INDICATION: aloc EXAM DATE: 09/23/2024 12:07 AM COMPARISON: CT LS SPINE WO CONTRAST on DOS: 05/16/24 RADIATION DOSE: CTDIvol: 54.17 mGy, DLP: 976.85 mGy*cm PROCEDURE: CT scans of the head were obtained from the vertex to the skull base. Sagittal and coronal reconstructions were provided. All CT scans at this medical facility are performed using dose modulation techniques as appropriate to a performed exam including the following: Automated exposure control was utilized; adjustment of the MA and/or KV according to patient size; and use of iterative reconstruction technique. FINDINGS: There is sulcal and ventricular prominence. The brainshows normal morphology and cramer-white matter differentiation, without intracranial hemorrhage, extra-axial fluid collection, mass effect or acute large vessel infarct. The ventricles are normal in size. The basal cisterns are patent. The skull and visible facial bones are intact. The paranasal sinuses, mastoid air cells and middle ear cavities are well-aerated. Left parietal bone outer table well demarcated sclerotic lesion measuring 4 cm. IMPRESSION: No acute intracranial abnormality. Left parietal bone outer table well demarcated sclerotic lesion measuring 4 cm. This is most likely benign but can be further evaluated nonemergent MRI. ATED BY: ROSELYN ZAYAS DO DICTATED DATE/TIME: 09/23/2428 SIGNED BY: ROSELYN ZAYAS DO SIGNED DATE/TIME: 09/23/2428 CC: Ph: [phone] DIAGNOSTIC IMAGING Diagnostic Imaging Report : [id number] Signed PATIENT: MARJORIE VERGARA AVELLAACCT: [id number] UNIT: [id number] : 1950 [facility]GE / SEX: 73 / F ADM STATUS: ADM IN SERVICE 5 ORDERING PHYSICIAN: AUSTIN CORRIGAN RESIDENT PROCEDURE(s): BLDVT - BiLat Lower DVT REASON: rule out lower ext. DVT ORDER NUMBER(s): [id number], ACCESSION NUMBER(s): [id number] Bilateral lower extremity venous duplex Clinical History: rule out lower ext. DVT Comparison: None Technique: Duplex Doppler evaluation of the deep venous systems of both lower extremities from the common femoral veins to the popliteal veins including color Doppler and spectral/pulsed waveform analysis was performed. Findings: RIGHT SIDE: The common femoral vein demonstrates appropriate compressibility and waveform variability. There is compressibility/patency of the great saphenous vein at the proximal thigh. The femoral vein demonstrates incomplete compressibility and absence of flow at its mid to distal portion.. The deep femoral vein demonstrates appropriate compressibility and waveform variability. The popliteal vein demonstrates appropriate compressibility and waveform variability. There is normal compressibility at the tibioperoneal trunk. LEFT SIDE: The common femoral vein demonstrates appropriate compressibility and waveform variability. There is compressibility/patency of the great saphenous vein at the proximal thigh. The femoral vein demonstrates appropriate compressibility and waveform variability. The deep femoral vein demonstrates appropriate compressibility and waveform variability. The popliteal vein demonstrates appropriate compressibility and waveform variability. There is normal compressibility at the tibioperoneal trunk. Impression: 1. Occlusive DVT at the right mid to distal femoral vein. 2. No left femoropopliteal venous thrombosis. Critical Result: Occlusive DVT Findings discussed with patient's nurse, Moncho, by telephone at 09/23/2024 11:05 AM, and acknowledged receipt and understanding of the findings. .. HS:Y ATED BY: RADHA HENDRIX DO DICTATED DATE/TIME: 09/23/241104 SIGNED BY: RADHA HENDRIX DO SIGNED DATE/TIME: 09/23/241104 CC: Ph: [phone] DIAGNOSTIC IMAGING Diagnostic Imaging Report : [id number] Signed PATIENT: MARJORIE VERGARAACCT: [id number] UNIT: [id number] : 1950 LOC: [facility]GE / SEX: 73 / F ADM STATUS: ADM IN SERVICE 9 ORDERING PHYSICIAN: AUSTIN CORRIGAN RESIDENT PROCEDURE(s): CTACH - CT ANGIO CHEST CONTRAST REASON: rule out PE ORDER NUMBER(s): [id number], ACCESSION NUMBER(s): [id number] CTA Chest with intravenous contrast INDICATION: rule out PE COMPARISON: None TECHNIQUE: Multidetector spiral CTA of the chest was performed of the chest with intravenous contrast. PULMONARY ANGIOGRAPHY PROTOCOL was utilized using a bolus- tracking technique centered on the main pulmonary artery. Axial, coronal and sagittal multiplanar and MIP reformats were performed. CONTRAST: Type of contrast: Omni 350 Contrast injected: 100 ml Radiation dose : Chest: CTDI volume is 29 mGy. Dose-length product is 405.14 mGy*cm The dose indicators for CT are the volume computed Tomography (CT) dose Index (CTDIvol) and the dose Length product (DLP), and are measured in units of mGy and mGy-cm, respectively. These indicators are not patient dose, but values generated from the CT scanner acquisition factors. The report includes radiation exposure data for exposures received during this examination. Findings: Pulmonary artery: No pulmonary embolism Lower neck: Calcified nodule in the left thyroid Lungs: Small bilateral pleural effusions with associated patchy atelectasis and consolidation in the lung bases. Mild nodular airspace disease in the right upper lung. Left lower lobe nodule measuring up to 6 mm. Heart/Vascular Structures: Normal heart size. No pericardial effusion. Lymph Nodes: Mildly prominent bilateral axillary lymph nodes measuring up to 10 mm in short axis. Pleura: Small bilateral pleural effusions as above Musculoskeletal: Degenerative and postsurgical changes. Severe compression deformity of a mid thoracic vertebral body just above the last fused segment. Soft tissues: Normal. Upper abdomen: Limited portions of the upper abdomen are unremarkable. IMPRESSION: 1. No pulmonary embolism. 2. Small bilateral pleural effusions with associated patchy atelectasis and consolidation in the lung bases. Nodular airspace disease right upper lung. Left lower lobe nodule. Recommend clinical correlation and continued follow-up to resolution. 3. Nonspecific bilateral axillary lymphadenopathy. Severe compression deformity of a midthoracic vertebral body just above the last fused segment. Consider further evaluation with MRI of the thoracic spine. HS:Y ATED BY: JOSEPH HALL MD DICTATED DATE/TIME: 09/23/24 1026 SIGNED BY: JOSEPH HALL MD SIGNED DATE/TIME: 09/23/24 1026 CC: Condition at Discharge: Stable Final Diagnosis/Problems List #Osteomyelitis / dyscitis of spine #Acute Chest pain likely due to NSTEMI type 2 # acute hypoxic respiratory failure likely due to UTI/suspected pneumonia # suspected pneumonia Gram-positive versus Gram-negative # DVT-Occlusive DVT at the right mid to distal femoral vein. # wound infection-Patient's wound culture revealed Acinetobacter baumannii MDRO, methicillin-resistant Staphylococcus aureus, Enterococcus faecalis VRE. INFECTIOUS DISEASE ON BOARD. # UTI #Metabolic encephalopathy #NSTEMI likely type 1 #Severe compression deformity of a midthoracic vertebral body-status post spinal surgery-pending MRI of the lumbar and thoracic spine # suspected diastolic heart failure, elevated BNP 245 # MRSA screening for nares positive #Uncontrolled high blood pressure #Hypothyroidism #GERD #Recurrent hypokalemia-replenished #Small bilateral pleural effusions # wound on the back and Sacral ulcer -Patient's wound culture revealed Acinetobacter baumannii MDRO, methicillin-resistant Staphylococcus aureus, Enterococcus faecalis VRE. Pending Infectious Disease consult. # Back and buttock cellulitis #Sacral and back ulcers (Stage I) #Altered mental status #Chronic back pain status post spinal fusion # Prior cervical cance Discharge Disposition: Acute Care Facility Discharge Instruct/Medications Diet: Cardiac 2g Na,low cholest Activity: Light activity Follow Up/Referral: Please transfer the patient to hospital higher level of care when bed is available Medications: Continue current medication Discharge Statement: "Patient was advised to return to the ER or call 911 if any headaches, dizziness, shortness of breath, chest pain, abdominal pain, bleeding, fevers, or worsening of medical condition. Patient was counseled about treatment plan, medications, possible side effects, patientverbalized understanding. All questions were answered to the best of my ability. This discharge took greater then 30 minutes in planning, reviewing documentation, counseling the patient, and discussing with other team members." ASSESSMENT ASSESSMENT Assessment #Acute Chest pain likely due to NSTEMI type 2 # acute hypoxic respiratory failure likely due to UTI/suspected pneumonia # suspected pneumonia Gram-positive versus Gram-negative # DVT-Occlusive DVT at the right mid to distal femoral vein. # wound infection-Patient's wound culture revealed Acinetobacter baumannii MDRO, methicillin-resistant Staphylococcus aureus, Enterococcus faecalis VRE. INFECTIOUS DISEASE ON BOARD. # UTI #Metabolic encephalopathy #NSTEMI likely type 1 #Severe compression deformity of a midthoracic vertebral body-status post spinal surgery-pending MRI of the lumbar and thoracic spine # suspected diastolic heart failure, elevated BNP 245 # MRSA screening for nares positive #Uncontrolled high blood pressure #Hypothyroidism #GERD #Recurrent hypokalemia-replenished #Small bilateral pleural effusions # wound on the back and Sacral ulcer -Patient's wound culture revealed Acinetobacter baumannii MDRO, methicillin-resistant Staphylococcus aureus, Enterococcus faecalis VRE. Pending Infectious Disease consult. # Back and buttock cellulitis #Sacral and back ulcers (Stage I) #Altered mental status #Chronic back pain status post spinal fusion # Prior cervical cance Date of Service: Sep 29, 2024 Billing Provider: ALEJANDRA MOTLEY MD Common Visit Codes: 59100-LII/OBS DISCH DAY >30min BRYN RETANA RESIDENT Sep 29, 2024 15:59 ALEJANDRA MOTLEY MD Sep 29, 2024 17:09
[2024-09-30] VITALS (8 sets, daily range): BP systolic 109–140; BP diastolic 56–67; PULSE 74–106; RESP 16–20; TEMP 98.1–98.6; O2SAT 95–100
[2024-09-30 10:43] LABS: Basophils # (auto) 0 10 ^3/uL (0-0.2); Basophils % (auto) 0.7 % (0.0-2.0); Eosinophils # (auto) 0.3 10 ^3/uL (0-0.8); Eosinophils % (auto) 4.2 % (0.0-7.0); Hematocrit 33.5 % (36.0-46.0); Hemoglobin 10.4 g/dL (12.2-16.2); Lymphocytes # (auto) 1.3 10 ^3/uL (0.4-5.4); Lymphocytes % (auto) 19.6 % (10.0-50.0); Mean Corpuscular Hemoglobin 27.7 pg (28.0-32.0); Mean Corpuscular Volume 89.2 fL (80.0-100.0); Monocytes # (auto) 0.4 10 ^3/uL (0-1.3); Monocytes % (auto) 5.8 % (0.0-12.0); Neutrophils # (auto) 4.6 10 ^3/uL (1.6-8.6); Neutrophils % (auto) 69.7 % (37.0-80.0); Nucleated Red Blood Cells % 0.1 %; Platelet Count (auto) 471 10^3/uL (140-450); Red Blood Cells 3.75 10^6/uL (4.0-5.20); Red Cell Distribution Width 17.5 % (11.8-14.3); White Blood Cell 6.5 10^3/uL (4.4-10.8)
[2024-09-30 10:51] LABS: Chloride 106 mmol/L (98-107); Sodium 137 mmol/L (136-145)
[2024-09-30 10:52] LABS: Anion Gap 8 (5-15); Calcium 8.9 mg/dL (8.7-10.4); Carbon Dioxide 23 mmol/L (20-31)
[2024-09-30 10:57] LABS: BUN/Creatinine Ratio 11.7 (10.0-20.0)
[2024-09-30 11:02] LABS: Blood Urea Nitrogen 7 mg/dL (9-23); Glucose 147 mg/dL (74-106); Potassium 3.2 mmol/L (3.5-5.1)
--- NOTE | 2024-09-30 13:51 | DVHPNRES ---
Progress Note Date Seen: Sep 30, 2024 Resident Creating Document: BRYN RETANA RESIDENT Medical Necessity Reason Pt with a Central, PICC or Fol: No The following are medically ne: Castaneda Catheter Subjective Review of Systems Patient is 73 years old female with past medical history of hypertension, coronary artery disease, hypothyroidism, GERD, history of cervical cancer was [facility] due to altered mental status. Patient was transferred from [facility]. As per ER physician documentation and from patient and her family patient was transferred to [facility] for altered mental status. As per patient's sister she was not responding at the nursing facility and that is why she was transferred to [facility]. At the [facility] patient was found to have elevated troponin I with non STEMI and she was transferred to [facility] for higher level of care. Provider spoke to the patient today and patient reported she had chest pain, central, stabbing in nature, 10/10, associated with shortness of breaths. Patient also endorsed nausea and vomiting 3 times mainly bile, , no blood. Patient had back surgery on January, which was complicated with wound infection as per patient and family. And postoperative patient is unable to ambulate for last two-month. Patient denied any fever, , dysarthria or change in vision, acute joint pain or swelling. Initial lab workup revealed troponin I elevated 2637> 2450> 2401. TSH 0.56, UDS positive for opiates, fecal occult blood test negative, D-dimer 1.73, hypokalemia with potassium 3.3, negative for COVID-19, urinalysis revealed UTI with leukocyte esterase 3+, RBC 14, WBC 128, bacteria few. Doppler study of the lower extremity revealed- Occlusive DVT at the right mid to distal femoral vein. No left femoropopliteal venous thrombosis. CT angio chest-1. No pulmonary embolism. Small bilateral pleural effusions with associated patchy atelectasis and consolidation in the lung bases. Nodular airspace disease right upper lung. Left lower lobe nodule. Recommend clinical correlation and continued follow-up to resolution. Nonspecific bilateral axillary lymphadenopathy. Severe compression deformity of a midthoracic vertebral body just above the last fused segment. Consider further evaluation with MRI of the thoracic spine. CXR revealed-No active cardiopulmonary disease. Partially visualized thoracolumbar fixation hardware. CT brain revealed-No acute intracranial abnormality. Left parietal bone outer table well demarcated sclerotic lesion measuring 4 cm. This is most likely benign but can be further evaluated nonemergent MRI. Bone scan revealed-Intense radiotracer activity in midthoracic spine corresponding to the destructive changes noted in the previous CT scan involving T7 and T8 vertebrae. Mild increased activity in few posterior right ribs that May correspond to the abnormalities seen in the previous CT scan involving the 9th and 10th ribs. A 2 mm cortical defect was seen in posterior 10th rib that is of uncertain etiology and may reflect a lytic bone lesion. Mild degenerative activity in the left patella and left ankle. Patient was seen today for clinical evaluation. Patient clinically stable. Bone scan revealed-Intense radiotracer activity in midthoracic spine corresponding to the destructive changes noted in the previous CT scan involving T7 and T8 vertebrae. Mild increased activity in few posterior right ribs that May correspond to the abnormalities seen in the previous CT scan involving the 9th and 10th ribs. A 2 mm cortical defect was seen in posterior 10th rib that is of uncertain etiology and may reflect a lytic bone lesion. Mild degenerative activity in the left patella and left ankle.. Spinal surgeon Dr. Watson recommended to transfer the patient to [facility] where patient had back surgery in January 26, [address] cedeño can take over care on his patient. Patient will be transferred to [facility] on bed is available. Patient is hemodynamically stable to be transferred to higher level of care. Patient will be discharged to [facility] once bed is available. Patient had hypokalemia potassium 3.2, and hypomagnesemia 1.4 today. Ordered potassium and magnesium supplement. Past medical history: HTN, ?AR in the past, Hypothyroidism, GERD, H/o cervical cancer. Past surgical history: hysterectomy with B/L salpingoophrectomy, Back surgery Social history: reports to be living alone at home in [place], for last 3 weeks she reports to be living at [facility], denies smoking, alcohol, drug use Home medications: from the med. records - triamterene-HCTZ 37.5/25mg Qd, omeprazole 40mg qd, lamotrigine 100mg qd, levothyroxine 100mcg Allergy- aspirin, codeine, penicillin Patient was seen today at the bedside. Cardiovascular- denies cough or palpitation Respiratory- denies cough or or wheezing Gastrointestinal- denies any rectal bleeding, nausea or vomiting Musculoskeletal-denies acute joint swelling or tenderness or redness Neurological- denies acute dysarthria, dysphagia, change in vision Psychiatry- denies depression or SI or HI Objective vital signs Vital Sign Date Time Temp Pulse Resp B/P (MAP) Pulse Ox O2 Delivery O2 Flow Rate FiO2 09/30/24 13:41 113 18 125/69 09/30/24 12:35 98.1 99 98.1 09/30/24 07:30 Room Air* 0 21 Total Intake and Output 09/29/24 09/29/24 09/30/24 15:00 23:00 07:00 Intake Total 50 ml 50 ml 750 ml Output Total 1150 ml Balance 50 ml 50 ml -400 ml medications Current Medications Medications Dose Ordered Sig/Lydia Route Start Time Stop Time Status Last Admin Dose Admin Nitroglycerin 0.4 mg Q5MINP PRN SL 09/23/24 03:45 Morphine Sulfate 2 mg Q30M PRN IV 09/23/24 03:45 09/27/24 05:07 2 MG Famotidine 20 mg DAILY PO 09/23/24 10:00 09/30/24 09:19 20 MG Clopidogrel Bisulfate 75 mg DAILY PO 09/24/24 10:00 09/30/24 09:19 75 MG Lamotrigine 100 mg DAILY PO 09/23/24 10:00 09/30/24 09:19 100 MG Morphine Sulfate 2 mg Q6HPRN PRN IV 09/23/24 13:30 09/30/24 09:19 2 MG Atorvastatin Calcium 40 mg HS PO 09/23/24 22:00 09/29/24 21:43 40 MG Acetaminophen/ Hydrocodone Bitart 1 tab Q4HP PRN PO 09/23/24 20:15 Hold 09/25/24 08:58 1 TAB Melatonin 5 mg HSPRN PO 09/25/24 22:00 09/29/24 21:43 5 MG Gentamicin Sulfate 0 ml @ 0 mls/hr PER PHARMACY IV 09/26/24 06:30 Cancel Hydromorphone HCl 1 mg Q4HPRN PRN IV 09/26/24 17:15 09/30/24 13:41 1 MG Doxycycline Monohydrate 100 mg Q12HR PO 09/27/24 22:00 Cancel Ceftriaxone Sodium 50 ml @ 100 mls/hr DAILY@09 IV 09/28/24 09:00 Cancel Haloperidol Lactate 2.5 mg HS IM 09/27/24 22:00 09/29/24 22:02 2.5 MG Vancomycin HCl 0 ml @ 0 mls/hr UD IV 09/27/24 21:15 Ceftriaxone Sodium/Dextrose 50 ml @ 50 mls/hr Q12HR@09,21 IV 09/27/24 21:44 09/30/24 09:20 50 MLS/HR Vancomycin HCl 250 ml @ 250 mls/hr Q16H IV 09/28/24 20:00 09/30/24 04:35 250 MLS/HR Enoxaparin Sodium 75 mg Q12HR SC 09/28/24 22:00 09/30/24 09:19 75 MG Examination General examination- patient is awake, alert, oriented, conversant today HEENT- PEERLA, no acute nasal discharge Cardiovascular- chest wall tenderness+, S1-S2 audible, rate and rhythm regular, no murmur Respiratory- CTAB, no wheeze or rhonchi Gastrointestinal-nontender, bowel sound+. Nondistended Musculoskeletal-no acute joint swelling or tenderness or redness Spine- stage I sacral and back ulcers measuring approximately 1 x 1 cm with intact skin, likely related to immobility. 11 inch incision in the thoracic/lumbar spine with 3 areas of wound break down and purulence Lower extremity- no leg edema, patient with decreased muscle bowel on the bilateral lower extremity Neurological-decreased muscle power on the bilateral lower extremity Psychiatry- denies depression or SI or HI laboratory and microbiology Laboratory Tests 09/30/24 10:11 Test 09/30/24 10:11 Range/Units Serum Glucose 147 H 74-106 mg/dL Microbiology Date/Time Source Procedure Growth Status 09/23/24 20:14 Sacrum Gram Stain - Final Complete 09/23/24 20:14 Wound Culture - Final Acinetobacter baumannii MDRO Methicillin Resistant S.aureus Enterococcus faecalis - VRE Complete 09/23/24 04:49 Stool Stool Culture - Final Complete 09/23/24 04:49 Stool Shiga Toxin I & II - Final Complete 09/23/24 04:13 Blood Blood Culture - Final NO GROWTH AFTER 5 DAYS OF INCUBATION. Complete 09/23/24 03:53 Urine - Catheterized Urine Culture - Final Complete Problem List/Assessment/Plan Problem List/Assessment/Plan #Acute Chest pain likely due to NSTEMI type 1 # acute hypoxic respiratory failure likely due to UTI/suspected pneumonia # suspected pneumonia Gram-positive versus Gram-negative # DVT-Occlusive DVT at the right mid to distal femoral vein. # wound infection-Patient's wound culture revealed Acinetobacter baumannii MDRO, methicillin-resistant Staphylococcus aureus, Enterococcus faecalis VRE. INFECTIOUS DISEASE ON BOARD. # UTI #Metabolic encephalopathy #NSTEMI likely type 1 #Severe compression deformity of a midthoracic vertebral body-status post spinal surgery-pending MRI of the lumbar and thoracic spine # suspected diastolic heart failure, elevated BNP 245 # MRSA screening for nares positive #Uncontrolled high blood pressure #Hypothyroidism #GERD #Recurrent hypokalemia-replenished #Small bilateral pleural effusions # wound on the back and Sacral ulcer -Patient's wound culture revealed Acinetobacter baumannii MDRO, methicillin-resistant Staphylococcus aureus, Enterococcus faecalis VRE. Pending Infectious Disease consult. # Back and buttock cellulitis #Sacral and back ulcers (Stage I) #Altered mental status #Chronic back pain status post spinal fusion # Prior cervical cancer # hypomagnesemia-replenished - Bone scan revealed-Intense radiotracer activity in midthoracic spine corresponding to the destructive changes noted in the previous CT scan involving T7 and T8 vertebrae. Mild increased activity in few posterior right ribs that May correspond to the abnormalities seen in the previous CT scan involving the 9th and 10th ribs. A 2 mm cortical defect was seen in posterior 10th rib that is of uncertain etiology and may reflect a lytic bone lesion. Mild degenerative activity in the left patella and left ankle. -Echo 2D-Normal left ventricular size and dimension. Normal right ventricular systolic function estimated ejection fraction 55%. There is a grade 1 diastolic dysfunction. Normal right ventricular size and dimension. Normal right ventricular systolic function -Cardiology recommendation reviewed and appreciated-angiogram showed mild atherosclerotic disease in proximal LAD and proximal and mid segment of RCA. No significant CAD was noted, likely due to microvascular disease or coronary vasospasm ,supply demand mismatch ischemia and advised aggressive primary prevention protocol for all risk factors -Patient's wound culture revealed Acinetobacter baumannii MDRO, methicillin- resistant Staphylococcus aureus, Enterococcus faecalis VRE. Infectious disease on board Continue 75 mcg subcutaneously b.i.d. Continue clopidogrel 75 mg p.o. daily Continue continue gentamicin as per pharmacy protocol Continue CEFTRIAXONE 1 G IV Q.12 HOURS Continue vancomycin as prescribed Continue atorvastatin 40 mg q.h.s. Continue Lamictal 100 mg p.o. daily Continue famotidine 20 mg p.o. daily Continue other p.r.n. medication as prescribed Continue mupirocin 2% ointment for nares MRSA as prescribed Pending consult for a spinal surgeon for further evaluation and care Goals of care/advance care planning; DNR; discussed with the patient >15 minutes PUD prophylaxis: Continue famotidine DVT prophylaxis: Patient on Lovenox Plan discussed with Dr. Balderas, nursing staff, patient Total time spent on patient evaluation, chart review, assessment and plan, discussion discussion >30 minutes Plan discussed with: Patient Plan discussed with: Patient, Other (RN) My Orders My Orders Orders - BRYN RETANA Procedure Category Date Status Time * [facility] [employer] CONS 09/29/24 Transmitted Consult Discharge DISCHARGE 09/29/24 Transmitted 15:40 Dietary Evaluation Review Comments: Consider a cardiac 2gNa lo fat LoChol diet. encourage PO intake to meet 75% of her needs. Consider Nathanael BID for wound healing. Expected Outcomes/Goals: improved nutrition parameters. healed saccral ulcer, maintain weight. Date of Service: Sep 30, 2024 Billing Provider: ALEJANDRA BALDERAS MD Common Visit Codes: [id number] INP/OBS CARE(HIGH) BRYN RETANA Sep 30, 2024 13:51 ALEJANDRA BALDERAS MD Oct 01, 2024 10:40
[2024-09-30] MEDS ORDERED: POTASSIUM EFFERVESENT TAB 25 MEQ GT ONE (14:30)
[2024-09-30] MEDS: POTASSIUM CHL 20 Meq TABLET PO ONE (16:44)
[2024-09-30] MEDS: MAGNESIUM SULFATE 1GM/100ML 100 ML IV STA (16:44)
--- NOTE | 2024-09-30 23:48 | DVHPN2 ---
Consult Progress Note Date Seen: Sep 30, 2024 Subjective Patient reports: Feels better (no fever or chills) Objective vital signs Vital Sign Date Time Temp Pulse Resp B/P (MAP) Pulse Ox O2 Delivery O2 Flow Rate FiO2 09/30/24 21:00 98.6 106 19 140/64 (89) 95 98.6 09/30/24 20:00 Room Air* 0 21 Total Intake and Output 09/29/24 09/29/24 09/30/24 15:00 23:00 07:00 Intake Total 50 ml 50 ml 750 ml Output Total 1150 ml Balance 50 ml 50 ml -400 ml medications Current Medications Medications Dose Ordered Sig/Lydia Route Start Time Stop Time Status Last Admin Dose Admin Nitroglycerin 0.4 mg Q5MINP PRN SL 09/23/24 03:45 Morphine Sulfate 2 mg Q30M PRN IV 09/23/24 03:45 09/27/24 05:07 2 MG Famotidine 20 mg DAILY PO 09/23/24 10:00 09/30/24 09:19 20 MG Clopidogrel Bisulfate 75 mg DAILY PO 09/24/24 10:00 09/30/24 09:19 75 MG Lamotrigine 100 mg DAILY PO 09/23/24 10:00 09/30/24 09:19 100 MG Morphine Sulfate 2 mg Q6HPRN PRN IV 09/23/24 13:30 09/30/24 16:45 2 MG Atorvastatin Calcium 40 mg HS PO 09/23/24 22:00 09/30/24 22:06 40 MG Acetaminophen/ Hydrocodone Bitart 1 tab Q4HP PRN PO 09/23/24 20:15 Hold 09/25/24 08:58 1 TAB Melatonin 5 mg HSPRN PO 09/25/24 22:00 09/30/24 22:06 5 MG Gentamicin Sulfate 0 ml @ 0 mls/hr PER PHARMACY IV 09/26/24 06:30 Cancel Hydromorphone HCl 1 mg Q4HPRN PRN IV 09/26/24 17:15 09/30/24 13:41 1 MG Doxycycline Monohydrate 100 mg Q12HR PO 09/27/24 22:00 Cancel Ceftriaxone Sodium 50 ml @ 100 mls/hr DAILY@09 IV 09/28/24 09:00 Cancel Haloperidol Lactate 2.5 mg HS IM 09/27/24 22:00 09/30/24 22:06 2.5 MG Vancomycin HCl 0 ml @ 0 mls/hr UD IV 09/27/24 21:15 Ceftriaxone Sodium/Dextrose 50 ml @ 50 mls/hr Q12HR@09,21 IV 09/27/24 21:44 09/30/24 09:20 50 MLS/HR Vancomycin HCl 250 ml @ 250 mls/hr Q16H IV 09/28/24 20:00 09/30/24 21:00 250 MLS/HR Enoxaparin Sodium 75 mg Q12HR SC 09/28/24 22:00 09/30/24 22:06 75 MG PHYSICAL EXAM: - GENERAL: Alert and oriented x 3. No acute distress. Well-nourished. - EYES: EOMI. Anicteric. - HENT: Moist mucous membranes. No scleral icterus. No cervical lymphadenopathy. - LUNGS: Clear to auscultation bilaterally. No accessory muscle use. - CARDIOVASCULAR: Regular rate and rhythm. No murmur. No JVD. - ABDOMEN: Soft, non-tender and non-distended. No palpable masses. - EXTREMITIES: No edema. Non-tender.?SKIN: No rashes or lesions. Warm. - NEUROLOGIC: No focal neurological deficits. CN II-XII grossly intact, but not individually tested - PSYCHIATRIC: Cooperative. Appropriate mood and affect. - laboratory and microbiology Laboratory Tests 09/30/24 10:11 Test 09/30/24 10:11 Range/Units Serum Glucose 147 H 74-106 mg/dL Problem List/Assessment/Plan Problem List/Assessment/Plan ASSESSMENT AND PLAN: ID Problem List: - Acute deep vein thrombosis (DVT) in right mid and distal femoral vein - Back and buttock cellulitis - Sacral and back ulcers (Stage I) - Altered mental status - Anemia (hemoglobin 6.2 g/dL) - Chronic back pain status post spinal fusion - Hypertension - Hypothyroidism - Prior cervical cancer - MRSA colonization Assessment This is Anuja Escalera, a female with a past medical history of hypertension, hypothyroidism, chronic back pain status post spinal fusion, and prior cervical cancer, who presents with worsening sacral ulcers and back cellulitis. The patient was transferred from [facility] to [facility] after episodes of altered level of consciousness. She recently underwent back surgery in January 2024 for spinal fusion due to chronic back pain with fused vertebrae. Over the last several months, she has been bedridden due to progressive weakness in her lower extremities and is now bedbound. She has developed stage I sacral and back ulcers measuring approximately 1 x 1 cm with intact skin, likely related to immobility. On examination, she has 3/5 strength in her lower extremities bilaterally, mild edema in her ankles, and joint stiffness. She is alert and oriented. Vital signs are stable. Laboratory data reveal anemia with a hemoglobin of 6.2 g/dL, white blood cell count of 3.42 x10/L, and platelets of 102 x10/L. Electrolytes are within normal limits. Renal function is normal with BUN 7 mg/dL and creatinine 0.54 mg/dL. Liver function tests are within normal limits. She has been on vancomycin since admission. Urine drug screen is positive for opioids. Imaging studies include: - Chest X-ray: No active cardiopulmonary disease. - Head CT: No acute intracranial abnormality; left parietal outer bone table with a demarcated lesion of 4 cm. - Venous Doppler Ultrasound: Occlusive DVT in the right mid and distal femoral vein; no left popliteal venous thrombosis. - CT Pulmonary Angiogram: No pulmonary embolism; nonspecific bilateral lymphadenopathy; severe compression deformity of mid-thoracic vertebrae just above the fused lumbar segment; lungs are clear except for right upper lobe and left lower lobe nodules; bilateral small pleural effusions with associated patchy atelectasis and consolidation in lung bases. MRSA nasal swab is positive. Wound cultures from her sacral ulcer show growth of MRSA, Enterococci, and multidrug-resistant organisms. 09/27: patient claims to have spinal surgery tatyana infusion in january and has been having worsening pain since after hospitalization at [facility] and had multiple hospital admissions due to back rash . Had a fall. reviewing MRI from 08/05 shows disgused osteomyelitis with severe destructive changes of t7 and t8 and concern for flegmont abcess formation . ne epidural fluid collection is identified t this time 09/28: awaiting imaging to be completed Plan: osteomyelitis / dyscitis - due to past history recommend further work up of patients prior historyh of osteomyelitis as patient was likely inadequately treated with antibiotics and concern for periprostetic infection - may require mri with or without contrast of the cervical thoracic and lumbar spine if dysitis id found - follow up on blood cultures - recommend treating empirially for osteomyelitis with vancomycin and ceftriaxone 2 grams every 12 hours given progress of lower extremities - if osteomyelitis is confirmed patient will likely need surgery of this area - Recommend patient is seen by DR Watson and acquire biopsy of this abscess. alternatively can be done at OSH - recommend chemical and bio correlation and a 3 lobe scan as well as nuclear scan - Back and Buttock Cellulitis: - Continue vancomycin and ceftriaxone - Wound care: - Apply barrier cream. - Keep the area dry. - Use nystatin powder to assist with moisture control. - Monitor wound for signs of infection. - Sacral and Back Ulcers: - Consult wound care team. - Implement pressure off-loading measures. - Encourage frequent repositioning. - Deep Vein Thrombosis: - Initiate anticoagulation therapy. - Monitor for signs of bleeding. - Altered Mental Status: - Monitor mental status closely. - Assess for potential contributing factors (medications, infection, metabolic abnormalities). - Pain Management: - Assess pain levels regularly. - Adjust analgesics as needed. - Physical Therapy: - Initiate to improve mobility and prevent further deconditioning. - Isolation Precautions: - Implement contact precautions due to MRSA colonization. Plan discussed with: Patient Dietary Evaluation Review Comments: Consider a cardiac 2gNa lo fat LoChol diet. encourage PO intake to meet 75% of her needs. Consider Nathanael BID for wound healing. Expected Outcomes/Goals: improved nutrition parameters. healed saccral ulcer, maintain weight. ELAINE GODINEZ MD Sep 30, 2024 23:48
--- NOTE | 2024-09-30 23:52 | DVHPN2 ---
Consult Progress Note Date Seen: Sep 29, 2024 Subjective Patient reports: Feels better (no diarrhea or rash) Objective vital signs Vital Sign Date Time Temp Pulse Resp B/P (MAP) Pulse Ox O2 Delivery O2 Flow Rate FiO2 09/30/24 21:00 98.6 106 19 140/64 (89) 95 98.6 09/30/24 20:00 Room Air* 0 21 Total Intake and Output 09/29/24 09/29/24 09/30/24 15:00 23:00 07:00 Intake Total 50 ml 50 ml 750 ml Output Total 1150 ml Balance 50 ml 50 ml -400 ml medications Current Medications Medications Dose Ordered Sig/Lydia Route Start Time Stop Time Status Last Admin Dose Admin Nitroglycerin 0.4 mg Q5MINP PRN SL 09/23/24 03:45 Morphine Sulfate 2 mg Q30M PRN IV 09/23/24 03:45 09/27/24 05:07 2 MG Famotidine 20 mg DAILY PO 09/23/24 10:00 09/30/24 09:19 20 MG Clopidogrel Bisulfate 75 mg DAILY PO 09/24/24 10:00 09/30/24 09:19 75 MG Lamotrigine 100 mg DAILY PO 09/23/24 10:00 09/30/24 09:19 100 MG Morphine Sulfate 2 mg Q6HPRN PRN IV 09/23/24 13:30 09/30/24 16:45 2 MG Atorvastatin Calcium 40 mg HS PO 09/23/24 22:00 09/30/24 22:06 40 MG Acetaminophen/ Hydrocodone Bitart 1 tab Q4HP PRN PO 09/23/24 20:15 Hold 09/25/24 08:58 1 TAB Melatonin 5 mg HSPRN PO 09/25/24 22:00 09/30/24 22:06 5 MG Gentamicin Sulfate 0 ml @ 0 mls/hr PER PHARMACY IV 09/26/24 06:30 Cancel Hydromorphone HCl 1 mg Q4HPRN PRN IV 09/26/24 17:15 09/30/24 13:41 1 MG Doxycycline Monohydrate 100 mg Q12HR PO 09/27/24 22:00 Cancel Ceftriaxone Sodium 50 ml @ 100 mls/hr DAILY@09 IV 09/28/24 09:00 Cancel Haloperidol Lactate 2.5 mg HS IM 09/27/24 22:00 09/30/24 22:06 2.5 MG Vancomycin HCl 0 ml @ 0 mls/hr UD IV 09/27/24 21:15 Ceftriaxone Sodium/Dextrose 50 ml @ 50 mls/hr Q12HR@,21 IV 09/27/24 21:44 09/30/24 09:20 50 MLS/HR Vancomycin HCl 250 ml @ 250 mls/hr Q16H IV 09/28/24 20:00 09/30/24 21:00 250 MLS/HR Enoxaparin Sodium 75 mg Q12HR SC 09/28/24 22:00 09/30/24 22:06 75 MG PHYSICAL EXAM: - GENERAL: Alert and oriented x 3. No acute distress. Well-nourished. - EYES: EOMI. Anicteric. - HENT: Moist mucous membranes. No scleral icterus. No cervical lymphadenopathy. - LUNGS: Clear to auscultation bilaterally. No accessory muscle use. - CARDIOVASCULAR: Regular rate and rhythm. No murmur. No JVD. - ABDOMEN: Soft, non-tender and non-distended. No palpable masses. - EXTREMITIES: No edema. Non-tender.?SKIN: No rashes or lesions. Warm. - NEUROLOGIC: No focal neurological deficits. CN II-XII grossly intact, but not individually tested - PSYCHIATRIC: Cooperative. Appropriate mood and affect. - laboratory and microbiology Laboratory Tests 09/30/24 10:11 Test 09/30/24 10:11 Range/Units Serum Glucose 147 H 74-106 mg/dL Problem List/Assessment/Plan Problem List/Assessment/Plan ASSESSMENT AND PLAN: ID Problem List: - Acute deep vein thrombosis (DVT) in right mid and distal femoral vein - Back and buttock cellulitis - Sacral and back ulcers (Stage I) - Altered mental status - Anemia (hemoglobin 6.2 g/dL) - Chronic back pain status post spinal fusion - Hypertension - Hypothyroidism - Prior cervical cancer - MRSA colonization Assessment This is Anuja Escalera, a female with a past medical history of hypertension, hypothyroidism, chronic back pain status post spinal fusion, and prior cervical cancer, who presents with worsening sacral ulcers and back cellulitis. The patient was transferred from [facility] to [facility] after episodes of altered level of consciousness. She recently underwent back surgery in January 2024 for spinal fusion due to chronic back pain with fused vertebrae. Over the last several months, she has been bedridden due to progressive weakness in her lower extremities and is now bedbound. She has developed stage I sacral and back ulcers measuring approximately 1 x 1 cm with intact skin, likely related to immobility. On examination, she has 3/5 strength in her lower extremities bilaterally, mild edema in her ankles, and joint stiffness. She is alert and oriented. Vital signs are stable. Laboratory data reveal anemia with a hemoglobin of 6.2 g/dL, white blood cell count of 3.42 x10/L, and platelets of 102 x10/L. Electrolytes are within normal limits. Renal function is normal with BUN 7 mg/dL and creatinine 0.54 mg/dL. Liver function tests are within normal limits. She has been on vancomycin since admission. Urine drug screen is positive for opioids. Imaging studies include: - Chest X-ray: No active cardiopulmonary disease. - Head CT: No acute intracranial abnormality; left parietal outer bone table with a demarcated lesion of 4 cm. - Venous Doppler Ultrasound: Occlusive DVT in the right mid and distal femoral vein; no left popliteal venous thrombosis. - CT Pulmonary Angiogram: No pulmonary embolism; nonspecific bilateral lymphadenopathy; severe compression deformity of mid-thoracic vertebrae just above the fused lumbar segment; lungs are clear except for right upper lobe and left lower lobe nodules; bilateral small pleural effusions with associated patchy atelectasis and consolidation in lung bases. MRSA nasal swab is positive. Wound cultures from her sacral ulcer show growth of MRSA, Enterococci, and multidrug-resistant organisms. 09/27: patient claims to have spinal surgery tatyana infusion in january and has been having worsening pain since after hospitalization at [facility] and had multiple hospital admissions due to back rash . Had a fall. reviewing MRI from 08/05 shows disgused osteomyelitis with severe destructive changes of t7 and t8 and concern for flegmont abcess formation . ne epidural fluid collection is identified t this time 09/28: awaiting imaging to be completed Plan: osteomyelitis / dyscitis - due to past history recommend further work up of patients prior historyh of osteomyelitis as patient was likely inadequately treated with antibiotics and concern for periprostetic infection - may require mri with or without contrast of the cervical thoracic and lumbar spine if dysitis id found - follow up on blood cultures - recommend treating empirially for osteomyelitis with vancomycin and ceftriaxone 2 grams every 12 hours given progress of lower extremities - if osteomyelitis is confirmed patient wwill likely need surgery of this area - Recommend patient is seen by DR Watson and nabil warren of this abscess - recommend chemical and bio correlation and a 3 lobe scan as well as nuclear scan - Back and Buttock Cellulitis: - Continue vancomycin. stop gentamicin - Initiate ceftriaxone. - Wound care: - Apply barrier cream. - Keep the area dry. - Use nystatin powder to assist with moisture control. - Monitor wound for signs of infection. - Sacral and Back Ulcers: - Consult wound care team. - Implement pressure off-loading measures. - Encourage frequent repositioning. - Deep Vein Thrombosis: - Initiate anticoagulation therapy. - Monitor for signs of bleeding. - Altered Mental Status: - Monitor mental status closely. - Assess for potential contributing factors (medications, infection, metabolic abnormalities). - Pain Management: - Assess pain levels regularly. - Adjust analgesics as needed. - Physical Therapy: - Initiate to improve mobility and prevent further deconditioning. - Isolation Precautions: - Implement contact precautions due to MRSA colonization. Plan discussed with: Patient Dietary Evaluation Review Comments: Consider a cardiac 2gNa lo fat LoChol diet. encourage PO intake to meet 75% of her needs. Consider Nathanael BID for wound healing. Expected Outcomes/Goals: improved nutrition parameters. healed saccral ulcer, maintain weight. ELAINE GODINEZ MD Sep 30, 2024 23:52
[2024-10-01] VITALS (7 sets, daily range): BP systolic 115–143; BP diastolic 60–79; PULSE 76–112; RESP 14–18; TEMP 97.6–100.5; O2SAT 95–100
[2024-10-01 07:23] LABS: Anion Gap 4 (5-15); Carbon Dioxide 24 mmol/L (20-31); Potassium 4.2 mmol/L (3.5-5.1); Sodium 139 mmol/L (136-145)
[2024-10-01 07:29] LABS: BUN/Creatinine Ratio 7.5 (10.0-20.0); Glucose 94 mg/dL (74-106)
[2024-10-01 07:40] LABS: Basophils # (auto) 0.1 10 ^3/uL (0-0.2); Basophils % (auto) 0.8 % (0.0-2.0); Eosinophils # (auto) 0.4 10 ^3/uL (0-0.8); Eosinophils % (auto) 5.1 % (0.0-7.0); Lymphocytes # (auto) 1.7 10 ^3/uL (0.4-5.4); Lymphocytes % (auto) 24.9 % (10.0-50.0); Mean Corpuscular Hgb Conc. 31.1 g/dL (32.0-36.0); Mean Corpuscular Volume 89.8 fL (80.0-100.0); Monocytes # (auto) 0.5 10 ^3/uL (0-1.3); Monocytes % (auto) 7.5 % (0.0-12.0); Neutrophils # (auto) 4.2 10 ^3/uL (1.6-8.6); Neutrophils % (auto) 61.7 % (37.0-80.0); Nucleated Red Blood Cells % 0.2 %; Platelet Count (auto) 415 10^3/uL (140-450); Red Blood Cells 3.56 10^6/uL (4.0-5.20); Red Cell Distribution Width 17.6 % (11.8-14.3); White Blood Cell 6.8 10^3/uL (4.4-10.8)
[2024-10-01 07:43] LABS: Blood Urea Nitrogen 5 mg/dL (9-23); Calcium 7.5 mg/dL (8.7-10.4); Chloride 111 mmol/L (98-107)
[2024-10-01] MEDS ORDERED: diphenhdrAMINE HCL 12.5 MG/5 ML UD GT PRN (10:30)
[2024-10-01] MEDS: diphenhdrAMINE HCL 12.5 MG/5 ML UD PO PRN (12:05)
--- NOTE | 2024-10-01 13:12 | DVHPNRES ---
Progress Note Date Seen: Oct 01, 2024 Resident Creating Document: BRYN RETANA RESIDENT Medical Necessity Reason Pt with a Central, PICC or Fol: No The following are medically ne: Castaneda Catheter Subjective Review of Systems Patient is 73 years old female with past medical history of hypertension, coronary artery disease, hypothyroidism, GERD, history of cervical cancer was brought in from [facility] due to altered mental status. Patient was transferred from [facility]. As per ER physician documentation and from patient and her family patient was transferred to [facility] for altered mental status. As per patient's sister she was not responding at the nursing facility and that is why she was transferred to [facility]. At the [facility] patient was found to have elevated troponin I with non STEMI and she was transferred to [facility] for higher level of care. Provider spoke to the patient today and patient reported she had chest pain, central, stabbing in nature, 10/10, associated with shortness of breaths. Patient also endorsed nausea and vomiting 3 times mainly bile, , no blood. Patient had back surgery on January, which was complicated with wound infection as per patient and family. And postoperative patient is unable to ambulate for last two-month. Patient denied any fever, , dysarthria or change in vision, acute joint pain or swelling. Initial lab workup revealed troponin I elevated 2637> 2450> 2401. TSH 0.56, UDS positive for opiates, fecal occult blood test negative, D-dimer 1.73, hypokalemia with potassium 3.3, negative for COVID-19, urinalysis revealed UTI with leukocyte esterase 3+, RBC 14, WBC 128, bacteria few. Doppler study of the lower extremity revealed- Occlusive DVT at the right mid to distal femoral vein. No left femoropopliteal venous thrombosis. CT angio chest-1. No pulmonary embolism. Small bilateral pleural effusions with associated patchy atelectasis and consolidation in the lung bases. Nodular airspace disease right upper lung. Left lower lobe nodule. Recommend clinical correlation and continued follow-up to resolution. Nonspecific bilateral axillary lymphadenopathy. Severe compression deformity of a midthoracic vertebral body just above the last fused segment. Consider further evaluation with MRI of the thoracic spine. CXR revealed-No active cardiopulmonary disease. Partially visualized thoracolumbar fixation hardware. CT brain revealed-No acute intracranial abnormality. Left parietal bone outer table well demarcated sclerotic lesion measuring 4 cm. This is most likely benign but can be further evaluated nonemergent MRI. Bone scan revealed-Intense radiotracer activity in midthoracic spine corresponding to the destructive changes noted in the previous CT scan involving T7 and T8 vertebrae. Mild increased activity in few posterior right ribs that May correspond to the abnormalities seen in the previous CT scan involving the 9th and 10th ribs. A 2 mm cortical defect was seen in posterior 10th rib that is of uncertain etiology and may reflect a lytic bone lesion. Mild degenerative activity in the left patella and left ankle. Past medical history: HTN, ?LA in the past, Hypothyroidism, GERD, H/o cervical cancer. Past surgical history: hysterectomy with B/L salpingoophrectomy, Back surgery Social history: reports to be living alone at home in [place], for last 3 weeks she reports to be living at [facility], denies smoking, alcohol, drug use Home medications: from the med. records - triamterene-HCTZ 37.5/25mg Qd, omeprazole 40mg qd, lamotrigine 100mg qd, levothyroxine 100mcg Allergy- aspirin, codeine, penicillin Patient was seen today at the bedside. Cardiovascular- denies cough or palpitation Respiratory- denies cough or or wheezing Gastrointestinal- denies any rectal bleeding, nausea or vomiting Musculoskeletal-denies acute joint swelling or tenderness or redness Neurological- denies acute dysarthria, dysphagia, change in vision Psychiatry- denies depression or SI or HI Patient was seen today for clinical evaluation. Labs and chart reviewed. Patient had some rash on the chest, ordered Benadryl and hydrocortisone ointment. Patient complained of insomnia, ordered melatonin 5 mg q.h.s.. Ordered Physical therapy. Objective vital signs Vital Sign Date Time Temp Pulse Resp B/P (MAP) Pulse Ox O2 Delivery O2 Flow Rate FiO2 10/01/24 12:43 98.5 98 18 143/79 (100) 100 98.5 10/01/24 07:30 Room Air* 0 21 Total Intake and Output 09/30/24 09/30/24 10/01/24 15:00 23:00 07:00 Intake Total 464 ml 1294 ml Output Total 750 ml Balance 464 ml 544 ml medications Current Medications Medications Dose Ordered Sig/Lydia Route Start Time Stop Time Status Last Admin Dose Admin Nitroglycerin 0.4 mg Q5MINP PRN SL 09/23/24 03:45 Morphine Sulfate 2 mg Q30M PRN IV 09/23/24 03:45 10/01/24 12:42 2 MG Famotidine 20 mg DAILY PO 09/23/24 10:00 10/01/24 09:47 20 MG Clopidogrel Bisulfate 75 mg DAILY PO 09/24/24 10:00 10/01/24 09:47 75 MG Lamotrigine 100 mg DAILY PO 09/23/24 10:00 10/01/24 09:47 100 MG Morphine Sulfate 2 mg Q6HPRN PRN IV 09/23/24 13:30 09/30/24 16:45 2 MG Atorvastatin Calcium 40 mg HS PO 09/23/24 22:00 09/30/24 22:06 40 MG Acetaminophen/ Hydrocodone Bitart 1 tab Q4HP PRN PO 09/23/24 20:15 Hold 09/25/24 08:58 1 TAB Melatonin 5 mg HSPRN PO 09/25/24 22:00 09/30/24 22:06 5 MG Gentamicin Sulfate 0 ml @ 0 mls/hr PER PHARMACY IV 09/26/24 06:30 Cancel Hydromorphone HCl 1 mg Q4HPRN PRN IV 09/26/24 17:15 10/01/24 09:49 1 MG Doxycycline Monohydrate 100 mg Q12HR PO 09/27/24 22:00 Cancel Ceftriaxone Sodium 50 ml @ 100 mls/hr DAILY@09 IV 09/28/24 09:00 Cancel Haloperidol Lactate 2.5 mg HS IM 09/27/24 22:00 09/30/24 22:06 2.5 MG Vancomycin HCl 0 ml @ 0 mls/hr UD IV 09/27/24 21:15 Ceftriaxone Sodium/Dextrose 50 ml @ 50 mls/hr Q12HR@ IV 09/27/24 21:44 10/01/24 10:05 50 MLS/HR Vancomycin HCl 250 ml @ 250 mls/hr Q16H IV 09/28/24 20:00 09/30/24 21:00 250 MLS/HR Enoxaparin Sodium 75 mg Q12HR SC 09/28/24 22:00 10/01/24 09:48 75 MG Hydrocortisone 1 applic BID TOP 10/01/24 22:00 Diphenhydramine HCl 25 mg Q6HP PRN PO 10/01/24 10:45 10/01/24 12:05 25 MG Examination General examination- patient is awake, alert, oriented, conversant HEENT- PEERLA, no acute nasal discharge Cardiovascular- chest wall tenderness+, S1-S2 audible, rate and rhythm regular, no murmur Respiratory- CTAB, no wheeze or rhonchi Gastrointestinal-nontender, bowel sound+. Nondistended Musculoskeletal-no acute joint swelling or tenderness or redness Spine- stage I sacral and back ulcers measuring approximately 1 x 1 cm with intact skin, likely related to immobility. 11 inch incision in the thoracic/lumbar spine with 3 areas of wound break down and purulence Lower extremity- no leg edema, patient with decreased muscle bowel on the bilateral lower extremity Neurological-decreased muscle power on the bilateral lower extremity Psychiatry- denies depression or SI or HI laboratory and microbiology Laboratory Tests 10/01/24 06:42 Test 10/01/24 06:42 Range/Units Serum Glucose 94 74-106 mg/dL Microbiology Date/Time Source Procedure Growth Status 09/23/24 20:14 Sacrum Gram Stain - Final Complete 09/23/24 20:14 Wound Culture - Final Acinetobacter baumannii MDRO Methicillin Resistant S.aureus Enterococcus faecalis - VRE Complete 09/23/24 04:49 Stool Stool Culture - Final Complete 09/23/24 04:49 Stool Shiga Toxin I & II - Final Complete 09/23/24 04:13 Blood Blood Culture - Final NO GROWTH AFTER 5 DAYS OF INCUBATION. Complete 09/23/24 03:53 Urine - Catheterized Urine Culture - Final Complete Problem List/Assessment/Plan Problem List/Assessment/Plan #Acute Chest pain likely due to NSTEMI type 1 # acute hypoxic respiratory failure likely due to UTI/suspected pneumonia # suspected pneumonia Gram-positive versus Gram-negative # DVT-Occlusive DVT at the right mid to distal femoral vein. # wound infection-Patient's wound culture revealed Acinetobacter baumannii MDRO, methicillin-resistant Staphylococcus aureus, Enterococcus faecalis VRE. INFECTIOUS DISEASE ON BOARD. # UTI #Metabolic encephalopathy #NSTEMI likely type 1 #Severe compression deformity of a midthoracic vertebral body-status post spinal surgery-pending MRI of the lumbar and thoracic spine # suspected diastolic heart failure, elevated BNP 245 # MRSA screening for nares positive #Uncontrolled high blood pressure #Hypothyroidism #GERD #Recurrent hypokalemia-replenished #Small bilateral pleural effusions # wound on the back and Sacral ulcer -Patient's wound culture revealed Acinetobacter baumannii MDRO, methicillin-resistant Staphylococcus aureus, Enterococcus faecalis VRE. Pending Infectious Disease consult. # Back and buttock cellulitis #Sacral and back ulcers (Stage I) #Altered mental status #Chronic back pain status post spinal fusion # Prior cervical cancer # hypomagnesemia-replenished # insomnia # anxiety - Bone scan revealed-Intense radiotracer activity in midthoracic spine corresponding to the destructive changes noted in the previous CT scan involving T7 and T8 vertebrae. Mild increased activity in few posterior right ribs that May correspond to the abnormalities seen in the previous CT scan involving the 9th and 10th ribs. A 2 mm cortical defect was seen in posterior 10th rib that is of uncertain etiology and may reflect a lytic bone lesion. Mild degenerative activity in the left patella and left ankle. -Echo 2D-Normal left ventricular size and dimension. Normal right ventricular systolic function estimated ejection fraction 55%. There is a grade 1 diastolic dysfunction. Normal right ventricular size and dimension. Normal right ventricular systolic function -Cardiology recommendation reviewed and appreciated-angiogram showed mild atherosclerotic disease in proximal LAD and proximal and mid segment of RCA. No significant CAD was noted, likely due to microvascular disease or coronary vasospasm ,supply demand mismatch ischemia and advised aggressive primary prevention protocol for all risk factors -Patient's wound culture revealed Acinetobacter baumannii MDRO, methicillin- resistant Staphylococcus aureus, Enterococcus faecalis VRE. Infectious disease on board -status post spinal surgeon consult.Dr. Watson recommended to transfer the patient to [facility] where patient had back surgery in January 26, [address] cedeño can take over care on his patient. Patient will be transferred to [facility] on bed is available. Patient is hemodynamically stable to be transferred to higher level of care. Provider spoke to [facility] supervisor cell operation [place] and as per supervisor cell operation there is no bed available tonight. Continue 75 mcg subcutaneously b.i.d. Continue clopidogrel 75 mg p.o. daily Continue continue gentamicin as per pharmacy protocol Continue CEFTRIAXONE 1 G IV Q.12 HOURS Continue vancomycin as prescribed Continue atorvastatin 40 mg q.h.s. Continue Lamictal 100 mg p.o. daily Continue famotidine 20 mg p.o. daily Continue other p.r.n. medication as prescribed Continue mupirocin 2% ointment for nares MRSA as prescribed Goals of care/advance care planning; DNR; discussed with the patient >15 minutes PUD prophylaxis: Continue famotidine DVT prophylaxis: Patient on Lovenox Plan discussed with Dr. Baker, nursing staff, patient Total time spent on patient evaluation, chart review, assessment and plan, discussion discussion >30 minutes Plan discussed with: Patient Plan discussed with: Patient, Other (RN) My Orders My Orders Orders - BRYN RETANA Procedure Category Date Status Time Hydrocortone 1% PHA 10/01/24 In Process Topical Cream 22:00 Transfer Orders XFER 10/01/24 Transmitted 10:34 Communication Order ORDERS 10/01/24 Transmitted 10:34 Diphenhdramine Liquid PHA 10/01/24 In Process (Benadryl Liquid) 10:45 Pt Request For Service PT 10/01/24 Logged 12:51 Magnesium Sulfate PHA 10/01/24 Logged 1gm/100ml 13:15 Dietary Evaluation Review Comments: Consider a cardiac 2gNa lo fat LoChol diet. encourage PO intake to meet 75% of her needs. Consider Nathanael BID for wound healing. Expected Outcomes/Goals: improved nutrition parameters. healed saccral ulcer, maintain weight. Date of Service: Oct 01, 2024 Billing Provider: JIMMIE BAKER MD Common Visit Codes: 08650-[id number] INP/OBS CARE(HIGH) Secondary Visit Codes: 97593-[id number] CARE PLAN 30 MINUTES BRYN RETANA Oct 01, 2024 13:12 JIMMIE BAKER MD Oct 01, 2024 22:33
[2024-10-01] MEDS: MAGNESIUM SULFATE 1GM/100ML 100 ML IV ONE (14:25)
[2024-10-01] MEDS: LORazepam 2MG/ML-1ML VIAL IV PRN (17:37)
[2024-10-01] MEDS: NITROGLYCERIN 0.4 MG SL TAB SL PRN (19:07)
[2024-10-01] MEDS: SODIUM CHLORIDE 0.9% 250 ML IV ONE (19:15)
[2024-10-01] MEDS ORDERED: SODIUM CHLORIDE 0.9% 250 ML IV ONE (20:00)
[2024-10-01] MEDS: HYDROCORTONE 1% TOPICAL CREAM 30 GM TUBE TOP SCH (21:20)
[2024-10-01] MEDS: MELATONIN 5 MG TAB PO SCH (22:40)
[2024-10-02] VITALS (8 sets, daily range): BP systolic 98–121; BP diastolic 49–58; PULSE 60–107; RESP 17–20; TEMP 98–99.8; O2SAT 95–97
[2024-10-02 07:12] LABS: Basophils # (auto) 0.1 10 ^3/uL (0-0.2); Basophils % (auto) 0.9 % (0.0-2.0); Eosinophils # (auto) 0.3 10 ^3/uL (0-0.8); Eosinophils % (auto) 4.8 % (0.0-7.0); Hematocrit 31.4 % (36.0-46.0); Hemoglobin 9.9 g/dL (12.2-16.2); Lymphocytes # (auto) 1.3 10 ^3/uL (0.4-5.4); Mean Corpuscular Hemoglobin 28.5 pg (28.0-32.0); Mean Corpuscular Hgb Conc. 31.6 g/dL (32.0-36.0); Mean Corpuscular Volume 90.2 fL (80.0-100.0); Monocytes # (auto) 0.4 10 ^3/uL (0-1.3); Monocytes % (auto) 7.4 % (0.0-12.0); Neutrophils # (auto) 3.6 10 ^3/uL (1.6-8.6); Neutrophils % (auto) 63.9 % (37.0-80.0); Nucleated Red Blood Cells % 0.1 %; Platelet Count (auto) 390 10^3/uL (140-450); Red Blood Cells 3.48 10^6/uL (4.0-5.20); Red Cell Distribution Width 17.6 % (11.8-14.3); White Blood Cell 5.6 10^3/uL (4.4-10.8)
[2024-10-02 07:47] LABS: Anion Gap 7 (5-15); Carbon Dioxide 24 mmol/L (20-31); Chloride 107 mmol/L (98-107); Sodium 138 mmol/L (136-145)
[2024-10-02 07:53] LABS: BUN/Creatinine Ratio 12.1 (10.0-20.0)
[2024-10-02 07:54] LABS: Magnesium 1.9 mg/dL (1.6-2.6)
[2024-10-02 07:57] LABS: Blood Urea Nitrogen 8 mg/dL (9-23); Calcium 8.6 mg/dL (8.7-10.4); Glucose 110 mg/dL (74-106); Potassium 3.4 mmol/L (3.5-5.1)
[2024-10-02] MEDS ORDERED: ACETAMINOPHEN 325 MG TAB PO PRN (11:15)
[2024-10-02] MEDS: POTASSIUM EFFERVESENT TAB 25 MEQ PO ONE (11:16)
[2024-10-02] MEDS: SODIUM CHLORIDE 0.9% 500 ML IV ONE (11:17)
--- NOTE | 2024-10-02 17:39 | DVHPNRES ---
Progress Note Date Seen: Oct 02, 2024 Resident Creating Document: BRYN RETANA RESIDENT Medical Necessity Reason Pt with a Central, PICC or Fol: No The following are medically ne: Castaneda Catheter Subjective Review of Systems Patient is 73 years old female with past medical history of hypertension, coronary artery disease, hypothyroidism, GERD, history of cervical cancer was brought in from [facility] due to altered mental status. Patient was transferred from [facility]. As per ER physician documentation and from patient and her family patient was transferred to [facility] for altered mental status. As per patient's sister she was not responding at the nursing facility and that is why she was transferred to [facility]. At the [facility] patient was found to have elevated troponin I with non STEMI and she was transferred to [facility] for higher level of care. Provider spoke to the patient today and patient reported she had chest pain, central, stabbing in nature, 10/10, associated with shortness of breaths. Patient also endorsed nausea and vomiting 3 times mainly bile, , no blood. Patient had back surgery on January, which was complicated with wound infection as per patient and family. And postoperative patient is unable to ambulate for last two-month. Patient denied any fever, , dysarthria or change in vision, acute joint pain or swelling. Initial lab workup revealed troponin I elevated 2637> 2450> 2401. TSH 0.56, UDS positive for opiates, fecal occult blood test negative, D-dimer 1.73, hypokalemia with potassium 3.3, negative for COVID-19, urinalysis revealed UTI with leukocyte esterase 3+, RBC 14, WBC 128, bacteria few. Doppler study of the lower extremity revealed- Occlusive DVT at the right mid to distal femoral vein. No left femoropopliteal venous thrombosis. CT angio chest-1. No pulmonary embolism. Small bilateral pleural effusions with associated patchy atelectasis and consolidation in the lung bases. Nodular airspace disease right upper lung. Left lower lobe nodule. Recommend clinical correlation and continued follow-up to resolution. Nonspecific bilateral axillary lymphadenopathy. Severe compression deformity of a midthoracic vertebral body just above the last fused segment. Consider further evaluation with MRI of the thoracic spine. CXR revealed-No active cardiopulmonary disease. Partially visualized thoracolumbar fixation hardware. CT brain revealed-No acute intracranial abnormality. Left parietal bone outer table well demarcated sclerotic lesion measuring 4 cm. This is most likely benign but can be further evaluated nonemergent MRI. Bone scan revealed-Intense radiotracer activity in midthoracic spine corresponding to the destructive changes noted in the previous CT scan involving T7 and T8 vertebrae. Mild increased activity in few posterior right ribs that May correspond to the abnormalities seen in the previous CT scan involving the 9th and 10th ribs. A 2 mm cortical defect was seen in posterior 10th rib that is of uncertain etiology and may reflect a lytic bone lesion. Mild degenerative activity in the left patella and left ankle. Past medical history: HTN, ?DE in the past, Hypothyroidism, GERD, H/o cervical cancer. Past surgical history: hysterectomy with B/L salpingoophrectomy, Back surgery Social history: reports to be living alone at home in [place], for last 3 weeks she reports to be living at [facility], denies smoking, alcohol, drug use Home medications: from the med. records - triamterene-HCTZ 37.5/25mg Qd, omeprazole 40mg qd, lamotrigine 100mg qd, levothyroxine 100mcg Allergy- aspirin, codeine, penicillin Patient was seen today at the bedside. Cardiovascular- denies cough or palpitation Respiratory- denies cough or or wheezing Gastrointestinal- denies any rectal bleeding, nausea or vomiting Musculoskeletal-no acute joint swelling Neurological- denies acute dysarthria, dysphagia, change in vision Psychiatry- denies depression or SI or HI Patient was seen today for clinical evaluation. Labs and chart reviewed. P atient with ongoing back pain and unable to ambulate. Continue current pain medications. Patient has mild hypokalemia potassium 3.4, replenished. Provider spoke to stock house worker of [facility] Lopez maxine Los [phone], Mr. Lerma direct contact number [phone], fax [phone]. Provider also spoke to licensed social worker in house labor union business representative and provided the information to legs documents to the above-mentioned hospital Objective vital signs Vital Sign Date Time Temp Pulse Resp B/P (MAP) Pulse Ox O2 Delivery O2 Flow Rate FiO2 10/02/24 17:28 99.4 103 18 109/51 (70) 97 99.4 10/02/24 08:00 Room Air* 0 21 Total Intake and Output 10/01/24 10/01/24 10/02/24 15:00 23:00 07:00 Intake Total 1138 ml 350 ml 300 ml Balance 1138 ml 350 ml 300 ml medications Current Medications Medications Dose Ordered Sig/Lydia Route Start Time Stop Time Status Last Admin Dose Admin Nitroglycerin 0.4 mg Q5MINP PRN SL 09/23/24 03:45 10/01/24 19:07 0.4 MG Famotidine 20 mg DAILY PO 09/23/24 10:00 10/02/24 11:14 20 MG Clopidogrel Bisulfate 75 mg DAILY PO 09/24/24 10:00 10/02/24 11:14 75 MG Lamotrigine 100 mg DAILY PO 09/23/24 10:00 10/02/24 11:15 100 MG Atorvastatin Calcium 40 mg HS PO 09/23/24 22:00 10/01/24 21:18 40 MG Acetaminophen/ Hydrocodone Bitart 1 tab Q4HP PRN PO 09/23/24 20:15 Hold 09/25/24 08:58 1 TAB Melatonin 5 mg HSPRN PO 09/25/24 22:00 10/01/24 21:18 5 MG Gentamicin Sulfate 0 ml @ 0 mls/hr PER PHARMACY IV 09/26/24 06:30 Cancel Hydromorphone HCl 1 mg Q4HPRN PRN IV 09/26/24 17:15 10/02/24 16:53 1 MG Doxycycline Monohydrate 100 mg Q12HR PO 09/27/24 22:00 Cancel Ceftriaxone Sodium 50 ml @ 100 mls/hr DAILY@09 IV 09/28/24 09:00 Cancel Haloperidol Lactate 2.5 mg HS IM 09/27/24 22:00 10/01/24 21:20 2.5 MG Vancomycin HCl 0 ml @ 0 mls/hr UD IV 09/27/24 21:15 Ceftriaxone Sodium/Dextrose 50 ml @ 50 mls/hr Q12HR@ IV 09/27/24 21:44 10/02/24 11:14 50 MLS/HR Vancomycin HCl 250 ml @ 250 mls/hr Q16H IV 09/28/24 20:00 10/02/24 04:16 250 MLS/HR Enoxaparin Sodium 75 mg Q12HR SC 09/28/24 22:00 10/02/24 11:15 75 MG Hydrocortisone 1 applic BID TOP 10/01/24 22:00 10/02/24 11:15 1 APPLIC Diphenhydramine HCl 25 mg Q6HP PRN PO 10/01/24 10:45 10/01/24 12:05 25 MG Melatonin 5 mg HS PO 10/01/24 22:00 10/01/24 22:40 5 MG Lorazepam 0.5 mg Q12HP PRN IV 10/01/24 13:15 10/02/24 12:50 0.5 MG Acetaminophen 650 mg Q6HP PRN PO 10/02/24 11:15 Examination General examination- patient is awake, alert, oriented, conversant today HEENT- PEERLA, no acute nasal discharge Cardiovascular- chest wall tenderness+, S1-S2 audible, rate and rhythm regular, no murmur Respiratory- CTAB, no wheeze or rhonchi Gastrointestinal-nontender, bowel sound+. Nondistended Musculoskeletal-no acute joint swelling or tenderness or redness Spine- stage I sacral and back ulcers measuring approximately 1 x 1 cm with intact skin, likely related to immobility. 11 inch incision in the thoracic/lumbar spine with 3 areas of wound break down and purulence Lower extremity- leg mira+, patient with decreased muscle bowel on the bilateral lower extremity Neurological-decreased muscle power on the bilateral lower extremity, upper extremity muscle power 4/5, lower extremity muscle power 2/5 Psychiatry- denies depression or SI or HI laboratory and microbiology Laboratory Tests 10/02/24 05:21 Test 10/02/24 05:21 Range/Units Serum Glucose 110 H 74-106 mg/dL Microbiology Date/Time Source Procedure Growth Status 09/23/24 20:14 Sacrum Gram Stain - Final Complete 09/23/24 20:14 Wound Culture - Final Acinetobacter baumannii MDRO Methicillin Resistant S.aureus Enterococcus faecalis - VRE Complete 09/23/24 04:49 Stool Stool Culture - Final Complete 09/23/24 04:49 Stool Shiga Toxin I & II - Final Complete 09/23/24 04:13 Blood Blood Culture - Final NO GROWTH AFTER 5 DAYS OF INCUBATION. Complete 09/23/24 03:53 Urine - Catheterized Urine Culture - Final Complete Problem List/Assessment/Plan Problem List/Assessment/Plan #Acute Chest pain likely due to NSTEMI type 1 # acute hypoxic respiratory failure likely due to UTI/suspected pneumonia- improved # suspected pneumonia Gram-positive versus Gram-negative # DVT-Occlusive DVT at the right mid to distal femoral vein. # wound infection-Patient's wound culture revealed Acinetobacter baumannii MDRO, methicillin-resistant Staphylococcus aureus, Enterococcus faecalis VRE. INFECTIOUS DISEASE ON BOARD. # UTI #Metabolic encephalopathy #NSTEMI likely type 1 #Severe compression deformity of a midthoracic vertebral body-status post spinal surgery-pending MRI of the lumbar and thoracic spine # lower extremity- paraparesis # suspected diastolic heart failure, elevated BNP 245 # MRSA screening for nares positive #Uncontrolled high blood pressure #Hypothyroidism #GERD #Recurrent hypokalemia-replenished #Small bilateral pleural effusions # wound on the back and Sacral ulcer -Patient's wound culture revealed Acinetobacter baumannii MDRO, methicillin-resistant Staphylococcus aureus, Enterococcus faecalis VRE. # Back and buttock cellulitis #Sacral and back ulcers (Stage I) #Altered mental status #Chronic back pain status post spinal fusion # Prior cervical cancer # hypomagnesemia-replenished # insomnia # anxiety - Bone scan revealed-Intense radiotracer activity in midthoracic spine corresponding to the destructive changes noted in the previous CT scan involving T7 and T8 vertebrae. Mild increased activity in few posterior right ribs that May correspond to the abnormalities seen in the previous CT scan involving the 9th and 10th ribs. A 2 mm cortical defect was seen in posterior 10th rib that is of uncertain etiology and may reflect a lytic bone lesion. Mild degenerative activity in the left patella and left ankle. -Echo 2D-Normal left ventricular size and dimension. Normal right ventricular systolic function estimated ejection fraction 55%. There is a grade 1 diastolic dysfunction. Normal right ventricular size and dimension. Normal right ventricular systolic function -Cardiology recommendation reviewed and appreciated-angiogram showed mild atherosclerotic disease in proximal LAD and proximal and mid segment of RCA. No significant CAD was noted, likely due to microvascular disease or coronary vasospasm ,supply demand mismatch ischemia and advised aggressive primary prevention protocol for all risk factors -Patient's wound culture revealed Acinetobacter baumannii MDRO, methicillin- resistant Staphylococcus aureus, Enterococcus faecalis VRE. Infectious disease on board -status post spinal surgeon consult. Dr. Watson recommended to transfer the patient to [facility] where patient had back surgery in January 26, [address] cedeño can take over care on his patient. Patient will be transferred to [facility] on bed is available. Patient is hemodynamically stable to be transferred to higher level of care. Provider spoke to [facility] supervisor cutting department [place] and as per supervisor cutting department there is no bed available tonight. Provider spoke to stock house worker of [facility] Lopez goodman [place] [phone], Mr. Lerma direct contact number [phone], fax [phone]. Provider also spoke to licensed social worker in house labor union business representative and provided the information to legs documents to the above-mentioned hospital Continue 75 mcg subcutaneously b.i.d. Continue clopidogrel 75 mg p.o. daily Continue continue gentamicin as per pharmacy protocol Continue ceftriaxone 1 g IV daily Continue vancomycin as per pharmacy protocol Continue atorvastatin 40 mg q.h.s. Continue Lamictal 100 mg p.o. daily Continue famotidine 20 mg p.o. daily Continue other p.r.n. medication as prescribed Continue mupirocin 2% ointment for nares MRSA as prescribed Please continue other treatment as prescribed Goals of care/advance care planning; DNR; discussed with the patient >15 minutes PUD prophylaxis: Continue famotidine DVT prophylaxis: Patient on Lovenox Plan discussed with Dr. Baker, nursing staff, patient Total time spent on patient evaluation, chart review, assessment and plan, discussion discussion >30 minutes Plan discussed with: Patient Plan discussed with: Patient, Other (sister. RN) My Orders My Orders Orders - BRYN RETANA Procedure Category Date Status Time Acetaminophen Tablet PHA 10/02/24 In Process (Tylenol Tablet) 11:15 Dietary Evaluation Review Comments: Consider a cardiac 2gNa lo fat LoChol diet. encourage PO intake to meet 75% of her needs. Consider Nathanael BID for wound healing. Expected Outcomes/Goals: improved nutrition parameters. healed saccral ulcer, maintain weight. Date of Service: Oct 02, 2024 Billing Provider: JIMMIE BAKER MD Common Visit Codes: 98030-[id number] INP/OBS CARE(HIGH) BRYN RETANA Oct 02, 2024 17:39 JIMMIE BAKER MD Oct 03, 2024 08:41
[2024-10-02] MEDS: VANCOMYCIN 1GM/250ML KIT 250 ML IV SCH (22:24)
--- NOTE | 2024-10-02 23:22 | DVHPN2 ---
Consult Progress Note Date Seen: Oct 01, 2024 Subjective Patient reports: Feels better (ongoing back cellutlis and back pain, ongoing leg weakness) Objective vital signs Vital Sign Date Time Temp Pulse Resp B/P (MAP) Pulse Ox O2 Delivery O2 Flow Rate FiO2 10/02/24 21:27 100 18 122/74 10/02/24 21:00 98.7 96 98.7 10/02/24 08:00 Room Air* 0 21 Total Intake and Output 10/01/24 10/01/24 10/02/24 15:00 23:00 07:00 Intake Total 1138 ml 350 ml 300 ml Balance 1138 ml 350 ml 300 ml medications Current Medications Medications Dose Ordered Sig/Lydia Route Start Time Stop Time Status Last Admin Dose Admin Nitroglycerin 0.4 mg Q5MINP PRN SL 09/23/24 03:45 10/01/24 19:07 0.4 MG Famotidine 20 mg DAILY PO 09/23/24 10:00 10/02/24 11:14 20 MG Clopidogrel Bisulfate 75 mg DAILY PO 09/24/24 10:00 10/02/24 11:14 75 MG Lamotrigine 100 mg DAILY PO 09/23/24 10:00 10/02/24 11:15 100 MG Atorvastatin Calcium 40 mg HS PO 09/23/24 22:00 10/02/24 22:24 40 MG Acetaminophen/ Hydrocodone Bitart 1 tab Q4HP PRN PO 09/23/24 20:15 Hold 09/25/24 08:58 1 TAB Melatonin 5 mg HSPRN PO 09/25/24 22:00 10/02/24 22:24 5 MG Gentamicin Sulfate 0 ml @ 0 mls/hr PER PHARMACY IV 09/26/24 06:30 Cancel Hydromorphone HCl 1 mg Q4HPRN PRN IV 09/26/24 17:15 10/02/24 20:57 1 MG Doxycycline Monohydrate 100 mg Q12HR PO 09/27/24 22:00 Cancel Ceftriaxone Sodium 50 ml @ 100 mls/hr DAILY@09 IV 09/28/24 09:00 Cancel Haloperidol Lactate 2.5 mg HS IM 09/27/24 22:00 10/02/24 22:30 2.5 MG Vancomycin HCl 0 ml @ 0 mls/hr UD IV 09/27/24 21:15 Ceftriaxone Sodium/Dextrose 50 ml @ 50 mls/hr Q12HR@09,21 IV 09/27/24 21:44 10/02/24 20:58 50 MLS/HR Enoxaparin Sodium 75 mg Q12HR SC 09/28/24 22:00 10/02/24 22:31 75 MG Hydrocortisone 1 applic BID TOP 10/01/24 22:00 10/02/24 21:08 1 APPLIC Diphenhydramine HCl 25 mg Q6HP PRN PO 10/01/24 10:45 10/01/24 12:05 25 MG Melatonin 5 mg HS PO 10/01/24 22:00 10/01/24 22:40 5 MG Lorazepam 0.5 mg Q12HP PRN IV 10/01/24 13:15 10/02/24 12:50 0.5 MG Acetaminophen 650 mg Q6HP PRN PO 10/02/24 11:15 Vancomycin HCl 250 ml @ 250 mls/hr Q16H IV 10/02/24 21:00 10/02/24 22:24 250 MLS/HR PHYSICAL EXAM: - GENERAL: Alert and oriented x 3. No acute distress. Well-nourished. - EYES: EOMI. Anicteric. - HENT: Moist mucous membranes. No scleral icterus. No cervical lymphadenopathy. - LUNGS: Clear to auscultation bilaterally. No accessory muscle use. - CARDIOVASCULAR: Regular rate and rhythm. No murmur. No JVD. - ABDOMEN: Soft, non-tender and non-distended. No palpable masses. - EXTREMITIES: No edema. Non-tender.?SKIN: No rashes or lesions. Warm. - NEUROLOGIC: No focal neurological deficits. CN II-XII grossly intact, but not individually tested - PSYCHIATRIC: Cooperative. Appropriate mood and affect. - laboratory and microbiology Laboratory Tests 10/02/24 05:21 Test 10/02/24 05:21 Range/Units Serum Glucose 110 H 74-106 mg/dL Problem List/Assessment/Plan Problem List/Assessment/Plan ASSESSMENT AND PLAN: ID Problem List: - Acute deep vein thrombosis (DVT) in right mid and distal femoral vein - Back and buttock cellulitis - Sacral and back ulcers (Stage I) - Altered mental status - Anemia (hemoglobin 6.2 g/dL) - Chronic back pain status post spinal fusion - Hypertension - Hypothyroidism - Prior cervical cancer - MRSA colonization Assessment This is Anuja Escalera, a female with a past medical history of hypertension, hypothyroidism, chronic back pain status post spinal fusion, and prior cervical cancer, who presents with worsening sacral ulcers and back cellulitis. The patient was transferred from [facility] to [facility] after episodes of altered level of consciousness. She recently underwent back surgery in January 2024 for spinal fusion due to chronic back pain with fused vertebrae. Over the last several months, she has been bedridden due to progressive weakness in her lower extremities and is now bedbound. She has developed stage I sacral and back ulcers measuring approximately 1 x 1 cm with intact skin, likely related to immobility. On examination, she has 3/5 strength in her lower extremities bilaterally, mild edema in her ankles, and joint stiffness. She is alert and oriented. Vital signs are stable. Laboratory data reveal anemia with a hemoglobin of 6.2 g/dL, white blood cell count of 3.42 x10/L, and platelets of 102 x10/L. Electrolytes are within normal limits. Renal function is normal with BUN 7 mg/dL and creatinine 0.54 mg/dL. Liver function tests are within normal limits. She has been on vancomycin since admission. Urine drug screen is positive for opioids. Imaging studies include: - Chest X-ray: No active cardiopulmonary disease. - Head CT: No acute intracranial abnormality; left parietal outer bone table with a demarcated lesion of 4 cm. - Venous Doppler Ultrasound: Occlusive DVT in the right mid and distal femoral vein; no left popliteal venous thrombosis. - CT Pulmonary Angiogram: No pulmonary embolism; nonspecific bilateral lymphadenopathy; severe compression deformity of mid-thoracic vertebrae just above the fused lumbar segment; lungs are clear except for right upper lobe and left lower lobe nodules; bilateral small pleural effusions with associated patchy atelectasis and consolidation in lung bases. MRSA nasal swab is positive. Wound cultures from her sacral ulcer show growth of MRSA, Enterococci, and multidrug-resistant organisms. 09/27: patient claims to have spinal surgery tatyana infusion in january and has been having worsening pain since after hospitalization at [facility] and had multiple hospital admissions due to back rash . Had a fall. reviewing MRI from 08/05 shows disgused osteomyelitis with severe destructive changes of t7 and t8 and concern for flegmont abcess formation . ne epidural fluid collection is identified t this time 09/28: awaiting imaging to be completed Plan: osteomyelitis / dyscitis - due to past history recommend further work up of patients prior historyh of osteomyelitis as patient was likely inadequately treated with antibiotics and concern for periprostetic infection - may require mri with or without contrast of the cervical thoracic and lumbar spine - follow up on blood cultures - recommend treating empirially for osteomyelitis with vancomycin and ceftriaxone 2 grams every 12 hours given progress of lower extremities - if osteomyelitis is confirmed patient wwill likely need surgery of this area - Recommend patient is seen by DR Watson and acquire biopsy of this abscess ---> recommend this be done at OSH - recommend chemical and bio correlation and a 3 phase scan indium and gallium --> unable to perfrom at [facility], recommend this be done at OSH - Back and Buttock Cellulitis: - Continue vancomycin and ceftriaxone - Wound care: - Apply barrier cream. - Keep the area dry. - Use nystatin powder to assist with moisture control. - Monitor wound for signs of infection. - Sacral and Back Ulcers: - Consult wound care team. - Implement pressure off-loading measures. - Encourage frequent repositioning. - Deep Vein Thrombosis: - Initiate anticoagulation therapy. - Monitor for signs of bleeding. - Altered Mental Status: - Monitor mental status closely. - Assess for potential contributing factors (medications, infection, metabolic abnormalities). - Pain Management: - Assess pain levels regularly. - Adjust analgesics as needed. - Physical Therapy: - Initiate to improve mobility and prevent further deconditioning. - Isolation Precautions: - Implement contact precautions due to MRSA colonization. Plan discussed with: Patient Dietary Evaluation Review Comments: Consider a cardiac 2gNa lo fat LoChol diet. encourage PO intake to meet 75% of her needs. Consider Nathanael BID for wound healing. Expected Outcomes/Goals: improved nutrition parameters. healed saccral ulcer, maintain weight. ELAINE GODINEZ MD Oct 02, 2024 23:22
[2024-10-03 08:00] VITALS: PULSE 99; RESP 18; O2SAT 96
[2024-10-03 08:40] LABS: Eosinophils # (auto) 0.3 10 ^3/uL (0-0.8); Monocytes # (auto) 0.5 10 ^3/uL (0-1.3); Neutrophils # (auto) 4.1 10 ^3/uL (1.6-8.6); Red Cell Distribution Width 17.8 % (11.8-14.3)
[2024-10-03 08:42] LABS: Basophils # (auto) 0 10 ^3/uL (0-0.2); Basophils % (auto) 0.6 % (0.0-2.0); Eosinophils % (auto) 4.6 % (0.0-7.0); Hematocrit 31.4 % (36.0-46.0); Hemoglobin 9.5 g/dL (12.2-16.2); Lymphocytes # (auto) 1.7 10 ^3/uL (0.4-5.4); Lymphocytes % (auto) 25.5 % (10.0-50.0); Mean Corpuscular Hemoglobin 27.7 pg (28.0-32.0); Mean Corpuscular Hgb Conc. 30.4 g/dL (32.0-36.0); Mean Corpuscular Volume 91.1 fL (80.0-100.0); Monocytes % (auto) 7.8 % (0.0-12.0); Neutrophils % (auto) 61.5 % (37.0-80.0); Platelet Count (auto) 387 10^3/uL (140-450); Red Blood Cells 3.44 10^6/uL (4.0-5.20); White Blood Cell 6.6 10^3/uL (4.4-10.8)
[2024-10-03 09:10] LABS: Alkaline Phosphatase 70 U/L (46-116); Anion Gap 8 (5-15); Carbon Dioxide 22 mmol/L (20-31); Glucose 95 mg/dL (74-106); Magnesium 1.8 mg/dL (1.6-2.6); Potassium 3.6 mmol/L (3.5-5.1); Sodium 139 mmol/L (136-145)
[2024-10-03 09:11] LABS: Alanine Aminotransferase < 9 U/L (7-40); Albumin 2.6 g/dL (3.2-4.8); Aspartate Aminotransferase 11 U/L (13-40); BUN/Creatinine Ratio 8.3 (10.0-20.0); Bilirubin, Total < 0.2 mg/dL (0.2-1.0); Blood Urea Nitrogen < 5 mg/dL (9-23); Calcium 8.6 mg/dL (8.7-10.4); Chloride 109 mmol/L (98-107); Total Protein 5.2 g/dL (5.7-8.2)
[2024-10-03 09:12] VITALS: BP 131/59; PULSE 99; TEMP 98.6; O2SAT 96
[2024-10-03 13:00] VITALS: BP 130/55; PULSE 102; RESP 20; TEMP 98.4; O2SAT 98
[2024-10-03 17:00] VITALS: BP 123/62; PULSE 88; RESP 20; TEMP 98.7; O2SAT 96
[2024-10-03 20:00] VITALS: PULSE 102; RESP 15; O2SAT 96
--- NOTE | 2024-10-03 20:21 | DVHPNRES ---
Progress Note Date Seen: Oct 03, 2024 Resident Creating Document: BRYN RETANA RESIDENT Medical Necessity Reason Pt with a Central, PICC or Fol: No The following are medically ne: Castaneda Catheter Subjective Review of Systems Patient is 73 years old female with past medical history of hypertension, coronary artery disease, hypothyroidism, GERD, history of cervical cancer was brought in from [facility] due to altered mental status. Patient was transferred from [facility]. As per ER physician documentation and from patient and her family patient was transferred to [facility] for altered mental status. As per patient's sister she was not responding at the nursing facility and that is why she was transferred to [facility]. At the [facility] patient was found to have elevated troponin I with non STEMI and she was transferred to [facility] for higher level of care. Provider spoke to the patient today and patient reported she had chest pain, central, stabbing in nature, 10/10, associated with shortness of breaths. Patient also endorsed nausea and vomiting 3 times mainly bile, , no blood. Patient had back surgery on January, which was complicated with wound infection as per patient and family. And postoperative patient is unable to ambulate for last two-month. Patient denied any fever, , dysarthria or change in vision, acute joint pain or swelling. Initial lab workup revealed troponin I elevated 2637> 2450> 2401. TSH 0.56, UDS positive for opiates, fecal occult blood test negative, D-dimer 1.73, hypokalemia with potassium 3.3, negative for COVID-19, urinalysis revealed UTI with leukocyte esterase 3+, RBC 14, WBC 128, bacteria few. Doppler study of the lower extremity revealed- Occlusive DVT at the right mid to distal femoral vein. No left femoropopliteal venous thrombosis. CT angio chest-1. No pulmonary embolism. Small bilateral pleural effusions with associated patchy atelectasis and consolidation in the lung bases. Nodular airspace disease right upper lung. Left lower lobe nodule. Recommend clinical correlation and continued follow-up to resolution. Nonspecific bilateral axillary lymphadenopathy. Severe compression deformity of a midthoracic vertebral body just above the last fused segment. Consider further evaluation with MRI of the thoracic spine. CXR revealed-No active cardiopulmonary disease. Partially visualized thoracolumbar fixation hardware. CT brain revealed-No acute intracranial abnormality. Left parietal bone outer table well demarcated sclerotic lesion measuring 4 cm. This is most likely benign but can be further evaluated nonemergent MRI. Bone scan revealed-Intense radiotracer activity in midthoracic spine corresponding to the destructive changes noted in the previous CT scan involving T7 and T8 vertebrae. Mild increased activity in few posterior right ribs that May correspond to the abnormalities seen in the previous CT scan involving the 9th and 10th ribs. A 2 mm cortical defect was seen in posterior 10th rib that is of uncertain etiology and may reflect a lytic bone lesion. Mild degenerative activity in the left patella and left ankle. Past medical history: HTN, ?[place] in the past, Hypothyroidism, GERD, H/o cervical cancer. Past surgical history: hysterectomy with B/L salpingoophrectomy, Back surgery Social history: reports to be living alone at home in [place], for last 3 weeks she reports to be living at health system, denies smoking, alcohol, drug use Home medications: from the med. records - triamterene-HCTZ 37.5/25mg Qd, omeprazole 40mg qd, lamotrigine 100mg qd, levothyroxine 100mcg Allergy- aspirin, codeine, penicillin Patient was seen today at the bedside. Cardiovascular- denies cough or palpitation Respiratory- denies cough or or wheezing Gastrointestinal- denies any rectal bleeding, nausea or vomiting Musculoskeletal-no acute joint swelling Neurological- denies acute dysarthria, dysphagia, change in vision Psychiatry- denies depression or SI or HI Patient was seen today for clinical evaluation. Labs and chart reviewed. Patient has ongoing back pain. Waiting to be transferred to [facility]. Provider spoke to camp housekeeper of [facility] Demi [phone], Mr. Marroquin direct contact number [phone], fax [phone]. As per Mr. Marroquin community liaison officer and [place]-camp housekeeper no bed available so far. Objective vital signs Vital Sign Date Time Temp Pulse Resp B/P (MAP) Pulse Ox O2 Delivery O2 Flow Rate FiO2 10/03/24 20:18 100 18 130/61 10/03/24 17:00 98.7 96 98.7 10/03/24 08:00 Room Air* 0 21 Total Intake and Output 10/02/24 10/02/24 10/03/24 15:00 23:00 07:00 Intake Total 550 ml 770 ml 2050 ml Output Total 1000 ml 2200 ml Balance 550 ml -230 ml -150 ml medications Current Medications Medications Dose Ordered Sig/Lydia Route Start Time Stop Time Status Last Admin Dose Admin Nitroglycerin 0.4 mg Q5MINP PRN SL 09/23/24 03:45 10/01/24 19:07 0.4 MG Famotidine 20 mg DAILY PO 09/23/24 10:00 10/03/24 09:04 20 MG Clopidogrel Bisulfate 75 mg DAILY PO 09/24/24 10:00 10/03/24 09:04 75 MG Lamotrigine 100 mg DAILY PO 09/23/24 10:00 10/03/24 09:04 100 MG Atorvastatin Calcium 40 mg HS PO 09/23/24 22:00 10/02/24 22:24 40 MG Acetaminophen/ Hydrocodone Bitart 1 tab Q4HP PRN PO 09/23/24 20:15 Hold 09/25/24 08:58 1 TAB Melatonin 5 mg HSPRN PO 09/25/24 22:00 10/02/24 22:24 5 MG Gentamicin Sulfate 0 ml @ 0 mls/hr PER PHARMACY IV 09/26/24 06:30 Cancel Hydromorphone HCl 1 mg Q4HPRN PRN IV 09/26/24 17:15 10/03/24 20:18 1 MG Doxycycline Monohydrate 100 mg Q12HR PO 09/27/24 22:00 Cancel Ceftriaxone Sodium 50 ml @ 100 mls/hr DAILY@09 IV 09/28/24 09:00 Cancel Haloperidol Lactate 2.5 mg HS IM 09/27/24 22:00 10/02/24 22:30 2.5 MG Vancomycin HCl 0 ml @ 0 mls/hr UD IV 09/27/24 21:15 Ceftriaxone Sodium/Dextrose 50 ml @ 50 mls/hr Q12HR@ IV 09/27/24 21:44 10/03/24 09:04 50 MLS/HR Enoxaparin Sodium 75 mg Q12HR SC 09/28/24 22:00 10/03/24 09:04 75 MG Hydrocortisone 1 applic BID TOP 10/01/24 22:00 10/03/24 09:11 1 APPLIC Diphenhydramine HCl 25 mg Q6HP PRN PO 10/01/24 10:45 10/01/24 12:05 25 MG Melatonin 5 mg HS PO 10/01/24 22:00 10/01/24 22:40 5 MG Lorazepam 0.5 mg Q12HP PRN IV 10/01/24 13:15 10/03/24 12:30 0.5 MG Acetaminophen 650 mg Q6HP PRN PO 10/02/24 11:15 Vancomycin HCl 250 ml @ 250 mls/hr Q16H IV 10/02/24 21:00 10/03/24 12:29 250 MLS/HR laboratory and microbiology Laboratory Tests 10/03/24 07:44 Test 10/03/24 07:44 Range/Units Serum Glucose 95 74-106 mg/dL Microbiology Date/Time Source Procedure Growth Status 09/23/24 20:14 Sacrum Gram Stain - Final Complete 09/23/24 20:14 Wound Culture - Final Acinetobacter baumannii MDRO Methicillin Resistant S.aureus Enterococcus faecalis - VRE Complete 09/23/24 04:49 Stool Stool Culture - Final Complete 09/23/24 04:49 Stool Shiga Toxin I & II - Final Complete 09/23/24 04:13 Blood Blood Culture - Final NO GROWTH AFTER 5 DAYS OF INCUBATION. Complete 09/23/24 03:53 Urine - Catheterized Urine Culture - Final Complete Problem List/Assessment/Plan Problem List/Assessment/Plan #Acute Chest pain likely due to NSTEMI type 1 # acute hypoxic respiratory failure likely due to UTI/suspected pneumonia- improved # suspected pneumonia Gram-positive versus Gram-negative # DVT-Occlusive DVT at the right mid to distal femoral vein. # wound infection-Patient's wound culture revealed Acinetobacter baumannii MDRO, methicillin-resistant Staphylococcus aureus, Enterococcus faecalis VRE. INFECTIOUS DISEASE ON BOARD. # UTI #Metabolic encephalopathy #NSTEMI likely type 1 #Severe compression deformity of a midthoracic vertebral body-status post spinal surgery-pending MRI of the lumbar and thoracic spine # lower extremity- paraparesis # suspected diastolic heart failure, elevated BNP 245 # MRSA screening for nares positive #Uncontrolled high blood pressure #Hypothyroidism #GERD #Recurrent hypokalemia-replenished #Small bilateral pleural effusions # wound on the back and Sacral ulcer -Patient's wound culture revealed Acinetobacter baumannii MDRO, methicillin-resistant Staphylococcus aureus, Enterococcus faecalis VRE. # Back and buttock cellulitis #Sacral and back ulcers (Stage I) #Altered mental status #Chronic back pain status post spinal fusion # Prior cervical cancer # hypomagnesemia-replenished # insomnia # anxiety - Bone scan revealed-Intense radiotracer activity in midthoracic spine corresponding to the destructive changes noted in the previous CT scan involving T7 and T8 vertebrae. Mild increased activity in few posterior right ribs that May correspond to the abnormalities seen in the previous CT scan involving the 9th and 10th ribs. A 2 mm cortical defect was seen in posterior 10th rib that is of uncertain etiology and may reflect a lytic bone lesion. Mild degenerative activity in the left patella and left ankle. -Echo 2D-Normal left ventricular size and dimension. Normal right ventricular systolic function estimated ejection fraction 55%. There is a grade 1 diastolic dysfunction. Normal right ventricular size and dimension. Normal right ventricular systolic function -Cardiology recommendation reviewed and appreciated-angiogram showed mild atherosclerotic disease in proximal LAD and proximal and mid segment of RCA. No significant CAD was noted, likely due to microvascular disease or coronary vasospasm ,supply demand mismatch ischemia and advised aggressive primary prevention protocol for all risk factors -Patient's wound culture revealed Acinetobacter baumannii MDRO, methicillin- resistant Staphylococcus aureus, Enterococcus faecalis VRE. Infectious disease on board -status post spinal surgeon consult. Dr. Watson recommended to transfer the patient to [facility] where patient had back surgery in January 26, [address] cedeño can take over care on his patient. Patient will be transferred to [facility] on bed is available. Patient is hemodynamically stable to be transferred to higher level of care. Provider spoke to [facility] sheet manufacturing supervisor [place] and as per sheet manufacturing supervisor there is no bed available tonight. Provider spoke to camp housekeeper of [facility] [place] [phone], Mr. Marroquin community liaison officer, direct contact number [phone], fax [phone]. As per Mr. Marroquin community liaison officer and [place]-camp housekeeper no bed available so far. Continue 75 mcg subcutaneously b.i.d. Continue clopidogrel 75 mg p.o. daily Continue continue gentamicin as per pharmacy protocol Continue ceftriaxone 1 g IV daily Continue vancomycin as per pharmacy protocol Continue atorvastatin 40 mg q.h.s. Continue Lamictal 100 mg p.o. daily Continue famotidine 20 mg p.o. daily Continue other p.r.n. medication as prescribed Continue mupirocin 2% ointment for nares MRSA as prescribed Please continue other treatment as prescribed Goals of care/advance care planning; DNR; discussed with the patient >15 minutes PUD prophylaxis: Continue famotidine DVT prophylaxis: Patient on Lovenox Plan discussed with Dr. Baker, nursing staff, patient Total time spent on patient evaluation, chart review, assessment and plan, discussion discussion >30 minutes Plan discussed with: Patient Plan discussed with: Patient, Other (sister) My Orders My Orders Orders - BRYN RETANA Procedure Category Date Status Time * Poultry Farmworker CONS 10/03/24 Transmitted Consult Dietary Evaluation Review Comments: Consider a cardiac 2gNa lo fat LoChol diet. encourage PO intake to meet 75% of her needs. Consider Nathaanel BID for wound healing. Expected Outcomes/Goals: improved nutrition parameters. healed saccral ulcer, maintain weight. Date of Service: Oct 03, 2024 Billing Provider: JIMMIE BAKER MD Common Visit Codes: [id number] INP/OBS CARE(MOD) BRYN RETANA Oct 03, 2024 20:21 JIMMIE BAKER MD Oct 04, 2024 10:38
[2024-10-03 21:00] VITALS: BP 112/57; PULSE 102; RESP 15; TEMP 98; O2SAT 96
[2024-10-04] VITALS (7 sets, daily range): BP systolic 102–140; BP diastolic 45–69; PULSE 73–103; RESP 16–22; TEMP 97.4–99.2; O2SAT 92–97
--- NOTE | 2024-10-04 14:05 | DVHPNRES ---
Progress Note Date Seen: Oct 04, 2024 Resident Creating Document: BRYN RETANA RESIDENT Medical Necessity Reason Pt with a Central, PICC or Fol: No The following are medically ne: Castaneda Catheter Subjective Review of Systems Patient is 73 years old female with past medical history of hypertension, coronary artery disease, hypothyroidism, GERD, history of cervical cancer [facility] status. Patient was transferred from [facility]. As per ER physician documentation and from patient and her family patient was transferred to [facility] for altered mental status. As per patient's sister she was not responding at the nursing facility and that is why she was transferred to [facility]. At the [facility] patient was found to have elevated troponin I with non STEMI and she was transferred to [facility] for higher level of care. Provider spoke to the patient today and patient reported she had chest pain, central, stabbing in nature, 10/10, associated with shortness of breaths. Patient also endorsed nausea and vomiting 3 times mainly bile, , no blood. Patient had back surgery on January, which was complicated with wound infection as per patient and family. And postoperative patient is unable to ambulate for last two-month. Patient denied any fever, , dysarthria or change in vision, acute joint pain or swelling. Initial lab workup revealed troponin I elevated 2637> 2450> 2401. TSH 0.56, UDS positive for opiates, fecal occult blood test negative, D-dimer 1.73, hypokalemia with potassium 3.3, negative for COVID-19, urinalysis revealed UTI with leukocyte esterase 3+, RBC 14, WBC 128, bacteria few. Doppler study of the lower extremity revealed- Occlusive DVT at the right mid to distal femoral vein. No left femoropopliteal venous thrombosis. CT angio chest-1. No pulmonary embolism. Small bilateral pleural effusions with associated patchy atelectasis and consolidation in the lung bases. Nodular airspace disease right upper lung. Left lower lobe nodule. Recommend clinical correlation and continued follow-up to resolution. Nonspecific bilateral axillary lymphadenopathy. Severe compression deformity of a midthoracic vertebral body just above the last fused segment. Consider further evaluation with MRI of the thoracic spine. CXR revealed-No active cardiopulmonary disease. Partially visualized thoracolumbar fixation hardware. CT brain revealed-No acute intracranial abnormality. Left parietal bone outer table well demarcated sclerotic lesion measuring 4 cm. This is most likely benign but can be further evaluated nonemergent MRI. Bone scan revealed-Intense radiotracer activity in midthoracic spine corresponding to the destructive changes noted in the previous CT scan involving T7 and T8 vertebrae. Mild increased activity in few posterior right ribs that May correspond to the abnormalities seen in the previous CT scan involving the 9th and 10th ribs. A 2 mm cortical defect was seen in posterior 10th rib that is of uncertain etiology and may reflect a lytic bone lesion. Mild degenerative activity in the left patella and left ankle. Past medical history: HTN, ?NE in the past, Hypothyroidism, GERD, H/o cervical cancer. Past surgical history: hysterectomy with B/L salpingoophrectomy, Back surgery Social history: reports to be living alone at home in [place], for last 3 weeks she reports to be living at [facility], denies smoking, alcohol, drug use Home medications: from the med. records - triamterene-HCTZ 37.5/25mg Qd, omeprazole 40mg qd, lamotrigine 100mg qd, levothyroxine 100mcg Allergy- aspirin, codeine, penicillin Patient was seen today at the bedside. Cardiovascular- denies cough or palpitation Respiratory- denies cough or or wheezing Gastrointestinal- denies any rectal bleeding, nausea or vomiting Musculoskeletal-no acute joint swelling Neurological- denies acute dysarthria, dysphagia, change in vision Psychiatry- denies depression or SI or HI Patient was seen today for clinical evaluation. Labs and chart reviewed. Patient has ongoing back pain. Waiting to be transferred to [facility]. Provider spoke to warehouse associate of [facility] Demi [phone], Lopez direct contact number [phone], fax [phone]. Transfer back agreement request was sent to [facility] by Lopez Amaya admitted except team with the later and mentioned bed has been assigned for Ms. Shayy Mcclendon. Patient Is due to his transferred to [facility]. Objective vital signs Vital Sign Date Time Temp Pulse Resp B/P (MAP) Pulse Ox O2 Delivery O2 Flow Rate FiO2 10/04/24 09:59 96 17 102/45 10/04/24 09:00 98.5 94 98.5 10/03/24 20:00 Room Air* 0 21 Total Intake and Output 10/03/24 10/03/24 10/04/24 15:00 23:00 07:00 Intake Total 300 ml 50 ml 800 ml Output Total 2150 ml Balance 300 ml 50 ml -1350 ml medications Current Medications Medications Dose Ordered Sig/Lydia Route Start Time Stop Time Status Last Admin Dose Admin Nitroglycerin 0.4 mg Q5MINP PRN SL 09/23/24 03:45 10/01/24 19:07 0.4 MG Famotidine 20 mg DAILY PO 09/23/24 10:00 10/04/24 09:57 20 MG Clopidogrel Bisulfate 75 mg DAILY PO 09/24/24 10:00 10/04/24 09:57 75 MG Lamotrigine 100 mg DAILY PO 09/23/24 10:00 10/04/24 09:57 100 MG Atorvastatin Calcium 40 mg HS PO 09/23/24 22:00 10/03/24 22:26 40 MG Acetaminophen/ Hydrocodone Bitart 1 tab Q4HP PRN PO 09/23/24 20:15 Hold 09/25/24 08:58 1 TAB Melatonin 5 mg HSPRN PO 09/25/24 22:00 10/03/24 22:24 5 MG Gentamicin Sulfate 0 ml @ 0 mls/hr PER PHARMACY IV 09/26/24 06:30 Cancel Hydromorphone HCl 1 mg Q4HPRN PRN IV 09/26/24 17:15 10/04/24 09:59 1 MG Doxycycline Monohydrate 100 mg Q12HR PO 09/27/24 22:00 Cancel Ceftriaxone Sodium 50 ml @ 100 mls/hr DAILY@09 IV 09/28/24 09:00 Cancel Haloperidol Lactate 2.5 mg HS IM 09/27/24 22:00 10/03/24 22:32 2.5 MG Vancomycin HCl 0 ml @ 0 mls/hr UD IV 09/27/24 21:15 Ceftriaxone Sodium/Dextrose 50 ml @ 50 mls/hr Q12HR@09,21 IV 09/27/24 21:44 10/04/24 09:59 50 MLS/HR Enoxaparin Sodium 75 mg Q12HR SC 09/28/24 22:00 10/04/24 09:58 75 MG Hydrocortisone 1 applic BID TOP 10/01/24 22:00 10/04/24 10:28 1 APPLIC Diphenhydramine HCl 25 mg Q6HP PRN PO 10/01/24 10:45 10/04/24 13:19 25 MG Melatonin 5 mg HS PO 10/01/24 22:00 10/01/24 22:40 5 MG Lorazepam 0.5 mg Q12HP PRN IV 10/01/24 13:15 10/04/24 13:33 0.5 MG Acetaminophen 650 mg Q6HP PRN PO 10/02/24 11:15 Vancomycin HCl 250 ml @ 250 mls/hr Q16H IV 10/02/24 21:00 10/04/24 05:24 250 MLS/HR Examination General examination- patient is awake, alert, oriented, conversant today HEENT- PEERLA, no acute nasal discharge Cardiovascular- chest wall tenderness+, S1-S2 audible, rate and rhythm regular, no murmur Respiratory- CTAB, no wheeze or rhonchi Gastrointestinal-nontender, bowel sound+. Nondistended Musculoskeletal-no acute joint swelling or tenderness or redness Spine- stage I sacral and back ulcers measuring approximately 1 x 1 cm with intact skin, likely related to immobility. 11 inch incision in the thoracic/lumbar spine with 3 areas of wound break down and purulence Lower extremity- leg mira+, patient with decreased muscle bowel on the bilateral lower extremity Neurological-decreased muscle power on the bilateral lower extremity, upper extremity muscle power 4/5, lower extremity muscle power 2/5 Psychiatry- denies depression or SI or HI laboratory and microbiology Laboratory Tests 10/03/24 07:44 Test 10/03/24 07:44 Range/Units Serum Glucose 95 74-106 mg/dL Microbiology Date/Time Source Procedure Growth Status 09/23/24 20:14 Sacrum Gram Stain - Final Complete 09/23/24 20:14 Wound Culture - Final Acinetobacter baumannii MDRO Methicillin Resistant S.aureus Enterococcus faecalis - VRE Complete 09/23/24 04:49 Stool Stool Culture - Final Complete 09/23/24 04:49 Stool Shiga Toxin I & II - Final Complete 09/23/24 04:13 Blood Blood Culture - Final NO GROWTH AFTER 5 DAYS OF INCUBATION. Complete 09/23/24 03:53 Urine - Catheterized Urine Culture - Final Complete Problem List/Assessment/Plan Problem List/Assessment/Plan #Acute Chest pain likely due to NSTEMI type 1 # acute hypoxic respiratory failure likely due to UTI/suspected pneumonia- improved # suspected pneumonia Gram-positive versus Gram-negative # DVT-Occlusive DVT at the right mid to distal femoral vein. # wound infection-Patient's wound culture revealed Acinetobacter baumannii MDRO, methicillin-resistant Staphylococcus aureus, Enterococcus faecalis VRE. INFECTIOUS DISEASE ON BOARD. # UTI #Metabolic encephalopathy #NSTEMI likely type 1 #Severe compression deformity of a midthoracic vertebral body-status post spinal surgery-pending MRI of the lumbar and thoracic spine # lower extremity- paraparesis # suspected diastolic heart failure, elevated BNP 245 # MRSA screening for nares positive #Uncontrolled high blood pressure #Hypothyroidism #GERD #Recurrent hypokalemia-replenished #Small bilateral pleural effusions # wound on the back and Sacral ulcer -Patient's wound culture revealed Acinetobacter baumannii MDRO, methicillin-resistant Staphylococcus aureus, Enterococcus faecalis VRE. # Back and buttock cellulitis #Sacral and back ulcers (Stage I) #Altered mental status #Chronic back pain status post spinal fusion # Prior cervical cancer # hypomagnesemia-replenished # insomnia # anxiety - Bone scan revealed-Intense radiotracer activity in midthoracic spine corresponding to the destructive changes noted in the previous CT scan involving T7 and T8 vertebrae. Mild increased activity in few posterior right ribs that May correspond to the abnormalities seen in the previous CT scan involving the 9th and 10th ribs. A 2 mm cortical defect was seen in posterior 10th rib that is of uncertain etiology and may reflect a lytic bone lesion. Mild degenerative activity in the left patella and left ankle. -Echo 2D-Normal left ventricular size and dimension. Normal right ventricular systolic function estimated ejection fraction 55%. There is a grade 1 diastolic dysfunction. Normal right ventricular size and dimension. Normal right ventricular systolic function -Cardiology recommendation reviewed and appreciated-angiogram showed mild atherosclerotic disease in proximal LAD and proximal and mid segment of RCA. No significant CAD was noted, likely due to microvascular disease or coronary vasospasm ,supply demand mismatch ischemia and advised aggressive primary prevention protocol for all risk factors -Patient's wound culture revealed Acinetobacter baumannii MDRO, methicillin- resistant Staphylococcus aureus, Enterococcus faecalis VRE. Infectious disease on board -status post spinal surgeon consult. Dr. Watson recommended to transfer the patient to [facility] where patient had back surgery in January 26, [address] cedeño can take over care on his patient. Patient will be transferred to [facility] on bed is available. Patient is hemodynamically stable to be transferred to higher level of care. Provider spoke to [facility] supervisor sewing department [place] and as per supervisor sewing department there is no bed available tonight. Provider spoke to warehouse associate of [facility] Lopez godoman [place] [phone], Mr. Marroquin direct contact number [phone], fax [phone]. Transfer back agreement request was sent to [facility] by Dr. Baker, Lopez admitted except team with the later and mentioned bed has been assigned for Ms. Shayy Mcclendon. Patient is hemodynamically stable to be transferred. Patient is scheduled to be transferred at 6:00 p.m. tonight Continue 75 mcg subcutaneously b.i.d. Continue clopidogrel 75 mg p.o. daily Continue continue gentamicin as per pharmacy protocol Continue ceftriaxone 1 g IV daily Continue vancomycin as per pharmacy protocol Continue atorvastatin 40 mg q.h.s. Continue Lamictal 100 mg p.o. daily Continue famotidine 20 mg p.o. daily Continue other p.r.n. medication as prescribed Continue mupirocin 2% ointment for nares MRSA as prescribed Please continue other treatment as prescribed Goals of care/advance care planning; DNR; discussed with the patient >15 minutes PUD prophylaxis: Continue famotidine DVT prophylaxis: Patient on Lovenox Plan discussed with Dr. Baker, nursing staff, patient Total time spent on patient evaluation, chart review, assessment and plan, discussion discussion >30 minutes Plan discussed with: Patient Plan discussed with: Patient, Other (RN) Dietary Evaluation Review Comments: Consider a cardiac 2gNa lo fat LoChol diet. encourage PO intake to meet 75% of her needs. Consider Nathanael BID for wound healing. Expected Outcomes/Goals: improved nutrition parameters. healed saccral ulcer, maintain weight. Date of Service: Oct 04, 2024 Billing Provider: JIMMIE BAKER MD Common Visit Codes: 38998-[id number] INP/OBS CARE(LOW) BRYN RETANA RESIDENT Oct 04, 2024 14:05 JIMMIE BAKER MD Oct 05, 2024 10:19
--- NOTE | 2024-10-04 22:47 | DVHPN2 ---
Consult Progress Note Date Seen: Oct 03, 2024 Subjective Patient reports: Feels better (ongoing back pain) Objective vital signs Vital Sign Date Time Temp Pulse Resp B/P (MAP) Pulse Ox O2 Delivery O2 Flow Rate FiO2 10/04/24 21:07 100 20 123/63 10/04/24 20:38 97.9 97 97.9 10/03/24 20:00 Room Air* 0 21 Total Intake and Output 10/03/24 10/03/24 10/04/24 15:00 23:00 07:00 Intake Total 300 ml 50 ml 800 ml Output Total 2150 ml Balance 300 ml 50 ml -1350 ml medications Current Medications Medications Dose Ordered Sig/Lydia Route Start Time Stop Time Status Last Admin Dose Admin Nitroglycerin 0.4 mg Q5MINP PRN SL 09/23/24 03:45 10/01/24 19:07 0.4 MG Famotidine 20 mg DAILY PO 09/23/24 10:00 10/04/24 09:57 20 MG Clopidogrel Bisulfate 75 mg DAILY PO 09/24/24 10:00 10/04/24 09:57 75 MG Lamotrigine 100 mg DAILY PO 09/23/24 10:00 10/04/24 09:57 100 MG Atorvastatin Calcium 40 mg HS PO 09/23/24 22:00 10/03/24 22:26 40 MG Acetaminophen/ Hydrocodone Bitart 1 tab Q4HP PRN PO 09/23/24 20:15 Hold 09/25/24 08:58 1 TAB Melatonin 5 mg HSPRN PO 09/25/24 22:00 10/03/24 22:24 5 MG Gentamicin Sulfate 0 ml @ 0 mls/hr PER PHARMACY IV 09/26/24 06:30 Cancel Hydromorphone HCl 1 mg Q4HPRN PRN IV 09/26/24 17:15 10/04/24 21:07 1 MG Doxycycline Monohydrate 100 mg Q12HR PO 09/27/24 22:00 Cancel Ceftriaxone Sodium 50 ml @ 100 mls/hr DAILY@09 IV 09/28/24 09:00 Cancel Haloperidol Lactate 2.5 mg HS IM 09/27/24 22:00 10/03/24 22:32 2.5 MG Vancomycin HCl 0 ml @ 0 mls/hr UD IV 09/27/24 21:15 Ceftriaxone Sodium/Dextrose 50 ml @ 50 mls/hr Q12HR@09,21 IV 09/27/24 21:44 10/04/24 21:21 50 MLS/HR Enoxaparin Sodium 75 mg Q12HR SC 09/28/24 22:00 10/04/24 09:58 75 MG Hydrocortisone 1 applic BID TOP 10/01/24 22:00 10/04/24 10:28 1 APPLIC Diphenhydramine HCl 25 mg Q6HP PRN PO 10/01/24 10:45 10/04/24 13:19 25 MG Melatonin 5 mg HS PO 10/01/24 22:00 10/01/24 22:40 5 MG Lorazepam 0.5 mg Q12HP PRN IV 10/01/24 13:15 10/04/24 13:33 0.5 MG Acetaminophen 650 mg Q6HP PRN PO 10/02/24 11:15 Vancomycin HCl 250 ml @ 250 mls/hr Q16H IV 10/02/24 21:00 10/04/24 05:24 250 MLS/HR PHYSICAL EXAM: - GENERAL: Alert and oriented x 3. No acute distress. Well-nourished. - EYES: EOMI. Anicteric. - HENT: Moist mucous membranes. No scleral icterus. No cervical lymphadenopathy. - LUNGS: Clear to auscultation bilaterally. No accessory muscle use. - CARDIOVASCULAR: Regular rate and rhythm. No murmur. No JVD. - ABDOMEN: Soft, non-tender and non-distended. No palpable masses. - EXTREMITIES: No edema. Non-tender.?SKIN: No rashes or lesions. Warm. - NEUROLOGIC: No focal neurological deficits. CN II-XII grossly intact, but not individually tested - PSYCHIATRIC: Cooperative. Appropriate mood and affect. - laboratory and microbiology Laboratory Tests 10/03/24 07:44 Test 10/03/24 07:44 Range/Units Serum Glucose 95 74-106 mg/dL Problem List/Assessment/Plan Problem List/Assessment/Plan ASSESSMENT AND PLAN: ID Problem List: - Acute deep vein thrombosis (DVT) in right mid and distal femoral vein - Back and buttock cellulitis - Sacral and back ulcers (Stage I) - Altered mental status - Anemia (hemoglobin 6.2 g/dL) - Chronic back pain status post spinal fusion - Hypertension - Hypothyroidism - Prior cervical cancer - MRSA colonization Assessment This is Anuja Escalera, a female with a past medical history of hypertension, hypothyroidism, chronic back pain status post spinal fusion, and prior cervical cancer, who presents with worsening sacral ulcers and back cellulitis. The patient was transferred from [facility] to [facility] after episodes of altered level of consciousness. She recently underwent back surgery in January 2024 for spinal fusion due to chronic back pain with fused vertebrae. Over the last several months, she has been bedridden due to progressive weakness in her lower extremities and is now bedbound. She has developed stage I sacral and back ulcers measuring approximately 1 x 1 cm with intact skin, likely related to immobility. On examination, she has 3/5 strength in her lower extremities bilaterally, mild edema in her ankles, and joint stiffness. She is alert and oriented. Vital signs are stable. Laboratory data reveal anemia with a hemoglobin of 6.2 g/dL, white blood cell count of 3.42 x10/L, and platelets of 102 x10/L. Electrolytes are within normal limits. Renal function is normal with BUN 7 mg/dL and creatinine 0.54 mg/dL. Liver function tests are within normal limits. She has been on vancomycin since admission. Urine drug screen is positive for opioids. Imaging studies include: - Chest X-ray: No active cardiopulmonary disease. - Head CT: No acute intracranial abnormality; left parietal outer bone table with a demarcated lesion of 4 cm. - Venous Doppler Ultrasound: Occlusive DVT in the right mid and distal femoral vein; no left popliteal venous thrombosis. - CT Pulmonary Angiogram: No pulmonary embolism; nonspecific bilateral lymphadenopathy; severe compression deformity of mid-thoracic vertebrae just above the fused lumbar segment; lungs are clear except for right upper lobe and left lower lobe nodules; bilateral small pleural effusions with associated patchy atelectasis and consolidation in lung bases. MRSA nasal swab is positive. Wound cultures from her sacral ulcer show growth of MRSA, Enterococci, and multidrug-resistant organisms. 09/27: patient claims to have spinal surgery tatyana infusion in january and has been having worsening pain since after hospitalization at [facility] and had multiple hospital admissions due to back rash . Had a fall. reviewing MRI from 08/05 shows disgused osteomyelitis with severe destructive changes of t7 and t8 and concern for flegmont abcess formation . ne epidural fluid collection is identified t this time 09/28: awaiting imaging to be completed Plan: osteomyelitis / dyscitis - due to past history recommend further work up of patients prior historyh of osteomyelitis as patient was likely inadequately treated with antibiotics and concern for periprostetic infection - may require mri with or without contrast of the cervical thoracic and lumbar spine - follow up on blood cultures - recommend treating empirially for osteomyelitis with vancomycin and ceftriaxone 2 grams every 12 hours given progress of lower extremities - if osteomyelitis is confirmed patient wwill likely need surgery of this area - Recommend patient is seen by DR Watson and acquire biopsy of this abscess ---> recommend this be done at OSH - recommend chemical and bio correlation and a 3 phase scan indium and gallium --> unable to perfrom at [facility], recommend this be done at OSH - Back and Buttock Cellulitis: - Continue vancomycin and ceftriaxone - Wound care: - Apply barrier cream. - Keep the area dry. - Use nystatin powder to assist with moisture control. - Monitor wound for signs of infection. - Sacral and Back Ulcers: - Consult wound care team. - Implement pressure off-loading measures. - Encourage frequent repositioning. - Deep Vein Thrombosis: - Initiate anticoagulation therapy. - Monitor for signs of bleeding. - Altered Mental Status: - Monitor mental status closely. - Assess for potential contributing factors (medications, infection, metabolic abnormalities). - Pain Management: - Assess pain levels regularly. - Adjust analgesics as needed. - Physical Therapy: - Initiate to improve mobility and prevent further deconditioning. - Isolation Precautions: - Implement contact precautions due to MRSA colonization. Plan discussed with: Patient Dietary Evaluation Review Comments: Consider a cardiac 2gNa lo fat LoChol diet. encourage PO intake to meet 75% of her needs. Consider Nathanael BID for wound healing. Expected Outcomes/Goals: improved nutrition parameters. healed saccral ulcer, maintain weight. ELAINE GODINEZ MD Oct 04, 2024 22:47
--- NOTE | 2024-10-04 23:39 | DVHPN2 ---
Consult Progress Note Date Seen: Oct 04, 2024 Subjective Patient reports: Other (continuing to have back pain and upper extemity and lower extremity weakness . has poor bead flipper strength and not able to lift legs against gravity ) Objective vital signs Vital Sign Date Time Temp Pulse Resp B/P (MAP) Pulse Ox O2 Delivery O2 Flow Rate FiO2 10/04/24 21:07 100 20 123/63 10/04/24 20:38 97.9 97 97.9 10/03/24 20:00 Room Air* 0 21 Total Intake and Output 10/03/24 10/03/24 10/04/24 15:00 23:00 07:00 Intake Total 300 ml 50 ml 800 ml Output Total 2150 ml Balance 300 ml 50 ml -1350 ml medications Current Medications Medications Dose Ordered Sig/Lydia Route Start Time Stop Time Status Last Admin Dose Admin Nitroglycerin 0.4 mg Q5MINP PRN SL 09/23/24 03:45 10/01/24 19:07 0.4 MG Famotidine 20 mg DAILY PO 09/23/24 10:00 10/04/24 09:57 20 MG Clopidogrel Bisulfate 75 mg DAILY PO 09/24/24 10:00 10/04/24 09:57 75 MG Lamotrigine 100 mg DAILY PO 09/23/24 10:00 10/04/24 09:57 100 MG Atorvastatin Calcium 40 mg HS PO 09/23/24 22:00 10/03/24 22:26 40 MG Acetaminophen/ Hydrocodone Bitart 1 tab Q4HP PRN PO 09/23/24 20:15 Hold 09/25/24 08:58 1 TAB Melatonin 5 mg HSPRN PO 09/25/24 22:00 10/03/24 22:24 5 MG Gentamicin Sulfate 0 ml @ 0 mls/hr PER PHARMACY IV 09/26/24 06:30 Cancel Hydromorphone HCl 1 mg Q4HPRN PRN IV 09/26/24 17:15 10/04/24 21:07 1 MG Doxycycline Monohydrate 100 mg Q12HR PO 09/27/24 22:00 Cancel Ceftriaxone Sodium 50 ml @ 100 mls/hr DAILY@09 IV 09/28/24 09:00 Cancel Haloperidol Lactate 2.5 mg HS IM 09/27/24 22:00 10/03/24 22:32 2.5 MG Vancomycin HCl 0 ml @ 0 mls/hr UD IV 09/27/24 21:15 Ceftriaxone Sodium/Dextrose 50 ml @ 50 mls/hr Q12HR@,21 IV 09/27/24 21:44 10/04/24 21:21 50 MLS/HR Enoxaparin Sodium 75 mg Q12HR SC 09/28/24 22:00 10/04/24 09:58 75 MG Hydrocortisone 1 applic BID TOP 10/01/24 22:00 10/04/24 10:28 1 APPLIC Diphenhydramine HCl 25 mg Q6HP PRN PO 10/01/24 10:45 10/04/24 13:19 25 MG Melatonin 5 mg HS PO 10/01/24 22:00 10/01/24 22:40 5 MG Lorazepam 0.5 mg Q12HP PRN IV 10/01/24 13:15 10/04/24 13:33 0.5 MG Acetaminophen 650 mg Q6HP PRN PO 10/02/24 11:15 Vancomycin HCl 250 ml @ 250 mls/hr Q16H IV 10/02/24 21:00 10/04/24 05:24 250 MLS/HR PHYSICAL EXAM: - GENERAL: Alert and oriented x 3. No acute distress. Well-nourished. - EYES: EOMI. Anicteric. - HENT: Moist mucous membranes. No scleral icterus. No cervical lymphadenopathy. - LUNGS: Clear to auscultation bilaterally. No accessory muscle use. - CARDIOVASCULAR: Regular rate and rhythm. No murmur. No JVD. - ABDOMEN: Soft, non-tender and non-distended. No palpable masses. - EXTREMITIES: No edema. Non-tender.?SKIN: No rashes or lesions. Warm. - NEUROLOGIC: No focal neurological deficits. CN II-XII grossly intact, but not individually tested - PSYCHIATRIC: Cooperative. Appropriate mood and affect. laboratory and microbiology Laboratory Tests 10/03/24 07:44 Test 10/03/24 07:44 Range/Units Serum Glucose 95 74-106 mg/dL Problem List/Assessment/Plan Problems(with codes): (1) Substance abuse (2) Sacral ulcer (3) Lumbar post-laminectomy syndrome (4) Cellulitis of mid back region (5) Cellulitis of lower back (6) Inability to walk (7) DVT (deep venous thrombosis) (8) Weakness (9) Back pain Problem List/Assessment/Plan ASSESSMENT AND PLAN: ID Problem List: - Acute deep vein thrombosis (DVT) in right mid and distal femoral vein - Back and buttock cellulitis - Sacral and back ulcers (Stage I) - Altered mental status - Anemia (hemoglobin 6.2 g/dL) - Chronic back pain status post spinal fusion - Hypertension - Hypothyroidism - Prior cervical cancer - MRSA colonization Assessment This is Anuja Escalera, a female with a past medical history of hypertension, hypothyroidism, chronic back pain status post spinal fusion, and prior cervical cancer, who presents with worsening sacral ulcers and back cellulitis. The patient was transferred from [facility] to [facility] after episodes of altered level of consciousness. She recently underwent back surgery in January 2024 for spinal fusion due to chronic back pain with fused vertebrae. Over the last several months, she has been bedridden due to progressive weakness in her lower extremities and is now bedbound. She has developed stage I sacral and back ulcers measuring approximately 1 x 1 cm with intact skin, likely related to immobility. On examination, she has 3/5 strength in her lower extremities bilaterally, mild edema in her ankles, and joint stiffness. She is alert and oriented. Vital signs are stable. Laboratory data reveal anemia with a hemoglobin of 6.2 g/dL, white blood cell count of 3.42 x10/L, and platelets of 102 x10/L. Electrolytes are within normal limits. Renal function is normal with BUN 7 mg/dL and creatinine 0.54 mg/dL. Liver function tests are within normal limits. She has been on vancomycin since admission. Urine drug screen is positive for opioids. Imaging studies include: - Chest X-ray: No active cardiopulmonary disease. - Head CT: No acute intracranial abnormality; left parietal outer bone table with a demarcated lesion of 4 cm. - Venous Doppler Ultrasound: Occlusive DVT in the right mid and distal femoral vein; no left popliteal venous thrombosis. - CT Pulmonary Angiogram: No pulmonary embolism; nonspecific bilateral lymphadenopathy; severe compression deformity of mid-thoracic vertebrae just above the fused lumbar segment; lungs are clear except for right upper lobe and left lower lobe nodules; bilateral small pleural effusions with associated patchy atelectasis and consolidation in lung bases. MRSA nasal swab is positive. Wound cultures from her sacral ulcer show growth of MRSA, Enterococci, and multidrug-resistant organisms. 09/27: patient claims to have spinal surgery tatyana infusion in january and has been having worsening pain since after hospitalization at [facility] and had multiple hospital admissions due to back rash . Had a fall. reviewing MRI from 08/05 shows disgused osteomyelitis with severe destructive changes of t7 and t8 and concern for flegmont abcess formation . ne epidural fluid collection is identified t this time 09/28: awaiting imaging to be completed Plan: osteomyelitis / dyscitis - due to past history recommend further work up of patients prior historyh of osteomyelitis as patient was likely inadequately treated with antibiotics and concern for periprostetic infection - may require mri with or without contrast of the cervical thoracic and lumbar spine - follow up on blood cultures - recommend treating empirially for osteomyelitis with vancomycin and ceftriaxone 2 grams every 12 hours given progress of lower extremities - if osteomyelitis is confirmed patient wwill likely need surgery of this area - Recommend patient is seen by DR Watson and acquire biopsy of this abscess ---> recommend this be done at OSH - recommend chemical and bio correlation and a 3 phase scan indium and gallium --> unable to perfrom at [facility], recommend this be done at OSH - Back and Buttock Cellulitis: - Continue vancomycin and ceftriaxone - Wound care: - Apply barrier cream. - Keep the area dry. - Use nystatin powder to assist with moisture control. - Monitor wound for signs of infection. - Sacral and Back Ulcers: - Consult wound care team. - Implement pressure off-loading measures. - Encourage frequent repositioning. - Deep Vein Thrombosis: - Initiate anticoagulation therapy. - Monitor for signs of bleeding. - Altered Mental Status: - Monitor mental status closely. - Assess for potential contributing factors (medications, infection, metabolic abnormalities). - Pain Management: - Assess pain levels regularly. - Adjust analgesics as needed. - Physical Therapy: - Initiate to improve mobility and prevent further deconditioning. - Isolation Precautions: - Implement contact precautions due to MRSA colonization. Plan discussed with: Patient, Other Dietary Evaluation Review Comments: Consider a cardiac 2gNa lo fat LoChol diet. encourage PO intake to meet 75% of her needs. Consider Nathanael BID for wound healing. Expected Outcomes/Goals: improved nutrition parameters. healed saccral ulcer, maintain weight. ELAINE GODINEZ MD Oct 04, 2024 23:39
[2024-10-05 01:51] VITALS: BP 113/58; PULSE 95; RESP 19
--- NOTE | 2024-10-08 14:03 | ECG ---
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
== END 2024-10-05 02:02 | disposition short-term general hospital (02) | DRG 280 ==
LOC: EDBD 22:32 → ER 22:32 → TELE 09-23 03:39 → TELE-CENTR 09-23 05:25 → CENTRAL 10-01 14:18
PROVIDERS: ADMIT Internal Medicine; ATTEND Internal Medicine
PROC: 4A023N7 Measurement of Cardiac Sampling and Pressure, Left Heart, Percutaneous Approach (ICD-10-PCS; principal; 2024-09-24)
PROC: B211YZZ Fluoroscopy of Multiple Coronary Arteries using Other Contrast (ICD-10-PCS; 2024-09-24)
DX: I21.4 Non-ST elevation (NSTEMI) myocardial infarction (principal); G93.41 Metabolic encephalopathy; J96.01 Acute respiratory failure with hypoxia; I82.411 Acute embolism and thrombosis of right femoral vein; L03.317 Cellulitis of buttock; L03.312 Cellulitis of back [any part except buttock and flank]; J90 Pleural effusion, not elsewhere classified; N39.0 Urinary tract infection, site not specified; Z16.24 Resistance to multiple antibiotics; L89.151 Pressure ulcer of sacral region, stage 1; Z20.822 Contact with and (suspected) exposure to COVID-19; E87.6 Hypokalemia; K21.9 Gastro-esophageal reflux disease without esophagitis; G89.29 Other chronic pain; Z66 Do not resuscitate; I10 Essential (primary) hypertension; F32.A Depression, unspecified; F41.9 Anxiety disorder, unspecified; E03.9 Hypothyroidism, unspecified; E83.42 Hypomagnesemia; G47.00 Insomnia, unspecified; D64.9 Anemia, unspecified; M96.1 Postlaminectomy syndrome, not elsewhere classified; I25.10 Atherosclerotic heart disease of native coronary artery without angina pectoris; Z13.220 Encounter for screening for lipoid disorders; Z88.6 Allergy status to analgesic agent; Z88.5 Allergy status to narcotic agent; Z88.0 Allergy status to penicillin; Z85.41 Personal history of malignant neoplasm of cervix uteri; Z90.710 Acquired absence of both cervix and uterus; Z82.5 Family history of asthma and other chronic lower respiratory diseases; Z82.3 Family history of stroke; Z82.49 Family history of ischemic heart disease and other diseases of the circulatory system; Z98.1 Arthrodesis status; Z74.01 Bed confinement status
CPT/HCPCS: 36415; 71275; 78306; 80048; 80053; 80061; 80170; 80202; 80307; 80320; 81001; 82270; 82306; 82565; 82607; 82962; 83036; 83605; 83735; 83880; 84100; 84443; 84484; 85007; 85025; 85027; 85048; 85379; 85610; 85730; 87040; 87045; 87077; 87081; 87086; 87186; 87205; 87426; 87427; 87804; 92610; 93005; 93306; 93458; 93970; 97110; 97163; 97530; 99152; 99291; C1894; G0378; J2250; J3490; J7060; Q9967

== ENCOUNTER 2025-08-28 03:22 | Inpatient (IN) | payer MEDICARE, MEDICAID ==
[~2025-08-28] VITALS: Ht 167.6 cm; Wt 68.5 kg
--- NOTE | 2025-08-28 07:15 | ED.PDOC ---
Lesviat. trauma (HPI) HPI Comments 74 y.o female presents to the ED via EMS for an evaluation of multiple falls. Caregiver's daughter present at bedside, reports patient over the span of 3-4 days, patient has been falling with one day having about 5 falls.Patient has a history of back surgery x 1 year with a left hip fracture. Information limited as patient is a poor historian and caregiver is not present at bedside. Patient currently lives at home with caregiver and has medical history of mental illness. At this time, patient is able to move all extremities, c/o of generalized back pain with no new onset of symptoms such as numbness, tingling sensation, lightheadedness, chest pain, or SOB. 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, Medications, Allergies Allergies: Coded Allergies: Aspirin (Verified Allergy, Unknown, 07/26/15) Codeine (Unverified Allergy, Unknown, 07/26/15) Penicillins (Verified Allergy, Unknown, 07/26/15) Home Meds Reported Medications Zolpidem Tartrate (Zolpidem Tartrate) 10 Mg Tab, 1 TAB PO HS, #30 TAB 2 Refills 07/26/15 Alprazolam (Xanax) 0.25 Mg Tb, 1 TAB PO DAILY, #30 TAB 07/26/15 Carisoprodol (Soma) 350 Mg Tab, 350 MG PO BID, TAB 07/26/15 Hydrocodone-Acetaminophen ([place] 5/325MG) 1 Tab Tb, 1 TAB PO TIDP PRN for MODERATE PAIN, #90 TAB 07/26/15 Esomeprazole Magnesium Trihydr (Nexium) 40 Mg Cap, 1 CAP PO DAILY, #30 CAP 5 Refills 07/26/15 Levothyroxine Sodium (Levothyroxine Sodium) 88 Mcg Tab, 1 TAB PO QAM, #30 TAB 5 Refills 07/26/15 Adalimumab (Humira Pen) 40MG/0.8 Kit, 1 0.8 SC EOW, KIT 07/26/15 Ziprasidone Hydrochloride (Geodon) 80 Mg Cap, 1 CAP PO BID, #60 CAP 1 Refill 07/26/15 Cyclobenzaprine Hcl (Flexeril) 5 Mg Tab, 1 TAB PO TID, #90 TAB 07/26/15 Diclofenac Epolamine (Flector) 1.3 % Dis, 1 PATCH TOP BID, #60 PATCH 2 Refills 07/26/15 Clonazepam (KlonoPIN TABLET) 0.5 Mg Tb, 1 TAB PO BID, #60 TAB 1 Refill 07/26/15 Buspirone Hcl (Buspirone Hcl) 15 Mg Tab, 30 MG PO BID, TAB 07/26/15 Lubiprostone (Amitiza) 8 Mcg Cap, 1 CAP PO DAILY, #60 CAP 5 Refills 07/26/15 Trazodone Hcl (Desyrel) 50 Mg Tb, 100 MG PO TID 03/27/14 Prednisone (PREDNISONE) 5 Mg Tb, 5 MG PO DAILY 03/27/14 Furosemide (LASIX TABLET) 40 Mg Tb, 20 MG PO DAILY 03/27/14 Duloxetine Hcl (Cymbalta) 60 Mg Cap, 60 MG PO DAILY, CAP 03/27/14 Omeprazole (PRILOSEC) 20 Mg Cap, 40 MG PO DAILY, CAP 03/27/14 Methotrexate (Methotrexate) 2.5 Mg Tab, 2.5 MG PO, TAB TAKE 6 TABLETS EVERY WEEK 03/27/14 Rosuvastatin Calcium (Crestor) 20 Mg Tab, 20 MG PO HS, TAB 03/27/14 Folic Acid (Folic Acid) 1 Mg Tab, 1 MG PO DAILY, TAB 03/27/14 Hydroxyzine Hcl (Hydroxyzine Hcl) 50 Mg Tab, 25 MG PO TID, TAB 03/27/14 Triamterene & Hydrochlorothiaz (Maxzide) 1 Tab Tab, 1 TAB PO DAILY, TAB 37.5 - 25 03/27/14 Hydrocodone-Acetaminophen (VICODIN) 1 Tab Tab, 25 MG PO TID PRN for SEVERE PAIN, TAB 5/300MG TABLET 03/27/14 Ibuprofen (Ibuprofen) 600 Mg Tab, 600 MG PO TID, TAB 03/27/14 Olanzapine (Zyprexa) 5 Mg Tab, 15 MG OR HS 09/20/11 Liothyronine Sodium (Cytomel) 5 Mcg Tab, 5 MCG OR BID 09/20/11 Information Source: Friend, Emergency Med Personnel Mode of Arrival: Ambulatory Severity: Moderate Timing: Days Duration: Since onset Location: Back Mechanism: Fall Past Medical History PAST MEDICAL HISTORY: Anxiety, Depression, HTN Surgical History: Denies all surgeries BUNCHER OPERATOR 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 History Family History Family History: Reviewed,noncontributory to illness Social History Smoker: Non-Smoker Alcohol: Denies ETOH Use Drugs: Denies Drug Use Lives In: Home Constitutional: denies: chills, diaphoresis, fatigue, fever, malaise, sweats, weakness, others EENTM: denies: blurred vision, double vision, ear bleeding, ear discharge, ear drainage, ear pain, ear ringing, eye pain, eye redness, hearing loss, mouth pain, mouth swelling, nasal discharge, nose bleeding, nose congestion, nose pain, photophobia, tearing, throat pain, throat swelling, voice changes, others Respiratory: denies: cough, hemoptysis, orthopnea, SOB at rest, shortness of breath, SOB with excertion, stridor, wheezing, others Cardiovascular: denies: chest pain, dizzy spells, diaphoresis, Dyspnea on exertion, edema, irregular heart beat, left arm pain, lightheadedness, palpitations, PND, syncope, others Gastrointestinal: denies: abdomen distended, abdominal pain, blood streaked bowels, constipated, diarrhea, dysphagia, difficulty swallowing, hematemesis, melena, nausea, poor appetite, poor fluid intake, rectal bleeding, rectal pain, vomiting, others Genitourinary: denies: abnormal vagina bleeding, burning, dyspareunia, dysuria, flank pain, frequency, hematuria, incontinence, pain, , vagina discharge, urgency, others Neurological: denies: dizziness, fainting, headache, left sided numbness, left sided weakness, numbness, paresthesia, pre-existing deficit, right sided numbness, right sided weakness, seizure, speech problems, tingling, tremors, weakness, others Musculoskeletal: reports: back pain; denies: gout, joint pain, joint swelling, muscle pain, muscle stiffness, neck pain, others Integumetry: denies: bruises, change in color, change in hair/nails, dryness, laceration, lesions, lumps, rash, wounds, others Allergic/Immunocompromised: denies: Difficulty Healing, Frequent Infections, Hives, Itching, others Hematologic/Lymphatic: denies: anemia, blood clots, easy bleeding, easy bruising, swollen glands, others Endocrine: denies: excessive hunger, excessive sweating, excessive thirst, excessive urination, flushing, intolerance to cold, intolerance to heat, unexplained weight gain, unexplained weight loss, others Psychiatric: denies: anxiety, bipolar disorder, depression, hopeless, panic disorder, schizophrenia, sleepless, suicidal, others Physical Exam General Appearance: No Apparent Distress, Normal HEENT: Normal ENT Inspection, Other (hard of hearing ) Neck: Normal Inspection Respiratory: Chest Non-Tender, Lungs Clear, No Accessory Muscle Use, No Respiratory Distress, Normal Breath Sounds Cardiovascular: No Edema, No JVD, No Murmur, No Gallop, Normal Peripheral Pulses, Regular Rate/Rhythm Breast Exam: Deferred Gastrointestinal: No Organomegaly, Non Tender, No Pulsatile Mass, Normal Bowel Sounds, Soft Genitalia: Deferred Pelvic: Deferred Rectal: Deferred Extremities: No calf tenderness, Normal capillary refill, Normal inspection, Normal range of motion, Non-tender, No pedal edema Neurologic: Alert, Other (commnunication limited due to hearing difficulty; Moves all extremities; ) Cerebellar Function: NOT DONE Reflexes: NOT DONE Skin: Normal Color Lymphatic: NOT DONE Was a procedure done? Was a procedure done?: No Differential Diagnosis Multiple Trauma: Closed Head Injury, Fractures, Contusion X-Ray, Labs, Meds, VS Vital Signs Date Time Temp Pulse Resp B/P (MAP) Pulse Ox O2 Delivery O2 Flow Rate FiO2 08/28/25 09:36 80 17 125/54 08/28/25 09:35 81 08/28/25 08:00 98.1 86 22 165/45 (85) 95 98.1 08/28/25 08:00 86 25 95 Room Air* 0 21 08/28/25 03:22 98.8 82 18 155/81 98 98.8 Lab Test 08/28/25 09:02 08/28/25 07:49 Range/Units Troponin I High Sensitivity 99 *H 89 *H </=34 ng/L White Blood Count 9.2 4.4-10.8 10^3/uL Red Blood Count 3.47 L 4.0-5.20 10^6/uL Hemoglobin 9.9 L 12.2-16.2 g/dL Hematocrit 30.2 L 36.0-46.0 % Mean Corpuscular Volume 86.9 80.0-100.0 fL Mean Corpuscular Hemoglobin 28.4 28.0-32.0 pg Mean Corpuscular Hemoglobin Concent 32.7 32.0-36.0 g/dL Red Cell Distribution Width 17.1 H 11.8-14.3 % Platelet Count 383 140-450 10^3/uL Mean Platelet Volume 9.2 6.9-10.8 fL Neutrophils (%) (Auto) 78.2 37.0-80.0 % Lymphocytes (%) (Auto) 14.6 10.0-50.0 % Monocytes (%) (Auto) 6.4 0.0-12.0 % Eosinophils (%) (Auto) 0.5 0.0-7.0 % Basophils (%) (Auto) 0.3 0.0-2.0 % Neutrophils # (Auto) 7.2 1.6-8.6 10 ^3/uL Lymphocytes # (Auto) 1.4 0.4-5.4 10 ^3/uL Monocytes # (Auto) 0.6 0-1.3 10 ^3/uL Eosinophils # (Auto) 0 0-0.8 10 ^3/uL Basophils # (Auto) 0 0-0.2 10 ^3/uL Nucleated Red Blood Cells 0.0 % Sodium Level 138 136-145 mmol/L Potassium Level 2.8 L 3.5-5.1 mmol/L Chloride Level 105 98-107 mmol/L Carbon Dioxide Level 19 L 20-31 mmol/L Anion Gap 14 5-15 Blood Urea Nitrogen 18 9-23 mg/dL Creatinine 1.06 H 0.550-1.02 mg/dL Glomerular Filtration Rate Calc 55 >90 mL/min BUN/Creatinine Ratio 17.0 10.0-20.0 Serum Glucose 128 H 74-106 mg/dL Calcium Level 9.0 8.7-10.4 mg/dL Current Medications Medications (Trade) Dose Ordered Sig/Lydia Route Start Time Stop Time Status Last Admin Sodium Chloride 1,000 ml @ 1,000 mls/hr Q1H ONCE IV 08/28/25 07:45 08/28/25 08:44 DC 08/28/25 09:32 Morphine Sulfate 4 mg ONCE ONCE IV 08/28/25 07:45 08/28/25 08:01 DC 08/28/25 09:36 Ondansetron HCl (Zofran) 4 mg ONCE ONCE IV 08/28/25 07:45 11/21/25 08:01 DC 08/28/25 09:34 Time of 1ST Reevaluation: 07:08 Reevaluation 1ST: Unchanged Patient Education/Counseling: Diagnosis, Treatment, Prognosis Family Education/Counseling: No Family Present Departure 1 Departure Time of Disposition: 17:40 (Patient with a frequent falls and multiple episodes of syncope. Patient's EKG was nonischemic. Troponins were elevated. Potassium was low. CT head on my review showed chronic changes. Chest x-ray and pelvis x-ray we will showed nothing acute. We will admit patient for further workup and expert consultation) Impression: Primary Impression: Syncope and collapse Additional Impression: Multiple falls Disposition: ADMITTED INPATIENT Admit to: Tele Condition: Guarded Critical Care Note Critical Care Time?: Yes Critical care comment: Syncope and collapse with the elevated troponin Authorized and Performed by: Dory Monsivais MD Total critical care time: Approximately 37 minutes Due to a high probability of clinically significant, life threatening deterioration, the patient required my highest level of preparedness to inte rvene emergently and I personally spent this critical care time directly and personally managing the patient. This critical care time included obtaining a history; examining the patient; pulse oximetry; ordering and review of studies; arranging urgent treatment with development of a management plan; evaluation of patient's response to treatment; frequent reassessment; and, discussions with other providers. This critical care time was performed to assess and manage the high probability of imminent, life-threatening deterioration that could result in multi-organ failure. It was exclusive of separately billable procedures and treating other patients and teaching time. Please see my other sections and the rest of the note for further information on patient assessment and treatment. Stability Stability form required: No I personally scribed for DORY MONSIVAIS MD ([email or web address]) on 08/28/25 at 07:15. Electronically submitted by Rossy Zamudio ([facility] I personally scribed for DORY MONSIVAIS MD ([email or web address]) on 08/28/25 at 07:20. Electronically submitted by Rossy Zamudio ([facility]). DORY MONSIVAIS MD Aug 28, 2025 07:15
[2025-08-28 08:00] VITALS: PULSE 86; RESP 25; O2SAT 95
[2025-08-28 08:10] LABS: Hematocrit 30.2 % (36.0-46.0); Hemoglobin 9.9 g/dL (12.2-16.2); Mean Corpuscular Hemoglobin 28.4 pg (28.0-32.0); Mean Corpuscular Volume 86.9 fL (80.0-100.0); Nucleated Red Blood Cells % 0.0 %
[2025-08-28 08:15] LABS: Chloride 105 mmol/L (98-107); Sodium 138 mmol/L (136-145)
[2025-08-28 08:16] LABS: Anion Gap 14 (5-15); Calcium 9.0 mg/dL (8.7-10.4)
[2025-08-28 08:17] LABS: Carbon Dioxide 19 mmol/L (20-31); Potassium 2.8 mmol/L (3.5-5.1)
[2025-08-28 08:21] LABS: BUN/Creatinine Ratio 17.0 (10.0-20.0); Blood Urea Nitrogen 18 mg/dL (9-23); Glucose 128 mg/dL (74-106)
--- NOTE | 2025-08-28 08:32 | DVH ---
CLINICAL INFORMATION: Fall injury. TECHNIQUE: Axial imaging was obtained through the brain without contrast. Coronal and sagittal reformatted images were obtained, reviewed, and stored. Images were reviewed in brain and bone windows. All CT scans at this medical facility are performed using dose modulation techniques as appropriate to a performed exam including the following: Automated exposure control was utilized; adjustment of the MA and/or KV according to patient size; and use of iterative reconstruction technique. CTDIvol = 53.92 mGy DLP = 972.3 mGy-cm COMPARISON: CT HEAD WITHOUT CONTRAST on DOS: 09/23/24 FINDINGS: There is no acute intracranial hemorrhage. No mass effect or midline shift. Scattered areas of hypoattenuation are seen in the periventricular and subcortical white matter, which are nonspecific but most likely sequelae of small vessel ischemic disease. The ventricles and sulci are within normal limits in size for age. Basal cisterns are patent. The calvarium is unremarkable. Minimal mucosal thickening of the paranasal sinuses. There is partial opacification of the right mastoid air cells. IMPRESSION: 1. No CT evidence of acute intracranial abnormality. 2. Partial opacification of the right mastoid air cells, likely due to effusion. No visualized fluid in the right middle ear cavity to suggest otomastoiditis, however correlation with clinical findings is needed. 3. Additional nonacute findings as described above.
--- NOTE | 2025-08-28 08:43 | DVH ---
EXAM: XY PELVIS AP CLINICAL INDICATION: fall TECHNIQUE: XY PELVIS AP Comparison: None FINDINGS/IMPRESSION: There is no evidence of acute fracture or dislocation. Multiple surgical screws in the left hip. Thoracolumbar spinal hardware
--- NOTE | 2025-08-28 08:45 | DVH ---
EXAM: XY CHEST PORTABLE Indication: fall; pain Technique: Single frontal view of the chest was obtained Comparison: CT CT ANGIO CHEST CONTRAST on DOS: 09/23/24, XY CHEST PORTABLE on DOS: 09/23/24 FINDINGS: Lines and Tubes: None Lungs: No focal consolidation. Pleura: No effusion. No pneumothorax. Cardiomediastinal contours: Unremarkable Bones: No acute osseous abnormality. Postsurgical spinal hardware in the thoracic and lumbar spine. IMPRESSION: No acute cardiopulmonary disease.
[2025-08-28] MEDS: ONDANSETRON HCL 4 MG/2 ML VIAL ONE (09:28)
[2025-08-28] MEDS: MORPHINE SULFATE 4 MG/ML SYR/VIAL ONE (09:28)
[2025-08-28] MEDS: SODIUM CHLORIDE 0.9% 1,000 ML IV ONE (09:32)
[2025-08-28] MEDS: ONDANSETRON HCL 4 MG/2 ML VIAL IV ONE (09:34)
[2025-08-28] MEDS: MORPHINE SULFATE 4 MG/ML SYR/VIAL IV ONE (09:36)
[2025-08-28] MEDS ORDERED: ONDANSETRON HCL 4 MG/2 ML VIAL IV PRN (11:00)
--- NOTE | 2025-08-28 11:34 | DVHHP2 ---
History of Present Illness Reason for Visit: Multiple falls History of Present Illness Anuja Mcclendon is a 74-year-old female with past medical history of hard of hearing, hypertension, hypothyroidism, GERD, cervical cancer, hysterectomy with bilateral salpingo-oophorectomy, back surgery, and neuropathy, right knee surgery, right ankle surgery, and right hip surgery who presents to the ED with multiple falls. Per patient's caregiver Laura reports that yesterday the patient fell 5 times. Patient's caregiver reports that she had gone to the [employer] and came back found the patient on her buttocks. Patient's caregiver also reports that this past week she has does not recall the amount of times that the patient has fallen. Patient's caregiver also reports that her own grandmother also helps take care of the patient. Per patient she also reports that she fell multiple times this past week and did strike her head on the ground but did not lose consciousness. Per patient she does not use home oxygen but upon evaluation is on 2 L nasal cannula. Patient ambulates with a front wheel walker while at home. Per caregiver the patient lives with her neighbor. Patient denies any recent sick contacts, recent travels, recent ingestion of spoiled food, chest pain, shortness of breath, fever, chills, lightheadedness, dizziness, abdominal pain, nausea, vomiting, diarrhea, or urinary symptoms. At this time patient is denying chest pain. Cardiovascular: HTN GI: GERD Endocrine: Hypothyroidism Past Medical History Cervical cancer Past Surgical History: Hysterectomy, Other (Bilateral salpingo-oophorectomy, neuropathy, right knee surgery, right ankle surgery, and right hip surgery) Family History: None Smoke: No ALCOHOL: none Drugs: None Lives: Roommate Domestic Violence: Neg Review of Systems Constitutional: Yes: Weakness Musculoskeletal: back pain Allergies: Coded Allergies: Aspirin (Verified Allergy, Unknown, 07/26/15) Codeine (Unverified Allergy, Unknown, 07/26/15) Penicillins (Verified Allergy, Unknown, 07/26/15) Exam Vital Signs Vital Signs Date Time Temp Pulse Resp B/P (MAP) Pulse Ox O2 Delivery O2 Flow Rate FiO2 08/28/25 09:36 80 17 125/54 08/28/25 03:22 98.8 98 98.8 General Appearance: Alert, Oriented X3, Cooperative HEENT: Atraumatic, PERRLA, EOMI, Mucous membr. moist/pink Respiratory: Normal air movement Cardiovascular: Regular rate, Normal S1, Normal S2, No murmurs Abdominal: Normal bowel sounds, Soft Extremities: No cyanosis Neuro: Normal speech, Normal tone, Sensation intact Psych/Mental Status: Mental status NL, Mood NL Labs/Xrays Labs Test 08/28/25 09:02 08/28/25 07:49 Range/Units Troponin I High Sensitivity 99 *H </=34 ng/L White Blood Count 9.2 4.4-10.8 10^3/uL Red Blood Count 3.47 L 4.0-5.20 10^6/uL Hemoglobin 9.9 L 12.2-16.2 g/dL Hematocrit 30.2 L 36.0-46.0 % Mean Corpuscular Volume 86.9 80.0-100.0 fL Mean Corpuscular Hemoglobin 28.4 28.0-32.0 pg Mean Corpuscular Hemoglobin Concent 32.7 32.0-36.0 g/dL Red Cell Distribution Width 17.1 H 11.8-14.3 % Platelet Count 383 140-450 10^3/uL Mean Platelet Volume 9.2 6.9-10.8 fL Neutrophils (%) (Auto) 78.2 37.0-80.0 % Lymphocytes (%) (Auto) 14.6 10.0-50.0 % Monocytes (%) (Auto) 6.4 0.0-12.0 % Eosinophils (%) (Auto) 0.5 0.0-7.0 % Basophils (%) (Auto) 0.3 0.0-2.0 % Neutrophils # (Auto) 7.2 1.6-8.6 10 ^3/uL Lymphocytes # (Auto) 1.4 0.4-5.4 10 ^3/uL Monocytes # (Auto) 0.6 0-1.3 10 ^3/uL Eosinophils # (Auto) 0 0-0.8 10 ^3/uL Basophils # (Auto) 0 0-0.2 10 ^3/uL Nucleated Red Blood Cells 0.0 % Sodium Level 138 136-145 mmol/L Potassium Level 2.8 L 3.5-5.1 mmol/L Chloride Level 105 98-107 mmol/L Carbon Dioxide Level 19 L 20-31 mmol/L Anion Gap 14 5-15 Blood Urea Nitrogen 18 9-23 mg/dL Creatinine 1.06 H 0.550-1.02 mg/dL Glomerular Filtration Rate Calc 55 >90 mL/min BUN/Creatinine Ratio 17.0 10.0-20.0 Serum Glucose 128 H 74-106 mg/dL Calcium Level 9.0 8.7-10.4 mg/dL CLINICAL HISTORY: r/o dvt TECHNIQUE: Color and duplex doppler imagine of the bilateral lower extremity veins was performed. Vessel compression and augmentation if possible was also performed. COMPARISON: US BILAT LOWER DVT on DOS: 09/23/24 FINDINGS: Right Lower Extremity: Right common femoral vein: Normal compressibility and flow. Right superficial femoral vein: Nonocclusive thrombus at its mid sigment. Right popliteal vein: Normal compressibility and flow. Proximal calf veins demonstrate flow. Left Lower Extremity: Left common femoral vein: Normal compressibility and flow. Left superficial femoral vein: Normal compressibility and flow. Left popliteal vein: Normal compressibility and flow. Proximal calf veins demonstrate flow. IMPRESSION: Nonocclusive thrombus at the mid right superficial femoral vein. EXAM: XY PELVIS AP CLINICAL INDICATION: fall TECHNIQUE: XY PELVIS AP Comparison: None FINDINGS/IMPRESSION: There is no evidence of acute fracture or dislocation. Multiple surgical screws in the left hip. Thoracolumbar spinal hardware CLINICAL INFORMATION: Fall injury. TECHNIQUE: Axial imaging was obtained through the brain without contrast. Coronal and sagittal reformatted images were obtained, reviewed, and stored. Images were reviewed in brain and bone windows. All CT scans at this medical facility are performed using dose modulation techniques as appropriate to a performed exam including the following: Automated exposure control was utilized; adjustment of the MA and/or KV according to patient size; and use of iterative reconstruction technique. CTDIvol = 53.92 mGy DLP = 972.3 mGy-cm COMPARISON: CT HEAD WITHOUT CONTRAST on DOS: 09/23/24 FINDINGS: There is no acute intracranial hemorrhage. No mass effect or midline shift. Scattered areas of hypoattenuation are seen in the periventricular and subcortical white matter, which are nonspecific but most likely sequelae of small vessel ischemic disease. The ventricles and sulci are within normal limits in size for age. Basal cisterns are patent. The calvarium is unremarkable. Minimal mucosal thickening of the paranasal sinuses. There is partial opacification of the right mastoid air cells. IMPRESSION: 1. No CT evidence of acute intracranial abnormality. 2. Partial opacification of the right mastoid air cells, likely due to effusion. No visualized fluid in the right middle ear cavity to suggest otomastoiditis, however correlation with clinical findings is needed. 3. Additional nonacute findings as described above. EXAM: XY CHEST PORTABLE Indication: fall; pain Technique: Single frontal view of the chest was obtained Comparison: CT CT ANGIO CHEST CONTRAST on DOS: 09/23/24, XY CHEST PORTABLE on DOS: 09/23/24 FINDINGS: Lines and Tubes: None Lungs: No focal consolidation. Pleura: No effusion. No pneumothorax. Cardiomediastinal contours: Unremarkable Bones: No acute osseous abnormality. Postsurgical spinal hardware in the thoracic and lumbar spine. IMPRESSION: No acute cardiopulmonary disease. SEPSIS Sepsis Screen Date sepsis recognized/suspect: Aug 28, 2025 Time Sepsis recognized/suspect: 321 Recent Procedure: No On Antibiotic Therapy: No Respiratory Rate >20: No Heart Rate >90: No Temp<36 C (96.8 F) or >38.3 C: No SBP <90 or MAP <65 mmHG: No New Acute Mental Status Change: No Is the patient on CPAP, BIPAP,: No Physician Orders Urinalysis (08/28/25 07:41) Chest Portable (08/28/25 07:41) Head Without Contrast (08/28/25 07:41) Pelvis Ap (08/28/25 07:41) Electrocardigram (08/28/25 07:41) Troponin-I Hs (08/28/25 10:41) Electrocardigram (08/28/25 08:41) Electrocardigram (08/28/25 10:41) Vital Signs Date Time Temp Pulse Resp B/P (MAP) Pulse Ox O2 Delivery O2 Flow Rate FiO2 08/28/25 09:36 80 17 125/54 08/28/25 09:35 81 08/28/25 03:22 98.8 82 18 155/81 98 98.8 Laboratory Tests Test 08/28/25 07:49 White Blood Count 9.2 10^3/uL (4.4-10.8) Medications Medications Dose Ordered Sig/Lydia Route Start Time Stop Time Status Last Admin Dose Admin Morphine Sulfate 4 mg ONCE ONCE IV 08/28/25 07:45 08/28/25 08:01 DC 08/28/25 09:36 4 MG Ondansetron HCl 4 mg ONCE ONCE IV 08/28/25 07:45 08/28/25 08:01 DC 08/28/25 09:34 4 MG Sodium Chloride 1,000 ml @ 1,000 mls/hr Q1H ONCE IV 08/28/25 07:45 08/28/25 08:44 DC 08/28/25 09:32 1,000 MLS/HR Assessment/Plan Assessment/Plan Assessment Status post fall rule out fracture Ruled in DVT, nonocclusive thrombus at the mid right superficial femoral vein Partial opacification of the right mastoid air cells, likely due to effusion Acute hypoxic respiratory failure on supplemental oxygen Hard of hearing DOROTHEA likely prerenal Normocytic anemia Hypokalemia History of hypertension History of hypothyroidism History of GERD History of cervical cancer History of hysterectomy with bilateral salpingo-oophorectomy History of back surgery History of neuropathy History of right knee surgery History of right ankle surgery History of right hip surgery Plan Admit to tele Replete lytes Supplemental O2-wean as tolerated Type and screen however patient noted to be Jewish Antiemetics Pain management Trend troponins EKG noted NS 1 L given ED Pelvic x-ray CT head noted Chest x-ray UA Bilateral lower extremity venous ultrasound Echo ordered Diet Home medications reconciled DVT prophylaxis-therapeutic Lovenox PUD prophylaxis-PPIs Discussed plan of care with patient, patient's caregiver, and nurse PT eval-patient uses a front wheel walker at home Consider Cardiology consult if troponins trend upwards [id number] Preventive counseling healthy eating habits, physical activity, and regular checkups Plan discussed with: Patient, Other Date of Service: Aug 28, 2025 Billing Provider: HARI LEÓN Common Visit Codes: [id number] INP/OBS CARE (HIGH) Secondary Visit Codes: [id number] COUNSELING IND HARI LEÓN Aug 28, 2025 11:34
--- NOTE | 2025-08-28 12:07 | DVH ---
CLINICAL HISTORY: r/o dvt TECHNIQUE: Color and duplex doppler imagine of the bilateral lower extremity veins was performed. Vessel compression and augmentation if possible was also performed. COMPARISON: US BILAT LOWER DVT on DOS: 09/23/24 FINDINGS: Right Lower Extremity: Right common femoral vein: Normal compressibility and flow. Right superficial femoral vein: Nonocclusive thrombus at its mid sigment. Right popliteal vein: Normal compressibility and flow. Proximal calf veins demonstrate flow. Left Lower Extremity: Left common femoral vein: Normal compressibility and flow. Left superficial femoral vein: Normal compressibility and flow. Left popliteal vein: Normal compressibility and flow. Proximal calf veins demonstrate flow. IMPRESSION: Nonocclusive thrombus at the mid right superficial femoral vein. Clinical Unit Coordinator notified Liz Caceres of initial findings.
[2025-08-28] MEDS: HYDROcodone-ACET 5/325MG TAB ONE ×2 (13:47→21:18)
[2025-08-28] MEDS: POTASSIUM CHL 20 Meq TABLET PO ONE ×2 (13:48→13:52)
[2025-08-28] MEDS: HYDROcodone-ACET 5/325MG TAB PO PRN (13:51)
--- NOTE | 2025-08-28 14:35 | DVHSR ---
APPROVED REPORT EXAM: Two-dimensional and M-mode echocardiogram with Doppler and color Doppler. Blood Pressure: 125/54 mmHg INDICATION Trop RISK FACTORS Height: 5'6", Weight: 176 DIMENSIONS LVDd 5.0 (3.8-5.7cm) LA (2D) 4.0 (1.9-4.0cm) Aortic Root 3.1 (2.0-3.7cm) LVDs 3.5 (2.5-4.0cm) LA (MM) (1.9-4.0cm) Aortic Cusp Exc 1.3 (1.5-2.0cm) EF (%) 56.0 (55-70%) Rt. Atrium (1.9-4.0cm) Asc. Aorta 3.3 cm IVSd 1.0 (0.7-1.1cm) RV (D) (1.8-2.4cm) PWd 0.9 (0.7-1.1cm) Mitral Valve Mitral Mitral Stenosis E/A ratio 0.0 2D MVA cm2 Aortic Valve Aortic Valve Aortic Stenosis LVOT Diameter 2.1 (1.8-2.4cm) Doppler MIMI cm2 2D MIMI 1.94cm2 Pulmonic Valve V2 0.83m/s Tricuspid Valve TR Velocity 2.67m/s RVSP 31mmHg Conclusion Sinus rhythm. Biatrial enlargement. LV enlargement. Aortic root enlargement. Valves appear to be structurally normal. Mild thickening of the right coronary cusp. Left ventricular function is diminished. EF is about 40% with anterior hypokinesis. Dopplers unremarkable. No pericardial effusion masses or vegetations.
[2025-08-28 15:30] VITALS: PULSE 75; RESP 22; O2SAT 98
[2025-08-28 17:39] LABS: Urine Protein, UAD TRACE (Negative)
[2025-08-28 19:43] VITALS: BP 137/84; PULSE 82; PULSE 86; RESP 18; RESP 20; TEMP 98.6; O2SAT 90
[2025-08-28 19:46] VITALS: BP 137/84; PULSE 86; RESP 20; TEMP 98.6; O2SAT 90
[2025-08-28 20:00] VITALS: PULSE 82; RESP 18; O2SAT 90
[2025-08-28] MEDS: clonazePAM 0.5 MG TAB PO SCH (22:00)
[2025-08-28] MEDS ORDERED: PATIENTS OWN MEDICATION (Rosuvastatin Calcium (Crestor) 20 MG) PO SCH (22:00)
[2025-08-28] MEDS ORDERED: PATIENTS OWN MEDICATION (Buspirone Hcl 30 MG) PO SCH (22:00)
[2025-08-28] MEDS ORDERED: PATIENTS OWN MEDICATION (Zolpidem Tartrate 1 TAB) PO SCH (22:00)
[2025-08-28] MEDS: MORPHINE SULFATE INJ 2 MG/ml SYRG ONE (22:33)
[2025-08-28] MEDS: MORPHINE SULFATE INJ 2 MG/ml SYRG IV ONE (22:39)
[2025-08-29] VITALS (7 sets, daily range): BP systolic 108–168; BP diastolic 48–69; PULSE 64–85; RESP 18; TEMP 97.9–99.6; O2SAT 90–100
[2025-08-29] MEDS: OLANZapine 5 MG TAB ONE (00:25)
[2025-08-29] MEDS: ENOXAPARIN SOD 100 MG/1 ML SYRINGE SC ONE (00:25)
[2025-08-29] MEDS: CARISOPRODOL 350 MG TAB ONE (00:26)
[2025-08-29] MEDS: CARISOPRODOL 350 MG TAB PO SCH (00:28)
[2025-08-29] MEDS: ENOXAPARIN SOD 80 MG/0.8ML SYRINGE SC SCH (00:28)
[2025-08-29] MEDS: OLANZapine 5 MG TAB PO SCH (00:28)
[2025-08-29] MEDS: LEVOTHYROXINE SODIUM 88 MCG TAB ONE (05:53)
[2025-08-29] MEDS: LEVOTHYROXINE SODIUM 88 MCG TAB PO SCH (06:17)
[2025-08-29 07:13] LABS: Hematocrit 30.9 % (36.0-46.0); Hemoglobin 9.9 g/dL (12.2-16.2); Mean Corpuscular Hemoglobin 28.2 pg (28.0-32.0); Mean Corpuscular Volume 88.4 fL (80.0-100.0); Nucleated Red Blood Cells % 0.2 %
[2025-08-29 07:35] LABS: Alanine Aminotransferase 21 U/L (7-40); Anion Gap 11 (5-15); BUN/Creatinine Ratio 12.9 (10.0-20.0); Blood Urea Nitrogen 13 mg/dL (9-23); Calcium 8.7 mg/dL (8.7-10.4); Carbon Dioxide 22 mmol/L (20-31); Glucose 88 mg/dL (74-106); Sodium 141 mmol/L (136-145); Total Protein 7.0 g/dL (5.7-8.2)
[2025-08-29 07:36] LABS: Albumin 3.5 g/dL (3.2-4.8)
[2025-08-29 07:45] LABS: Alkaline Phosphatase 146 U/L (46-116); Bilirubin, Total 0.2 mg/dL (0.2-1.0); Chloride 108 mmol/L (98-107); Potassium 3.4 mmol/L (3.5-5.1)
[2025-08-29] MEDS ORDERED: PATIENTS OWN MEDICATION (Folic Acid 1 MG) PO SCH (10:00)
[2025-08-29] MEDS ORDERED: PATIENTS OWN MEDICATION (Duloxetine Hcl (Cymbalta) 60 MG) PO SCH (10:00)
[2025-08-29] MEDS: PANTOPRAZOLE 40 MG/10 ML VIAL INJ IV SCH (11:27)
[2025-08-29] MEDS: ALPRAZolam 0.25 MG TAB PO SCH (11:28)
--- NOTE | 2025-08-29 16:32 | DVHPN2 ---
Subjective Patient is here for recurrent falls found to have left lower extremity DVT. 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 Medications Current Medications Medications Dose Ordered Sig/Lydia Route Start Time Stop Time Status Last Admin Dose Admin Acetaminophen/ Hydrocodone Bitart 1 tab Q4HP PRN PO 08/28/25 11:00 08/29/25 12:09 1 TAB Ondansetron HCl 4 mg Q4HP PRN IV 08/28/25 11:00 Acetaminophen 650 mg Q6HP PRN PO 08/28/25 11:00 Nitroglycerin 0.4 mg Q5MINP PRN SL 08/28/25 11:00 Morphine Sulfate 2 mg Q30M PRN IV 08/28/25 11:00 Alprazolam 0.25 mg DAILY PO 08/29/25 10:00 08/29/25 11:28 0.25 MG Carisoprodol 350 mg BID PO 08/28/25 22:00 08/29/25 00:28 350 MG Clonazepam 0.5 mg BID PO 08/28/25 22:00 08/29/25 11:30 0.5 MG Levothyroxine Sodium 88 mcg DAILY@0600 PO 08/29/25 06:00 08/29/25 06:17 88 MCG Olanzapine 15 mg HS PO 08/28/25 22:00 08/29/25 00:28 15 MG Prednisone 5 mg DAILY PO 08/29/25 10:00 08/29/25 11:29 5 MG Pantoprazole Sodium 40 mg DAILY IV 08/29/25 10:00 08/29/25 11:27 40 MG Enoxaparin Sodium 80 mg Q12HR SC 08/28/25 22:00 08/29/25 11:29 80 MG Laboratory Results Laboratory Tests 08/29/25 06:00 Chemistry Test 08/29/25 06:00 Albumin 3.5 g/dL (3.2-4.8) Calcium Level 8.7 mg/dL (8.7-10.4) Total Protein 7.0 g/dL (5.7-8.2) LFT Test 08/29/25 06:00 Alanine Aminotransferase (ALT) 21 U/L (7-40) Alkaline Phosphatase 146 U/L (46-116) H Aspartate Amino Transferase (AST) 33 U/L (13-40) Total Bilirubin 0.2 mg/dL (0.2-1.0) Urinalysis Test 08/28/25 17:07 Urine Color Light-yellow (Yellow) Urine Clarity Turbid (Clear) H Urine pH 6.0 (5.0-9.0) Urine Specific [place] 1.009 (1.001-1.035) Urine Protein Trace (Negative) H Urine Ketones Negative (Negative) Urine Blood Trace /uL (Negative) H Urine Nitrite 2+ (Negative) H Urine Bilirubin Negative (Negative) Urine Urobilinogen Normal mg/dL (Negative) Urine Leukocyte Esterase 3+ /uL (Negative) Urine RBC 1 /hpf (0 - 4) Urine Microscopic WBC 63 /HPF (0-5) H Urine Squamous Epithelial Cells Few /hpf (<5) Urine Bacteria Mod /hpf (None Seen) H Urine Glucose Normal mg/dL (Normal) Assessment/Plan Assessment/Plan 74-year-old female with a known history of hypertension, hypothyroidism, GERD, history of cervical cancer status post hysterectomy with a bilateral salpingo- oophorectomy, previous history of back surgery, chronic narcotic dependency and pain meds dependent presented to the hospital with a recurrent falls found to have 1. Recurrent falls 2. DVT of the left lower extremity 3. Acute hypoxic respiratory failure on supplemental oxygenation 4. GERD 5. Hypertension 6. Hypothyroidism 7. History of cervical cancer status post hysterectomy and bilateral salpingo- oophorectomy -continue pain meds as needed, therapeutic Lovenox, switched to oral anticoagulation upon discharge Plan discussed with: Patient Date of Service: Aug 29, 2025 Billing Provider: BON UMANZOR MD Common Visit Codes: [id number] INP/OBS CARE(HIGH) BON UMANZOR MD Aug 29, 2025 16:32
[2025-08-30] VITALS (7 sets, daily range): BP systolic 139–172; BP diastolic 56–79; PULSE 78–95; RESP 17–20; TEMP 98.5–99; O2SAT 95–100
[2025-08-30] MEDS: MORPHINE SULFATE INJ 2 MG/ml SYRG IV PRN (01:15)
[2025-08-30] MEDS: NITROGLYCERIN 0.4 MG SL TAB SL PRN (01:53)
--- NOTE | 2025-08-30 13:29 | ECG ---
[facility] Test Date: 2025-08-30 Test Time: 01:05:33 Pat Name: MARJORIE VERGARA Department: Respiratoy Room: 0221T B Gender: F Banking Services Clerk: EDGAR : 1950 Requested By: DORY DEJESUS Order Number: [id number] Reading MD: Jalen Jacinto Measurements Intervals [place] Rate: 84 P: 58 VA: 153 QRS: 51 QRSD: 85 T: 56 QT: 364 QTc: 431 Interpretive Statements Sinus rhythm Electronically Signed On 08-30-2025 14:43:56 PST by Jalen Jacinto Please click the below link to view image of tracing.
--- NOTE | 2025-08-30 16:18 | DVHPN2 ---
Subjective Patient is here for recurrent falls found to have left lower extremity DVT. 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 Medications Current Medications Medications Dose Ordered Sig/Lydia Route Start Time Stop Time Status Last Admin Dose Admin Acetaminophen/ Hydrocodone Bitart 1 tab Q4HP PRN PO 08/28/25 11:00 08/30/25 12:25 1 TAB Ondansetron HCl 4 mg Q4HP PRN IV 08/28/25 11:00 Acetaminophen 650 mg Q6HP PRN PO 08/28/25 11:00 Nitroglycerin 0.4 mg Q5MINP PRN SL 08/28/25 11:00 08/30/25 01:53 0.4 MG Morphine Sulfate 2 mg Q30M PRN IV 08/28/25 11:00 08/30/25 02:28 2 MG Alprazolam 0.25 mg DAILY PO 08/29/25 10:00 08/30/25 09:53 0.25 MG Carisoprodol 350 mg BID PO 08/28/25 22:00 08/30/25 09:53 350 MG Clonazepam 0.5 mg BID PO 08/28/25 22:00 08/30/25 09:53 0.5 MG Levothyroxine Sodium 88 mcg DAILY@0600 PO 08/29/25 06:00 08/30/25 06:12 88 MCG Olanzapine 15 mg HS PO 08/28/25 22:00 08/29/25 21:05 15 MG Prednisone 5 mg DAILY PO 08/29/25 10:00 08/30/25 09:53 5 MG Pantoprazole Sodium 40 mg DAILY IV 08/29/25 10:00 08/30/25 09:52 40 MG Enoxaparin Sodium 80 mg Q12HR SC 08/28/25 22:00 08/30/25 09:54 80 MG Laboratory Results Laboratory Tests 08/29/25 06:00 Urinalysis Test 08/28/25 17:07 Urine Color Light-yellow (Yellow) Urine Clarity Turbid (Clear) H Urine pH 6.0 (5.0-9.0) Urine Specific [place] 1.009 (1.001-1.035) Urine Protein Trace (Negative) H Urine Ketones Negative (Negative) Urine Blood Trace /uL (Negative) H Urine Nitrite 2+ (Negative) H Urine Bilirubin Negative (Negative) Urine Urobilinogen Normal mg/dL (Negative) Urine Leukocyte Esterase 3+ /uL (Negative) Urine RBC 1 /hpf (0 - 4) Urine Microscopic WBC 63 /HPF (0-5) H Urine Squamous Epithelial Cells Few /hpf (<5) Urine Bacteria Mod /hpf (None Seen) H Urine Glucose Normal mg/dL (Normal) Assessment/Plan Assessment/Plan 74-year-old female with a known history of hypertension, hypothyroidism, GERD, history of cervical cancer status post hysterectomy with a bilateral salpingo- oophorectomy, previous history of back surgery, chronic narcotic dependency and pain meds dependent presented to the hospital with a recurrent falls found to have 1. Recurrent falls 2. DVT of the left lower extremity 3. Acute hypoxic respiratory failure on supplemental oxygenation 4. GERD 5. Hypertension 6. Hypothyroidism 7. History of cervical cancer status post hysterectomy and bilateral salpingo- oophorectomy -continue pain meds as needed, therapeutic Lovenox, switched to oral anticoagulation upon discharge Plan discussed with: Patient My Orders Orders - BON UMANZOR MD Procedure Category Date Status Time * Wound Consult CONS 08/29/25 Transmitted * Dietary Consult CONS 08/30/25 Transmitted 13:51 Cleanse Wound With CELE 08/30/25 In Process Mild Soap A 09:13 Date of Service: Aug 30, 2025 Billing Provider: BON UMANZOR MD Common Visit Codes: [id number] INP/OBS CARE(HIGH) BON UMANZOR MD Aug 30, 2025 16:18
[2025-08-30] MEDS: KETOROLAC TROMETH 30 MG/ML 1ML VIAL IV ONE (23:46)
--- NOTE | 2025-08-31 08:13 | ECG ---
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
[2025-08-31 08:15] VITALS: PULSE 85; RESP 16; O2SAT 96
[2025-08-31 09:00] VITALS: BP 145/78; PULSE 87; RESP 18; TEMP 98.3; O2SAT 95
[2025-08-31 13:00] VITALS: BP 161/76; PULSE 91; RESP 18; TEMP 98.4; O2SAT 96
--- NOTE | 2025-08-31 16:19 | DVHPN2 ---
Subjective Patient is here for recurrent falls found to have left lower extremity DVT. 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 Medications Current Medications Medications Dose Ordered Sig/Lydia Route Start Time Stop Time Status Last Admin Dose Admin Acetaminophen/ Hydrocodone Bitart 1 tab Q4HP PRN PO 08/28/25 11:00 08/31/25 12:06 1 TAB Ondansetron HCl 4 mg Q4HP PRN IV 08/28/25 11:00 Acetaminophen 650 mg Q6HP PRN PO 08/28/25 11:00 Nitroglycerin 0.4 mg Q5MINP PRN SL 08/28/25 11:00 08/30/25 01:53 0.4 MG Morphine Sulfate 2 mg Q30M PRN IV 08/28/25 11:00 08/30/25 02:28 2 MG Alprazolam 0.25 mg DAILY PO 08/29/25 10:00 08/31/25 10:34 0.25 MG Carisoprodol 350 mg BID PO 08/28/25 22:00 08/31/25 10:33 350 MG Clonazepam 0.5 mg BID PO 08/28/25 22:00 08/31/25 10:00 0.5 MG Levothyroxine Sodium 88 mcg DAILY@0600 PO 08/29/25 06:00 08/31/25 06:34 88 MCG Olanzapine 15 mg HS PO 08/28/25 22:00 08/30/25 21:36 15 MG Prednisone 5 mg DAILY PO 08/29/25 10:00 08/31/25 10:34 5 MG Pantoprazole Sodium 40 mg DAILY IV 08/29/25 10:00 08/31/25 10:33 40 MG Enoxaparin Sodium 80 mg Q12HR SC 08/28/25 22:00 08/31/25 10:33 80 MG Laboratory Results Laboratory Tests 08/29/25 06:00 Urinalysis Test 08/28/25 17:07 Urine Color Light-yellow (Yellow) Urine Clarity Turbid (Clear) H Urine pH 6.0 (5.0-9.0) Urine Specific [place] 1.009 (1.001-1.035) Urine Protein Trace (Negative) H Urine Ketones Negative (Negative) Urine Blood Trace /uL (Negative) H Urine Nitrite 2+ (Negative) H Urine Bilirubin Negative (Negative) Urine Urobilinogen Normal mg/dL (Negative) Urine Leukocyte Esterase 3+ /uL (Negative) Urine RBC 1 /hpf (0 - 4) Urine Microscopic WBC 63 /HPF (0-5) H Urine Squamous Epithelial Cells Few /hpf (<5) Urine Bacteria Mod /hpf (None Seen) H Urine Glucose Normal mg/dL (Normal) Assessment/Plan Assessment/Plan 74-year-old female with a known history of hypertension, hypothyroidism, GERD, history of cervical cancer status post hysterectomy with a bilateral salpingo- oophorectomy, previous history of back surgery, chronic narcotic dependency and pain meds dependent presented to the hospital with a recurrent falls found to have 1. Recurrent falls 2. DVT of the left lower extremity 3. Acute hypoxic respiratory failure on supplemental oxygenation 4. GERD 5. Hypertension 6. Hypothyroidism 7. History of cervical cancer status post hysterectomy and bilateral salpingo- oophorectomy -continue pain meds as needed, therapeutic Lovenox, switched to oral anticoagulation upon discharge Plan discussed with: Patient My Orders Orders - BON UMANZOR MD Procedure Category Date Status Time * Almond Roaster CONS 08/31/25 Transmitted Consult Pt Request For Service PT 08/31/25 Logged 15:10 Date of Service: Aug 31, 2025 Billing Provider: BON UMANZOR MD Common Visit Codes: [id number] INP/OBS CARE(HIGH) BON UMANZOR MD Aug 31, 2025 16:19
[2025-08-31 17:00] VITALS: BP 175/91; PULSE 95; RESP 17; TEMP 98.5; O2SAT 95
[2025-08-31 20:00] VITALS: PULSE 85; PULSE 86; RESP 16; O2SAT 96
[2025-08-31 21:00] VITALS: BP 133/65; PULSE 88; RESP 18; TEMP 98.3; O2SAT 96
[2025-09-01] VITALS (9 sets, daily range): BP systolic 125–159; BP diastolic 70–81; PULSE 80–91; RESP 15–22; TEMP 98–99.7; O2SAT 93–99
--- NOTE | 2025-09-01 14:45 | DVHPN2 ---
Subjective Patient is here for recurrent falls found to have left lower extremity DVT. Changes from previous H/P or p: No Changes Musculoskeletal: back pain Objective Vitals Vital Signs Date Time Temp Pulse Resp B/P (MAP) Pulse Ox O2 Delivery O2 Flow Rate FiO2 09/01/25 09:00 98.7 89 19 146/79 (101) 99 98.7 09/01/25 08:15 Nasal Cannula* 2 28 Intake/Output Intake and Output 09/01/25 07:00 Intake Total 650 ml Balance 650 ml Intake Oral 650 ml # Voids 12 Exam HEENT pupils are reactive Neck is supple CV is S1-S2 regular rate and rhythm Respiratory diminished breath sounds bases GI positive bowel sounds Extremity no edema AREA REPRESENTATIVE following commands Medications Current Medications Medications Dose Ordered Sig/Lydia Route Start Time Stop Time Status Last Admin Dose Admin Acetaminophen/ Hydrocodone Bitart 1 tab Q4HP PRN PO 08/28/25 11:00 09/01/25 00:29 1 TAB Ondansetron HCl 4 mg Q4HP PRN IV 08/28/25 11:00 Acetaminophen 650 mg Q6HP PRN PO 08/28/25 11:00 Nitroglycerin 0.4 mg Q5MINP PRN SL 08/28/25 11:00 08/30/25 01:53 0.4 MG Morphine Sulfate 2 mg Q30M PRN IV 08/28/25 11:00 08/30/25 02:28 2 MG Alprazolam 0.25 mg DAILY PO 08/29/25 10:00 09/01/25 10:12 0.25 MG Carisoprodol 350 mg BID PO 08/28/25 22:00 09/01/25 10:12 350 MG Clonazepam 0.5 mg BID PO 08/28/25 22:00 09/01/25 10:14 0.5 MG Levothyroxine Sodium 88 mcg DAILY@0600 PO 08/29/25 06:00 09/01/25 05:47 88 MCG Olanzapine 15 mg HS PO 08/28/25 22:00 08/31/25 22:37 15 MG Prednisone 5 mg DAILY PO 08/29/25 10:00 09/01/25 10:13 5 MG Pantoprazole Sodium 40 mg DAILY IV 08/29/25 10:00 09/01/25 10:12 40 MG Enoxaparin Sodium 80 mg Q12HR SC 08/28/25 22:00 09/01/25 10:12 80 MG Clonidine HCl 0.1 mg Q6HP PRN PO 08/31/25 17:45 08/31/25 17:49 0.1 MG Laboratory Results Laboratory Tests 08/29/25 06:00 Urinalysis Test 08/28/25 17:07 Urine Color Light-yellow (Yellow) Urine Clarity Turbid (Clear) H Urine pH 6.0 (5.0-9.0) Urine Specific [place] 1.009 (1.001-1.035) Urine Protein Trace (Negative) H Urine Ketones Negative (Negative) Urine Blood Trace /uL (Negative) H Urine Nitrite 2+ (Negative) H Urine Bilirubin Negative (Negative) Urine Urobilinogen Normal mg/dL (Negative) Urine Leukocyte Esterase 3+ /uL (Negative) Urine RBC 1 /hpf (0 - 4) Urine Microscopic WBC 63 /HPF (0-5) H Urine Squamous Epithelial Cells Few /hpf (<5) Urine Bacteria Mod /hpf (None Seen) H Urine Glucose Normal mg/dL (Normal) Assessment/Plan Assessment/Plan 74-year-old female with a known history of hypertension, hypothyroidism, GERD, history of cervical cancer status post hysterectomy with a bilateral salpingo- oophorectomy, previous history of back surgery, chronic narcotic dependency and pain meds dependent presented to the hospital with a recurrent falls found to have 1. Recurrent falls 2. DVT of the left lower extremity 3. Acute hypoxic respiratory failure on supplemental oxygenation 4. GERD 5. Hypertension 6. Hypothyroidism 7. History of cervical cancer status post hysterectomy and bilateral salpingo- oophorectomy -continue pain meds as needed, discontinue Lovenox, start Eliquis. -physical therapy evaluation and treatment, director social welfare consultation. Plan discussed with: Patient My Orders Orders - BON UMANZOR MD Procedure Category Date Status Time Pt Request For Service PT 08/31/25 Logged 15:10 * Touch Up Painter Hand CONS 09/01/25 Transmitted Consult 08:19 * Touch Up Painter Hand CONS 09/01/25 Transmitted Consult (Nf) Eliquis PHA 09/01/25 Verified 18:00 Date of Service: Sep 01, 2025 Billing Provider: BON UMANZOR MD Common Visit Codes: [id number] INP/OBS CARE(HIGH) BON UMANZOR MD Sep 01, 2025 14:45
[2025-09-01] MEDS: APIXABAN 5 MG TAB PO SCH (18:10)
[2025-09-01] MEDS: ACETAMINOPHEN 325 MG TAB PO PRN (21:04)
[2025-09-02] VITALS (7 sets, daily range): BP systolic 118–174; BP diastolic 57–90; PULSE 78–84; RESP 16–20; TEMP 97.8–98; O2SAT 93–98
[2025-09-02] MEDS: CEPHALEXIN 250 MG CAP PO ONE (15:25)
[2025-09-02] MEDS ORDERED: APIX5TAB PO (15:30)
[2025-09-02] MEDS ORDERED: CEPH500C PO (15:30)
--- NOTE | 2025-09-02 15:33 | DVHDS2 ---
Discharge Summary Date of Admission Aug 28, 2025 at 10:47 Date of Discharge: Sep 02, 2025 Labs/Diagnostic Data: Laboratory Results Test 08/29/25 06:00 08/28/25 17:07 08/28/25 16:19 White Blood Count 10.6 10^3/uL (4.4-10.8) Red Blood Count 3.50 10^6/uL (4.0-5.20) Hemoglobin 9.9 g/dL (12.2-16.2) Hematocrit 30.9 % (36.0-46.0) Mean Corpuscular Volume 88.4 fL (80.0-100.0) Mean Corpuscular Hemoglobin 28.2 pg (28.0-32.0) Mean Corpuscular Hemoglobin Concent 31.9 g/dL (32.0-36.0) Red Cell Distribution Width 17.3 % (11.8-14.3) Platelet Count 346 10^3/uL (140-450) Mean Platelet Volume 9.3 fL (6.9-10.8) Neutrophils (%) (Auto) 70.7 % (37.0-80.0) Lymphocytes (%) (Auto) 17.7 % (10.0-50.0) Monocytes (%) (Auto) 10.0 % (0.0-12.0) Eosinophils (%) (Auto) 1.3 % (0.0-7.0) Basophils (%) (Auto) 0.3 % (0.0-2.0) Neutrophils # (Auto) 7.5 10 ^3/uL (1.6-8.6) Lymphocytes # (Auto) 1.9 10 ^3/uL (0.4-5.4) Monocytes # (Auto) 1.1 10 ^3/uL (0-1.3) Eosinophils # (Auto) 0.1 10 ^3/uL (0-0.8) Basophils # (Auto) 0 10 ^3/uL (0-0.2) Nucleated Red Blood Cells 0.2 % Sodium Level 141 mmol/L (136-145) Potassium Level 3.4 mmol/L (3.5-5.1) Chloride Level 108 mmol/L (98-107) Carbon Dioxide Level 22 mmol/L (20-31) Anion Gap 11 (5-15) Blood Urea Nitrogen 13 mg/dL (9-23) Creatinine 1.01 mg/dL (0.550-1.02) Glomerular Filtration Rate Calc 58 mL/min (>90) BUN/Creatinine Ratio 12.9 (10.0-20.0) Serum Glucose 88 mg/dL (74-106) Calcium Level 8.7 mg/dL (8.7-10.4) Total Bilirubin 0.2 mg/dL (0.2-1.0) Aspartate Amino Transferase (AST) 33 U/L (13-40) Alanine Aminotransferase (ALT) 21 U/L (7-40) Alkaline Phosphatase 146 U/L (46-116) Total Protein 7.0 g/dL (5.7-8.2) Albumin 3.5 g/dL (3.2-4.8) Urine Color Light-yellow (Yellow) Urine Clarity Turbid (Clear) Urine pH 6.0 (5.0-9.0) Urine Specific [place] 1.009 (1.001-1.035) Urine Protein Trace (Negative) Urine Ketones Negative (Negative) Urine Blood Trace /uL (Negative) Urine Nitrite 2+ (Negative) Urine Bilirubin Negative (Negative) Urine Urobilinogen Normal mg/dL (Negative) Urine Leukocyte Esterase 3+ /uL (Negative) Urine RBC 1 /hpf (0 - 4) Urine Microscopic WBC 63 /HPF (0-5) Urine Squamous Epithelial Cells Few /hpf (<5) Urine Bacteria Mod /hpf (None Seen) Urine Glucose Normal mg/dL (Normal) Troponin I High Sensitivity 99 ng/L (</=34) Other Laboratory Tests 08/29/25 06:00 Brief Hx & Hospital Course: 74-year-old female with a known history of hypertension, hypothyroidism, GERD, history of cervical cancer status post hysterectomy with a bilateral salpingo- oophorectomy, previous history of back surgery, chronic narcotic dependency and pain meds dependent presented to the hospital with a recurrent falls found to have LEFT LOWER EXTREMITY DVT. PATIENT WAS STARTED ON THERAPEUTIC LOVENOX SUBCUTANEOUSLY. PATIENT'S HOSPITAL COURSE WAS EVENTFUL FOR DISCHARGE DISPOSITION ISSUES. EVENTUALLY AIRLINE STEWARDESS WAS CONSULTED. PATIENT'S LOVENOX WILL BE SWITCHED TO ELIQUIS. RISK OF ELIQUIS INCLUDING LIFE-THREATENING BLEEDING BRAIN BLEED DISABILITY EXPLAINED TO THE PATIENT IN DETAIL WHO CURRENTLY AGREES TO THE CURRENT PLAN OF CARE. Condition at Discharge: Stable Final Diagnosis/Problems List 74-year-old female with a known history of hypertension, hypothyroidism, GERD, history of cervical cancer status post hysterectomy with a bilateral salpingo-oophorectomy, previous history of back surgery, chronic narcotic dependency and pain meds dependent presented to the hospital with a recurrent falls found to have 1. Recurrent falls 2. DVT of the left lower extremity 3. Acute hypoxic respiratory failure on supplemental oxygenation 4. GERD 5. Hypertension 6. Hypothyroidism 7. History of cervical cancer status post hysterectomy and bilateral salpingo-oophorectomy -continue pain meds as needed, discontinue Lovenox, start Eliquis. Discharge Disposition: Home with Health Services SNF Discharge Will this Physician continue t: No Discharge Instruct/Medications Diet: Cardiac 2g Na,low cholest Activity: No Restrictions, As Tolerated Activity comment: ACTIVITY TOLERATED, RISK OF BRAIN BLEED OR ANY LIFE-THREATENING BLEED EXPLAINED TO THE PATIENT IN DETAIL SHE HAS DVT OF THE LEFT LEG NOW AND SHE IS ON ELIQUIS. PATIENT IS CURRENTLY STATED THAT SHE IS OKAY TO HAVE ELIQUIS SHE IS FULLY AWAKE ALERT ORIENTED AND ABLE TO MAKE DECISION. Follow Up/Referral: PLEASE FOLLOW UP WITH THE PCP IN ONE WEEK Medications: RESUME HOME MEDICATION KEFLEX AND ELIQUIS PRESCRIBED. New Medications: Apixaban Base (Eliquis) 5 Mg Tab 10 MG PO BID for 6 Days, #24 TAB 10MG BID X 7 DAYS THEN 5MG PO BID FOR AT LEAST 6 MONTHS FOR DVT/PE TREATMENT Apixaban Base (Eliquis) 5 Mg Tab 5 MG PO BID for 30 Days, #60 TAB STARTING FROM 09/09/2025 Cephalexin Monohydrate (Cephalexin) 500 Mg Cap 1 CAP PO TID for 5 Days, #15 CAP Continued Medications: Adalimumab (Humira Pen) 40MG/0.8 Kit 1 0.8 SC EOW, KIT Alprazolam (Xanax) 0.25 Mg Tb 1 TAB PO DAILY, #30 TAB Buspirone Hcl (Buspirone Hcl) 15 Mg Tab 30 MG PO BID, TAB Carisoprodol (Soma) 350 Mg Tab 350 MG PO BID, TAB Clonazepam (KlonoPIN TABLET) 0.5 Mg Tb 1 TAB PO BID, #60 TAB 1 Refill Cyclobenzaprine Hcl (Flexeril) 5 Mg Tab 1 TAB PO TID, #90 TAB Duloxetine Hcl (Cymbalta) 60 Mg Cap 60 MG PO DAILY, CAP Esomeprazole Magnesium Trihydr (Nexium) 40 Mg Cap 1 CAP PO DAILY, #30 CAP 5 Refills Folic Acid (Folic Acid) 1 Mg Tab 1 MG PO DAILY, TAB Furosemide (Lasix Tablet) 40 Mg Tb 20 MG PO DAILY Hydrocodone-Acetaminophen ([place] 5/325MG) 1 Tab Tb 1 TAB PO TIDP PRN for MODERATE PAIN, #90 TAB Hydroxyzine Hcl (Hydroxyzine Hcl) 50 Mg Tab 25 MG PO TID, TAB Levothyroxine Sodium (Levothyroxine Sodium) 88 Mcg Tab 1 TAB PO QAM, #30 TAB 5 Refills Liothyronine Sodium (Cytomel) 5 Mcg Tab 5 MCG OR BID Lubiprostone (Amitiza) 8 Mcg Cap 1 CAP PO DAILY, #60 CAP 5 Refills Methotrexate (Methotrexate) 2.5 Mg Tab 2.5 MG PO, TAB TAKE 6 TABLETS EVERY WEEK Olanzapine (Zyprexa) 5 Mg Tab 15 MG OR HS Omeprazole (Prilosec) 20 Mg Cap 40 MG PO DAILY, CAP Rosuvastatin Calcium (Crestor) 20 Mg Tab 20 MG PO HS, TAB Trazodone Hcl (Desyrel) 50 Mg Tb 100 MG PO TID Triamterene & Hydrochlorothiaz (Maxzide) 1 Tab Tab 1 TAB PO DAILY, TAB 37.5 - 25 Ziprasidone Hydrochloride (Geodon) 80 Mg Cap 1 CAP PO BID, #60 CAP 1 Refill Discontinued Medications: Diclofenac Epolamine (Flector) 1.3 % Dis 1 PATCH TOP BID, #60 PATCH 2 Refills Hydrocodone-Acetaminophen (Vicodin) 1 Tab Tab 25 MG PO TID PRN for SEVERE PAIN, TAB 5/300MG TABLET Ibuprofen (Ibuprofen) 600 Mg Tab 600 MG PO TID, TAB Prednisone (Prednisone) 5 Mg Tb 5 MG PO DAILY Zolpidem Tartrate (Zolpidem Tartrate) 10 Mg Tab 1 TAB PO HS, #30 TAB 2 Refills Scheduled Adalimumab (Humira Pen), 1 0.8 SC EOW, (Reported) Alprazolam (Xanax), 1 TAB PO DAILY, (Reported) Apixaban Base (Eliquis), 10 MG PO BID Apixaban Base (Eliquis), 5 MG PO BID Buspirone Hcl (Buspirone Hcl), 30 MG PO BID, (Reported) Carisoprodol (Soma), 350 MG PO BID, (Reported) Cephalexin Monohydrate (Cephalexin), 1 CAP PO TID Clonazepam (KlonoPIN TABLET), 1 TAB PO BID, (Reported) Cyclobenzaprine Hcl (Flexeril), 1 TAB PO TID, (Reported) Duloxetine Hcl (Cymbalta), 60 MG PO DAILY, (Reported) Esomeprazole Magnesium Trihydr (Nexium), 1 CAP PO DAILY, (Reported) Folic Acid (Folic Acid), 1 MG PO DAILY, (Reported) Furosemide (Lasix Tablet), 20 MG PO DAILY, (Reported) Hydroxyzine Hcl (Hydroxyzine Hcl), 25 MG PO TID, (Reported) Levothyroxine Sodium (Levothyroxine Sodium), 1 TAB PO QAM, (Reported) Liothyronine Sodium (Cytomel), 5 MCG OR BID, (Reported) Lubiprostone (Amitiza), 1 CAP PO DAILY, (Reported) Olanzapine (Zyprexa), 15 MG OR HS, (Reported) Omeprazole (Prilosec), 40 MG PO DAILY, (Reported) Rosuvastatin Calcium (Crestor), 20 MG PO HS, (Reported) Trazodone Hcl (Desyrel), 100 MG PO TID, (Reported) Triamterene & Hydrochlorothiaz (Maxzide), 1 TAB PO DAILY, (Reported) Ziprasidone Hydrochloride (Geodon), 1 CAP PO BID, (Reported) Scheduled PRN Hydrocodone-Acetaminophen ([place] 5/325MG), 1 TAB PO TIDP PRN for MODERATE PAIN, (Reported) Miscellaneous Medications Methotrexate (Methotrexate), 2.5 MG PO, (Reported) Discontinued Medications Diclofenac Epolamine (Flector), 1 PATCH TOP BID, (Reported) Hydrocodone-Acetaminophen (Vicodin), 25 MG PO TID PRN for SEVERE PAIN, (Reported) Ibuprofen (Ibuprofen), 600 MG PO TID, (Reported) Prednisone (Prednisone), 5 MG PO DAILY, (Reported) Zolpidem Tartrate (Zolpidem Tartrate), 1 TAB PO HS, (Reported) Discharge Statement: "Patient was advised to return to the ER or call 911 if any headaches, dizziness, shortness of breath, chest pain, abdominal pain, bleeding, fevers, or worsening of medical condition. Patient was counseled about treatment plan, medications, possible side effects, patientverbalized understanding. All questions were answered to the best of my ability. This discharge took greater then 30 minutes in planning, reviewing documentation, counseling the patient, and discussing with other team members." ASSESSMENT ASSESSMENT Assessment 74-year-old female with a known history of hypertension, hypothyroidism, GERD, history of cervical cancer status post hysterectomy with a bilateral salpingo- oophorectomy, previous history of back surgery, chronic narcotic dependency and pain meds dependent presented to the hospital with a recurrent falls found to have 1. Recurrent falls 2. DVT of the left lower extremity 3. Acute hypoxic respiratory failure on supplemental oxygenation 4. GERD 5. Hypertension 6. Hypothyroidism 7. History of cervical cancer status post hysterectomy and bilateral salpingo- oophorectomy -continue pain meds as needed, discontinue Lovenox, start Eliquis. Date of Service: Sep 02, 2025 Billing Provider: BON UMANZOR MD Common Visit Codes: [id number] DISCH DAY >30min BON UMANZOR MD Sep 02, 2025 15:33
== END 2025-09-02 16:45 | disposition home health service (06) | DRG 299 ==
LOC: ER 03:22 → EDBD 03:22 → OVERFLOW 10:47 → TELE-WESTW 19:42 → TELE-CENTR 08-30 02:05
PROVIDERS: ADMIT Internal Medicine; ATTEND Internal Medicine
DX: I82.411 Acute embolism and thrombosis of right femoral vein (principal); J96.01 Acute respiratory failure with hypoxia; N17.9 Acute kidney failure, unspecified; I10 Essential (primary) hypertension; E03.9 Hypothyroidism, unspecified; D64.9 Anemia, unspecified; R29.6 Repeated falls; K21.9 Gastro-esophageal reflux disease without esophagitis; E87.6 Hypokalemia; G62.9 Polyneuropathy, unspecified; F41.9 Anxiety disorder, unspecified; Z85.41 Personal history of malignant neoplasm of cervix uteri; Z90.710 Acquired absence of both cervix and uterus; Z88.6 Allergy status to analgesic agent; Z88.0 Allergy status to penicillin
CPT/HCPCS: 36415; 70450; 71045; 72170; 80048; 80053; 81001; 84484; 85025; 93005; 93306; 93970; 96361; 96374; 96375; 97116; 97163; 99291; G0378; J1885; J2405; J2470

== ENCOUNTER 2025-09-07 17:46 | Inpatient (IN) | payer MEDICARE, MEDICAID ==
[~2025-09-07] VITALS: Ht 165.1 cm; Wt 81.2 kg
[~2025-09-07 17:46] MED LIST changes: +APIX5TAB PO; +CEPH500C PO; -DICL1.3P TOP; -HYDR-3547 PO; -IBUP-1454 PO; +MECL12.586 PO; +NITR-87 PO; -PRE5T PO; -ZOLP10TA6 PO
--- NOTE | 2025-09-07 18:03 | ED.PDOC ---
History of Present Illness HPI Comments 74-year-old female with a past medical history of HTN, depression, anxiety presents to the ED via EMS with a chief complaint of LT hip pain onset today. Per EMS, patient had a fractured LT hip on 04/10/25, had surgery. Since then patient has been on pain medication, Percocet. Patient ran out of medication about 1 month ago, has been experiencing pain since, noticed pain worsened today. Patient was discharged from [facility] on 09/02/2025, was admitted due to multiple falls. Patient is usually able to ambulate with a walker. Denies LOC, head injury, fall, injury, nausea, vomiting, chest pain, dizziness, headache. No other symptoms or modifying factors present at this time. Chief Complaint: Back Pain Time Seen by MD: 17:55 Primary Care Provider: TAYLOR Reviewed Notes: Medications, Allergies Allergies: Coded Allergies: Aspirin (Verified Allergy, Unknown, 07/26/15) Codeine (Unverified Allergy, Unknown, 07/26/15) Penicillins (Verified Allergy, Unknown, 07/26/15) Home Meds Active Scripts Apixaban Base (ELIQUIS) 5 Mg Tab, 5 MG PO BID for 30 Days, #60 TAB STARTING FROM 09/09/2025 Prov:BON UMANZOR MD 09/02/25 Apixaban Base (ELIQUIS) 5 Mg Tab, 10 MG PO BID for 6 Days, #24 TAB 10MG BID X 7 DAYS THEN 5MG PO BID FOR AT LEAST 6 MONTHS FOR DVT/PE TREATMENT Prov:BON UMANZOR MD 09/02/25 Cephalexin Monohydrate (Cephalexin) 500 Mg Cap, 1 CAP PO TID for 5 Days, #15 CAP Prov:BON UMANZOR MD 09/02/25 Reported Medications Alprazolam (Xanax) 0.25 Mg Tb, 1 TAB PO DAILY, #30 TAB 07/26/15 Carisoprodol (Soma) 350 Mg Tab, 350 MG PO BID, TAB 07/26/15 Hydrocodone-Acetaminophen ([place] 5/325MG) 1 Tab Tb, 1 TAB PO TIDP PRN for MODERATE PAIN, #90 TAB 07/26/15 Esomeprazole Magnesium Trihydr (Nexium) 40 Mg Cap, 1 CAP PO DAILY, #30 CAP 5 Refills 07/26/15 Levothyroxine Sodium (Levothyroxine Sodium) 88 Mcg Tab, 1 TAB PO QAM, #30 TAB 5 Refills 07/26/15 Adalimumab (Humira Pen) 40MG/0.8 Kit, 1 0.8 SC EOW, KIT 07/26/15 Ziprasidone Hydrochloride (Geodon) 80 Mg Cap, 1 CAP PO BID, #60 CAP 1 Refill 07/26/15 Cyclobenzaprine Hcl (Flexeril) 5 Mg Tab, 1 TAB PO TID, #90 TAB 07/26/15 Clonazepam (KlonoPIN TABLET) 0.5 Mg Tb, 1 TAB PO BID, #60 TAB 1 Refill 07/26/15 Buspirone Hcl (Buspirone Hcl) 15 Mg Tab, 30 MG PO BID, TAB 07/26/15 Lubiprostone (Amitiza) 8 Mcg Cap, 1 CAP PO DAILY, #60 CAP 5 Refills 07/26/15 Trazodone Hcl (Desyrel) 50 Mg Tb, 100 MG PO TID 03/27/14 Furosemide (LASIX TABLET) 40 Mg Tb, 20 MG PO DAILY 03/27/14 Duloxetine Hcl (Cymbalta) 60 Mg Cap, 60 MG PO DAILY, CAP 03/27/14 Omeprazole (PRILOSEC) 20 Mg Cap, 40 MG PO DAILY, CAP 03/27/14 Methotrexate (Methotrexate) 2.5 Mg Tab, 2.5 MG PO, TAB TAKE 6 TABLETS EVERY WEEK 03/27/14 Rosuvastatin Calcium (Crestor) 20 Mg Tab, 20 MG PO HS, TAB 03/27/14 Folic Acid (Folic Acid) 1 Mg Tab, 1 MG PO DAILY, TAB 03/27/14 Hydroxyzine Hcl (Hydroxyzine Hcl) 50 Mg Tab, 25 MG PO TID, TAB 03/27/14 Triamterene & Hydrochlorothiaz (Maxzide) 1 Tab Tab, 1 TAB PO DAILY, TAB 37.5 - 25 03/27/14 Olanzapine (Zyprexa) 5 Mg Tab, 15 MG OR HS 09/20/11 Liothyronine Sodium (Cytomel) 5 Mcg Tab, 5 MCG OR BID 09/20/11 Discontinued Reported Medications Zolpidem Tartrate (Zolpidem Tartrate) 10 Mg Tab, 1 TAB PO HS, #30 TAB 2 Refills 07/26/15 Diclofenac Epolamine (Flector) 1.3 % Dis, 1 PATCH TOP BID, #60 PATCH 2 Refills 07/26/15 Prednisone (PREDNISONE) 5 Mg Tb, 5 MG PO DAILY 03/27/14 Hydrocodone-Acetaminophen (VICODIN) 1 Tab Tab, 25 MG PO TID PRN for SEVERE PAIN, TAB 5/300MG TABLET 03/27/14 Ibuprofen (Ibuprofen) 600 Mg Tab, 600 MG PO TID, TAB 03/27/14 Information Source: Patient, Emergency Med Personnel Mode of Arrival: EMS Severity: Moderate Timing: Hours Duration: Since onset Prehospital treatment: None Past Medical History PAST MEDICAL HISTORY: Anxiety, Depression, HTN, Schizophrenia Surgical History: Denies all surgeries MEDIA PRODUCER History: No Pertinent MEDIA PRODUCER History Family History Family History: Reviewed,noncontributory to illness Social History Smoker: Non-Smoker Alcohol: Denies ETOH Use Drugs: Denies Drug Use Lives In: Home Constitutional: denies: chills, diaphoresis, fatigue, fever, malaise, sweats, weakness, others EENTM: denies: blurred vision, double vision, ear bleeding, ear discharge, ear drainage, ear pain, ear ringing, eye pain, eye redness, hearing loss, mouth pain, mouth swelling, nasal discharge, nose bleeding, nose congestion, nose pain, photophobia, tearing, throat pain, throat swelling, voice changes, others Respiratory: denies: cough, hemoptysis, orthopnea, SOB at rest, shortness of breath, SOB with excertion, stridor, wheezing, others Cardiovascular: denies: chest pain, dizzy spells, diaphoresis, Dyspnea on exertion, edema, irregular heart beat, left arm pain, lightheadedness, palpitations, PND, syncope, others Gastrointestinal: denies: abdomen distended, abdominal pain, blood streaked bowels, constipated, diarrhea, dysphagia, difficulty swallowing, hematemesis, melena, nausea, poor appetite, poor fluid intake, rectal bleeding, rectal pain, vomiting, others Genitourinary: denies: abnormal vagina bleeding, burning, dyspareunia, dysuria, flank pain, frequency, hematuria, incontinence, pain, , vagina discharge, urgency, others Neurological: denies: dizziness, fainting, headache, left sided numbness, left sided weakness, numbness, paresthesia, pre-existing deficit, right sided numbness, right sided weakness, seizure, speech problems, tingling, tremors, weakness, others Musculoskeletal: reports: others (LT hip pain); denies: back pain, gout, joint pain, joint swelling, muscle pain, muscle stiffness, neck pain Integumetry: denies: bruises, change in color, change in hair/nails, dryness, laceration, lesions, lumps, rash, wounds, others Allergic/Immunocompromised: denies: Difficulty Healing, Frequent Infections, Hives, Itching, others Hematologic/Lymphatic: denies: anemia, blood clots, easy bleeding, easy bruising, swollen glands, others Endocrine: denies: excessive hunger, excessive sweating, excessive thirst, excessive urination, flushing, intolerance to cold, intolerance to heat, unexplained weight gain, unexplained weight loss, others Psychiatric: denies: anxiety, bipolar disorder, depression, hopeless, panic disorder, schizophrenia, sleepless, suicidal, others All Other Systems: Reviewed and Negative Physical Exam General Appearance: Moderate Distress, Normal, Other (anxious) HEENT: Normal ENT Inspection, Pharynx Normal, TMs Normal Neck: Full Range of Motion, Non-Tender, Normal, Normal Inspection Respiratory: Chest Non-Tender, Lungs Clear, No Accessory Muscle Use, No Respiratory Distress, Normal Breath Sounds Cardiovascular: No Edema, No JVD, No Murmur, No Gallop, Normal Peripheral Pulses, Regular Rate/Rhythm Breast Exam: Deferred Gastrointestinal: No Organomegaly, Non Tender, No Pulsatile Mass, Normal Bowel Sounds, Soft Genitalia: Deferred Pelvic: Deferred Rectal: Deferred Extremities: No calf tenderness, Normal capillary refill Musculoskeletal : Extremity Location: Other ([place] intact.) Apperance: Normal Neurologic: Alert, 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 Was a procedure done?: No Differential Dx Considerations may include: Cauda equina, herniated disc, intractable pain, schizophrenia X-Ray, Labs, Meds, VS Vital Signs Date Time Temp Pulse Resp B/P (MAP) Pulse Ox O2 Delivery O2 Flow Rate FiO2 09/07/25 18:31 115 16 97 Room Air 09/07/25 18:31 98.7 115 16 160/61 (94) 97 98.7 09/07/25 17:58 97.9 90 18 175/90 99 97.9 Current Medications Medications (Trade) Dose Ordered Sig/Lydia Route Start Time Stop Time Status Last Admin Oxycodone/ Acetaminophen (Percocet 5/ 325MG Tablet) 2 tab ONCE ONCE PO 09/07/25 18:15 09/07/25 18:16 DC 09/07/25 18:28 X-Ray, Labs, Meds, VS Comment Patient will be admitted for intractable lower back pain There was concerns that patient has a unable to care for herself as she lives alone Patient is friend is present in [id number], states that patient does have schizophrenia, [facility] is in the works but they have not received a call on when this started time will happen Patient may benefit from social service consult upon discharge Time of 1ST Reevaluation: 18:25 Reevaluation 1ST: Unchanged Patient Education/Counseling: Diagnosis, Treatment, Prognosis Family Education/Counseling: No Family Present SEPSIS Sepsis Screen Physician Orders Ct Ab Pel Wo Con-No Oral Or Iv (09/07/25 20:26) Vital Signs Date Time Temp Pulse Resp B/P (MAP) Pulse Ox O2 Delivery O2 Flow Rate FiO2 09/07/25 18:31 115 16 97 Room Air 09/07/25 18:31 98.7 115 16 160/61 (94) 97 98.7 09/07/25 17:58 97.9 90 18 175/90 99 97.9 Medications Medications Dose Ordered Sig/Lydia Route Start Time Stop Time Status Last Admin Dose Admin Oxycodone/ Acetaminophen 2 tab ONCE ONCE PO 09/07/25 18:15 09/07/25 18:16 DC 09/07/25 18:28 Departure 1 Departure Time of Disposition: 20:40 Impression: Primary Impression: Back pain Qualified Codes: G89.29 - Other chronic pain; M54.42 - Lumbago with sciatica, left side Additional Impressions: Inability to walk Multiple falls Weakness Disposition: 09 ADMITTED INPATIENT Condition: Stable Discharged With: Self Critical Care Note Critical Care Time?: No Stability Stability form required: No Heart Score Heart Score: Heart Score Response (Comments) Value History N/A 0 EKG N/A 0 Age N/A 0 Risk Factors N/A 0 Troponin N/A 0 Total 0 I personally scribed for REBA ORTEGA ([email or web address]) on 09/07/25 at 18:03. Electronically submitted by Hannah Sahu ([email or web address]). REBA ORTEGA Sep 07, 2025 18:03
[2025-09-07] MEDS: OXYCODONE W/ ACETAMINOPHEN 5/325MG TABLET PO ONE (18:28)
--- NOTE | 2025-09-07 21:08 | DVH ---
EXAM: CT CT AB PEL WO CON-NO ORAL OR IV INDICATION: pain TECHNIQUE: Volumetric multidetector CT images of the abdomen and pelvis were obtained without contrast. All CT scans at this facility use dose modulation, iterative reconstruction, and/or weight based dosing when appropriate to reduce radiation dose to as low as reasonably achievable. COMPARISON: XY PELVIS AP on DOS: 08/28/25 FINDINGS: [LOWER CHEST]: Small left-sided pleural effusion. Coronary artery calcifications. The cardiac size is normal without pericardial effusion. [LIVER]: Normal hepatic size without suspicious focal lesion. [GALLBLADDER AND BILIARY TREE]: No cholelithiasis. [SPLEEN]: Unremarkable. [PANCREAS]: Unremarkable. [ADRENAL GLANDS]: Unremarkable [KIDNEYS]: No hydronephrosis. No nephroureterolithiasis. No suspicious focal lesion. [BLADDER]: Unremarkable for the degree distention. [REPRODUCTIVE ORGANS]: Unremarkable. [BOWEL/MESENTERY]: [id number] stool burden. Stomach is normal. No CT evidence of bowel obstruction. [ASCITES]: Absent [LYMPHADENOPATHY]: Prominent abnormal left axillary lymphadenopathy measuring up to 2.8 cm compatible with neoplastic disease. [VASCULATURE]: IVC filter vascular calcifications. No aneurysmal dilatation. [ABDOMINAL WALL]: Significant masslike soft tissue density with asymmetric swelling of the left gluteus medius muscle belly measuring 10.6 x 4.6 cm. Abnormal increased density extending into the region of the left sciatic notch/left piriformis muscle belly. [MUSCULOSKELETAL]: Left femoral hardware in bilateral trans sacroiliac hardware. Evidence of prior extensive thoracolumbar posterior decompression and hardware placement. No acute fracture or aggressive focal osseous lesion. Multifocal degenerative change of the visualized spine. Left lateral breast suspected mass measuring 3.3 x 3.1 cm. Slightly asymmetric left breast skin thickening. IMPRESSION: 1. Left lateral breast mass with left axillary lymphadenopathy and left gluteus medius muscle mass. 2. Small left-sided pleural effusion. 3. Significant masslike soft tissue density with asymmetric swelling of the left gluteus medius muscle belly measuring 10.6 x 4.6 cm. Consider dedicated MRI of the left hip. Consideration for neoplastic disease versus hematoma
[2025-09-07 23:29] LABS: Nucleated Red Blood Cells % 0.0 %
[2025-09-07 23:30] LABS: Hematocrit 24.6 % (36.0-46.0); Hemoglobin 7.8 g/dL (12.2-16.2); Mean Corpuscular Hemoglobin 27.9 pg (28.0-32.0); Mean Corpuscular Volume 87.4 fL (80.0-100.0)
--- NOTE | 2025-09-07 23:34 | DVHHPRES ---
History of Present Illness Resident Creating Document: ZAIN JOSUE RESIDENT History of Present Illness This is a 74-year-old female with past medical history of HTN, questionable CAD, hypothyroidism, GERD, history of cervical cancer, DVT, left hip and pelvic surgery, bilateral hearing difficulty brought by EMS due to left hip pain which is 10/10 intensity, localized, no radiation, aggravated on movement and mild relieved on rest. Patient recently discharged on 09/02/2025 due to recurrent fall. Patient discharged with Eliquis due to DVT and with pain medication. Spoke to Ilene([employer]) patient lives alone and complaint of severe left hip pain after awoke sheep sticker. Denies any fall or trauma after discharge from hospital. Patient had left hip surgery on April 10, 2025 and placed in shelter. During discharge, patient found left axillary lump and scheduled for biopsy to rule out malignancy. During encounter in ER, patient complained of severe left hip pain but denies any fever, chest pain, headache, SOB, abdominal pain or any other focal weakness. For Health insurance issues, patient did not follow-up with pain management or psychiatrist. 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 Past medical: As above Past surgical history: As above Personal history: Denies smoking or illicit drug use but ETOH occasionally Family history: Nothing contributory Allergy: Aspirin, codeine, penicillins PCP: Dr. Du Home medicine: Linaclotide, gabapentin, lurasidone vitamin D3, ibuprofen, divalproex, quetiapine Eliquis. Review of Systems Constitutional: Yes: Weakness, Malaise; No: Fever, Chills, Sweats, Other Eyes: No: Pain, Vision change, Conjunctivae inflammation, Eyelid inflammation, Other, Redness ENT: No: Ear pain, Ear discharge, Nose pain, Nose discharge, Nose congestion, Mouth pain, Mouth swelling, Throat pain, Throat swelling, Other Respiratory: No: Cough, Dry, Shortness of breath, SOB with excertion, Wheezing, Hemoptysis, Pleuritic Pain, Sputum, Wheezing, Other Cardiovascular: No: Chest Pain, Palpitations, Orthopnea, Paroxysmal Noc. Dyspn ea, Edema, Lt Headedness, Other Gastrointestinal: No: Nausea, Vomiting, Abdominal Pain, Diarrhea, Constipation, Melena, Hematochezia, Other Genitourinary: No Dysuria, No Frequency, No Incontinence, No Hematuria, No Retention, No Other Musculoskeletal: other (Left hip pain), back pain; No: neck pain, shoulder pain, arm pain, hand pain, leg pain, foot pain Skin: No: Rash, Lesions, Jaundice, Bruising, Other Neurological: No: Weakness, Numbness, Incoordination, Change in speech, Confusion, Seizures, Other Allergies: Coded Allergies: Aspirin (Verified Allergy, Unknown, 07/26/15) Codeine (Unverified Allergy, Unknown, 07/26/15) Penicillins (Verified Allergy, Unknown, 07/26/15) Exam Vital Signs Vital Signs Date Time Temp Pulse Resp B/P (MAP) Pulse Ox O2 Delivery O2 Flow Rate FiO2 09/07/25 20:59 98.4 92 14 132/56 (81) 97 98.4 09/07/25 18:31 Room Air General Appearance: Alert, Oriented X3, moderate distress, Other (Hearing difficulty) HEENT: Atraumatic, PERRLA, EOMI Respiratory: Clear to auscultation, Normal air movement Cardiovascular: Regular rate, Normal S1, Normal S2 Abdominal: Normal bowel sounds, Soft, No tenderness, No hepatospenomegaly Extremities: No clubbing, No edema, Other (Left hip and gluteal area tender on deep palpation) Skin: No rashes, No breakdown Neuro: Normal gait, Normal speech, Strength at 5/5 X4 ext, Cranial nerves 3-12 NL, Other Labs/Xrays Labs Test 09/07/25 23:15 Range/Units White Blood Count 12.7 H 4.4-10.8 10^3/uL Red Blood Count 2.81 L 4.0-5.20 10^6/uL Hemoglobin 7.8 L 12.2-16.2 g/dL Hematocrit 24.6 L 36.0-46.0 % Mean Corpuscular Volume 87.4 80.0-100.0 fL Mean Corpuscular Hemoglobin 27.9 L 28.0-32.0 pg Mean Corpuscular Hemoglobin Concent 31.9 L 32.0-36.0 g/dL Red Cell Distribution Width 17.4 H 11.8-14.3 % Platelet Count 609 H 140-450 10^3/uL Mean Platelet Volume 9.0 6.9-10.8 fL Neutrophils (%) (Auto) 75.7 37.0-80.0 % Lymphocytes (%) (Auto) 15.9 10.0-50.0 % Monocytes (%) (Auto) 6.9 0.0-12.0 % Eosinophils (%) (Auto) 0.7 0.0-7.0 % Basophils (%) (Auto) 0.8 0.0-2.0 % Neutrophils # (Auto) 9.7 H 1.6-8.6 10 ^3/uL Lymphocytes # (Auto) 2.0 0.4-5.4 10 ^3/uL Monocytes # (Auto) 0.9 0-1.3 10 ^3/uL Eosinophils # (Auto) 0.1 0-0.8 10 ^3/uL Basophils # (Auto) 0.1 0-0.2 10 ^3/uL Nucleated Red Blood Cells 0.0 % SEPSIS Sepsis Screen Date sepsis recognized/suspect: Sep 07, 2025 Time Sepsis recognized/suspect: 1800 Recent Procedure: No On Antibiotic Therapy: No Respiratory Rate >20: No Heart Rate >90: No Temp<36 C (96.8 F) or >38.3 C: No SBP <90 or MAP <65 mmHG: No New Acute Mental Status Change: No Is the patient on CPAP, BIPAP,: No Physician Orders Ct Ab Pel Wo Con-No Oral Or Iv (09/07/25 20:26) Comprehensive Metabolic Panel (09/07/25 23:06) Lactic Acid W/ Reflex Order (09/07/25 23:06) Urinalysis (09/07/25 23:06) Admit (09/07/25 23:22) Code Status (09/07/25 23:22) 0.9% Ns 1000 Ml (09/07/25 23:30) Cardiac Diet-2gna,Lofat,Lochol (09/08/25 Breakfast) Notify Of Changes From Base (09/07/25 23:22) Electrocardigram (09/07/25 23:22) PTPTT (09/07/25 23:22) Hydromorphone Injection (Dilaudid Inject (09/07/25 23:30) L Hip Complete Xray (09/07/25 23:22) Pantoprazole Tablet (Protonix Tablet) (09/08/25 06:00) Sequential Compression Device (09/07/25 23:22) Vital Signs Date Time Temp Pulse Resp B/P (MAP) Pulse Ox O2 Delivery O2 Flow Rate FiO2 09/07/25 20:59 98.4 92 14 132/56 (81) 97 98.4 09/07/25 18:31 115 16 97 Room Air 09/07/25 18:31 98.7 115 16 160/61 (94) 97 98.7 09/07/25 17:58 97.9 90 18 175/90 99 97.9 Laboratory Tests Test 09/07/25 23:15 Lactic Acid Level Pending White Blood Count 12.7 10^3/uL (4.4-10.8) H Medications Medications Dose Ordered Sig/Lydia Route Start Time Stop Time Status Last Admin Dose Admin Oxycodone/ Acetaminophen 2 tab ONCE ONCE PO 09/07/25 18:15 09/07/25 18:16 DC 09/07/25 18:28 2 TAB Assessment/Plan Assessment/Plan Intractable left hip pain Pain left gluteal region likely hematoma History of left hip fracture s/p ORIF Chronic low-back pain and spine surgery Leukocytosis likely reactive secondary to pain In ER patient received Stambaugh. x-ray pelvis(08/28/2025)- There is no evidence of acute fracture or dislocation. Multiple surgical screws in the left hip. Thoracolumbar spinal hardware. CT abdomen and pelvis: Significant masslike soft tissue density with asymmetric swelling of the left gluteus medius muscle belly measuring 10.6 x 4.6 cm. Consideration for neoplastic disease versus hematoma. Pain managed Repeat x-ray left hip and pelvis Bedrest Physical therapy MRI left hip to rule out hematoma. Monitor H&H Blood transfusion if hemoglobin less than 7 Monitor labs and vital Left breast mass with left axillary lymphadenopathy CT abdomen and pelvis showed-Left lateral breast mass with axillary lymphadenopathy Patient scheduled for biopsy. Left pleural effusion Monitor Nonocclusive thrombus right mid superficial femoral vein. Hold Eliquis for now due to suspected hematoma Will resume as per primary Anemia of chronic disease Hemoglobin 7.8, HCT 24.6, MCV 88.4, RDW 17.3 Depression Bipolar disorder Quetiapine Divalproex Psychiatry follow-up outpatient-private psychiatrist Diet: Regular DVT prophylax: SCD due to suspected hematoma left gluteal GI prophylaxis: Pantoprazole Goals of care discussion. More than 29 minute spent with patient. NOK(power of float tender) we will bring paper and review and confirm code status. Patient full code status right now. Case discussed with Dr. Baker Plan discussed with: Patient, Other (Nurse) My Orders Orders - ZAIN JOSUE Procedure Category Date Status Time Admit ADMIT 09/07/25 Verified 23:22 Code Status CODE 09/07/25 Verified 23:22 0.9% Ns 1000 Ml PHA 09/07/25 Verified 23:30 Cardiac DIET 09/08/25 Verified Diet-2gna,Lofat,Lochol Breakfast Notify Md Of Changes CELE 09/07/25 Verified From Base 23:22 Electrocardigram EKG 09/07/25 Verified 23:22 PTPTT LAB 09/07/25 Verified 23:22 Hydromorphone PHA 09/07/25 Verified Injection (Dilaudid 23:30 L Hip Complete Xray XY 09/07/25 Verified 23:22 Pantoprazole Tablet PHA 09/08/25 Verified (Protonix Tablet) 06:00 Sequential CELE 09/07/25 Verified Compression Device 23:22 Date of Service: Sep 07, 2025 Billing Provider: JIMMIE BAKER MD Common Visit Codes: [id number] INP/OBS CARE (HIGH) Secondary Visit Codes: [id number] CARE PLAN 30 MINUTES ZAIN JOSUE Sep 07, 2025 23:34
[2025-09-07 23:47] LABS: Alanine Aminotransferase 14 U/L (7-40); Albumin 3.6 g/dL (3.2-4.8); Anion Gap 9 (5-15); BUN/Creatinine Ratio 24.1 (10.0-20.0); Blood Urea Nitrogen 20 mg/dL (9-23); Carbon Dioxide 22 mmol/L (20-31); Chloride 107 mmol/L (98-107); Potassium 3.9 mmol/L (3.5-5.1); Sodium 138 mmol/L (136-145); Total Protein 7.2 g/dL (5.7-8.2)
[2025-09-07 23:48] LABS: Bilirubin, Total 0.3 mg/dL (0.2-1.0)
[2025-09-07 23:49] LABS: Alkaline Phosphatase 126 U/L (46-116); Calcium 8.6 mg/dL (8.7-10.4); Glucose 109 mg/dL (74-106)
[2025-09-08 00:24] LABS: INR 1.15 (0.9-1.15); Partial Thromboplastin Time 38.8 SEC (24.5-34.5); Prothrombin Time 12.0 sec (9.3-11.8)
[2025-09-08] MEDS: HYDROmorphone HCL 2 MG/ML VL/or syr IV PRN ×2 (00:32→18:55)
[2025-09-08] MEDS: SODIUM CHLORIDE 0.9% 1,000 ML IV SCH ×2 (00:32→04:16)
--- NOTE | 2025-09-08 04:12 | DVH ---
CLINICAL INDICATION: Intractable left hip and gluteal area pain TECHNIQUE: XY L HIP COMPLETE XRAY Comparison: XY PELVIS AP on DOS: 08/28/25 FINDINGS/IMPRESSION: : Mild diffuse generalized osseous demineralization. There is no definite evidence of acute fracture or dislocation. K pins within the left femoral neck and hardware within the lower lumbar spine, lumbosacral junction and bilateral sacroiliac joints without evidence of complication. Soft tissues are unremarkable.
[2025-09-08] MEDS: SODIUM CHLORIDE 0.9% 500 ML IV ONE (04:16)
[2025-09-08 05:42] LABS: Sodium 141 mmol/L (136-145)
[2025-09-08 05:46] LABS: Glucose 98 mg/dL (74-106)
[2025-09-08 05:47] LABS: BUN/Creatinine Ratio 26.2 (10.0-20.0); Blood Urea Nitrogen 17 mg/dL (9-23)
[2025-09-08 05:53] LABS: Calcium 7.4 mg/dL (8.7-10.4)
[2025-09-08 05:54] LABS: Anion Gap 9 (5-15); Carbon Dioxide 20 mmol/L (20-31); Chloride 112 mmol/L (98-107); Potassium 3.4 mmol/L (3.5-5.1)
[2025-09-08] MEDS: PANTOPRAZOLE 40 MG TAB PO SCH (06:34)
[2025-09-08] MEDS: LEVOTHYROXINE SODIUM 88 MCG TAB PO SCH (06:42)
[2025-09-08 07:33] LABS: Urine Protein, UAD TRACE (Negative)
[2025-09-08 08:24] LABS: Hematocrit 19.7 % (36.0-46.0); Mean Corpuscular Hemoglobin 27.9 pg (28.0-32.0); Mean Corpuscular Volume 87.2 fL (80.0-100.0); Nucleated Red Blood Cells % 0.0 %
[2025-09-08 08:28] LABS: Hemoglobin 6.3 g/dL (12.2-16.2)
[2025-09-08] MEDS: POTASSIUM CHLORIDE 40 MEQ, LIDOCAINE 1% (LOCAL ANESTH.) 4 ML in SODIUM CHL 0.9% 250 ML IV ONE (10:35)
[2025-09-08 11:30] VITALS: PULSE 92; RESP 18; O2SAT 95
--- NOTE | 2025-09-08 11:44 | DVHINCON2 ---
Consultation - Surgical Date Seen: Sep 08, 2025 Referring Physician Reason for Consultation Left gluteal hematoma History of Present Illness History of Present Illness Mrs. Mcclendon is a 74-year-old female who presented to the hospital due to left gluteal pain and continues falls. Patient was recently admitted to the hospital at the end of August due to a fall, but stated that she has not fallen since then and she principally came because of the pain in the left gluteal area. I tried seeing if she gets dizzy before the falls or trips but I never got an answer from it, patient is just stated that she just falls. Patient states that she has a lot of back issues, where she broke her back several years ago due to a fall, and was unable to ambulate for 2 years, she started ambulating 6 months ago. Denies being currently sick recently sick, nausea, vomiting, abdominal pain, changes in urinary or stooling habits. Past Medical/Surgical History Past Medical/Surgical History past medical history of HTN, questionable CAD, hypothyroidism, GERD, history of cervical cancer, DVT, left hip and pelvic surgery, bilateral hearing difficulty Allergies and medications Allergies: Coded Allergies: Aspirin (Verified Allergy, Unknown, 07/26/15) Codeine (Unverified Allergy, Unknown, 07/26/15) Penicillins (Verified Allergy, Unknown, 07/26/15) Home Meds Active Scripts Apixaban Base (ELIQUIS) 5 Mg Tab, 5 MG PO BID for 30 Days, #60 TAB STARTING FROM 09/09/2025 Prov:BON UMANZOR MD 09/02/25 Apixaban Base (ELIQUIS) 5 Mg Tab, 10 MG PO BID for 6 Days, #24 TAB 10MG BID X 7 DAYS THEN 5MG PO BID FOR AT LEAST 6 MONTHS FOR DVT/PE TREATMENT Prov:BON UMANZOR MD 09/02/25 Cephalexin Monohydrate (Cephalexin) 500 Mg Cap, 1 CAP PO TID for 5 Days, #15 CAP Prov:BON UMANZOR MD 09/02/25 Reported Medications Alprazolam (Xanax) 0.25 Mg Tb, 1 TAB PO DAILY, #30 TAB 07/26/15 Carisoprodol (Soma) 350 Mg Tab, 350 MG PO BID, TAB 07/26/15 Hydrocodone-Acetaminophen ([place] 5/325MG) 1 Tab Tb, 1 TAB PO TIDP PRN for MODERATE PAIN, #90 TAB 07/26/15 Esomeprazole Magnesium Trihydr (Nexium) 40 Mg Cap, 1 CAP PO DAILY, #30 CAP 5 Refills 07/26/15 Levothyroxine Sodium (Levothyroxine Sodium) 88 Mcg Tab, 1 TAB PO QAM, #30 TAB 5 Refills 07/26/15 Adalimumab (Humira Pen) 40MG/0.8 Kit, 1 0.8 SC EOW, KIT 07/26/15 Ziprasidone Hydrochloride (Geodon) 80 Mg Cap, 1 CAP PO BID, #60 CAP 1 Refill 07/26/15 Cyclobenzaprine Hcl (Flexeril) 5 Mg Tab, 1 TAB PO TID, #90 TAB 07/26/15 Clonazepam (KlonoPIN TABLET) 0.5 Mg Tb, 1 TAB PO BID, #60 TAB 1 Refill 07/26/15 Buspirone Hcl (Buspirone Hcl) 15 Mg Tab, 30 MG PO BID, TAB 07/26/15 Lubiprostone (Amitiza) 8 Mcg Cap, 1 CAP PO DAILY, #60 CAP 5 Refills 07/26/15 Trazodone Hcl (Desyrel) 50 Mg Tb, 100 MG PO TID 03/27/14 Furosemide (LASIX TABLET) 40 Mg Tb, 20 MG PO DAILY 03/27/14 Duloxetine Hcl (Cymbalta) 60 Mg Cap, 60 MG PO DAILY, CAP 03/27/14 Omeprazole (PRILOSEC) 20 Mg Cap, 40 MG PO DAILY, CAP 03/27/14 Methotrexate (Methotrexate) 2.5 Mg Tab, 2.5 MG PO, TAB TAKE 6 TABLETS EVERY WEEK 03/27/14 Rosuvastatin Calcium (Crestor) 20 Mg Tab, 20 MG PO HS, TAB 03/27/14 Folic Acid (Folic Acid) 1 Mg Tab, 1 MG PO DAILY, TAB 03/27/14 Hydroxyzine Hcl (Hydroxyzine Hcl) 50 Mg Tab, 25 MG PO TID, TAB 03/27/14 Triamterene & Hydrochlorothiaz (Maxzide) 1 Tab Tab, 1 TAB PO DAILY, TAB 37.5 - 25 03/27/14 Olanzapine (Zyprexa) 5 Mg Tab, 15 MG OR HS 09/20/11 Liothyronine Sodium (Cytomel) 5 Mcg Tab, 5 MCG OR BID 09/20/11 Discontinued Reported Medications Zolpidem Tartrate (Zolpidem Tartrate) 10 Mg Tab, 1 TAB PO HS, #30 TAB 2 Refills 07/26/15 Diclofenac Epolamine (Flector) 1.3 % Dis, 1 PATCH TOP BID, #60 PATCH 2 Refills 07/26/15 Prednisone (PREDNISONE) 5 Mg Tb, 5 MG PO DAILY 03/27/14 Hydrocodone-Acetaminophen (VICODIN) 1 Tab Tab, 25 MG PO TID PRN for SEVERE PAIN, TAB 5/300MG TABLET 03/27/14 Ibuprofen (Ibuprofen) 600 Mg Tab, 600 MG PO TID, TAB 03/27/14 Review of systems Review of Systems: Deferred Examination Vital signs Vital Signs Date Time Temp Pulse Resp B/P (MAP) Pulse Ox O2 Delivery O2 Flow Rate FiO2 09/08/25 10:00 74 18 105/52 (69) 99 09/08/25 07:41 98.6 98.6 09/08/25 07:38 Room Air* 0 21 Medications Current Medications Medications (Trade) Dose Ordered Sig/Lydia Route PRN Reason Start Time Stop Time Status Last Admin Sodium Chloride 1,000 ml @ 60 mls/hr [id number] IV 09/07/25 23:30 09/08/25 03:52 DC 09/08/25 00:32 Hydromorphone HCl (Dilaudid Injection) 0.5 mg Q6HP PRN IV MODERATE PAIN (4-6 PAIN SCALE) 09/07/25 23:30 09/08/25 00:32 Pantoprazole Sodium (Protonix Tablet) 40 mg DAILY@0600 PO 09/08/25 06:00 09/08/25 06:34 Quetiapine Fumarate (SEROquel TABLET) 200 mg HS PO 09/08/25 22:00 Divalproex Sodium (Depakote "Dr" Tablet) 125 mg TID PO 09/08/25 06:00 09/08/25 06:34 Levothyroxine Sodium (Synthroid Tablet) 88 mcg QAM PO 09/08/25 07:00 09/08/25 06:42 Sodium Chloride 1,000 ml @ 75 mls/hr [id number] IV 09/08/25 04:00 09/08/25 04:16 Acetaminophen (Tylenol Tablet) 650 mg Q6HR PO 09/08/25 12:00 Laboratory Labs Test 09/08/25 08:00 09/08/25 06:23 09/08/25 05:14 09/07/25 23:15 Range/Units White Blood Count 9.8 4.4-10.8 10^3/uL Red Blood Count 2.26 L 4.0-5.20 10^6/uL Hemoglobin 6.3 #*L 12.2-16.2 g/dL Hematocrit 19.7 #L 36.0-46.0 % Mean Corpuscular Volume 87.2 80.0-100.0 fL Mean Corpuscular Hemoglobin 27.9 L 28.0-32.0 pg Mean Corpuscular Hemoglobin Concent 32.0 32.0-36.0 g/dL Red Cell Distribution Width 17.2 H 11.8-14.3 % Platelet Count 456 H 140-450 10^3/uL Mean Platelet Volume 9.0 6.9-10.8 fL Neutrophils (%) (Auto) 64.3 37.0-80.0 % Lymphocytes (%) (Auto) 25.1 10.0-50.0 % Monocytes (%) (Auto) 8.7 0.0-12.0 % Eosinophils (%) (Auto) 1.2 0.0-7.0 % Basophils (%) (Auto) 0.7 0.0-2.0 % Neutrophils # (Auto) 6.3 1.6-8.6 10 ^3/uL Lymphocytes # (Auto) 2.5 0.4-5.4 10 ^3/uL Monocytes # (Auto) 0.9 0-1.3 10 ^3/uL Eosinophils # (Auto) 0.1 0-0.8 10 ^3/uL Basophils # (Auto) 0.1 0-0.2 10 ^3/uL Nucleated Red Blood Cells 0.0 % Urine Color Light-yellow Yellow Urine Clarity Clear Clear Urine pH 6.0 5.0-9.0 Urine Specific [place] 1.018 1.001-1.035 Urine Protein Trace H Negative Urine Ketones 1+ H Negative Urine Blood Negative Negative /uL Urine Nitrite 2+ H Negative Urine Bilirubin Negative Negative Urine Urobilinogen Normal Negative mg/dL Urine Leukocyte Esterase 1+ Negative /uL Urine RBC <1 0 - 4 /hpf Urine Microscopic WBC 53 H 0-5 /HPF Urine Squamous Epithelial Cells None seen <5 /hpf Urine Bacteria Few H None Seen /hpf Urine Glucose Normal Normal mg/dL Sodium Level 141 136-145 mmol/L Potassium Level 3.4 L 3.5-5.1 mmol/L Chloride Level 112 H 98-107 mmol/L Carbon Dioxide Level 20 20-31 mmol/L Anion Gap 9 5-15 Blood Urea Nitrogen 17 9-23 mg/dL Creatinine 0.65 0.550-1.02 mg/dL Glomerular Filtration Rate Calc 92 >90 mL/min BUN/Creatinine Ratio 26.2 H 10.0-20.0 Serum Glucose 98 74-106 mg/dL Hemoglobin A1c < 3.8 <5.7 % A1C Calcium Level 7.4 L 8.7-10.4 mg/dL Prothrombin Time 12.0 H 9.3-11.8 sec Prothrombin Time INR 1.15 0.9-1.15 Activated Partial Thromboplast Time 38.8 H 24.5-34.5 SEC Lactic Acid Level 0.9 0.4-2.0 mmol/L Total Bilirubin 0.3 0.2-1.0 mg/dL Aspartate Amino Transferase (AST) 16 13-40 U/L Alanine Aminotransferase (ALT) 14 7-40 U/L Alkaline Phosphatase 126 H 46-116 U/L Total Protein 7.2 5.7-8.2 g/dL Albumin 3.6 3.2-4.8 g/dL Vitamin B12 Level 518 211-911 pg/mL Vitamin D 25-Hydroxy 34.8 30.0-100 ng/mL Examination: GENERAL:Normal (AAO x3), LUNGS:Normal (Nonlabored breathing with symmetric expansion), SKIN:Normal (Left gluteal area tender, no ecchymosis, no m asses) Problem List/Assessment/Plan Problems: (1) Hematoma (2) Breast mass Assessment and Plan Mrs. Mcclendon is a 74-year-old female who presented with a left gluteal hematoma after a fall. Patient is currently on Eliquis, last taken yesterday. I reviewed the CT scan and shows a left gluteal hematoma approximately 10.6 x 4.6 cm, it was done without IV contrast so can not tell if she has active bleeding, but her hemoglobin level dropped to 6.3 from 7.8, I would assume that she has active bleeding given this drop and that she is also on Eliquis. Also in the CT scan I saw a mass on the left breast with some axillary adenopathy. 1. Reverse anticoagulation with for factor PCC or with and Andexanet alpha 2. CT with IV contrast to assess active bleeding 3. If patient is actively bleeding in the left gluteal area she will need IR consultation for possible embolization. 4. Hold any antiplatelets or any anticoagulation medications 5. Recommend workup for recurrent falls carotid ultrasound and CTA of the brain 6. Transfused PRN 7. For the left breast mass with axillary adenopathy I recommend obtaining a breast ultrasound and a mammogram Plan discussed with Plan discussed with: Patient Visit Coding Surgery Date of Service if different f: Sep 08, 2025 Billing Provider: HANANE HARVEY MD Surgery Visit Codes: 49162 - INP CONSULT <110 MIN HANANE HARVEY MD Sep 08, 2025 11:44
[2025-09-08] MEDS: ACETAMINOPHEN 325 MG TAB PO SCH (12:00)
[2025-09-08] MEDS: IOHEXOL 300 MG/ML 100ML BOTTLE IJ ONE (12:17)
--- NOTE | 2025-09-08 13:53 | DVH ---
EXAM: CT LT LOWER EXTREMITY W CONTRAS INDICATION: left gluteus medius muscle hematoma, active bleeding TECHNIQUE: Axial images of left lower extremity with contrast have been obtained along with coronal and sagittal reformatted images. All CT scans at this facility use dose modulation, iterative reconstruction, and/or weight based dosing when appropriate to reduce radiation dose to as low as reasonably achievable. COMPARISON: None FINDINGS: BONES: Bilateral trans sacroiliac screws. Evidence of prior posterior decompression. Left femoral screws. Severe degenerative change of the left hip with joint space loss. Chondrocalcinosis of the pubic symphysis and joint space loss. No osseous lucency along the hardware bone interfaces. No perihardware fracture. MUSCLES: Presumed hematoma with oval shaped morphology overlying the left greater trochanter measuring 7.9 x 4.7 cm with increased density. Superior extension along the left gluteus medius muscle belly and inferior extension to the intergluteal bursal region, and underneath the gluteus bentley. Subsequent asymmetric swelling of the left lower extremity. JOINT SPACES: Severe degenerative change of the left hip with joint space loss. Chondrocalcinosis of the pubic symphysis and joint space loss. TENDONS/LIGAMENTS: Soft tissue calcification of the left hamstring tendon origin. OTHER: Castaneda catheter in place. Minimal circumferential bladder wall thickening. IMPRESSION: 1. Oval shaped hematoma overlying the left greater trochanter with extension along the left gluteus medius muscle belly and intergluteal bursal region. 2. No CT evidence of an acute fracture. 3. Severe degenerative change of the left hip. 4. In regards to the clinical question, no focus of contrast extravasation to suggest acute active bleeding.
[2025-09-08 15:36] LABS: Hematocrit 20.9 % (36.0-46.0)
[2025-09-08 15:42] LABS: Hemoglobin 6.4 g/dL (12.2-16.2)
[2025-09-08 18:45] VITALS: RESP 16; O2SAT 98
[2025-09-08 19:36] LABS: Iron 16.0 ug/dL (50-170); Total Iron Binding Capacity 194.0 ug/dL (250-425)
--- NOTE | 2025-09-08 19:43 | DVHPNRES ---
Progress Note Date Seen: Sep 08, 2025 Resident Creating Document: AMMON APARICIO RESIDENT Medical Necessity Reason Pt with a Central, PICC or Fol: No Subjective Review of Systems This is a 74-year-old female with past medical history of HTN, questionable CAD, hypothyroidism, GERD, history of cervical cancer, DVT, left hip and pelvic surgery, bilateral hearing difficulty brought by EMS due to left hip pain which is 10/10 intensity, localized, no radiation, aggravated on movement and mild relieved on rest. Patient recently discharged on 09/02/2025 due to recurrent fall. Patient discharged with Eliquis due to DVT and with pain medication. 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 Denies any fall or trauma after discharge from hospital. Patient had left hip surgery on April 10, [facility] During discharge, patient found left axillary lump and scheduled for biopsy to rule out malignancy. During encounter in ER, patient complained of severe left hip pain but denies any fever, chest pain, headache, SOB, abdominal pain or any other focal weakness. For Health insurance issues, patient did not follow-up with pain management or psychiatrist. 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 Past medical: As above Past surgical history: As above Personal history: Denies smoking or illicit drug use but ETOH occasionally Family history: Nothing contributory Allergy: Aspirin, codeine, penicillins PCP: Dr. Du Home medicine: Linaclotide, gabapentin, lurasidone vitamin D3, ibuprofen, divalproex, quetiapine Eliquis Objective vital signs Vital Sign Date Time Temp Pulse Resp B/P (MAP) Pulse Ox O2 Delivery O2 Flow Rate FiO2 09/08/25 18:55 91 18 131/74 09/08/25 16:00 98.3 96 98.3 09/08/25 11:30 Room Air* 0 21 Total Intake and Output 09/07/25 09/07/25 09/08/25 15:00 23:00 07:00 Intake Total 830 ml Balance 830 ml medications Current Medications Medications Dose Ordered Sig/Lydia Route Start Time Stop Time Status Last Admin Dose Admin Pantoprazole Sodium 40 mg DAILY@0600 PO 09/08/25 06:00 09/08/25 06:34 40 MG Quetiapine Fumarate 200 mg HS PO 09/08/25 22:00 Divalproex Sodium 125 mg TID PO 09/08/25 06:00 09/08/25 13:46 125 MG Levothyroxine Sodium 88 mcg QAM PO 09/08/25 07:00 09/08/25 06:42 88 MCG Sodium Chloride 1,000 ml @ 75 mls/hr [id number] IV 09/08/25 04:00 09/08/25 17:20 75 MLS/HR Acetaminophen 650 mg Q6HR PO 09/08/25 12:00 Hydromorphone HCl 0.25 mg Q4HPRN PRN IV 09/08/25 18:15 09/08/25 18:55 0.25 MG Examination General Appearance: Alert, Oriented X3, moderate distress, Other (Hearing difficulty) HEENT: Atraumatic, PERRLA, EOMI Respiratory: Clear to auscultation, Normal air movement Cardiovascular: Regular rate, Normal S1, Normal S2 Abdominal: Normal bowel sounds, Soft, No tenderness, No hepatospenomegaly Extremities: No clubbing, No edema, Other (Left hip and gluteal area tender on deep palpation) Skin: No rashes, No breakdown Neuro: Normal gait, Normal speech, Strength at 5/5 X4 ext, Cranial nerves 3-12 NL, Other laboratory and microbiology Laboratory Tests 09/08/25 15:08 09/08/25 08:00 09/08/25 05:14 Test 09/08/25 05:14 Range/Units Serum Glucose 98 74-106 mg/dL Problem List/Assessment/Plan Problem List/Assessment/Plan Assessment/Plan Intractable left hip pain Pain left gluteal region likely hematoma History of left hip fracture s/p ORIF Chronic low-back pain and spine surgery Leukocytosis likely reactive secondary to pain In ER patient received [place]. x-ray pelvis(08/28/2025)- There is no evidence of acute fracture or dislocation. Multiple surgical screws in the left hip. Thoracolumbar spinal hardware. CT abdomen and pelvis: Significant masslike soft tissue density with asymmetric swelling of the left gluteus medius muscle belly measuring 10.6 x 4.6 cm. Consideration for neoplastic disease versus hematoma. Pain managed Repeat x-ray left hip and pelvis Bedrest Physical therapy MRI left hip to rule out hematoma. Monitor H&H Blood transfusion if hemoglobin less than 7 Monitor labs and vital Surgery Consult Left breast mass with left axillary lymphadenopathy CT abdomen and pelvis showed-Left lateral breast mass with axillary lymphadenopathy Patient scheduled for biopsy. Left pleural effusion Monitor Nonocclusive thrombus right mid superficial femoral vein. Hold Eliquis for now due to suspected hematoma Will resume as per primary Anemia of chronic disease Rule out active bleedings Hemoglobin 7.8, HCT 24.6, MCV 88.4, RDW 17.3 Hemoglobin 6.3 Blood transfusion ordered Depression Bipolar disorder Quetiapine Divalproex Psychiatry follow-up outpatient-private psychiatrist Diet: Regular DVT prophylax: SCD due to suspected hematoma left gluteal GI prophylaxis: Pantoprazole Goals of care : Full code Case discussed with Dr. Strauss Plan discussed with: Patient My Orders My Orders Orders - AMMON APARICIO Procedure Category Date Status Time Urine Bacterial JUAN C 09/08/25 In Process Culture 12:15 Complete Blood Count LAB 09/09/25 Verified 04:00 Comprehensive LAB 09/09/25 Verified Metabolic Panel 04:00 Iron Panel LAB 09/08/25 In Process 18:50 Date of Service: Sep 08, 2025 Billing Provider: DAMION CLAIRE MD Common Visit Codes: [id number] INP/OBS CARE(HIGH) AMMON APARICIO RESIDENT Sep 08, 2025 19:43
[2025-09-08 20:00] VITALS: BP 123/51; PULSE 87; RESP 20; TEMP 99.4; O2SAT 100
[2025-09-08] MEDS: FOLIC ACID 1 MG in D5W 5% 50 ML INJ ONE (20:30)
[2025-09-08 21:00] VITALS: BP 151/76; PULSE 92; RESP 19; TEMP 98.1; O2SAT 96
[2025-09-08] MEDS: HYDROcodone-ACET 10/325MG TAB PO PRN (22:07)
[2025-09-09 01:00] VITALS: BP 105/65; PULSE 80; RESP 19; TEMP 97.9; O2SAT 92
[2025-09-09] MEDS: VALPROIC ACID 250 MG/5 ML ORAL SOLN PO SCH (06:33)
[2025-09-09 07:31] LABS: Hematocrit 21.4 % (36.0-46.0); Mean Corpuscular Hemoglobin 28.2 pg (28.0-32.0); Mean Corpuscular Volume 87.9 fL (80.0-100.0); Nucleated Red Blood Cells % 0.1 %
[2025-09-09 07:45] LABS: Hemoglobin 6.9 g/dL (12.2-16.2)
[2025-09-09 07:49] LABS: Alkaline Phosphatase 109 U/L (46-116); Anion Gap 9 (5-15); BUN/Creatinine Ratio 16.2 (10.0-20.0); Blood Urea Nitrogen 11 mg/dL (9-23); Carbon Dioxide 23 mmol/L (20-31); Glucose 81 mg/dL (74-106); Potassium 4.2 mmol/L (3.5-5.1); Sodium 142 mmol/L (136-145); Total Protein 6.1 g/dL (5.7-8.2)
[2025-09-09 07:58] LABS: Alanine Aminotransferase < 9 U/L (7-40); Albumin 3.1 g/dL (3.2-4.8); Bilirubin, Total 0.3 mg/dL (0.2-1.0); Calcium 8.4 mg/dL (8.7-10.4); Chloride 110 mmol/L (98-107)
[2025-09-09 09:00] VITALS: BP 124/67; PULSE 83; RESP 16; TEMP 97.9; O2SAT 95
[2025-09-09 13:00] VITALS: BP 131/69; PULSE 91; RESP 17; TEMP 99.1; O2SAT 94
--- NOTE | 2025-09-09 13:14 | DVHPN2 ---
Progress Note - Surgical Date Seen: Sep 09, 2025 Post op day Post op day: 0 Subjective Patient reports: No new complaints Review of Systems: Deferred Objective Vital signs Vital Sign Date Time Temp Pulse Resp B/P (MAP) Pulse Ox O2 Delivery O2 Flow Rate FiO2 09/09/25 10:51 89 18 150/59 09/09/25 01:00 97.9 92 97.9 09/08/25 20:00 Nasal Cannula* 2 28 Total Intake and Output 09/08/25 09/08/25 09/09/25 15:00 23:00 07:00 Intake Total 450 ml 450 ml Output Total 2800 ml Balance 450 ml -2350 ml Medications Current Medications Medications Dose Ordered Sig/Lydia Route Start Time Stop Time Status Last Admin Dose Admin Pantoprazole Sodium 40 mg DAILY@0600 PO 09/08/25 06:00 09/09/25 06:32 40 MG Quetiapine Fumarate 200 mg HS PO 09/08/25 22:00 09/08/25 22:00 200 MG Levothyroxine Sodium 88 mcg QAM PO 09/08/25 07:00 09/09/25 06:48 88 MCG Sodium Chloride 1,000 ml @ 75 mls/hr [id number] IV 09/08/25 04:00 09/09/25 10:53 75 MLS/HR Acetaminophen 650 mg Q6HR PO 09/08/25 12:00 Hydromorphone HCl 0.25 mg Q4HPRN PRN IV 09/08/25 18:15 09/09/25 10:51 0.25 MG Acetaminophen/ Hydrocodone Bitart 1 tab Q6HP PRN PO 09/08/25 21:30 09/09/25 12:49 1 TAB Valproate Sodium 125 mg TID PO 09/09/25 06:00 09/09/25 06:33 125 MG Laboratory Laboratory Tests 09/09/25 06:53 Test 09/09/25 06:53 Range/Units Serum Glucose 81 74-106 mg/dL Microbiology Date/Time Source Procedure Growth Status 09/08/25 06:23 Urine - [place] Urine Culture - Preliminary Resulted Examination: GENERAL:Normal (AAO x3), Any Other System: (Left gluteal area tenderness, no ecchymosis) Labs and/or images reviewed: Labs reviewed by me (Hemoglobin level stable), Image(s) reviewed by me (CT with IV contrast no clear extravasation seen) Problem List/Assessment/Plan Assessment and Plan Mrs. Mcclendon is a 74-year-old female who presented after a fall with a left gluteal hematoma, on arrival there was concern for active bleeding given that she had a hemoglobin drop 6.3 from 7.8 and she is on Eliquis. Labs this morning show that hemoglobin is stable, repeat CT with IV contrast does not show any clear extravasation. Given these findings, active bleeding is highly unlikely. There is no surgical indication for this patient. Hematoma will reabsorb with time. I would continue to hold Eliquis until her hemoglobin level recovers. I will sign off, please call with any questions or concerns. Plan discussed with Plan discussed with: Patient Visit Coding Surgery Date of Service if different f: Sep 09, 2025 Billing Provider: HANANE HARVEY MD Surgery Visit Codes: [id number] INP/OBS CARE(HIGH) HANANE HARVEY MD Sep 09, 2025 13:14
--- NOTE | 2025-09-09 16:33 | DVHPNRES ---
Progress Note Date Seen: Sep 09, 2025 Resident Creating Document: AMMON APARICIO RESIDENT Medical Necessity Reason Pt with a Central, PICC or Fol: No Subjective Review of Systems Patient seen at bedside. No new complaints. Repeat CT with IV contrast does not show any clear extravasation. Active bleeding unlikely. Surgeon advising that the hematoma will reabsorb with time. Hemoglobin today 6.9. Patient is a [employer] and is refusing blood transfusion. This is a 74-year-old female with past medical history of HTN, questionable CAD, hypothyroidism, GERD, history of cervical cancer, DVT, left hip and pelvic surgery, bilateral hearing difficulty brought by EMS due to left hip pain which is 10/10 intensity, localized, no radiation, aggravated on movement and mild relieved on rest. Patient recently discharged on 09/02/2025 due to recurrent fall. Patient discharged with Eliquis due to DVT and with pain medication. 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 Denies any fall or trauma after discharge from hospital. Patient had left hip surgery on April 10, 2025 and placed in half-way. During discharge, patient found left axillary lump and scheduled for biopsy to rule out malignancy. During encounter in ER, patient complained of severe left hip pain but denies any fever, chest pain, headache, SOB, abdominal pain or any other focal weakness. For Health insurance issues, patient did not follow-up with pain management or psychiatrist. 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 Past medical: As above Past surgical history: As above Personal history: Denies smoking or illicit drug use but ETOH occasionally Family history: Nothing contributory Allergy: Aspirin, codeine, penicillins PCP: Dr. Du Home medicine: Linaclotide, gabapentin, lurasidone vitamin D3, ibuprofen, divalproex, quetiapine Eliquis Objective vital signs Vital Sign Date Time Temp Pulse Resp B/P (MAP) Pulse Ox O2 Delivery O2 Flow Rate FiO2 09/09/25 10:51 89 18 150/59 09/09/25 08:10 Nasal Cannula* 2 28 09/09/25 01:00 97.9 92 97.9 Total Intake and Output 09/08/25 09/08/25 09/09/25 15:00 23:00 07:00 Intake Total 450 ml 450 ml Output Total 2800 ml Balance 450 ml -2350 ml medications Current Medications Medications Dose Ordered Sig/Lydia Route Start Time Stop Time Status Last Admin Dose Admin Pantoprazole Sodium 40 mg DAILY@0600 PO 09/08/25 06:00 09/09/25 06:32 40 MG Quetiapine Fumarate 200 mg HS PO 09/08/25 22:00 09/08/25 22:00 200 MG Levothyroxine Sodium 88 mcg QAM PO 09/08/25 07:00 09/09/25 06:48 88 MCG Sodium Chloride 1,000 ml @ 75 mls/hr [id number] IV 09/08/25 04:00 09/09/25 10:53 75 MLS/HR Acetaminophen 650 mg Q6HR PO 09/08/25 12:00 Hydromorphone HCl 0.25 mg Q4HPRN PRN IV 09/08/25 18:15 09/09/25 10:51 0.25 MG Acetaminophen/ Hydrocodone Bitart 1 tab Q6HP PRN PO 09/08/25 21:30 09/09/25 12:49 1 TAB Valproate Sodium 125 mg TID PO 09/09/25 06:00 09/09/25 15:56 125 MG Examination General Appearance: Alert, Oriented X3, moderate distress, Other (Hearing difficulty) HEENT: Atraumatic, PERRLA, EOMI Respiratory: Clear to auscultation, Normal air movement Cardiovascular: Regular rate, Normal S1, Normal S2 Abdominal: Normal bowel sounds, Soft, No tenderness, No hepatospenomegaly Extremities: No clubbing, No edema, Other (Left hip and gluteal area tender on deep palpation) Skin: No rashes, No breakdown Neuro: Normal gait, Normal speech, Strength at 5/5 X4 ext, Cranial nerves 3-12 NL, Other laboratory and microbiology Laboratory Tests 09/09/25 06:53 Test 09/09/25 06:53 Range/Units Serum Glucose 81 74-106 mg/dL Microbiology Date/Time Source Procedure Growth Status 09/08/25 06:23 Urine - [place] Urine Culture - Preliminary Resulted Problem List/Assessment/Plan Problem List/Assessment/Plan Assessment/Plan Intractable left hip pain Pain left gluteal region likely hematoma History of left hip fracture s/p ORIF Chronic low-back pain and spine surgery Leukocytosis likely reactive secondary to pain In ER patient received [place]. x-ray pelvis(08/28/2025)- There is no evidence of acute fracture or dislocation. Multiple surgical screws in the left hip. Thoracolumbar spinal hardware. CT abdomen and pelvis: Significant masslike soft tissue density with asymmetric swelling of the left gluteus medius muscle belly measuring 10.6 x 4.6 cm. Consideration for neoplastic disease versus hematoma. Pain managed Repeat x-ray left hip and pelvis Bedrest Physical therapy MRI left hip to rule out hematoma. Monitor H&H Blood transfusion if hemoglobin less than 7 Monitor labs and vital Surgery Consult : Advising active bleeding is highly unlikely, hematoma we will reabsorb with time Left breast mass with left axillary lymphadenopathy CT abdomen and pelvis showed-Left lateral breast mass with axillary lymphadenopathy Patient scheduled for biopsy. Left pleural effusion Monitor Nonocclusive thrombus right mid superficial femoral vein. Hold Eliquis for now due to suspected hematoma Severe anemia History of Anemia of chronic disease Ruled out active bleeding Hemoglobin 7.8, HCT 24.6, MCV 88.4, RDW 17.3 Hemoglobin 6.3 Blood transfusion ordered Depression Bipolar disorder Quetiapine Divalproex Psychiatry follow-up outpatient-private psychiatrist Diet: Regular DVT prophylax: SCD due to suspected hematoma left gluteal GI prophylaxis: Pantoprazole Goals of care : Full code Case discussed with Dr. Strauss Plan discussed with: Patient My Orders My Orders Orders - AMMON APARICIO RESIDENT Procedure Category Date Status Time Apply Z-[facility] 09/09/25 In Process 10:30 Date of Service: Sep 09, 2025 Billing Provider: DAMION CLAIRE MD Common Visit Codes: [id number] INP/OBS CARE(HIGH) AMMON APARICIO RESIDENT Sep 09, 2025 16:33
[2025-09-09 17:00] VITALS: BP 127/56; PULSE 86; RESP 16; TEMP 98.1; O2SAT 91
[2025-09-09] MEDS: diphenhydrAMINE HCL 50 MG/1 ML VL IV ONE (20:06)
[2025-09-09 21:00] VITALS: BP 122/59; PULSE 85; RESP 19; TEMP 97.8; O2SAT 98
[2025-09-09] MEDS ORDERED: diphenhydrAMINE HCL 50 MG/1 ML VL IV PRN (21:00)
[2025-09-10 01:00] VITALS: BP 120/59; PULSE 91; RESP 19; TEMP 97.9; O2SAT 92
[2025-09-10 06:30] VITALS: BP 124/78; PULSE 91; RESP 18; TEMP 98.1; O2SAT 95
[2025-09-10 06:36] LABS: Nucleated Red Blood Cells % 0.0 %
[2025-09-10 06:42] LABS: Hematocrit 20.5 % (36.0-46.0); Mean Corpuscular Hemoglobin 27.9 pg (28.0-32.0); Mean Corpuscular Volume 88.0 fL (80.0-100.0)
[2025-09-10 06:43] LABS: Alkaline Phosphatase 103 U/L (46-116); Anion Gap 9 (5-15); BUN/Creatinine Ratio 14.1 (10.0-20.0); Blood Urea Nitrogen 10 mg/dL (9-23); Carbon Dioxide 25 mmol/L (20-31); Glucose 91 mg/dL (74-106); Potassium 4.2 mmol/L (3.5-5.1); Sodium 143 mmol/L (136-145); Total Protein 6.0 g/dL (5.7-8.2)
[2025-09-10 06:48] LABS: Alanine Aminotransferase < 9 U/L (7-40); Albumin 2.8 g/dL (3.2-4.8); Bilirubin, Total 0.2 mg/dL (0.2-1.0); Calcium 8.1 mg/dL (8.7-10.4); Chloride 109 mmol/L (98-107)
[2025-09-10 06:57] LABS: Hemoglobin 6.5 g/dL (12.2-16.2)
[2025-09-10 09:00] VITALS: BP 115/64; PULSE 80; RESP 16; TEMP 98.3; O2SAT 93
[2025-09-10] MEDS: IRON SUCROSE COMPLEX 110 ML IV SCH (12:14)
[2025-09-10 12:56] VITALS: BP 128/67; PULSE 84; RESP 16; TEMP 98.8; O2SAT 99
[2025-09-10] MEDS: GABAPENTIN 400 MG CAP PO SCH (16:13)
--- NOTE | 2025-09-10 16:26 | DVHPNRES ---
Progress Note Date Seen: Sep 10, 2025 Resident Creating Document: AMMON APARICIO RESIDENT Medical Necessity Reason Pt with a Central, PICC or Fol: No Subjective Review of Systems Patient seen at bedside. Hemoglobin 6.5 today. No sign of active bleeding. Hematoma will resolve with time. Spoke to family about transfusing blood. They are denying as Presybeterian. Explained in detail about the patient's state by the primary team. This is a 74-year-old female with past medical history of HTN, questionable CAD, hypothyroidism, GERD, history of cervical cancer, DVT, left hip and pelvic surgery, bilateral hearing difficulty brought by EMS due to left hip pain which is 10/10 intensity, localized, no radiation, aggravated on movement and mild relieved on rest. Patient recently discharged on 09/02/2025 due to recurrent fall. Patient discharged with Eliquis due to DVT and with pain medication. 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 Denies any fall or trauma after discharge from hospital. Patient had left hip surgery on April 10, 2025 and placed in [facility]. During discharge, patient found left axillary lump and scheduled for biopsy to rule out malignancy. During encounter in ER, patient complained of severe left hip pain but denies any fever, chest pain, headache, SOB, abdominal pain or any other focal weakness. For Health insurance issues, patient did not follow-up with pain management or psychiatrist. 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 Past medical: As above Past surgical history: As above Personal history: Denies smoking or illicit drug use but ETOH occasionally Family history: Nothing contributory Allergy: Aspirin, codeine, penicillins PCP: Dr. Du Home medicine: Linaclotide, gabapentin, lurasidone vitamin D3, ibuprofen, divalproex, quetiapine Eliquis Objective vital signs Vital Sign Date Time Temp Pulse Resp B/P (MAP) Pulse Ox O2 Delivery O2 Flow Rate FiO2 09/10/25 14:57 84 18 136/58 09/10/25 12:56 98.8 99 98.8 09/10/25 08:10 Room Air* 0 21 Total Intake and Output 09/09/25 09/09/25 09/10/25 15:00 23:00 07:00 Intake Total 960 ml 350 ml Output Total 450 ml 1100 ml Balance 510 ml -750 ml medications Current Medications Medications Dose Ordered Sig/Lydia Route Start Time Stop Time Status Last Admin Dose Admin Pantoprazole Sodium 40 mg DAILY@0600 PO 09/08/25 06:00 09/10/25 06:30 40 MG Quetiapine Fumarate 200 mg HS PO 09/08/25 22:00 09/09/25 22:23 200 MG Levothyroxine Sodium 88 mcg QAM PO 09/08/25 07:00 09/10/25 06:31 88 MCG Sodium Chloride 1,000 ml @ 75 mls/hr [id number] IV 09/08/25 04:00 09/10/25 04:47 75 MLS/HR Acetaminophen 650 mg Q6HR PO 09/08/25 12:00 Hydromorphone HCl 0.25 mg Q4HPRN PRN IV 09/08/25 18:15 09/10/25 14:57 0.25 MG Acetaminophen/ Hydrocodone Bitart 1 tab Q6HP PRN PO 09/08/25 21:30 09/10/25 13:18 1 TAB Diphenhydramine HCl 25 mg Q6HP PRN IV 09/09/25 21:00 Divalproex Sodium 250 mg TID PO 09/09/25 22:00 09/10/25 14:54 250 MG Iron Sucrose 110 ml @ 110 mls/hr DAILY@1200 IV 09/10/25 12:00 09/14/25 11:59 09/10/25 12:14 110 MLS/HR Ceftriaxone Sodium 50 ml @ 100 mls/hr DAILY@09 IV 09/11/25 09:00 Gabapentin 400 mg TID PO 09/10/25 15:15 09/10/25 16:13 400 MG Examination General Appearance: Alert, Oriented X3, moderate distress, Other (Hearing difficulty) HEENT: Atraumatic, PERRLA, EOMI Respiratory: Clear to auscultation, Normal air movement Cardiovascular: Regular rate, Normal S1, Normal S2 Abdominal: Normal bowel sounds, Soft, No tenderness, No hepatospenomegaly Extremities: No clubbing, No edema, Other (Left hip and gluteal area tender on deep palpation) Skin: No rashes, No breakdown Neuro: Normal gait, Normal speech, Strength at 5/5 X4 ext, Cranial nerves 3-12 NL, Other laboratory and microbiology Laboratory Tests 09/10/25 06:12 Test 09/10/25 06:12 Range/Units Serum Glucose 91 74-106 mg/dL Microbiology Date/Time Source Procedure Growth Status 09/08/25 06:23 Urine - [place] Urine Culture - Preliminary Resulted Problem List/Assessment/Plan Problem List/Assessment/Plan Assessment/Plan Intractable left hip pain Pain left gluteal region likely hematoma History of left hip fracture s/p ORIF Chronic low-back pain and spine surgery Leukocytosis likely reactive secondary to pain In ER patient received [place]. x-ray pelvis(08/28/2025)- There is no evidence of acute fracture or dislocation. Multiple surgical screws in the left hip. Thoracolumbar spinal hardware. CT abdomen and pelvis: Significant masslike soft tissue density with asymmetric swelling of the left gluteus medius muscle belly measuring 10.6 x 4.6 cm. Consideration for neoplastic disease versus hematoma. Pain managed Repeat x-ray left hip and pelvis Bedrest Physical therapy MRI left hip to rule out hematoma. Monitor H&H Blood transfusion if hemoglobin less than 7 Monitor labs and vital Surgery Consult : Advising active bleeding is highly unlikely, hematoma we will reabsorb with time Left breast mass with left axillary lymphadenopathy CT abdomen and pelvis showed-Left lateral breast mass with axillary lymphadenopathy Patient scheduled for biopsy. Left pleural effusion Monitor Nonocclusive thrombus right mid superficial femoral vein. Hold Eliquis for now due to suspected hematoma Severe anemia History of Anemia of chronic disease Ruled out active bleeding Hemoglobin 7.8, HCT 24.6, MCV 88.4, RDW 17.3 Hemoglobin 6.3 Blood transfusion ordered Depression Bipolar disorder Quetiapine Divalproex Psychiatry follow-up outpatient-private psychiatrist Diet: Regular DVT prophylax: SCD due to suspected hematoma left gluteal GI prophylaxis: Pantoprazole Goals of care : Full code Case discussed with Dr. Strauss Plan discussed with: Patient My Orders My Orders Orders - AMMON APARICIO RESIDENT Procedure Category Date Status Time Gabapentin Capsule PHA 09/10/25 In Process (Neurontin Capsule) 15:15 Date of Service: Sep 10, 2025 Billing Provider: DAMION CLAIRE MD Common Visit Codes: [id number] INP/OBS CARE(HIGH) AMMON APARICIO RESIDENT Sep 10, 2025 16:26
[2025-09-10 17:00] VITALS: BP 113/68; PULSE 79; RESP 16; TEMP 98.8; O2SAT 98
[2025-09-10 21:00] VITALS: BP 69/129; PULSE 81; RESP 18; TEMP 97.7; O2SAT 97
[2025-09-11 09:02] LABS: Hemoglobin 7.6 g/dL (12.2-16.2)
[2025-09-11 09:03] LABS: Hematocrit 24.4 % (36.0-46.0); Mean Corpuscular Hemoglobin 27.3 pg (28.0-32.0); Mean Corpuscular Volume 88.0 fL (80.0-100.0); Nucleated Red Blood Cells % 0.2 %
[2025-09-11 09:12] LABS: Anion Gap 8 (5-15); BUN/Creatinine Ratio 10.7 (10.0-20.0); Carbon Dioxide 27 mmol/L (20-31); Glucose 89 mg/dL (74-106); Potassium 4.2 mmol/L (3.5-5.1); Sodium 144 mmol/L (136-145); Total Protein 6.4 g/dL (5.7-8.2)
[2025-09-11 09:13] LABS: Alanine Aminotransferase 9 U/L (7-40); Albumin 3.1 g/dL (3.2-4.8); Alkaline Phosphatase 116 U/L (46-116); Bilirubin, Total 0.2 mg/dL (0.2-1.0); Blood Urea Nitrogen 8 mg/dL (9-23); Calcium 8.4 mg/dL (8.7-10.4); Chloride 109 mmol/L (98-107)
[2025-09-11 13:00] VITALS: BP_SYST 147; BP_SYST 151; BP_DIAS 65; BP_DIAS 92; PULSE 77; PULSE 87; RESP 20; RESP 21; TEMP 98.5; TEMP 98.6; O2SAT 90; O2SAT 97
--- NOTE | 2025-09-11 13:35 | DVHPNRES ---
Progress Note Date Seen: Sep 11, 2025 Resident Creating Document: AMMON APARICIO Medical Necessity Reason Pt with a Central, PICC or Fol: No Subjective Review of Systems Patient seen at bedside. Hemoglobin 7.6 today. Spoke to medical power of civil attorney about patient's plan This is a 74-year-old female with past medical history of HTN, questionable CAD, hypothyroidism, GERD, history of cervical cancer, DVT, left hip and pelvic surgery, bilateral hearing difficulty brought by EMS due to left hip pain which is 10/10 intensity, localized, no radiation, aggravated on movement and mild relieved on rest. Patient recently discharged on 09/02/2025 due to recurrent fall. Patient discharged with Eliquis due to DVT and with pain medication. Spoke to Ilene([id number] TENDER) patient lives alone and complaint of severe left hip pain after awoke inclusion specialist. Denies any fall or trauma after discharge from hospital. Patient had left hip surgery on April 10, 2025 and placed in shelter. During discharge, patient found left axillary lump and scheduled for biopsy to rule out malignancy. During encounter in ER, patient complained of severe left hip pain but denies any fever, chest pain, headache, SOB, abdominal pain or any other focal weakness. For Health insurance issues, patient did not follow-up with pain management or psychiatrist. 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 Past medical: As above Past surgical history: As above Personal history: Denies smoking or illicit drug use but ETOH occasionally Family history: Nothing contributory Allergy: Aspirin, codeine, penicillins PCP: Dr. Du Home medicine: Linaclotide, gabapentin, lurasidone vitamin D3, ibuprofen, divalproex, quetiapine Eliquis Objective vital signs Vital Sign Date Time Temp Pulse Resp B/P (MAP) Pulse Ox O2 Delivery O2 Flow Rate FiO2 09/11/25 10:20 93 17 144/70 09/10/25 21:00 97.7 97 97.7 09/10/25 20:00 Room Air* 0 21 Total Intake and Output 09/10/25 09/10/25 09/11/25 15:00 23:00 07:00 Intake Total 200 ml 1150 ml Output Total 1201 ml 1350 ml Balance -1001 ml -200 ml medications Current Medications Medications Dose Ordered Sig/Lydia Route Start Time Stop Time Status Last Admin Dose Admin Pantoprazole Sodium 40 mg DAILY@0600 PO 09/08/25 06:00 09/10/25 06:30 40 MG Quetiapine Fumarate 200 mg HS PO 09/08/25 22:00 09/10/25 21:23 200 MG Levothyroxine Sodium 88 mcg QAM PO 09/08/25 07:00 09/10/25 06:31 88 MCG Sodium Chloride 1,000 ml @ 75 mls/hr [id number] IV 09/08/25 04:00 09/10/25 20:28 75 MLS/HR Acetaminophen 650 mg Q6HR PO 09/08/25 12:00 09/11/25 00:02 650 MG Hydromorphone HCl 0.25 mg Q4HPRN PRN IV 09/08/25 18:15 09/11/25 10:20 0.25 MG Acetaminophen/ Hydrocodone Bitart 1 tab Q6HP PRN PO 09/08/25 21:30 09/10/25 20:27 1 TAB Diphenhydramine HCl 25 mg Q6HP PRN IV 09/09/25 21:00 Divalproex Sodium 250 mg TID PO 09/09/25 22:00 09/10/25 21:22 250 MG Iron Sucrose 110 ml @ 110 mls/hr DAILY@1200 IV 09/10/25 12:00 09/14/25 11:59 09/10/25 12:14 110 MLS/HR Ceftriaxone Sodium 50 ml @ 100 mls/hr DAILY@09 IV 09/11/25 09:00 09/11/25 10:21 100 MLS/HR Gabapentin 400 mg TID PO 09/10/25 15:15 09/10/25 21:22 400 MG Examination General Appearance: Alert, Oriented X3, moderate distress, Other (Hearing difficulty) HEENT: Atraumatic, PERRLA, EOMI Respiratory: Clear to auscultation, Normal air movement Cardiovascular: Regular rate, Normal S1, Normal S2 Abdominal: Normal bowel sounds, Soft, No tenderness, No hepatospenomegaly Extremities: No clubbing, No edema, Other (Left hip and gluteal area tender on deep palpation) Skin: No rashes, No breakdown Neuro: Normal gait, Normal speech, Strength at 5/5 X4 ext, Cranial nerves 3-12 NL, Other laboratory and microbiology Laboratory Tests 09/11/25 08:26 Test 09/11/25 08:26 Range/Units Serum Glucose 89 74-106 mg/dL Microbiology Date/Time Source Procedure Growth Status 09/08/25 06:23 Urine - [place] Urine Culture - Preliminary Resulted Problem List/Assessment/Plan Problem List/Assessment/Plan Assessment/Plan Intractable left hip pain Pain left gluteal region likely hematoma History of left hip fracture s/p ORIF Chronic low-back pain and spine surgery Leukocytosis likely reactive secondary to pain In ER patient received [place]. x-ray pelvis(08/28/2025)- There is no evidence of acute fracture or dislocation. Multiple surgical screws in the left hip. Thoracolumbar spinal hardware. CT abdomen and pelvis: Significant masslike soft tissue density with asymmetric swelling of the left gluteus medius muscle belly measuring 10.6 x 4.6 cm. Consideration for neoplastic disease versus hematoma. Pain managed Repeat x-ray left hip and pelvis Bedrest Physical therapy MRI left hip to rule out hematoma. Monitor H&H Blood transfusion if hemoglobin less than 7 Monitor labs and vital Surgery Consult : Advising active bleeding is highly unlikely, hematoma we will reabsorb with time Left breast mass with left axillary lymphadenopathy CT abdomen and pelvis showed-Left lateral breast mass with axillary lymphadenopathy Patient scheduled for biopsy. Left pleural effusion Monitor Nonocclusive thrombus right mid superficial femoral vein. Hold Eliquis for now due to suspected hematoma Severe anemia History of Anemia of chronic disease Ruled out active bleeding Hemoglobin 7.8, HCT 24.6, MCV 88.4, RDW 17.3 Hemoglobin 6.3 Blood transfusion ordered Transfusion refused due to patient being a Roman Catholic. Depression Bipolar disorder Quetiapine Divalproex Psychiatry follow-up outpatient-private psychiatrist Diet: Regular DVT prophylax: SCD due to suspected hematoma left gluteal GI prophylaxis: Pantoprazole Goals of care : DNR Case discussed with Dr. Rawls Plan discussed with: Patient My Orders My Orders Orders - AMMON APARICIO RESIDENT Procedure Category Date Status Time Gabapentin Capsule PHA 09/10/25 In Process (Neurontin Capsule) 15:15 Electrocardigram EKG 09/11/25 Logged 10:30 Troponin-I Hs LAB 09/11/25 Transmitted 13:31 Date of Service: Sep 11, 2025 Billing Provider: DWAIN RAWLS DO Common Visit Codes: [id number] INP/OBS CARE(HIGH) AMMON APARICIO RESIDENT Sep 11, 2025 13:35 DWAIN RAWLS DO Sep 11, 2025 22:12
[2025-09-11 16:57] VITALS: BP 154/77; PULSE 61; RESP 18; TEMP 98.7; O2SAT 99
[2025-09-11 21:00] VITALS: BP 129/78; PULSE 90; RESP 15; TEMP 98.1; O2SAT 91
[2025-09-12 01:00] VITALS: BP 112/56; PULSE 89; RESP 15; TEMP 98.1; O2SAT 92
[2025-09-12 05:00] VITALS: BP 119/67; PULSE 87; RESP 15; TEMP 97.9; O2SAT 93
[2025-09-12 09:00] VITALS: BP 191/91; PULSE 68; RESP 18; TEMP 97.8; O2SAT 99
[2025-09-12 10:34] LABS: Hematocrit 23.9 % (36.0-46.0); Hemoglobin 7.4 g/dL (12.2-16.2); Mean Corpuscular Hemoglobin 27.3 pg (28.0-32.0); Mean Corpuscular Volume 88.0 fL (80.0-100.0)
--- NOTE | 2025-09-12 10:38 | ECG ---
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
[2025-09-12 10:51] LABS: Alkaline Phosphatase 114 U/L (46-116); Anion Gap 8 (5-15); BUN/Creatinine Ratio 10.9 (10.0-20.0); Carbon Dioxide 25 mmol/L (20-31); Glucose 91 mg/dL (74-106); Potassium 3.9 mmol/L (3.5-5.1); Sodium 142 mmol/L (136-145); Total Protein 6.2 g/dL (5.7-8.2)
[2025-09-12 11:02] LABS: Alanine Aminotransferase < 9 U/L (7-40); Albumin 3.0 g/dL (3.2-4.8); Bilirubin, Total 0.2 mg/dL (0.2-1.0); Blood Urea Nitrogen 7 mg/dL (9-23); Calcium 8.2 mg/dL (8.7-10.4); Chloride 109 mmol/L (98-107)
[2025-09-12 11:09] LABS: Total Cells Counted 100.0 (100)
[2025-09-12 13:00] VITALS: BP_SYST 153; BP_SYST 190; BP_DIAS 74; BP_DIAS 98; PULSE 80; PULSE 87; RESP 18; RESP 20; TEMP 98.5; O2SAT 100
[2025-09-12 16:41] VITALS: BP 128/68; PULSE 81; RESP 18; TEMP 98.5; O2SAT 92
--- NOTE | 2025-09-12 16:55 | DVHPNRES ---
Progress Note Date Seen: Sep 12, 2025 Resident Creating Document: AMMON APARICIO RESIDENT Medical Necessity Reason Pt with a Central, PICC or Fol: No Subjective Review of Systems Patient seen at bedside. Hemoglobin 7.4 today. Complains of back pain. CT cervical and lumbar spine ordered. This is a 74-year-old female with past medical history of HTN, questionable CAD, hypothyroidism, GERD, history of cervical cancer, DVT, left hip and pelvic surgery, bilateral hearing difficulty brought by EMS due to left hip pain which is 10/10 intensity, localized, no radiation, aggravated on movement and mild relieved on rest. Patient recently discharged on 09/02/2025 due to recurrent fall. Patient discharged with Eliquis due to DVT and with pain medication. Spoke to Ilene([id number]-INSPECTOR HAIRSPRING TRUING) patient lives alone and complaint of severe left hip pain after awoke transitional care nurse. Denies any fall or trauma after discharge from hospital. Patient had left hip surgery on April 10, 2025 and placed in care home. During discharge, patient found left axillary lump and scheduled for biopsy to rule out malignancy. During encounter in ER, patient complained of severe left hip pain but denies any fever, chest pain, headache, SOB, abdominal pain or any other focal weakness. For Health insurance issues, patient did not follow-up with pain management or psychiatrist. 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 Past medical: As above Past surgical history: As above Personal history: Denies smoking or illicit drug use but ETOH occasionally Family history: Nothing contributory Allergy: Aspirin, codeine, penicillins PCP: Dr. Du Home medicine: Linaclotide, gabapentin, lurasidone vitamin D3, ibuprofen, divalproex, quetiapine Eliquis Objective vital signs Vital Sign Date Time Temp Pulse Resp B/P (MAP) Pulse Ox O2 Delivery O2 Flow Rate FiO2 09/12/25 16:41 98.5 81 18 128/68 (88) 92 98.5 09/11/25 20:00 Room Air* 0 21 Total Intake and Output 09/11/25 09/11/25 09/12/25 15:00 23:00 07:00 Intake Total 50 ml 710 ml 1050 ml Output Total 1000 ml 1250 ml Balance 50 ml -290 ml -200 ml medications Current Medications Medications Dose Ordered Sig/Lydia Route Start Time Stop Time Status Last Admin Dose Admin Pantoprazole Sodium 40 mg DAILY@0600 PO 09/08/25 06:00 09/10/25 06:30 40 MG Quetiapine Fumarate 200 mg HS PO 09/08/25 22:00 09/11/25 22:01 200 MG Levothyroxine Sodium 88 mcg QAM PO 09/08/25 07:00 09/10/25 06:31 88 MCG Sodium Chloride 1,000 ml @ 75 mls/hr [id number] IV 09/08/25 04:00 09/12/25 06:14 75 MLS/HR Acetaminophen 650 mg Q6HR PO 09/08/25 12:00 09/11/25 00:02 650 MG Hydromorphone HCl 0.25 mg Q4HPRN PRN IV 09/08/25 18:15 09/12/25 10:16 0.25 MG Acetaminophen/ Hydrocodone Bitart 1 tab Q6HP PRN PO 09/08/25 21:30 09/12/25 12:46 1 TAB Diphenhydramine HCl 25 mg Q6HP PRN IV 09/09/25 21:00 Divalproex Sodium 250 mg TID PO 09/09/25 22:00 09/12/25 15:11 250 MG Iron Sucrose 110 ml @ 110 mls/hr DAILY@1200 IV 09/10/25 12:00 09/14/25 11:59 09/12/25 12:45 110 MLS/HR Ceftriaxone Sodium 50 ml @ 100 mls/hr DAILY@09 IV 09/11/25 09:00 09/12/25 10:16 100 MLS/HR Gabapentin 400 mg TID PO 09/10/25 15:15 09/12/25 15:12 400 MG Examination General Appearance: Alert, Oriented X3, moderate distress, Other (Hearing difficulty) HEENT: Atraumatic, PERRLA, EOMI Respiratory: Clear to auscultation, Normal air movement Cardiovascular: Regular rate, Normal S1, Normal S2 Abdominal: Normal bowel sounds, Soft, No tenderness, No hepatospenomegaly Extremities: No clubbing, No edema, Other (Left hip and gluteal area tender on deep palpation) Skin: No rashes, No breakdown Neuro: Normal gait, Normal speech, Strength at 5/5 X4 ext, Cranial nerves 3-12 NL, Other laboratory and microbiology Laboratory Tests 09/12/25 10:19 Test 09/12/25 10:19 Range/Units Serum Glucose 91 74-106 mg/dL Microbiology Date/Time Source Procedure Growth Status 09/08/25 06:23 Urine - [place] Urine Culture - Final Complete Problem List/Assessment/Plan Problem List/Assessment/Plan Assessment/Plan Intractable left hip pain Pain left gluteal region likely hematoma History of left hip fracture s/p ORIF Chronic low-back pain and spine surgery Leukocytosis likely reactive secondary to pain In ER patient received [place]. x-ray pelvis(08/28/2025)- There is no evidence of acute fracture or dislocation. Multiple surgical screws in the left hip. Thoracolumbar spinal hardware. CT abdomen and pelvis: Significant masslike soft tissue density with asymmetric swelling of the left gluteus medius muscle belly measuring 10.6 x 4.6 cm. Consideration for neoplastic disease versus hematoma. Pain managed Repeat x-ray left hip and pelvis Bedrest Physical therapy MRI left hip to rule out hematoma. Monitor H&H Blood transfusion if hemoglobin less than 7 Monitor labs and vital Surgery Consult : Advising active bleeding is highly unlikely, hematoma we will reabsorb with time CT cervical and lumbar spine Left breast mass with left axillary lymphadenopathy CT abdomen and pelvis showed-Left lateral breast mass with axillary lymphadenopathy Patient scheduled for biopsy. Left pleural effusion Monitor Nonocclusive thrombus right mid superficial femoral vein. Hold Eliquis for now due to suspected hematoma Severe anemia History of Anemia of chronic disease Ruled out active bleeding Hemoglobin 7.8, HCT 24.6, MCV 88.4, RDW 17.3 Hemoglobin 6.3 Blood transfusion ordered Transfusion refused due to patient being a Moravian. Depression Bipolar disorder Quetiapine Divalproex Psychiatry follow-up outpatient-private psychiatrist Diet: Regular DVT prophylax: SCD due to suspected hematoma left gluteal GI prophylaxis: Pantoprazole Goals of care : DNR Case discussed with Dr. Rawls Plan discussed with: Patient My Orders My Orders Orders - AMMON APARICIO RESIDENT Procedure Category Date Status Time Cervical Without CT 09/12/25 Taken Contrast 14:30 Ls Spine Wo Contrast CT 09/12/25 Taken 14:30 Visit Coding STANDARD RES Billing Provider: DWAIN RAWLS DO Date of Service if different f: Sep 12, 2025 AMMON APARICIO RESIDENT Sep 12, 2025 16:55 DWAIN RAWLS DO Sep 14, 2025 21:23
--- NOTE | 2025-09-12 17:09 | DVH ---
EXAM: CT CERVICAL WITHOUT CONTRAST INDICATION: h/o spine instrumentation, intractable back pain TECHNIQUE: Non contrast axial images of the cervical spine have been obtained with coronal and sagittal reformatted images. CT scans at this facility use dose modulation, iterative reconstruction, and/or weight based dosing when appropriate to reduce radiation dose to as low as reasonably achievable. COMPARISON: None FINDINGS: ANATOMY: Cervical lordosis is maintained. VERTEBRAL BODIES: Status post prior anterior cervical discectomy and fusion across C5-6. No osseous lucency along the hardware bone interfaces. No perihardware fracture. Degenerative change centered at C3-4 and C4-5 with small posterior disc osteophyte complexes and uncovertebral spurring. Subsequent s uspected asymmetric right-sided bony foraminal narrowing at C3-4 and C4-5. Minimal facet degenerative change. The vertebral bodies are normal in height and alignment. The dens is intact, the lateral masses of C1 are normally aligned, and the atlantodental interval is normal for age. SPINAL CANAL: No significant spinal canal stenosis. INTERVERTEBRAL DISCS: No CT findings to suggest traumatic disc herniation or acute hematoma. SOFT TISSUES: There is no prevertebral soft tissue swelling. Small amount of fluid in the right posterior inferior mastoid air cells. Vascular calcifications. OTHER: Partially visualized posterior fusion hardware in the thoracic spine. The partially visualized lung apices are clear. IMPRESSION: 1. No acute cervical spine fracture or malalignment. 2. Status post prior anterior cervical discectomy and fusion across C5-6. 3. Degenerative change centered at C3-4 and C4-5 with small posterior disc osteophyte complexes and uncovertebral spurring. 4. Subsequent suspected asymmetric right-sided bony foraminal narrowing at C3-4 and C4-5.
--- NOTE | 2025-09-12 17:28 | DVH ---
EXAM: CT LS SPINE WO CONTRAST INDICATION: Intractable back pain, history of spine instrumentation TECHNIQUE: Axial images of the lumbar spine have been obtained along with coronal and sagittal reformatted images. CT scans at this facility use dose modulation, iterative reconstruction, and/or weight based dosing when appropriate to reduce radiation dose to as low as reasonably achievable. COMPARISON: CT LS SPINE WO CONTRAST on DOS: 05/16/24 FINDINGS: ANATOMY: Five lumbar-type vertebral bodies are present. The most inferior well- formed disc space will be referred to as L5-S1 for purposes of numbering in this report. VERTEBRAL BODIES: Thoracolumbosacral extensive fusion. Minimal superior endplate height loss measuring 10 percent T12. Significant sagittally oriented complete vertebral body fracture primarily through the mid and right aspect of the L3 vertebral body centered along the margin of the cement and pedicle screw of L3 (series 601, image 29). Bone graft material along the extensive areas of hardware placement. The vertebral bodies are normal in alignment. SPINAL CANAL: Evidence of posterior decompression of L1-L5. INTERVERTEBRAL DISCS: No significant posterior osteophyte complex. FACETS: Multilevel mild to moderate facet arthropathy. OTHER: IVC filter in place. Small bilateral pleural effusions. Vascular calcifications. [id number] stool burden correlate for constipation. Stool distention of the lower rectum. IMPRESSION: 1. Significant sagittally oriented complete vertebral body fracture primarily through the mid and right aspect of the L3 vertebral body centered along the margin of the cement and pedicle screw of L3. 2. Minimal superior endplate height loss measuring 10 percent T12.
[2025-09-12 21:00] VITALS: BP 145/73; PULSE 92; RESP 18; TEMP 98.1; O2SAT 90
[2025-09-13 05:00] VITALS: BP 106/61; PULSE 92; RESP 19; TEMP 97.4; O2SAT 90
[2025-09-13 08:32] VITALS: BP_SYST 124; BP_SYST 97; BP_DIAS 51; BP_DIAS 62; PULSE 86; PULSE 90; RESP 17; RESP 19; TEMP 98.1; TEMP 98.6; O2SAT 94
[2025-09-13] MEDS ORDERED: HYDROcodone-ACET 10/325MG TAB PO SCH (12:00)
[2025-09-13] MEDS ORDERED: ACETAMINOPHEN 325 MG TAB PO SCH (12:00)
[2025-09-13 12:34] VITALS: BP 106/59; PULSE 81; RESP 19; TEMP 99; O2SAT 92
[2025-09-13 12:49] LABS: Mean Corpuscular Hemoglobin 28.4 pg (28.0-32.0)
[2025-09-13 12:52] LABS: Hematocrit 22.1 % (36.0-46.0); Mean Corpuscular Volume 89.7 fL (80.0-100.0)
[2025-09-13] MEDS: HYDROmorphone HCL 2 MG/ML VL/or syr IV PRN (12:58)
[2025-09-13 13:09] LABS: Hemoglobin 7.0 g/dL (12.2-16.2)
[2025-09-13 13:38] LABS: Total Cells Counted 100.0 (100)
[2025-09-13 13:39] LABS: Ovalocytes FEW; Tear Drop Cells FEW
--- NOTE | 2025-09-13 15:27 | DVHPNRES ---
Progress Note Date Seen: Sep 13, 2025 Resident Creating Document: RENÉ HANSEN RESDIENT Medical Necessity Reason Pt with a Central, PICC or Fol: No Subjective Review of Systems Patient seen and examined at the bedside. Patient is feeling better since admission but still complaining of severe back pain. Objective vital signs Vital Sign Date Time Temp Pulse Resp B/P (MAP) Pulse Ox O2 Delivery O2 Flow Rate FiO2 09/13/25 12:58 82 16 112/56 09/13/25 12:34 99.0 92 99.0 09/11/25 20:00 Room Air* 0 21 Total Intake and Output 09/12/25 09/12/25 09/13/25 15:00 23:00 07:00 Intake Total 160 ml 1000 ml 750 ml Output Total 1200 ml Balance 160 ml -200 ml 750 ml medications Current Medications Medications Dose Ordered Sig/Lydia Route Start Time Stop Time Status Last Admin Dose Admin Pantoprazole Sodium 40 mg DAILY@0600 PO 09/08/25 06:00 09/13/25 06:01 40 MG Quetiapine Fumarate 200 mg HS PO 09/08/25 22:00 09/12/25 21:07 200 MG Levothyroxine Sodium 88 mcg QAM PO 09/08/25 07:00 09/13/25 06:01 88 MCG Sodium Chloride 1,000 ml @ 75 mls/hr [id number] IV 09/08/25 04:00 09/12/25 21:04 75 MLS/HR Diphenhydramine HCl 25 mg Q6HP PRN IV 09/09/25 21:00 Divalproex Sodium 250 mg TID PO 09/09/25 22:00 09/13/25 06:01 250 MG Iron Sucrose 110 ml @ 110 mls/hr DAILY@1200 IV 09/10/25 12:00 09/14/25 11:59 09/13/25 12:59 110 MLS/HR Ceftriaxone Sodium 50 ml @ 100 mls/hr DAILY@09 IV 09/11/25 09:00 09/13/25 09:48 100 MLS/HR Gabapentin 400 mg TID PO 09/10/25 15:15 09/13/25 06:01 400 MG Hydromorphone HCl 0.5 mg Q4HPRN PRN IV 09/13/25 11:45 09/13/25 12:58 0.5 MG Acetaminophen/ Hydrocodone Bitart 1 tab Q6HR PO 09/13/25 18:00 Acetaminophen 325 mg Q6HR PO 09/13/25 18:00 Examination General Appearance: Alert, Oriented X3, Cooperative, No acute distress HEENT: Atraumatic, PERRLA, EOMI, Mucous membrane moist/pink Respiratory: Clear to auscultation, Normal air movement Cardiovascular: Regular rate, Normal S1, Normal S2, No murmurs, no chest wall tenderness Abdominal: Normal bowel sounds, Soft, No tenderness, No hepatospenomegaly, No masses Extremities: Right hip is swollen and tender to palpation, lower back is tender to palpation Skin: No rashes, No breakdown, No significant lesion Neuro: Normal gait, Normal speech, Strength at 5/5 X4 ext, Normal tone, Sensation intact, Cranial nerves 3-12 NL, Reflexes 2+ Psych/Mental Status: Mental status NL, Mood NL laboratory and microbiology Laboratory Tests 09/13/25 11:42 09/12/25 10:19 Test 09/12/25 10:19 Range/Units Serum Glucose 91 74-106 mg/dL Microbiology Date/Time Source Procedure Growth Status 09/08/25 06:23 Urine - [place] Urine Culture - Final Complete Labs and/or images reviewed: Labs reviewed by me, Image(s) reviewed by me Problem List/Assessment/Plan Problem List/Assessment/Plan Intractable left hip pain Pain left gluteal region likely hematoma History of left hip fracture s/p ORIF Chronic low-back pain and spine surgery Leukocytosis likely reactive secondary to pain In ER patient received [place]. x-ray pelvis(08/28/2025)- There is no evidence of acute fracture or dislocation. Multiple surgical screws in the left hip. Thoracolumbar spinal hardware. CT abdomen and pelvis: Significant masslike soft tissue density with asymmetric swelling of the left gluteus medius muscle belly measuring 10.6 x 4.6 cm. Consideration for neoplastic disease versus hematoma. Pain managed Repeat x-ray left hip and pelvis Bedrest Physical therapy MRI left hip to rule out hematoma. Monitor H&H Blood transfusion if hemoglobin less than 7 Monitor labs and vital Surgery Consult : Advising active bleeding is highly unlikely, hematoma we will reabsorb with time CT cervical and lumbar spine Left breast mass with left axillary lymphadenopathy CT abdomen and pelvis showed-Left lateral breast mass with axillary lymphadenopathy Patient scheduled for biopsy. Left pleural effusion Monitor Nonocclusive thrombus right mid superficial femoral vein. Hold Eliquis for now due to suspected hematoma Severe anemia History of Anemia of chronic disease Ruled out active bleeding Hemoglobin 7.8, HCT 24.6, MCV 88.4, RDW 17.3 Hemoglobin 6.3 Blood transfusion ordered Transfusion refused due to patient being a Sabianism. Depression Bipolar disorder Quetiapine Divalproex Psychiatry follow-up outpatient-private psychiatrist Diet: Regular DVT prophylax: SCD due to suspected hematoma left gluteal GI prophylaxis: Pantoprazole Goals of care : DNR Case discussed with Dr. Rawls Plan discussed with: Patient, Other (RN) My Orders My Orders Orders - RENÉ HANSEN RESDICOLLINS Procedure Category Date Status Time Hydromorphone PHA 09/13/25 In Process Injection (Dilaudid 11:45 Pt Request For Service PT 09/13/25 Logged 11:32 Hydrocodone-Acet PHA 09/13/25 In Process 10/325mg Tab ([place] 18:00 Acetaminophen Tablet PHA 09/13/25 In Process (Tylenol Tablet) 18:00 Visit Coding STANDARD RES Billing Provider: DWAIN RAWLS DO Date of Service if different f: Sep 13, 2025 Common Visit Codes: [id number] INP/OBS CARE(HIGH) RENÉ HANSEN RESDIENT Sep 13, 2025 15:27 DWAIN RAWLS DO Sep 14, 2025 21:24
[2025-09-13 16:32] VITALS: BP 118/68; PULSE 79; RESP 17; TEMP 97.9; O2SAT 91
[2025-09-13] MEDS: HYDROcodone-ACET 10/325MG TAB PO SCH (18:00)
[2025-09-13] MEDS: ACETAMINOPHEN 325 MG TAB PO SCH (18:47)
[2025-09-13 20:00] VITALS: PULSE 9; RESP 18; O2SAT 98
[2025-09-13 21:00] VITALS: BP 126/65; PULSE 89; RESP 18; TEMP 98.2; O2SAT 90
[2025-09-13] MEDS: EPOETIN ALFA-EPBX 4,000 UNIT/ML VIAL SC ONE (21:44)
[2025-09-14 05:00] VITALS: BP 133/60; PULSE 90; RESP 18; TEMP 97.7; O2SAT 92
[2025-09-14 06:43] LABS: Hemoglobin 7.2 g/dL (12.2-16.2); Nucleated Red Blood Cells % 0.0 %
[2025-09-14 06:45] LABS: Hematocrit 23.5 % (36.0-46.0); Mean Corpuscular Hemoglobin 27.2 pg (28.0-32.0); Mean Corpuscular Volume 88.4 fL (80.0-100.0)
[2025-09-14 06:56] LABS: Alkaline Phosphatase 107 U/L (46-116); Anion Gap 7 (5-15); BUN/Creatinine Ratio 15.6 (10.0-20.0); Blood Urea Nitrogen 10 mg/dL (9-23); Carbon Dioxide 27 mmol/L (20-31); Glucose 82 mg/dL (74-106); Potassium 4.1 mmol/L (3.5-5.1); Sodium 141 mmol/L (136-145); Total Protein 5.9 g/dL (5.7-8.2)
[2025-09-14 06:58] LABS: Alanine Aminotransferase < 9 U/L (7-40); Albumin 2.8 g/dL (3.2-4.8); Bilirubin, Total 0.2 mg/dL (0.2-1.0); Calcium 8.2 mg/dL (8.7-10.4); Chloride 107 mmol/L (98-107)
[2025-09-14 09:00] VITALS: BP 128/59; PULSE 84; RESP 20; TEMP 98.3; O2SAT 95
--- NOTE | 2025-09-14 11:25 | DVHINCON2 ---
Consultation - Surgical Date Seen: Sep 14, 2025 Referring Physician Referring Physician Attending Doctor: Ammon William Resident Resident Creating Document: ZAIN JOSUE Reason for Consultation back pain History of Present Illness History of Present Illness History of Present Illness This is a 74-year-old female with past medical history of HTN, questionable CAD, hypothyroidism, GERD, history of cervical cancer, DVT, left hip and pelvic surgery, bilateral hearing difficulty brought by EMS due to left hip pain which is 10/10 intensity, localized, no radiation, aggravated on movement and mild relieved on rest. Patient recently discharged on 09/02/2025 due to recurrent fall. Patient discharged with Eliquis due to DVT and with pain medication. 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 Denies any fall or trauma after discharge from hospital. Patient had left hip surgery on April 10, 2025 and placed in [facility]. During discharge, patient found left axillary lump and scheduled for biopsy to rule out malignancy. During encounter in ER, patient complained of severe left hip pain but denies any fever, chest pain, headache, SOB, abdominal pain or any other focal weakness. Patient did not follow-up with pain management or psychiatrist. 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 Past Medical/Surgical History Past Medical/Surgical History Past medical: HTN, questionable CAD, hypothyroidism, GERD, history of cervical cancer, DVT Past surgical history: eft hip surgery on April 10, 2025, pelvic surgery. Patient has also had cervical spine surgery anterior cervical diskectomy and fusion, and she has had extensive thoracolumbar fusion surgery in the past with multiple areas of kyphoplasty. Family and Social History Family and Social History Personal history: Denies smoking or illicit drug use but ETOH occasionally Family history: Nothing contributory Allergy: Aspirin, codeine, penicillins Allergies and medications Allergies: Coded Allergies: Aspirin (Verified Allergy, Unknown, 07/26/15) Codeine (Unverified Allergy, Unknown, 07/26/15) Penicillins (Verified Allergy, Unknown, 07/26/15) Valproic Acid (Verified Allergy, Unknown, itchiness, 09/10/25) depakene oral solution Home Meds Active Scripts Apixaban Base (ELIQUIS) 5 Mg Tab, 5 MG PO BID for 30 Days, #60 TAB STARTING FROM 09/09/2025 Prov:BON UMANZOR MD 09/02/25 Apixaban Base (ELIQUIS) 5 Mg Tab, 10 MG PO BID for 6 Days, #24 TAB 10MG BID X 7 DAYS THEN 5MG PO BID FOR AT LEAST 6 MONTHS FOR DVT/PE TREATMENT Prov:BON UMANZOR MD 09/02/25 Cephalexin Monohydrate (Cephalexin) 500 Mg Cap, 1 CAP PO TID for 5 Days, #15 CAP Prov:BON UMANZOR MD 09/02/25 Reported Medications Alprazolam (Xanax) 0.25 Mg Tb, 1 TAB PO DAILY, #30 TAB 07/26/15 Carisoprodol (Soma) 350 Mg Tab, 350 MG PO BID, TAB 07/26/15 Hydrocodone-Acetaminophen (Tracy 5/325MG) 1 Tab Tb, 1 TAB PO TIDP PRN for MODERATE PAIN, #90 TAB 07/26/15 Esomeprazole Magnesium Trihydr (Nexium) 40 Mg Cap, 1 CAP PO DAILY, #30 CAP 5 Refills 07/26/15 Levothyroxine Sodium (Levothyroxine Sodium) 88 Mcg Tab, 1 TAB PO QAM, #30 TAB 5 Refills 07/26/15 Adalimumab (Humira Pen) 40MG/0.8 Kit, 1 0.8 SC EOW, KIT 07/26/15 Ziprasidone Hydrochloride (Geodon) 80 Mg Cap, 1 CAP PO BID, #60 CAP 1 Refill 07/26/15 Cyclobenzaprine Hcl (Flexeril) 5 Mg Tab, 1 TAB PO TID, #90 TAB 07/26/15 Clonazepam (KlonoPIN TABLET) 0.5 Mg Tb, 1 TAB PO BID, #60 TAB 1 Refill 07/26/15 Buspirone Hcl (Buspirone Hcl) 15 Mg Tab, 30 MG PO BID, TAB 07/26/15 Lubiprostone (Amitiza) 8 Mcg Cap, 1 CAP PO DAILY, #60 CAP 5 Refills 07/26/15 Trazodone Hcl (Desyrel) 50 Mg Tb, 100 MG PO TID 03/27/14 Furosemide (LASIX TABLET) 40 Mg Tb, 20 MG PO DAILY 03/27/14 Duloxetine Hcl (Cymbalta) 60 Mg Cap, 60 MG PO DAILY, CAP 03/27/14 Omeprazole (PRILOSEC) 20 Mg Cap, 40 MG PO DAILY, CAP 03/27/14 Methotrexate (Methotrexate) 2.5 Mg Tab, 2.5 MG PO, TAB TAKE 6 TABLETS EVERY WEEK 03/27/14 Rosuvastatin Calcium (Crestor) 20 Mg Tab, 20 MG PO HS, TAB 03/27/14 Folic Acid (Folic Acid) 1 Mg Tab, 1 MG PO DAILY, TAB 03/27/14 Hydroxyzine Hcl (Hydroxyzine Hcl) 50 Mg Tab, 25 MG PO TID, TAB 03/27/14 Triamterene & Hydrochlorothiaz (Maxzide) 1 Tab Tab, 1 TAB PO DAILY, TAB 37.5 - 25 03/27/14 Olanzapine (Zyprexa) 5 Mg Tab, 15 MG OR HS 09/20/11 Liothyronine Sodium (Cytomel) 5 Mcg Tab, 5 MCG OR BID 09/20/11 Review of systems Review of Systems: MSK:Abnormal (back pain) Examination Vital signs Imaging: ORDERING PHYSICIAN: AMMON WILLIAM RESIDENT PROCEDURE(s): CS2 - CERVICAL WITHOUT CONTRAST REASON: h/o spine instrumentation, intractable back pain ORDER NUMBER(s): [id number], ACCESSION NUMBER(s): [id number] EXAM: CT CERVICAL WITHOUT CONTRAST INDICATION: h/o spine instrumentation, intractable back pain TECHNIQUE: Non contrast axial images of the cervical spine have been obtained with coronal and sagittal reformatted images. CT scans at this facility use dose modulation, iterative reconstruction, and/or weight based dosing when appropriate to reduce radiation dose to as low as reasonably achievable. COMPARISON: None FINDINGS: ANATOMY: Cervical lordosis is maintained. VERTEBRAL BODIES: Status post prior anterior cervical discectomy and fusion across C5-6. No osseous lucency along the hardware bone interfaces. No perihardware fracture. Degenerative change centered at C3-4 and C4-5 with small posterior disc osteophyte complexes and uncovertebral spurring. Subsequent suspected asymmetric right-sided bony foraminal narrowing at C3-4 and C4-5. Minimal facet degenerative change. The vertebral bodies are normal in height and alignment. The dens is intact, the lateral masses of C1 are normally aligned, and the atlantodental interval is normal for age. SPINAL CANAL: No significant spinal canal stenosis. INTERVERTEBRAL DISCS: No CT findings to suggest traumatic disc herniation or acute hematoma. SOFT TISSUES: There is no prevertebral soft tissue swelling. Small amount of fluid in the right posterior inferior mastoid air cells. Vascular calcifications. OTHER: Partially visualized posterior fusion hardware in the thoracic spine. The partially visualized lung apices are clear. IMPRESSION: 1. No acute cervical spine fracture or malalignment. 2. Status post prior anterior cervical discectomy and fusion across C5-6. 3. Degenerative change centered at C3-4 and C4-5 with small posterior disc osteophyte complexes and uncovertebral spurring. 4. Subsequent suspected asymmetric right-sided bony foraminal narrowing at C3-4 and C4-5. RING PHYSICIAN: AMMON WILLIAM PROCEDURE(s): LS2CT - LS SPINE WO CONTRAST REASON: Intractable back pain, history of spine instrumentation ORDER NUMBER(s): [id number], ACCESSION NUMBER(s): [id number] EXAM: CT LS SPINE WO CONTRAST INDICATION: Intractable back pain, history of spine instrumentation TECHNIQUE: Axial images of the lumbar spine have been obtained along with coronal and sagittal reformatted images. CT scans at this facility use dose modulation, iterative reconstruction, and/or weight based dosing when appropriate to reduce radiation dose to as low as reasonably achievable. COMPARISON: CT LS SPINE WO CONTRAST on DOS: 05/16/24 FINDINGS: ANATOMY: Five lumbar-type vertebral bodies are present. The most inferior well- formed disc space will be referred to as L5-S1 for purposes of numbering in this report. VERTEBRAL BODIES: Thoracolumbosacral extensive fusion. Minimal superior endplate height loss measuring 10 percent T12. Significant sagittally oriented complete vertebral body fracture primarily through the mid and right aspect of the L3 vertebral body centered along the margin of the cement and pedicle screw of L3 (series 601, image 29). Bone graft material along the extensive areas of hardware placement. The vertebral bodies are normal in alignment. SPINAL CANAL: Evidence of posterior decompression of L1-L5. INTERVERTEBRAL DISCS: No significant posterior osteophyte complex. FACETS: Multilevel mild to moderate facet arthropathy. OTHER: IVC filter in place. Small bilateral pleural effusions. Vascular calcifications. [id number] stool burden correlate for constipation. Stool distention of the lower rectum. IMPRESSION: 1. Significant sagittally oriented complete vertebral body fracture primarily through the mid and right aspect of the L3 vertebral body centered along the margin of the cement and pedicle screw of L3. 2. Minimal superior endplate height loss measuring 10 percent T12. Vital Signs Date Time Temp Pulse Resp B/P (MAP) Pulse Ox O2 Delivery O2 Flow Rate FiO2 09/14/25 09:00 98.3 84 20 128/59 (82) 95 98.3 09/13/25 20:00 Room Air* 0 21 Medications Current Medications Medications (Trade) Dose Ordered Sig/Lydia Route PRN Reason Start Time Stop Time Status Last Admin Acetaminophen (Tylenol Tablet) 650 mg Q6HR PO 09/13/25 12:00 09/13/25 12:27 DC Acetaminophen/ Hydrocodone Bitart (Tracy 10/325MG Tab) 1 tab Q6HR PO 09/13/25 12:00 09/13/25 12:25 DC Hydromorphone HCl (Dilaudid Injection) 0.5 mg Q4HPRN PRN IV PAIN SCALE 7 THRU 10 09/13/25 11:45 09/14/25 04:06 Acetaminophen/ Hydrocodone Bitart (Tracy 10/325MG Tab) 1 tab Q6HR PO 09/13/25 18:00 09/14/25 05:41 Acetaminophen (Tylenol Tablet) 325 mg Q6HR PO 09/13/25 18:00 09/14/25 05:41 Laboratory Labs Test 09/14/25 06:18 09/13/25 11:42 09/11/25 14:23 09/10/25 06:12 Range/Units White Blood Count 7.4 4.4-10.8 10^3/uL Red Blood Count 2.66 L 4.0-5.20 10^6/uL Hemoglobin 7.2 L 12.2-16.2 g/dL Hematocrit 23.5 L 36.0-46.0 % Mean Corpuscular Volume 88.4 80.0-100.0 fL Mean Corpuscular Hemoglobin 27.2 L 28.0-32.0 pg Mean Corpuscular Hemoglobin Concent 30.7 L 32.0-36.0 g/dL Red Cell Distribution Width 17.5 H 11.8-14.3 % Platelet Count 623 H 140-450 10^3/uL Mean Platelet Volume 8.3 6.9-10.8 fL Neutrophils (%) (Auto) 66.7 37.0-80.0 % Lymphocytes (%) (Auto) 20.0 10.0-50.0 % Monocytes (%) (Auto) 10.1 0.0-12.0 % Eosinophils (%) (Auto) 2.4 0.0-7.0 % Basophils (%) (Auto) 0.8 0.0-2.0 % Neutrophils # (Auto) 4.9 1.6-8.6 10 ^3/uL Lymphocytes # (Auto) 1.5 0.4-5.4 10 ^3/uL Monocytes # (Auto) 0.8 0-1.3 10 ^3/uL Eosinophils # (Auto) 0.2 0-0.8 10 ^3/uL Basophils # (Auto) 0.1 0-0.2 10 ^3/uL Nucleated Red Blood Cells 0.0 % Sodium Level 141 136-145 mmol/L Potassium Level 4.1 3.5-5.1 mmol/L Chloride Level 107 98-107 mmol/L Carbon Dioxide Level 27 20-31 mmol/L Anion Gap 7 5-15 Blood Urea Nitrogen 10 9-23 mg/dL Creatinine 0.64 0.550-1.02 mg/dL Glomerular Filtration Rate Calc 92 >90 mL/min BUN/Creatinine Ratio 15.6 10.0-20.0 Serum Glucose 82 74-106 mg/dL Calcium Level 8.2 L 8.7-10.4 mg/dL Total Bilirubin 0.2 0.2-1.0 mg/dL Aspartate Amino Transferase (AST) 14 13-40 U/L Alanine Aminotransferase (ALT) < 9 7-40 U/L Alkaline Phosphatase 107 46-116 U/L Total Protein 5.9 5.7-8.2 g/dL Albumin 2.8 L 3.2-4.8 g/dL Differential Total Cells Counted 100.0 100 Neutrophils % (Manual) 60 37.0-80.0 Band Neutrophils % (Manual) 1 Lymphocytes % (Manual) 26 10.0-50.0 Monocytes % (Manual) 11 0-12 Eosinophils % (Manual) 0 0-7 Basophils % (Manual) 0 0.0-2.0 Metamyelocytes % (manual) 0 Myelocytes % (Manual) 2 Promyelocytes % (Manual) 0 Blast Cells % (Manual) 0 Reactive Lymphocytes 0 Platelet Estimate Increa Large Platelets Few Poikilocytosis (manual) Slight Tear Drop Cells Few Ovalocytes Few Troponin I High Sensitivity 38 *H </=34 ng/L Reticulocyte Count (auto) 2.35 H 0.5-1.5 % Test 09/08/25 15:08 09/08/25 06:23 09/08/25 05:14 09/07/25 23:15 Range/Units Iron Level 16 L 50-170 ug/dL Total Iron Binding Capacity 194 L 250-425 ug/dL Percent Iron Saturation 8.2 L 15-50 % Ferritin 130.7 10-291 ng/mL Urine Color Light-yellow Yellow Urine Clarity Clear Clear Urine pH 6.0 5.0-9.0 Urine Specific Odell 1.018 1.001-1.035 Urine Protein Trace H Negative Urine Ketones 1+ H Negative Urine Blood Negative Negative /uL Urine Nitrite 2+ H Negative Urine Bilirubin Negative Negative Urine Urobilinogen Normal Negative mg/dL Urine Leukocyte Esterase 1+ Negative /uL Urine RBC <1 0 - 4 /hpf Urine Microscopic WBC 53 H 0-5 /HPF Urine Squamous Epithelial Cells None seen <5 /hpf Urine Bacteria Few H None Seen /hpf Urine Glucose Normal Normal mg/dL Hemoglobin A1c < 3.8 <5.7 % A1C Prothrombin Time 12.0 H 9.3-11.8 sec Prothrombin Time INR 1.15 0.9-1.15 Activated Partial Thromboplast Time 38.8 H 24.5-34.5 SEC Lactic Acid Level 0.9 0.4-2.0 mmol/L Vitamin B12 Level 518 211-911 pg/mL Vitamin D 25-Hydroxy 34.8 30.0-100 ng/mL Microbiology Date/Time Source Procedure Growth Status 09/08/25 06:23 Urine - [place] Urine Culture - Final Complete Examination: GENERAL:Normal, HEENT:Normal, NECK:Normal, LUNGS:Normal, CVS:Normal, ABDOMEN:Normal, MSK:Abnormal (back pain, left hip pain), SKIN:Normal, NEURO:Normal, :Normal Problem List/Assessment/Plan Problems: (1) Lumbar compression fracture (2) Lumbar post-laminectomy syndrome Assessment and Plan Significant sagittally oriented complete vertebral body fracture primarily through the mid and right aspect of the L3 vertebral body centered along the margin of the cement and pedicle screw of L3. Patient currently has a significant thoracolumbar fusion that transfuser says the L3 vertebral body the which is fractured. At this time conservative management is recommended with a TLSO brace and we agree that the following plan recommended by the Surgical consult be followed and has higher priority over the L3 fracture. Once the below recommendations made by General surgery have been completed it is recommended the patient follow up with her surgeon who placed her extensive thoracolumbar fusion for definitive treatment of her L3 fracture. Spine recommends compliance with the below surgical recommendations 1. Reverse anticoagulation with for factor PCC or with and Andexanet alpha 2. CT with IV contrast to assess active bleeding 3. If patient is actively bleeding in the left gluteal area she will need IR consultation for possible embolization. 4. Hold any antiplatelets or any anticoagulation medications 5. Recommend workup for recurrent falls carotid ultrasound and CTA of the brain 6. Transfused PRN 7. For the left breast mass with axillary adenopathy I recommend obtaining a breast ultrasound and a mammogram Continue care and support per admitting team's discretion TLSO brace, Physical therapy evaluation without beace first then don brace and reassess, treatment recommendations and safe discharge planning recommendations Effective pain management including muscle relaxers if the patient is complaining of muscle spasms Discussed treatment option with the patient, patient informed that wearing a brace is the treatment which is recommended at this time with follow up with her neurosurgeon. Call with questions Saul Cantu [facility] Orthopaedic Spine Surgery nurse practitioner For Dr Marilia Levin Patient was examined, chart reviewed, labs evaluated, and diagnostic studies and findings analyzed. Case was discussed with Dr. Ankit Levin who formulated the plan of care. This medical document was created using an electronic medical record system with [employer] dictation system. Although this document has been carefully reviewed, there might still be some phonetic and typographical errors. These areas are purely typographical due to imperfections of the software programs, and do not reflect any compromise in the patient's medical care. Plan discussed with Plan discussed with: Patient, Other Visit Coding Surgery Date of Service if different f: Sep 14, 2025 Billing Provider: ANDREE CANTU NP Surgery Visit Codes: 33756 - INP CONSULT <80 MIN ANDREE CANTU NP Sep 14, 2025 11:25
[2025-09-14 12:40] VITALS: BP 115/63; PULSE 83; RESP 20; TEMP 98.3; O2SAT 90
[2025-09-14] MEDS: FOLIC ACID 1 MG TAB PO SCH (13:26)
--- NOTE | 2025-09-14 16:50 | DVHPNRES ---
Progress Note Date Seen: Sep 14, 2025 Resident Creating Document: AMMON APARICIO RESIDENT Medical Necessity Reason Pt with a Central, PICC or Fol: No Subjective Review of Systems Patient seen at bedside. Hemoglobin 7.2. Spine surgery consulted for lumbar spine fracture. This is a 74-year-old female with past medical history of HTN, questionable CAD, hypothyroidism, GERD, history of cervical cancer, DVT, left hip and pelvic surgery, bilateral hearing difficulty brought by EMS due to left hip pain which is 10/10 intensity, localized, no radiation, aggravated on movement and mild relieved on rest. Patient recently discharged on 09/02/2025 due to recurrent fall. Patient discharged with Eliquis due to DVT and with pain medication. 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 Denies any fall or trauma after discharge from hospital. Patient had left hip surgery on April 10, 2025 [facility] During discharge, patient found left axillary lump and scheduled for biopsy to rule out malignancy. During encounter in ER, patient complained of severe left hip pain but denies any fever, chest pain, headache, SOB, abdominal pain or any other focal weakness. For Health insurance issues, patient did not follow-up with pain management or psychiatrist. 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 Past medical: As above Past surgical history: As above Personal history: Denies smoking or illicit drug use but ETOH occasionally Family history: Nothing contributory Allergy: Aspirin, codeine, penicillins PCP: Dr. Du Home medicine: Linaclotide, gabapentin, lurasidone vitamin D3, ibuprofen, divalproex, quetiapine Eliquis Objective vital signs Vital Sign Date Time Temp Pulse Resp B/P (MAP) Pulse Ox O2 Delivery O2 Flow Rate FiO2 09/14/25 15:47 82 16 124/63 09/14/25 12:40 98.3 90 98.3 09/14/25 08:00 Room Air* 0 21 Total Intake and Output 09/13/25 09/13/25 09/14/25 15:00 23:00 07:00 Intake Total 480 ml 450 ml Output Total 1900 ml 1200 ml Balance -1420 ml -750 ml medications Current Medications Medications Dose Ordered Sig/Lydia Route Start Time Stop Time Status Last Admin Dose Admin Pantoprazole Sodium 40 mg DAILY@0600 PO 09/08/25 06:00 09/14/25 05:41 40 MG Quetiapine Fumarate 200 mg HS PO 09/08/25 22:00 09/13/25 21:44 200 MG Levothyroxine Sodium 88 mcg QAM PO 09/08/25 07:00 09/14/25 05:41 88 MCG Sodium Chloride 1,000 ml @ 75 mls/hr [id number] IV 09/08/25 04:00 09/14/25 11:19 75 MLS/HR Diphenhydramine HCl 25 mg Q6HP PRN IV 09/09/25 21:00 Divalproex Sodium 250 mg TID PO 09/09/25 22:00 09/14/25 14:47 250 MG Ceftriaxone Sodium 50 ml @ 100 mls/hr DAILY@09 IV 09/11/25 09:00 09/14/25 09:00 100 MLS/HR Gabapentin 400 mg TID PO 09/10/25 15:15 09/14/25 13:26 400 MG Hydromorphone HCl 0.5 mg Q4HPRN PRN IV 09/13/25 11:45 09/14/25 15:47 0.5 MG Acetaminophen/ Hydrocodone Bitart 1 tab Q6HR PO 09/13/25 18:00 09/14/25 13:27 1 TAB Acetaminophen 325 mg Q6HR PO 09/13/25 18:00 09/14/25 13:27 325 MG Folic Acid 1 mg DAILY PO 09/14/25 11:45 09/14/25 13:26 1 MG Examination General Appearance: Alert, Oriented X3, moderate distress, Other (Hearing difficulty) HEENT: Atraumatic, PERRLA, EOMI Respiratory: Clear to auscultation, Normal air movement Cardiovascular: Regular rate, Normal S1, Normal S2 Abdominal: Normal bowel sounds, Soft, No tenderness, No hepatospenomegaly Extremities: No clubbing, No edema, Other (Left hip and gluteal area tender on deep palpation) Skin: No rashes, No breakdown Neuro: Normal gait, Normal speech, Strength at 5/5 X4 ext, Cranial nerves 3-12 NL, Other laboratory and microbiology Laboratory Tests 09/14/25 06:18 Test 09/14/25 06:18 Range/Units Serum Glucose 82 74-106 mg/dL Microbiology Date/Time Source Procedure Growth Status 09/08/25 06:23 Urine - [place] Urine Culture - Final Complete Problem List/Assessment/Plan Problem List/Assessment/Plan Assessment/Plan Intractable left hip pain Pain left gluteal region likely hematoma History of left hip fracture s/p ORIF Chronic low-back pain and spine surgery Leukocytosis likely reactive secondary to pain In ER patient received Leroy. x-ray pelvis(08/28/2025)- There is no evidence of acute fracture or dislocation. Multiple surgical screws in the left hip. Thoracolumbar spinal hardware. CT abdomen and pelvis: Significant masslike soft tissue density with asymmetric swelling of the left gluteus medius muscle belly measuring 10.6 x 4.6 cm. Consideration for neoplastic disease versus hematoma. Pain managed Repeat x-ray left hip and pelvis Bedrest Physical therapy MRI left hip to rule out hematoma. Monitor H&H Blood transfusion if hemoglobin less than 7 Monitor labs and vital Surgery Consult : Advising active bleeding is highly unlikely, hematoma we will reabsorb with time CT cervical and lumbar spine Left breast mass with left axillary lymphadenopathy CT abdomen and pelvis showed-Left lateral breast mass with axillary lymphadenopathy Patient scheduled for biopsy. Left pleural effusion Monitor Nonocclusive thrombus right mid superficial femoral vein. Hold Eliquis for now due to suspected hematoma Severe anemia History of Anemia of chronic disease Ruled out active bleeding Hemoglobin 7.8, HCT 24.6, MCV 88.4, RDW 17.3 Hemoglobin 6.3 Blood transfusion ordered Transfusion refused due to patient being a Sikhism. Depression Bipolar disorder Quetiapine Divalproex Psychiatry follow-up outpatient-private psychiatrist Diet: Regular DVT prophylax: SCD due to suspected hematoma left gluteal GI prophylaxis: Pantoprazole Goals of care : DNR Case discussed with Dr. Strauss Plan discussed with: Patient My Orders My Orders Orders - AMMON APARICIO RESIDENT Procedure Category Date Status Time Folic Acid Tablet PHA 09/14/25 In Process 11:45 Dme: [facility] 09/14/25 Transmitted 15:31 Complete Blood Count LAB 09/15/25 Verified 04:00 Comprehensive LAB 09/15/25 Verified Metabolic Panel 04:00 Dietary Evaluation Review Comments: Nutrition Recommendation: 1) Ensure High Protein 240ml BID if PO intake <50% 2) Monitor PO intake, lab values, weight trend, and I/O Expected Outcomes/Goals: Intake to meet >75% estimated needs FU 3-5 days Date of Service: Sep 14, 2025 Billing Provider: DAMION CLAIRE MD Common Visit Codes: [id number] INP/OBS CARE(HIGH) AMMON APARICIO RESIDENT Sep 14, 2025 16:50
[2025-09-14 17:00] VITALS: BP 124/63; PULSE 80; RESP 20; TEMP 98.3; O2SAT 91
[2025-09-14 20:00] VITALS: PULSE 83; RESP 18; O2SAT 98
[2025-09-14 21:00] VITALS: BP 112/56; PULSE 83; RESP 18; TEMP 98; O2SAT 95
[2025-09-15 05:00] VITALS: BP 133/61; PULSE 86; RESP 17; TEMP 98.3; O2SAT 93
[2025-09-15 06:56] LABS: Hemoglobin 8.0 g/dL (12.2-16.2)
[2025-09-15 06:58] LABS: Hematocrit 25.9 % (36.0-46.0); Mean Corpuscular Hemoglobin 27.9 pg (28.0-32.0); Mean Corpuscular Volume 89.9 fL (80.0-100.0); Nucleated Red Blood Cells % 0.1 %
[2025-09-15 07:23] LABS: Anion Gap 10 (5-15); BUN/Creatinine Ratio 14.8 (10.0-20.0); Blood Urea Nitrogen 9 mg/dL (9-23); Carbon Dioxide 27 mmol/L (20-31); Chloride 103 mmol/L (98-107); Glucose 89 mg/dL (74-106); Potassium 3.9 mmol/L (3.5-5.1); Sodium 140 mmol/L (136-145); Total Protein 6.5 g/dL (5.7-8.2)
[2025-09-15 07:25] LABS: Alanine Aminotransferase < 9 U/L (7-40); Albumin 3.1 g/dL (3.2-4.8); Alkaline Phosphatase 116 U/L (46-116); Bilirubin, Total 0.2 mg/dL (0.2-1.0); Calcium 8.5 mg/dL (8.7-10.4)
[2025-09-15 09:00] VITALS: BP 124/67; PULSE 88; RESP 18; TEMP 98.6; O2SAT 89
[2025-09-15 13:00] VITALS: BP 118/56; PULSE 95; RESP 18; TEMP 98.4; O2SAT 90
[2025-09-15] MEDS ORDERED: FAMO20TA10 PO (15:45)
[2025-09-15] MEDS ORDERED: DOXY1CAP58 PO (15:45)
--- NOTE | 2025-09-15 16:10 | DVHDSRES ---
Discharge Summary Date of Admission Resident Creating Document: AMMON APARICIO RESIDENT Sep 07, 2025 at 23:22 Date of Discharge: Sep 15, 2025 Labs/Diagnostic Data: Laboratory Results Test 09/15/25 05:54 09/13/25 11:42 09/11/25 14:23 09/10/25 06:12 White Blood Count 7.5 10^3/uL (4.4-10.8) Red Blood Count 2.88 10^6/uL (4.0-5.20) Hemoglobin 8.0 g/dL (12.2-16.2) Hematocrit 25.9 % (36.0-46.0) Mean Corpuscular Volume 89.9 fL (80.0-100.0) Mean Corpuscular Hemoglobin 27.9 pg (28.0-32.0) Mean Corpuscular Hemoglobin Concent 31.0 g/dL (32.0-36.0) Red Cell Distribution Width 17.9 % (11.8-14.3) Platelet Count 713 10^3/uL (140-450) Mean Platelet Volume 8.5 fL (6.9-10.8) Neutrophils (%) (Auto) 66.8 % (37.0-80.0) Lymphocytes (%) (Auto) 20.0 % (10.0-50.0) Monocytes (%) (Auto) 10.3 % (0.0-12.0) Eosinophils (%) (Auto) 2.3 % (0.0-7.0) Basophils (%) (Auto) 0.6 % (0.0-2.0) Neutrophils # (Auto) 5.0 10 ^3/uL (1.6-8.6) Lymphocytes # (Auto) 1.5 10 ^3/uL (0.4-5.4) Monocytes # (Auto) 0.8 10 ^3/uL (0-1.3) Eosinophils # (Auto) 0.2 10 ^3/uL (0-0.8) Basophils # (Auto) 0 10 ^3/uL (0-0.2) Nucleated Red Blood Cells 0.1 % Sodium Level 140 mmol/L (136-145) Potassium Level 3.9 mmol/L (3.5-5.1) Chloride Level 103 mmol/L (98-107) Carbon Dioxide Level 27 mmol/L (20-31) Anion Gap 10 (5-15) Blood Urea Nitrogen 9 mg/dL (9-23) Creatinine 0.61 mg/dL (0.550-1.02) Glomerular Filtration Rate Calc 93 mL/min (>90) BUN/Creatinine Ratio 14.8 (10.0-20.0) Serum Glucose 89 mg/dL (74-106) Calcium Level 8.5 mg/dL (8.7-10.4) Total Bilirubin 0.2 mg/dL (0.2-1.0) Aspartate Amino Transferase (AST) 17 U/L (13-40) Alanine Aminotransferase (ALT) < 9 U/L (7-40) Alkaline Phosphatase 116 U/L (46-116) Total Protein 6.5 g/dL (5.7-8.2) Albumin 3.1 g/dL (3.2-4.8) Differential Total Cells Counted 100.0 (100) Neutrophils % (Manual) 60 (37.0-80.0) Band Neutrophils % (Manual) 1 Lymphocytes % (Manual) 26 (10.0-50.0) Monocytes % (Manual) 11 (0-12) Eosinophils % (Manual) 0 (0-7) Basophils % (Manual) 0 (0.0-2.0) Metamyelocytes % (manual) 0 Myelocytes % (Manual) 2 Promyelocytes % (Manual) 0 Blast Cells % (Manual) 0 Reactive Lymphocytes 0 Platelet Estimate Increa Large Platelets Few Poikilocytosis (manual) Slight Tear Drop Cells Few Ovalocytes Few Troponin I High Sensitivity 38 ng/L (</=34) Reticulocyte Count (auto) 2.35 % (0.5-1.5) Test 09/08/25 15:08 09/08/25 06:23 09/08/25 05:14 09/07/25 23:15 Iron Level 16 ug/dL (50-170) Total Iron Binding Capacity 194 ug/dL (250-425) Percent Iron Saturation 8.2 % (15-50) Ferritin 130.7 ng/mL (10-291) Urine Color Light-yellow (Yellow) Urine Clarity Clear (Clear) Urine pH 6.0 (5.0-9.0) Urine Specific [place] 1.018 (1.001-1.035) Urine Protein Trace (Negative) Urine Ketones 1+ (Negative) Urine Blood Negative /uL (Negative) Urine Nitrite 2+ (Negative) Urine Bilirubin Negative (Negative) Urine Urobilinogen Normal mg/dL (Negative) Urine Leukocyte Esterase 1+ /uL (Negative) Urine RBC <1 /hpf (0 - 4) Urine Microscopic WBC 53 /HPF (0-5) Urine Squamous Epithelial Cells None seen /hpf (<5) Urine Bacteria Few /hpf (None Seen) Urine Glucose Normal mg/dL (Normal) Hemoglobin A1c < 3.8 % A1C (<5.7) Prothrombin Time 12.0 sec (9.3-11.8) Prothrombin Time INR 1.15 (0.9-1.15) Activated Partial Thromboplast Time 38.8 SEC (24.5-34.5) Lactic Acid Level 0.9 mmol/L (0.4-2.0) Vitamin B12 Level 518 pg/mL (211-911) Vitamin D 25-Hydroxy 34.8 ng/mL (30.0-100) Other Laboratory Tests 09/15/25 05:54 Brief Hx & Hospital Course: This is a 74-year-old female with past medical history of HTN, questionable CAD, hypothyroidism, GERD, history of cervical cancer, DVT, left hip and pelvic surgery, bilateral hearing difficulty brought by EMS due to left hip pain which is 10/10 intensity, localized, no radiation, aggravated on movement and mild relieved on rest. Patient recently discharged on 09/02/2025 due to recurrent fall. Patient discharged with Eliquis due to DVT and with pain medication. 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 Denies any fall or trauma after discharge from hospital. Patient had left hip surgery on April 10, 2025 and placed in senior care. During discharge, patient found left axillary lump and scheduled for biopsy to rule out malignancy. During encounter in ER, patient complained of severe left hip pain but denies any fever, chest pain, headache, SOB, abdominal pain or any other focal weakness. For Health insurance issues, patient did not follow-up with pain management or psychiatrist.CT abdomen revealed left hip hematoma. , left-sided pleural effusion and left lateral breast mass with left axillary lymphadenopathy. Eliquis was held. She had severe anemia. Patient refused to accept blood since she was Mu-ism. she complained of back pain for which CT lumbar spine was done. It revealed significant sagittally oiented complete vertebral body fracture of the L3. spine surgery was consulted, brace order. They advised to consult orthopedician who did the previous spinal surgery for follow up. During the course of the hospitalization, the patient improved clinically and is hence being discharged. Discharge plan Follow up with PCP in 7 days for breast mass evaluation with ultrasound/ mammogram Follow up with spine surgery for vertebral fracture Follow-up with pain management Doxycycline 100 mg for 7 days Pepcid 20 mg continue home medications Condition at Discharge: Fair Final Diagnosis/Problems List Acute blood loss anemia Intractable left hip pain likely hematoma Severe anemia due to above Lumbar compression fracture Lumbar post-laminectomy syndrome Leukocytosis likely reactive secondary to pain Left breast mass with left axillary lymphadenopathy rule out cancer Left pleural effusion History of left hip fracture s/p ORIF Chronic low-back pain and spine surgery Nonocclusive thrombus right mid superficial femoral vein. History of Anemia of chronic disease Ruled out active bleeding Depression Bipolar disorder Discharge Disposition: Home Discharge Instruct/Medications Diet: Cardiac 2g Na,low cholest Activity: No Restrictions, As Tolerated Follow Up/Referral: Follow up with PCP in 7 days for breast mass and anemia evaluation Follow up with Dr. Tello(spine surgeon did the previous surgery) for lumbar spinal fracture in 7 days Follow-up with pain management Medications: Per EHR Scheduled Adalimumab (Humira Pen), 1 0.8 SC EOW, (Reported) Alprazolam (Xanax), 1 TAB PO DAILY, (Reported) Buspirone Hcl (Buspirone Hcl), 30 MG PO BID, (Reported) Carisoprodol (Soma), 350 MG PO BID, (Reported) Cyclobenzaprine Hcl (Flexeril), 1 TAB PO TID, (Reported) Doxycycline (Monohydrate) (Doxycycline), 100 MG PO BID Duloxetine Hcl (Cymbalta), 60 MG PO DAILY, (Reported) Esomeprazole Magnesium Trihydr (Nexium), 1 CAP PO DAILY, (Reported) Famotidine (Pepcid Tablet), 1 TAB PO DAILY Folic Acid (Folic Acid), 1 MG PO DAILY, (Reported) Furosemide (Lasix Tablet), 20 MG PO DAILY, (Reported) Hydroxyzine Hcl (Hydroxyzine Hcl), 25 MG PO TID, (Reported) Levothyroxine Sodium (Levothyroxine Sodium), 1 TAB PO QAM, (Reported) Liothyronine Sodium (Cytomel), 5 MCG OR BID, (Reported) Lubiprostone (Amitiza), 1 CAP PO DAILY, (Reported) Meclizine Hcl (Meclizine Hcl), 1 TAB PO TID Nitrofurantoin Monohydrate Mac (Macrobid), 100 MG PO BID Olanzapine (Zyprexa), 15 MG OR HS, (Reported) Omeprazole (Prilosec), 40 MG PO DAILY, (Reported) Rosuvastatin Calcium (Crestor), 20 MG PO HS, (Reported) Trazodone Hcl (Desyrel), 100 MG PO TID, (Reported) Triamterene & Hydrochlorothiaz (Maxzide), 1 TAB PO DAILY, (Reported) Ziprasidone Hydrochloride (Geodon), 1 CAP PO BID, (Reported) Scheduled PRN Hydrocodone-Acetaminophen ([place] 5/325MG), 1 TAB PO TIDP PRN for MODERATE PAIN, (Reported) Oxycodone W/ Acetaminophen (Percocet 5/325MG), 1 TAB PO QID PRN Miscellaneous Medications Methotrexate (Methotrexate), 2.5 MG PO, (Reported) Discontinued Medications Apixaban Base (Eliquis), 10 MG PO BID Apixaban Base (Eliquis), 5 MG PO BID Cephalexin Monohydrate (Cephalexin), 1 CAP PO TID Clonazepam (KlonoPIN TABLET), 1 TAB PO BID, (Reported) Discharge Statement: "Patient was advised to return to the ER or call 911 if any headaches, dizziness, shortness of breath, chest pain, abdominal pain, bleeding, fevers, or worsening of medical condition. Patient was counseled about treatment plan, medications, possible side effects, patientverbalized understanding. All questions were answered to the best of my ability. This discharge took greater then 30 minutes in planning, reviewing documentation, counseling the patient, and discussing with other team members." ASSESSMENT ASSESSMENT Assessment Left thigh hematoma Severe anemia Visit Coding STANDARD RES Billing Provider: DAMION CLAIRE MD Date of Service if different f: Sep 15, 2025 Common Visit Codes: 33944-DLL/OBS DISCH DAY >30min AMMON APARICIO Sep 15, 2025 16:10 DAMION CLAIRE MD Sep 18, 2025 10:01
[2025-09-15] MEDS ORDERED: OXYC-963 PO (16:25)
[2025-09-15 17:00] VITALS: BP 125/70; PULSE 93; RESP 19; TEMP 97.5; O2SAT 90
[2025-09-15] MEDS: methylPREDNISolone SOD SUCC 40 MG/ML VL IV ONE (17:33)
[2025-09-15 20:00] VITALS: PULSE 88; RESP 18; O2SAT 86
[2025-09-15 21:00] VITALS: BP 125/70; PULSE 88; RESP 18; TEMP 98.6; O2SAT 86
[2025-09-16 01:00] VITALS: BP 101/62; PULSE 71; RESP 17; TEMP 98; O2SAT 97
[2025-09-16 05:00] VITALS: BP 133/73; PULSE 71; RESP 18; TEMP 97.7; O2SAT 95
[2025-09-16 13:00] VITALS: BP 120/65; PULSE 73; RESP 20; TEMP 97.8; O2SAT 96
[2025-09-16] MEDS ORDERED: PERCOT PO (15:35)
== END 2025-09-16 18:30 | disposition home health service (06) | DRG 605 ==
LOC: EDUNIT# 17:46 → EDBD 17:46 → ER 17:46 → OVERFLOW 23:22 → WEST WING 09-08 18:47
PROVIDERS: ADMIT Student in an Organized Health Care Education/Training Program; ATTEND Student in an Organized Health Care Education/Training Program
DX: S70.02XA Contusion of left hip, initial encounter (principal); I82.411 Acute embolism and thrombosis of right femoral vein; J90 Pleural effusion, not elsewhere classified; Z66 Do not resuscitate; D63.8 Anemia in other chronic diseases classified elsewhere; Z79.01 Long term (current) use of anticoagulants; E03.9 Hypothyroidism, unspecified; F20.9 Schizophrenia, unspecified; I10 Essential (primary) hypertension; D72.829 Elevated white blood cell count, unspecified; F41.9 Anxiety disorder, unspecified; R26.2 Difficulty in walking, not elsewhere classified; K21.9 Gastro-esophageal reflux disease without esophagitis; I25.10 Atherosclerotic heart disease of native coronary artery without angina pectoris; F31.9 Bipolar disorder, unspecified; R59.0 Localized enlarged lymph nodes; Z88.6 Allergy status to analgesic agent; Z88.0 Allergy status to penicillin; Z79.1 Long term (current) use of non-steroidal anti-inflammatories (NSAID); Z85.41 Personal history of malignant neoplasm of cervix uteri; W18.39XA Other fall on same level, initial encounter; Y93.89 Activity, other specified; Y92.89 Other specified places as the place of occurrence of the external cause; Y99.8 Other external cause status
CPT/HCPCS: 36415; 72125; 72131; 73502; 73701; 74176; 80048; 80053; 81001; 82306; 82607; 82728; 83036; 83540; 83550; 83605; 84484; 85007; 85014; 85018; 85025; 85027; 85045; 85610; 85730; 86850; 86900; 86901; 86920; 87086; 93005; 97110; 97116; 97163; G0378; J1756; J2003; J7060